=== PATIENT | female | born 1955 | race Caucasian/White ===

== ENCOUNTER → 2018-11-04 | Day surgery (SDC) | payer OTHER ==
--- NOTE | 2018-11-05 16:17 | PATH ---
Cytology Non-Gynecological Report Patient Name: YASEMIN RIVERA [facility]. Rec. #: [id number] /Age/Gender: 1955 (Age: 63) / F Account: [id number] Location: RADIOLOGY INTER Taken: 11/04/2018 Received: 11/04/2018 Reported: 11/05/2018 Physicians: Brenton Child M.D. Specimen(s) Received LEFT THYROID FNA Clinical History Left thyroid nodule, 2.50 x 1.45 x 2.01 cm Final Diagnosis THYROID, LEFT, FINE NEEDLE ASPIRATION: SATISFACTORY FOR EVALUATION. BETHESDA CLASS II: BENIGN. CYTOLOGIC FINDINGS ARE CONSISTENT WITH A BENIGN FOLLICULAR NODULE. SMALL FOLLICULAR CELLS IN A BACKGROUND OF ABUNDANT COLLOID AND SCATTERED MACROPHAGES. Electronically Signed Tasia Robin M.D. Gross Description Received are eight direct smears, four of which are air-dried and Diff-Quik stained, and four of which are alcohol fixed and Pap stained. Also received is 20 ml of bloody formalin from which one cellblock is prepared.
== END | disposition home or self-care (01) ==
LOC: JRADIR 08:19
PROVIDERS: ATTEND Internal Medicine Endocrinology, Diabetes & Metabolism
PROC: 0G9K3ZX Drainage of Thyroid Gland, Percutaneous Approach, Diagnostic (ICD-10-PCS; principal; 2018-11-04)
DX: E04.1 Nontoxic single thyroid nodule (principal)
CPT/HCPCS: 10005; 76942; 88173; 88305-TC

== ENCOUNTER 2019-07-11 08:36 | Day surgery (SDC) | payer OTHER ==
[2019-07-11 09:32] VITALS: BMI 26.2
[2019-07-11] MEDS ORDERED: DEXAMETHASONE SOD PHOSPHATE/PF 10 MG/ML SDV ONE (10:47)
[2019-07-11] MEDS ORDERED: BUPIVACAINE HCL/PF 0.5% (5 MG/ML) 30 ML VIAL IJ ONE (10:48)
[2019-07-11] MEDS ORDERED: MIDAZOLAM HCL 2 MG/2 ML SINGLE DOSE VIAL ONE ×2 (10:48→11:48)
[2019-07-11] MEDS ORDERED: BUPIVACAINE HCL/PF 2.5 MG/ML - 30 ML VIAL IJ ONE (10:53)
--- NOTE | 2019-07-11 10:53 | HP ---
History & Physical Update - History History: Change (see notes) (Patient had a minor cough 1 week ago. She was evaluated by her PCP yesterday and I spoke to him personally. The cough has ressolved and the patient may proceed with surgery. I discussed this with anesthesia as well who agreed we can proceed with surgery) - Physical Physical: No Change - Assessment Assessment: No Change - Plan Plan: No Change
[2019-07-11] MEDS ORDERED: ceFAZolin SODIUM 1 GM VIAL ONE (11:48)
[2019-07-11] MEDS ORDERED: DEXAMETHASONE SOD PHOSPHATE 4 MG/1 ML VIAL ONE (11:49)
[2019-07-11] MEDS ORDERED: ONDANSETRON 4 MG/2 ML VIAL ONE (11:49)
[2019-07-11] MEDS ORDERED: PROPOFOL 20 ML ONE (12:02)
[2019-07-11] MEDS ORDERED: SUCCINYLCHOLINE CHLORIDE 200 MG/10 ML SYRINGE ONE (12:02)
[2019-07-11] MEDS ORDERED: BUPIVACAINE HCL/PF 0.25% (2.5MG/ML) 10 ML VIAL IJ ONE (12:35)
[2019-07-11] MEDS ORDERED: ONDANSETRON 4 MG/2 ML VIAL IVPUSH PRN (13:34)
[2019-07-11] MEDS ORDERED: oxyCODONE HCL 5 MG TABLET PO PRN (13:34)
[2019-07-11] MEDS ORDERED: LACTATED RINGERS SOLUTION 1,000 ML IV SCH (13:45)
[2019-07-11 15:20] VITALS: TEMP 98.1
--- NOTE | 2019-07-11 17:26 | OPR ---
Date of Procedure: 07/11/2019 Procedure: Left Shoulder- 1. Diagnostic arthroscopy. 2. Arthroscopic extensive debridement of glenohumeral joint (79509). 3. Arthroscopic-assisted biceps tenodesis-subpectoral (08159). 4. Arthroscopic subacromial decompression (20196). 5. Arthroscopic rotator cuff repair: Supraspinatus (26594). 6. Distal clavicle resection (81276, append 51 modifier). Preoperative Diagnoses: 1. Rotator cuff tear-Supraspinatus. 2. Biceps tendon degeneration. 3. Glenohumeral synovitis. 4. AC joint arthrosis Postoperative Diagnoses: 1. Rotator cuff tear- Supraspinatus. 2. Biceps tendon degeneration and tenosynovitis. 3. Labral degeneration and fraying; SLAP tear. 4. Chondromalacia of the glenohumeral joint. 5. Glenohumeral synovitis. 6. Subacromial bursitis and adhesions. Surgeon: Spencer Mayorga DO Assistants: Mark Kruse DO Anesthesia: General anesthesia, IV regional with interscalene nerve block Estimated Blood Loss: Minimal Drains: None Total IV Fluids: Per anesthesia record Specimens: None Implants: [employer] 4.5m FootPrint PEEK Buckner. Complications: None Disposition: PACU Condition: Hemodynamically stable Indications: Elissa Salinas presented to us with chronic left shoulder pain that failed conservative measures. Her symptoms, signs, and imaging were consistent with the above noted diagnoses. She ultimately elected to proceed with surgical intervention after discussion of the risks, benefits, alternatives. We discussed risks including but not limited to, bleeding, pain, infection, scarring, damage to neurovascular structures, blood clots, pulmonary embolus, need for additional surgery, incomplete relief of pain, and incomplete return of function. She expressed understanding and wished to proceed. She underwent preoperative medical evaluation clearance and optimization prior to surgery. Procedure Details: She was identified in the preoperative area. The left shoulder was marked as the operative site and consent was completed and confirmed. An interscalene block was performed by a member of the anesthesia team. She was later transferred to the operating room and placed in supine position the operating room. General anesthesia was induced without difficulty. She was repositioned into beach chair with all bony prominences appropriately padded. The neck was in neutral alignment. A surgical time-out was performed identifying the correct patient, procedure, and site. Antibiotics were given within 1 hour prior to surgical incision. The upper extremity was prepped and draped in standard sterile fashion. Examination under anesthesia: Passive range of motion of the right shoulder showed forward elevation of 170, abduction 100, external rotation at side 30, SABER 90, SABIR 40. This was compared to her contralateral shoulder which shows forward elevation of 170, abduction 100 external rotation at side 60, SABER 90, SABIR 40, and internal rotation to her mid thoracic spine. Diagnostic arthroscopy: We began the procedure with the standard posterolateral portal, entered the glenohumeral joint, and an anterior portal was made within the rotator cuff interval under direct visualization with the assistance of a spinal needle. A probe was used to assist with diagnostic arthroscopy and we visualized from both posteriorly and anteriorly. Evaluation of the glenohumeral joint showed mild to moderate synovitis anteriorly and superiorly. The superior labrum had a degenerative tear that was debrided back to a stable base. The anterior labrum was probed and found to be intact. The posterior labrum was probed and found to be intact. There were no loose bodies in the inferior pouch. There was no HAGL lesion. The biceps tendon showed hyperemia. The rotator cuff interval was scarred. The axillary recess was empty. The subscapularis was probed and found to be intact. The rotator cuff was frayed and found to be partially torn from the greater tuberosity. The articular surface of the infraspinatus and teres minor tendons were intact. The glenoid and humeral head showed grade I chondromalacia with significant chondral defects. Evaluation of the subacromial space showed moderate bursitis and adhesions. There was a small acromial spur anteriorly. There was fraying of the CA ligament. The AC joint was arthritis with joint space narrowing and spurring. The rotator cuff showed a high grade partial tear of the supraspinatus tendon, involveing over 75% of the tendon thickness. Arthroscopic extensive debridement of the glenohumeral joint: We used a combination of the arthroscopic motorized shaver and radiofrequency device to perform an extensive debridement inside the glenohumeral joint anteriorly and po steriorly. The hyperemia, erythema, and synovitis of the joint and joint capsule was aggressively debrided both anteriorly and posteriorly. Synovitic fronds were thermally ablated. Labral fraying and degeneration was also resected and debrided to a stable edge anteriorly. The biceps tendon was autotenotomized as it inserted into the superior labral complex and the remaining portion of the biceps tendon was allowed to retract into the bicipital groove for later tenodesis. Visualizing from posteriorly, we used the radiofrequency device to ablate and remove the scar tissue starting with the rotator cuff interval. We stayed lateral to the labrum, released the scar to the lateral surface of the coracoid, and then proceeded more laterally across the rotator interval, ablating the scar tissue all the way to the biceps deirdre region. The subscapularis tendon was identified and carefully protected. The scar above it including the ligaments and capsular tissue was ablated just lateral to the lab ral margin and the scar tissue was resected. Arthroscopic-assisted biceps tenodesis: We made a 2 cm incision along Judah's lines in the axillary fold. Sharp dissection was carried out down to the level of the pectoralis major. The plane between the pectoralis major and the short head of biceps tendon was developed bluntly down to the level of the humeral bone, where we identified the long head of biceps tendon and delivered it retrograde out of the wound. The underlying soft tissue was resected and the bone was frayed with a 1/4-inch osteotome. We then selected a 1.9 SutureFix anchor and placed the anchor high within the bicipital groove underneath the pectoralis major tendon. The sutures were then passed just proximal to the musculotendinous junction of the long head of biceps in an alternating simple versus lasso loop configuration. Tying these sutures down tenodesed the tendon onto the underlying frayed humeral bone. We used an arthroscopic knot pusher to get excellent knot fixation, and then arthroscopic candy cutter hand to cut the remaining length of the suture. The remaining length of the biceps tendon was resected. We confirmed our arthroscopic knots and position of the biceps tendon underneath the pectoralis major with the arthroscope. We thoroughly irrigated the wound. The wound was closed in a buried, deep 2-0 Vicryl stitches, followed by a 3-0 Monocryl subcuticular stitch and then Dermabond skin glue. Arthroscopic subacromial decompression: The subacromial space was entered from posteriorly. A separate anterior-lateral portal and posterior-lateral portal were made for additional instrumentation and visualization. We then visualized the rotator cuff pattern as noted above, and performed our subacromial decompression in a systematic fashion from anterior to posterior and from lateral to medial, removing the bursal tissue carefully. This was done with a radiofrequency device and motorized shaver. The undersurface of the acromion was skeletonized and gently debrided to a flat smooth undersurface. There was an anterior inferior acromial spur that was resected. Arthroscopic rotator cuff repair: We turned our attention to rotator cuff repair of the supraspinatus. We debrided the remnant tissue over the greater tuberosity and debrided frayed tissue from the rotator cuff tendon edge. We debrided the greater tuberosity with a motorized bur to slightly decorticate it, preparing a bony bed to receive the rotator cuff tendon. We passed a high strength suture and ultratape suture through the supraspinatus with the tissue- piercing Firstpass, approximately 1.5 cm from its torn edge. One suture was placed in a horizontal mattress while the other was placed in a simple fashion creating a rip-stop stitch. These two sutures were passed through the lateral row Footprint PEEK anchor and this was impacted into the lateral aspect of the greater tuberosity. This achieved good fixation of the rotator cuff into the greater tuberosity with good compression of the rotator cuff into the the tuberosity footprint from medial to lateral. We promoted some localized bone bleeding and marrow elements with an awl in the lateral aspect of the greater tuberosity. Arthroscopic AC joint resection: The AC joint space was narrowed, with arthritic changes including jong-articular osteophytes and sclerosis. We used the anterior and lateral portals for instrumentation. Soft tissue within the AC joint was removed with a motorized shaver and radiofrequency device. We resected the joint by using a barrel oneil 4 mm in diameter. 2-3 mm of the medial aspect of the acromion was burred to a flat surface and about 6-7 mm of the lateral end of the clavicle was similarly resected with the oenil. The surrounding osteophytes were also resected. The AC joint was stable upon completion of the distal clavicle e xcision. Approximately 1 cm of space was present between the acromion and clavicle after the resection. We thoroughly irrigated the subacromial space and we removed the arthroscopic equipment. Wound closure: The arthroscopic portal incisions were closed with 3-0 Monocryl subcuticular stitch with Steri strips. The axillary incision was closed with 2-0 Vicryl, 3-0 Monocryl subcuticular stitch, and Dermabond skin glue. The shoulder was sterilely dressed and placed in a shoulder immobilizer. Post-operative Details: I spoke with the family regarding the operation after surgery. Postoperative rehabilitation: Arthroscopic rotator cuff repair protocol. The patient will remain in a shoulder immobilizer for 4-6 weeks. Early passive range of motion okay with no limits and advance as tolerated; no pendulums. No strengthening for at least 4-5 months. Attestation for first line production supervisor: Dr. Mark Kruse acted as the first line production supervisor. There was no qualified resident or physician accounts receivable assistant available to do so
[2019-07-11 17:29] VITALS: BP 114/70; PULSE 78
--- NOTE | 2019-07-15 18:13 | PATH ---
Surgical Pathology Report Patient Name: YASEMIN RIVERA [facility]. Rec. #: [id number] /Age/Gender: 1955 (Age: 64) / F Account: [id number] [facility] Taken: 07/11/2019 Received: 07/11/2019 Reported: 07/15/2019 Physicians: Spencer Mayorga DO Specimen(s) Received A: LEFT SHOULDER SHAVINGS B: LEFT BICEPS TENDON Clinical History Left shoulder rotator cuff tear, bursitis, tendinitis Final Diagnosis A. LEFT SHOULDER SHAVING: FIBROADIPOSE TISSUE AND SYNOVIAL TISSUE WITH FOCAL REACTIVE HYPERPLASIA AND FIBROSIS. B. LEFT BICEPS TENDON, EXCISION: TENDINOUS TISSUE WITH MYXOID DEGENERATIVE CHANGE AND FOCAL FIBROSIS. Electronically Signed Alexandre Carmona M.D. Gross Description A. Received in formalin, labeled "left shoulder shaving," is a 5.0 x 4.4 x 0.2 cm. aggregate of kruse-yellow soft tissue fragments. A insurance service representative portion is submitted in one cassette. B. Received in formalin labeled "left biceps tendon," is a 5.3 x 0.8 x 0.4 cm kruse-yellow portion of fibrous tissue, consistent with a portion of tendon. Scientific Glass Blower sections are submitted in one cassette. /07/14/2019 saudi07/14/2019
== END 2019-07-11 17:00 | disposition home or self-care (01) ==
LOC: FASU 08:36
PROVIDERS: ATTEND Orthopaedic Surgery
PROC: 0RNK4ZZ Release Left Shoulder Joint, Percutaneous Endoscopic Approach (ICD-10-PCS; 2019-07-11)
PROC: 0RBK4ZZ Excision of Left Shoulder Joint, Percutaneous Endoscopic Approach (ICD-10-PCS; 2019-07-11)
PROC: 0PBB4ZZ Excision of Left Clavicle, Percutaneous Endoscopic Approach (ICD-10-PCS; 2019-07-11)
PROC: 0LM24ZZ Reattachment of Left Shoulder Tendon, Percutaneous Endoscopic Approach (ICD-10-PCS; principal; 2019-07-11 12:10)
PROC: 0LS24ZZ Reposition Left Shoulder Tendon, Percutaneous Endoscopic Approach (ICD-10-PCS; 2019-07-11 12:10)
DX: M75.112 Incomplete rotator cuff tear or rupture of left shoulder, not specified as traumatic (principal); M65.812 Other synovitis and tenosynovitis, left shoulder; S43.432A Superior glenoid labrum lesion of left shoulder, initial encounter; X58.XXXA Exposure to other specified factors, initial encounter; Y93.9 Activity, unspecified; Y92.9 Unspecified place or not applicable; M94.212 Chondromalacia, left shoulder; M75.02 Adhesive capsulitis of left shoulder; M19.012 Primary osteoarthritis, left shoulder
CPT/HCPCS: 82962; 88304-TC; 94760

== ENCOUNTER 2020-01-30 05:12 | Day surgery (SDC) | payer OTHER ==
--- OUTSIDE RECORDS SUMMARY | 2020-01-21 17:43 | XMS ---
:1955 Author Organization [facility] Care Team Providers Name Role Phone ObeyShailesh castillo Unavailable Shailesh Clark Unavailable ED STAFF PHYSICIAN, STAFF Unavailable Unavailable Gwen Sánchez Unavailable [phone] Catrachito Sánchez Unavailable [phone] Catrachito Sánchez Unavailable [phone] ED STAFF PHYSICIAN Unavailable Unavailable AKWUBA II BEATRICE Unavailable Unavailable ERLIN CASTILLO Unavailable Unavailable MICK AJ Unavailable Unavailable PRINCESS Winston Unavailable Unavailable SLIM FANG Unavailable Unavailable GERRY Hill Unavailable Unavailable Re-disclosure Warning The records that you are about to access may contain information from federally- assisted alcohol or drug abuse programs. If such information is present, then the following federally mandated warning applies: This information has been disclosed to you from records protected by federal confidentiality rules (42 CFR part 2). The federal rules prohibit you from making any further disclosure of this information unless further disclosure is expressly permitted by the written consent of the person to whom it pertains or as otherwise permitted by 42 CFR part 2. A general authorization for the release of medical or other information is NOT sufficient for this purpose. The Federal rules restrict any use of the information to criminally investigate or prosecute any alcohol or drug abuse patient.The records that you are about to access may contain highly sensitive health information, the redisclosure of which is protected by Article 27-F of the [facility] Public Health law. If you continue you may haveaccess to information: Regarding HIV / AIDS; Provided by facilities licensed or operated by the [facility] Office of Mental Health; or Provided by the [facility] Office for People With Developmental Disabilities. If such information is present, then the following [facility] mandated warning applies: This information has been disclosed to you from confidential records which are protected by state law. State law prohibits you from making any further disclosure of this information without the specific written consent of the person to whom it pertains, or as otherwise permitted by law. Any unauthorized further disclosure in violation of state law may result in a fine or alf sentence or both. A general authorization for the release of medical or other information is NOT sufficient authorization for further disclosure. Allergies and Adverse Reactions Type Description Substance Reaction Status Data Source(s ) No Known Allergies No Known Allergies No Known eCW3 ([facility]) No Known Allergies No Known Allergies No Known eCW3 ([facility]) No Known Allergies No Known Allergies No Known eCW3 ([facility]) No Known Allergies No Known Allergies No Known eCW3 ([facility]) No Known Allergies No Known Allergies No Known eCW3 ([facility]) No Known Allergies No Known Allergies No Known eCW3 ([facility]) No Known Allergies No Known Allergies No Known eCW3 ([facility]) No Known Allergies No Known Allergies No Known eCW3 ([facility]) No Known Allergies No Known Allergies No Known eCW3 ([facility]) No Known Allergies No Known Allergies No Known eCW3 ([facility]) No Known Allergies No Known Allergies No Known eCW3 ([facility]) No Known Allergies No Known Allergies No Known eCW3 ([facility]) No Known Allergies No Known Allergies No Known eCW3 ([facility]) No Known Allergies No Known Allergies No Known eCW3 ([facility]) No Known Allergies No Known Allergies No Known eCW3 ([facility]) No Known Allergies No Known Allergies No Known eCW3 ([facility]) No Known Allergies No Known Allergies No Known eCW3 ([facility]) No Known Allergies No Known Allergies No Known eCW3 ([facility]) No Known Allergies No Known Allergies No Known eCW3 ([facility]) No Known Allergies No Known Allergies No Known eCW3 ([facility]) No Known Allergies No Known Allergies No Known eCW3 ([facility]) No Known Allergies No Known Allergies No Known eCW3 ([facility]) No Known Allergies No Known Allergies No Known eCW3 ([facility]) No Known Allergies No Known Allergies No Known eCW3 ([facility]) No Known Allergies No Known Allergies No Known eCW3 ([facility]) No Known Allergies No Known Allergies No Known eCW3 ([facility]) No Known Allergies No Known Allergies No Known eCW3 ([facility]) No Known Allergies No Known Allergies No Known eCW3 ([facility]) No Known Allergies No Known Allergies No Known eCW3 ([facility]) No Known Allergies No Known Allergies No Known eCW3 ([facility]) Propensity to Propensity to Propensity to [facility] EN ([facility] adverse reactions adverse reactions adverse reactions [facility] (disorder) (disorder) (disorder) Center) No Known Allergies No Known Allergies No Known eCW3 ([facility]) No Known Allergies No Known Allergies No Known eCW3 ([facility]) No Known Allergies No Known Allergies No known eCW3 ([facility] (situation) [facility]) No Known Allergies No Known Allergies No known eCW3 ([facility] (situation) [facility]) No Known Allergies No Known Allergies No known eCW3 ([facility] (situation) [facility]) No Known Allergies No Known Allergies No known eCW3 ([facility] (situation) Care) Encounters Encounter Providers Location Date Indications Data Source(s ) Attender: Shailesh [facility]20/[facility] 12:00:00 AM [facility]) Office Attender: Shailesh Erosa 01/06/2020 12:00:00 AM [facility] ([facility]) Office Attender: Shailesh Barnharta 01/06/2020 12:00:00 AM [facility] Office Outpatient Attender: SHAY AKKatherineUBA II H 10/14/2019 01:22:00 [facility]: SHAY AKWUBA II [facility] Outpatient Attender: HAYLEY H 06/17/2019 09:03:00 AM [facility] DANUTAAdmitter: [facility] HAYLEY SLIM DANUTAReferrer: JAME iHll Outpatient Attender: HAYLEY H 06/10/2019 10:03:00 [facility] HAYLEY PRZEVAN DANUTAReferrer: JAME [facility] Outpatient Attender: HAYLEY H 06/03/2019 08:37:00 AM [facility] PRZECLIVEZKA DANUTAAdmitter: [facility] HAYLEY PRZECHODZKA DANUTAReferrer: JAME Hill Outpatient Attender: HAYLEY H 05/23/2019 10:18:00 AM [facility] SASCHAKA DANUTAAdmitter: [facility] HAYLEY PRZECHRISTOPHERKA DANUTAReferrer: JAME Hill Outpatient Attender: HAYLEY H 05/20/2019 08:21:00 AM [facility] PRZECHRISTOPHERKA DANUTAAdmitter: [facility] HAYLEY PRZECHRISTOPHERKA DANUTAReferrer: JAME Hill Outpatient Attender: HAYLEY H 05/13/2019 08:39:00 AM [facility] InstitutePURADAY[facility] HOSPITALDOROTAKA DANUTAAdmitter: [facility] HAYLEY PATRICIAZEVAN DANUTAReferrer: TERRI AJ Outpatient Attender: HAYLEY H 05/01/2019 08:37:00 AM [facility] PRZECHODZKA DANUTAAdmitter: [facility] HAYLEY PRZECHODZKA DANUTAReferrer: JAME Hill Outpatient Attender: HAYLEY H 04/17/2019 08:53:00 AM [facility] PRZECHODZKA DANUTAAdmitter: [facility] HAYLEY PRZECHODZKA DANUTAReferrer: JAME Hill Outpatient Attender: HAYLEY H 04/07/2019 10:20:00 AM [facility] PRZECHODZKA DANUTAAdmitter: [facility] HAYLEY PRZECHODZKA DANUTAReferrer: JAME Hill Emergency Attender: KAMALJIT ED STAFF 04/01/2019 04:07:00 PM [facility] PHYSICIANAttender: STAFF ED EST - 04/01/2019 Medical Center STAFF PHYSICIANAdmitter: 08:16:00 PM [facility] ED STAFF PHYSICIAN Patient discharged. Outpatient Attender: ANNA 03/21/2019 [facility] NEGHASSI 08:24:00 AM EST Medical DANIELAdmitter: ANNA Suzanne nter NEGHASSI ARSENELReferrer: ANNA NEGEMILI CASTILLO Outpatient Attender: HAYLEY H 03/20/2019 [facility] PRZECHODZKA 08:24:00 AM EST Medical DANUTAAdmitter: HAYLEY Ce nter PRZECHODZKA DANUTAReferrer: JAME Hill Outpatient Attender: HAYLEY H 03/13/2019 [facility] PRZECHODZKA 12:29:00 PM EST Medical DANUTAAdmitter: HAYLEY Ce nter PRZECHODZKA DANUTAReferrer: JAME Hill Outpatient Attender: HAYLEY H 03/03/2019 [facility] PRZECHODZKA 08:26:00 AM EDT Medical DANUTAAdmitter: HALYEY Ce nter PRZECHODZKA HAYLEY Outpatient Attender: HAYLEY H 02/20/2019 [facility] PRZECHODZKA 08:22:00 AM EDT Medical DANUTAAdmitter: HAYLEY Ce nter PRZECHODZKA HAYLEY Outpatient [facility] 02/13/2019 eCW3 ([facility] 12:00:00 AM EDT [facility] A28 02/13/2019 Care) 12:00:00 AM EDT Subsequent [facility] 02/11/2019 eCW3 ([facility] 12:00:00 AM EDT [facility] Medical Nutrition A28 02/11/2019 Care) 12:00:00 AM EDT Outpatient Attender: HAYLEY H 02/10/2019 [facility] PRZECHODZKA 09:10:00 AM EDT Medical DANUTAAdmitter: HAYLEY Ce nter PRZECHODZKA DANUTAReferrer: JAME Hill A28-Est Therapy, [facility] 02/04/2019 eCW3 ([facility]-60 [facility] 12:00:00 AM EDT [facility] A28 02/04/2019 Care) 12:00:00 AM EDT Outpatient Attender: HAYLEY H 02/03/2019 [facility] PRZECHODZKA 08:59:00 AM EDT Medical DANUTAAdmitter: HAYLEY Ce nter PRZECHODZKA HAYLEY Outpatient Attender: HAYLEY H 01/23/2019 [facility] PRZECHODZKA 08:55:00 AM EDT Medical DANUTAAdmitter: HAYLEY Ce nter PRZECHODZKA DANUTAReferrer: JAME Hill A28-Est Therapy, [facility] 01/22/2019 eCW3 ([facility]60 [facility] 12:00:00 AM EDT [facility] A28 01/22/2019 Care) 12:00:00 AM EDT Outpatient Attender: HAYLEY H 01/20/2019 [facility] PRZECHODZKA 09:15:00 AM EDT Medical DANUTAAdmitter: HAYLEY Ce nter PRZECHODZKA DANUTAReferrer: JAME Hill Outpatient [facility] 01/16/2019 eCW3 ([facility] 12:00:00 AM EDT [facility] A28 01/16/2019 Care) 12:00:00 AM EDT Outpatient Attender: HAYLEY H 01/09/2019 [facility] PRZECHODZKA 10:35:00 AM EDT Medical DANUTAAdmitter: HAYLEY Ce nter PRZECHODZKA DANUTAReferrer: JAME Hill Outpatient Attender: HAYLEY H 01/07/2019 [facility] PRZECHODTRAVIS 09:21:00 AM EDT Medical DANUTAAdmitter: HAYLEY Ce nter PRZECHODZKA DANUTAReferrer: JAME Hill A28-Est Therapy, [facility] 01/07/2019 eCW3 ([facility]60 [facility] 12:00:00 AM EDT [facility] A28 01/07/2019 Care) 12:00:00 AM EDT Outpatient Attender: HAYLEY H 12/23/2018 [facility] PRZECHODTRAVIS 09:26:00 AM EDT Medical DANUTAAdmitter: HAYLEY Ce nter PRZECHODZKA DANUTAReferrer: JAME Hill (ACO) Medicare [facility] 12/19/2018 eCW3 ( [facility] 12:00:00 AM EDT [facility] A28 12/19/2018 Care) 12:00:00 AM EDT A28-Est Therapy, [facility] 12/18/2018 eCW3 ([facility]-60 minutes [facility] 12:00:00 AM EDT [facility] A28 12/18/2018 Care) 12:00:00 AM EDT Outpatient Attender: HAYLEY H 12/16/2018 [facility] PRZECHODTRAVIS 11:31:00 AM EDT Medical DANUTAAdmitter: HAYLEY Ce nter PRZECHODZKA DANUTAReferrer: JAME Hill Outpatient Attender: HAYLEY H 12/16/2018 [facility] PRZECHODTRAVIS 11:05:00 AM EDT Medical DANUTAAdmitter: HAYLEY Ce nter PRZECHODZKA DANUTAReferrer: JAME Hill A28-Est Therapy [facility] 12/09/2018 eCW3 ([facility] 12:00:00 AM EDT [facility] Evaluation & Mgmt A28 12/09/2018 Care) 20-30 Min 12:00:00 AM EDT Outpatient [facility] 12/05/2018 eCW3 ([facility] on Care Clinic 12:00:00 AM EDT [facility] A28 12/05/2018 Care) 12:00:00 AM EDT A28-Est Therapy, [facility] 12/03/2018 eCW3 ([facility]60 [facility] 12:00:00 AM EDT [facility] A28 12/03/2018 Care) 12:00:00 AM EDT (NBillable) [facility] 12/03/2018 eCW3 ([facility] 12:00:00 AM EDT [facility] ing/Care A28 12/03/2018 Care) Management 12:00:00 AM EDT A28-Est Therapy, [facility] 11/19/2018 eCW3 ([facility]60 [facility] 12:00:00 AM EDT [facility] A28 11/19/2018 Care) 12:00:00 AM EDT A28-Est Therapy [facility] 11/11/2018 eCW3 ([facility]/11/2018 Care) 20-30 Min 12:00:00 AM EDT Outpatient [facility] 11/06/2018 eCW3 ([facility] 12:00:00 AM [facility] A28 11/06/2018 Care) 12:00:00 AM EDT (NBillable) [facility] 10/31/2018 eCW3 ([facility]2018 Care) Management 12:00:00 AM EDT A28-Est Therapy, [facility] 10/30/2018 eCW3 ([facility]) 12:00:00 AM EDT Outpatient [facility] 10/23/2018 eCW3 [facility]2018 Care) 12:00:00 AM EDT Subsequent [facility] 10/22/2018 eCW3 ([facility] 12:00:00 AM [facility] Medical Nutrition A28 10/22/2018 Care) 12:00:00 AM EDT A28-Est Therapy, [facility] 10/16/2018 eCW3 ([facility] 12:00:00 AM EDT [facility] A28 10/16/2018 Care) 12:00:00 AM EDT Outpatient [facility] 10/15/2018 eCW3 ([facility] Clinic 12:00:00 AM EDT - [facility] A28 10/15/2018 Care) 12:00:00 AM EDT A28-Est Therapy [facility] 10/14/2018 eCW3 ([facility] 12:00:00 AM EDT - [facility] Health Evaluation & Mgmt A28 10/14/2018 Care) 20-30 Min 12:00:00 AM EDT (NBillable) [facility] 09/26/2018 eCW3 ([facility] Lab/Outreach[facility] 12:00:00 AM EDT [facility] ing/Care A28 09/26/2018 Care) Management 12:00:00 AM EDT A28-Est Therapy, [facility] 09/24/2018 eCW3 ([facility] 12:00:00 AM EDT [facility] A28 09/24/2018 Care) 12:00:00 AM EDT Outpatient Admitter: GWEN Chaves 09/06/2018 [facility] PRINCESS Winston 10:28:00 AM EDT Medical Center Outpatient Attender: GWEN Chaves 09/06/2018 [facility] PRINCESS HIDALGO 07:22:00 AM EDT - Medical MAdmitter: GWEN 09/06/2018 [place] PRINCESS HIDALGO 10:10:00 AM EDT MReferrer: GWEN Winston Attender: Gwen 09/06/2018 [facility] Princess 07:22:00 AM EDT - ([facility] 09/06/2018 [facility] 07:22:00 AM EDT [facility]) Est Therapy with [facility] 09/02/2018 eCW3 ([facility] 12:00:00 AM EDT - [facility] Evaluation & Mgmt A28 09/02/2018 Care) 20-30 Min 12:00:00 AM EDT Est Therapy, 30 [facility] 08/20/2018 eCW3 ([facility] 12:00:00 AM EDT - [facility] A28 08/20/2018 Care) 12:00:00 AM EDT New Psych [facility] 08/19/2018 eCW3 ([facility] 12:00:00 AM EDT - [facility] A28 08/19/2018 Care) 12:00:00 AM EDT Outpatient Attender: GWEN Chaves 08/14/2018 [facility] PRINCESS HIDALGO 11:37:00 AM EDT Medical MAdmitter: GWEN Winston OutpatientOFFICE/ Attender: [facility] 08/14/2018 [facility] OUTPATIENT VISIT, Ivel 11:37:00 AM EDT - ([facility] 08/14/2018 [place] 11:37:00 AM EDT Medical [place]) Est Therapy, 30 [facility] 08/06/2018 eCW3 ([facility] 12:00:00 AM EDT - [facility] A28 08/06/2018 Care) 12:00:00 AM EDT Outpatient [facility] 08/02/2018 eCW3 ([facility] 12:00:00 AM EDT - [facility] A28 08/02/2018 Care) 12:00:00 AM EDT Est Therapy, [facility] 07/23/2018 [facility] 12:00:00 AM EDT - [facility] A28 07/23/2018 Care) 12:00:00 AM EDT Est Therapy, 30 [facility] 07/09/2018 eCW3 ([facility] 12:00:00 AM EST - [facility] A28 07/09/2018 Care) 12:00:00 AM EST Est Therapy, 30 [facility] 06/25/2018 eCW3 ([facility] 12:00:00 AM EST - [facility] A28 06/25/2018 Care) 12:00:00 AM EST OutpatientOFFICE/ Attender: [facility] 01:14:00 PM EST - ([facility] 06/19/2018 [place] 01:14:00 PM EST Medical Center) Outpatient Admitter: GWEN 06/19/2018 [facility] PRINCESS Winston 12:47:00 PM EST Medical Center Attender: [facility] PM EST - ([facility] 06/19/2018 [place] 12:47:00 PM EST Medical Center) Outpatient [facility] 06/18/2018 eCW3 ([facility] 12:00:00 AM [facility] A28 06/18/2018 Care) 12:00:00 AM EST Subsequent [facility] 06/18/2018 eCW3 ([facility] 12:00:00 AM Medical [facility] A28 06/18/2018 Care) 12:00:00 AM EST Outpatient [facility] 06/17/2018 eCW3 ([facility] 12:00:00 AM A28 06/17/2018 Care) 12:00:00 AM [facility] Outpatient [facility] 05/14/2018 eCW3 ([facility] 12:00:00 AM A28 05/14/2018 Care) 12:00:00 AM [facility] Immunizations Vaccine Date Status Description Data Source(s) New in 2011. IIV4 01/16/2019 completed eCW3 ([place] 01:13:00 PM EDT Health Care) New in 2011. IIV4 01/16/2019 completed eCW3 ([facility] 01:13:00 PM EDT Health Care) New in 2011. IIV4 01/16/2019 completed eCW3 ([facility] 01:13:00 PM EDT Health Care) New in 2011. IIV4 01/16/2019 completed eCW3 ([facility] 01:13:00 PM EDT Health Care) New in 2011. IIV4 01/16/2019 completed eCW3 ([facility] 01:13:00 PM EDT Health Care) New in 2011. IIV4 01/16/2019 completed eCW3 ([facility] 01:13:00 PM EDT Health Care) New in 2011. IIV4 01/24/2018 completed eCW3 ([facility] 09:13:00 AM EDT Health Care) New in 2011. IIV4 01/24/2018 completed eCW3 ([facility] 09:13:00 AM EDT Health Care) New in 2011. IIV4 01/24/2018 completed eCW3 ([facility] 09:13:00 AM EDT Health Care) New in 2011. IIV4 01/24/2018 completed eCW3 ([facility] 09:13:00 AM EDT Health Care) New in 2011. IIV4 01/24/2018 completed eCW3 ([facility] 09:13:00 AM EDT Health Care) New in 2011. IIV4 01/24/2018 completed eCW3 ([facility] 09:13:00 AM EDT Health Care) IIV3. This is one of two 02/13/2017 completed eCW 3 ([place] codes replacing CVX 15, 08:34:00 AM EDT H ealth Care) which is being retired. IIV3. This is one of two 02/13/2017 completed eCW 3 ([place] codes replacing CVX 15, 08:34:00 AM EDT H ealth Care) which is being retired. IIV3. This is one of two 02/13/2017 completed eCW 3 ([place] codes replacing CVX 15, 08:34:00 AM EDT H ealth Care) which is being retired. IIV3. This is one of two 02/13/2017 completed eCW 3 ([place] codes replacing CVX 15, 08:34:00 AM EDT H ealth Care) which is being retired. IIV3. This is one of two 02/13/2017 completed eCW 3 ([place] codes replacing CVX 15, 08:34:00 AM EDT H ealth Care) which is being retired. IIV3. This is one of two 02/13/2017 completed eCW 3 ([place] codes replacing CVX 15, 08:34:00 AM EDT H ealth Care) which is being retired. New in 2011. IIV4 01/08/2014 completed eCW3 ([facility] 10:51:00 AM EDT Health Care) New in 2011. IIV4 01/08/2014 completed eCW3 ([facility] 10:51:00 AM EDT Health Care) New in 2011. IIV4 01/08/2014 completed eCW3 ([facility] 10:51:00 AM EDT Health Care) New in 2011. IIV4 01/08/2014 completed eCW3 ([facility] 10:51:00 AM EDT Health Care) New in 2011. IIV4 01/08/2014 completed eCW3 ([facility] 10:51:00 AM EDT Health Care) New in 2011. IIV4 01/08/2014 completed eCW3 ([facility] 10:51:00 AM EDT Health Care) IIV3. This vaccine code is 01/10/2013 completed e CW3 ([place] one of two which replace 12:30:52 PM EDT Health Care) CVX 15, influenza, split virus. IIV3. This vaccine code is 01/10/2013 completed e CW3 ([place] one of two which replace 12:30:52 PM EDT Health Care) CVX 15, influenza, split virus. IIV3. This vaccine code is 01/10/2013 completed e CW3 ([place] one of two which replace 12:30:52 PM EDT Health Care) CVX 15, influenza, split virus. IIV3. This vaccine code is 01/10/2013 completed e CW3 ([place] one of two which replace 12:30:52 PM EDT Health Care) CVX 15, influenza, split virus. IIV3. This vaccine code is 01/10/2013 completed e CW3 ([place] one of two which replace 12:30:52 PM EDT Health Care) CVX 15, influenza, split virus. IIV3. This vaccine code is 01/10/2013 completed e CW3 ([place] one of two which replace 12:30:52 PM EDT Health Care) CVX 15, influenza, split virus. IIV3. This vaccine code is 02/06/2012 completed e CW3 ([place] one of two which replace 01:46:02 PM EDT Health Care) CVX 15, influenza, split virus. IIV3. This vaccine code is 02/06/2012 completed e CW3 ([place] one of two which replace 01:46:02 PM EDT Health Care) CVX 15, influenza, split virus. IIV3. This vaccine code is 02/06/2012 completed e CW3 ([place] one of two which replace 01:46:02 PM EDT Health Care) CVX 15, influenza, split virus. IIV3. This vaccine code is 02/06/2012 completed e CW3 ([place] one of two which replace 01:46:02 PM EDT Health Care) CVX 15, influenza, split virus. IIV3. This vaccine code is 02/06/2012 completed e CW3 ([place] one of two which replace 01:46:02 PM EDT Health Care) CVX 15, influenza, split virus. IIV3. This vaccine code is 02/06/2012 completed e CW3 ([place] one of two which replace 01:46:02 PM EDT Health Care) CVX 15, influenza, split virus. IIV3. This vaccine code is 01/10/2012 completed e CW3 ([place] one of two which replace 10:44:51 AM EDT Health Care) CVX 15, influenza, split virus. IIV3. This vaccine code is 01/10/2012 completed e CW3 ([place] one of two which replace 10:44:51 AM EDT Health Care) CVX 15, influenza, split virus. IIV3. This vaccine code is 01/10/2012 completed e CW3 ([place] one of two which replace 10:44:51 AM EDT Health Care) CVX 15, influenza, split virus. IIV3. This vaccine code is 01/10/2012 completed e CW3 ([place] one of two which replace 10:44:51 AM EDT Health Care) CVX 15, influenza, split virus. IIV3. This vaccine code is 01/10/2012 completed e CW3 ([place] one of two which replace 10:44:51 AM EDT Health Care) CVX 15, influenza, split virus. IIV3. This vaccine code is 01/10/2012 completed e CW3 ([place] one of two which replace 10:44:51 AM EDT Health Care) CVX 15, influenza, split virus. Tdap 02/09/2011 completed eCW3 ([place] 09:59:43 AM EDT Health Care) Tdap 02/09/2011 completed eCW3 ([facility] 09:59:43 AM EDT [facility]) Tdap 02/09/2011 completed eCW3 ([facility] 09:59:43 AM EDT [facility] Care) Tdap 02/09/2011 completed eCW3 ([facility] 09:59:43 AM EDT [facility] Care) Tdap 02/09/2011 completed eCW3 ([facility] 09:59:43 AM EDT [facility] Care) Tdap 02/09/2011 completed eCW3 ([facility] pancho 09:59:43 AM [facility]) This code applies to any 02/09/2011 completed eCW 3 ([facility] pediatric 09:58:34 AM [facility]) formulation of Hepatitis B vaccine. It should not be used for the 2-dose hepatitis B schedule for adolescents (11-15 year olds). It requires Merck's Recombivax HB adult formulation. Use code 43 for that vaccine. This code applies to any 02/09/2011 completed eCW 3 ([facility] pediatric 09:58:34 AM [facility]) formulation of Hepatitis B vaccine. It should not be used for the 2-dose hepatitis B schedule for adolescents (11-15 year olds). It requires Merck's Recombivax HB adult formulation. Use code 43 for that vaccine. This code applies to any 02/09/2011 completed eCW 3 ([facility] pediatric 09:58:34 AM [facility]) formulation of Hepatitis B vaccine. It should not be used for the 2-dose hepatitis B schedule for adolescents (11-15 year olds). It requires Merck's Recombivax HB adult formulation. Use code 43 for that vaccine. This code applies to any 02/09/2011 completed eCW 3 ([facility] pediatric 09:58:34 AM [facility]) formulation of Hepatitis B vaccine. It should not be used for the 2-dose hepatitis B schedule for adolescents (11-15 year olds). It requires Merck's Recombivax HB adult formulation. Use code 43 for that vaccine. This code applies to any 02/09/2011 completed eCW 3 ([facility] pediatric 09:58:34 AM [facility]) formulation of Hepatitis B vaccine. It should not be used for the 2-dose hepatitis B schedule for adolescents (11-15 year olds). It requires Merck's Recombivax HB adult formulation. Use code 43 for that vaccine. This code applies to any 02/09/2011 completed eCW 3 ([facility] pediatric 09:58:34 AM [facility]) formulation of Hepatitis B vaccine. It should not be used for the 2-dose hepatitis B schedule for adolescents (11-15 year olds). It requires Merck's Recombivax HB adult formulation. Use code 43 for that vaccine. IIV3. This is one of two 12/29/2010 completed eCW 3 ([facility] codes replacing CVX 15, 10:49:47 AM EDT [facility]) which is being retired. IIV3. This is one of two 12/29/2010 completed eCW 3 ([facility] codes replacing CVX 15, 10:49:47 AM EDT [facility]) which is being retired. IIV3. This is one of two 12/29/2010 completed eCW 3 ([facility] codes replacing CVX 15, 10:49:47 AM EDT [facility]) which is being retired. IIV3. This is one of two 12/29/2010 completed eCW 3 ([facility] codes replacing CVX 15, 10:49:47 AM EDT [facility]) which is being retired. IIV3. This is one of two 12/29/2010 completed eCW 3 ([facility] codes replacing CVX 15, 10:49:47 AM EDT [facility]) which is being retired. IIV3. This is one of two 12/29/2010 completed eCW 3 ([facility] codes replacing CVX 15, 10:49:47 AM EDT [facility]) which is being retired. This code applies to any 09/23/2010 completed eCW 3 ([facility] standard pediatric 09:29:28 AM [facility]) formulation of Hepatitis B vaccine. It should not be used for the 2-dose hepatitis B schedule for adolescents (11-15 year olds). It requires Merck's Recombivax HB adult formulation. Use code 43 for that vaccine. This code applies to any 09/23/2010 completed eCW 3 ([facility] 09:29:28 AM [facility]) formulation of Hepatitis B vaccine. It should not be used for the 2-dose hepatitis B schedule for adolescents (11-15 year olds). It requires Merck's Recombivax HB adult formulation. Use code 43 for that vaccine. This code applies to any 09/23/2010 completed eCW 3 ([facility] pediatric 09:29:28 AM [facility]) formulation of Hepatitis B vaccine. It should not be used for the 2-dose hepatitis B schedule for adolescents (11-15 year olds). It requires Merck's Recombivax HB adult formulation. Use code 43 for that vaccine. This code applies to any 09/23/2010 completed eCW 3 ([facility] pediatric 09:29:28 AM [facility]) formulation of Hepatitis B vaccine. It should not be used for the 2-dose hepatitis B schedule for adolescents (11-15 year olds). It requires Merck's Recombivax HB adult formulation. Use code 43 for that vaccine. This code applies to any 09/23/2010 completed eCW 3 ([facility] pediatric 09:29:28 AM [facility]) formulation of Hepatitis B vaccine. It should not be used for the 2-dose hepatitis B schedule for adolescents (11-15 year olds). It requires Merck's Recombivax HB adult formulation. Use code 43 for that vaccine. This code applies to any 09/23/2010 completed eCW 3 ([facility] pediatric 09:29:28 AM [facility]) formulation of Hepatitis B vaccine. It should not be used for the 2-dose hepatitis B schedule for adolescents (11-15 year olds). It requires Merck's Recombivax HB adult formulation. Use code 43 for that vaccine. This code applies to any 08/19/2010 completed eCW 3 ([facility] pediatric 10:27:41 AM [facility]) formulation of Hepatitis B vaccine. It should not be used for the 2-dose hepatitis B schedule for adolescents (11-15 year olds). It requires Merck's Recombivax HB adult formulation. Use code 43 for that vaccine. This code applies to any 08/19/2010 completed eCW 3 ([facility] pediatric 10:27:41 AM [facility]) formulation of Hepatitis B vaccine. It should not be used for the 2-dose hepatitis B schedule for adolescents (11-15 year olds). It requires Merck's Recombivax HB adult formulation. Use code 43 for that vaccine. This code applies to any 08/19/2010 completed eCW 3 ([facility] pediatric 10:27:41 AM [facility]) formulation of Hepatitis B vaccine. It should not be used for the 2-dose hepatitis B schedule for adolescents (11-15 year olds). It requires Merck's Recombivax HB adult formulation. Use code 43 for that vaccine. This code applies to any 08/19/2010 completed eCW 3 ([facility] standard pediatric 10:27:41 AM [facility]) formulation of Hepatitis B vaccine. It should not be used for the 2-dose hepatitis B schedule for adolescents (11-15 year olds). It requires Merck's Recombivax HB adult formulation. Use code 43 for that vaccine. This code applies to any 08/19/2010 completed eCW 3 ([facility] pediatric 10:27:41 AM [facility]) formulation of Hepatitis B vaccine. It should not be used for the 2-dose hepatitis B schedule for adolescents (11-15 year olds). It requires Merck's Recombivax HB adult formulation. Use code 43 for that vaccine. This code applies to any 08/19/2010 completed eCW 3 ([facility] pediatric 10:27:41 AM [facility]) formulation of Hepatitis B vaccine. It should not be used for the 2-dose hepatitis B schedule for adolescents (11-15 year olds). It requires Merck's Recombivax HB adult formulation. Use code 43 for that vaccine. pneumococcal 05/26/2010 completed eCW3 ([facility] polysaccharide PPV23 03:54:35 PM EST [facility]) pneumococcal 05/26/2010 completed eCW3 ([facility] polysaccharide PPV23 03:54:35 PM EST [facility]) pneumococcal 05/26/2010 completed eCW3 ([facility] polysaccharide PPV23 03:54:35 PM EST [facility]) pneumococcal 05/26/2010 completed eCW3 ([facility] polysaccharide PPV23 03:54:35 PM EST [facility]) pneumococcal 05/26/2010 completed eCW3 ([facility] polysaccharide PPV23 03:54:35 PM EST [facility]) pneumococcal 05/26/2010 completed eCW3 ([facility] polysaccharide PPV23 03:54:35 PM EST [facility]) IIV3. This is one of two 05/26/2010 completed eCW 3 ([facility] codes replacing CVX 15, 03:54:28 PM EST [facility]) which is being retired. IIV3. This is one of two 05/26/2010 completed eCW 3 ([facility] codes replacing CVX 15, 03:54:28 PM EST [facility]) which is being retired. IIV3. This is one of two 05/26/2010 completed eCW 3 ([facility] codes replacing CVX 15, 03:54:28 PM EST [facility]) which is being retired. IIV3. This is one of two 05/26/2010 completed eCW 3 ([facility] codes replacing CVX 15, 03:54:28 PM EST [facility]) which is being retired. IIV3. This is one of two 05/26/2010 completed eCW 3 ([facility] codes replacing CVX 15, 03:54:28 PM EST [facility]) which is being retired. IIV3. This is one of two 05/26/2010 completed eCW 3 ([facility] codes replacing CVX 15, 03:54:28 PM EST [facility]) which is being retired. Medications Medication Brand Start Product Dose Route Administrative Pharmacy St atus Indications Reaction Description Data Name Date Form Instructions Instructions Source(s) Blood Blood 11/19/ active Blood eCW3 Glucose Glucos 2020 Glucose ([facility] 12[facility]: [facility] [place] 00 AM System Health w/Device r EDT w/Device Care) System w/Janis ce Blood Blood 11/19/ active Blood eCW3 Glucose Glucos 2020 Glucose ([facility] 12:[facility]: [facility] [place] 00 AM System Health w/Device r EDT w/Device Care) System w/Janis ce Blood Blood 11/19/ active Blood eCW3 Glucose Glucos 2020 Glucose ([facility] 12:[facility]: [facility] [place] 00 AM System Health w/Device r EDT w/Device Care) System w/Janis ce Blood Blood 11/19/ active Blood eCW3 Glucose Glucos 2020 Glucose ([facility] 12:[facility]: [facility] [place] 00 AM System Health w/Device r EDT w/Device Care) System w/Janis ce Blood Blood 16/ active Blood eCW3 Glucose Glucos 2020 Glucose ([facility] 12:[facility]: [facility] [place] 00 AM System Health w/Device r EDT w/Device Care) System w/Janis ce Blood Blood 11/19/ active Blood eCW3 Glucose Glucos 2020 Glucose ([facility] 12:[facility]: [facility] [place] 00 AM System Health w/Device r EDT w/Device Care) System w/Janis ce Blood Blood 11/19/ active Blood eCW3 Glucose Glucos 2020 Glucose ([facility] 12:[facility]: [facility] [place] 00 AM System Health w/Device r EDT w/Device Care) System w/Janis ce Blood Blood 11/19/ active Blood eCW3 Glucose Glucos 2020 Glucose ([facility] 12:[facility]: [facility] [place] 00 AM System Health w/Device r EDT w/Device Care) System w/Janis ce Blood Blood 11/19/ active Blood eCW3 Glucose Glucos 2020 Glucose ([facility] 12:[facility]: [facility] [place] 00 AM System Health w/Device r EDT w/Device Care) System w/Janis ce Hydroxyzine HydrOX .0 active HydrOXY zine eCW3 Hydrochlori Yzine 2019 {tabl HCl 25 MG ( [facility] 25 MG HCl 25 12:00: et_[facility] Tablet MG 00 AM _need Health HydrOXYzine EDT ed} Care) HCl 25 MG Hydroxyzine HydrOX .0 active HydrOXY zine eCW3 Hydrochlori Yzine 2019 {tabl HCl 25 MG ( [facility] 25 MG HCl 25 12:00: [facility] Tablet MG 00 AM _need Health HydrOXYzine EDT ed} Care) HCl 25 MG Diclofenac Diclof 10/13/ active Diclofen ac eCW3 Sodium 0.01 enac 2020 Sodium 1 % ([facility] MG/MG Sodium 12:00: [facility] Topical Gel 1 % 00 AM Health Diclofenac EDT Care) Sodium 1 % Hydroxyzine HydrOX .0 active HydrOXY zine eCW3 Hydrochlori Yzine 2019 {tabl HCl 25 MG ( [facility] 25 MG HCl 25 12:00: [facility] Oral Tablet MG 00 AM _need Health HydrOXYzine EDT ed} Care) HCl 25 MG Diclofenac Diclof 10/13/ active Diclofen ac eCW3 Sodium 0.01 enac 2020 Sodium 1 % ([facility] MG/MG Sodium 12:00: [facility] Topical Gel 1 % 00 AM Health Diclofenac EDT Care) Sodium 1 % Diclofenac Diclof 10/13/ active Diclofen ac eCW3 Sodium 0.01 enac 2020 Sodium 1 % ([facility] MG/MG Sodium 12:00: [facility] Topical Gel 1 % 00 AM Health Diclofenac EDT Care) Sodium 1 % Diclofenac Diclof 10/13/ active Diclofen ac eCW3 Sodium 0.01 enac 2020 Sodium 1 % ([facility] MG/MG Sodium 12:00: [facility] Topical Gel 1 % 00 AM Health Diclofenac EDT Care) Sodium 1 % Diclofenac Diclof 10/13/ active Diclofen ac eCW3 Sodium 0.01 enac 2020 Sodium 1 % ([facility] MG/MG Sodium 12:00: [facility] Topical Gel 1 % 00 AM Health Diclofenac EDT Care) Sodium 1 % Diclofenac Diclof 10/13/ active Diclofen ac eCW3 Sodium 0.01 enac 2020 Sodium 1 % ([facility] MG/MG Sodium 12:00: [facility] Topical Gel 1 % 00 AM Health Diclofenac EDT Care) Sodium 1 % Hydroxyzine HydrOX .0 active HydrOXY zine eCW3 Hydrochlori Yzine 2019 {tabl HCl 25 MG ( [facility] 25 MG HCl 25 12:00: [facility] Tablet MG 00 AM _need Health HydrOXYzine EDT ed} Care) HCl 25 MG Diclofenac Diclof 10/13/ active Diclofen ac eCW3 Sodium 0.01 enac 2020 Sodium 1 % ([facility] MG/MG Sodium 12:00: [facility] Topical Gel 1 % 00 AM Health Diclofenac EDT Care) Sodium 1 % Hydroxyzine HydrOX .0 active HydrOXY zine eCW3 Hydrochlori Yzine 2019 {tabl HCl 25 MG ( [facility] 25 MG HCl 25 12:00: [facility] Tablet MG 00 AM _need Health HydrOXYzine EDT ed} Care) HCl 25 MG Diclofenac Diclof 10/13/ active Diclofen ac eCW3 Sodium 0.01 enac 2020 Sodium 1 % ([facility] MG/MG Sodium 12:00: [facility] Topical Gel 1 % 00 AM Health Diclofenac EDT Care) Sodium 1 % Hydroxyzine HydrOX .0 active HydrOXY zine eCW3 Hydrochlori Yzine 2019 {tabl HCl 25 MG ( [facility] 25 MG HCl 25 12:00: [facility] Tablet MG 00 AM _need Health HydrOXYzine EDT ed} Care) HCl 25 MG Diclofenac Diclof 10/13/ active Diclofen ac eCW3 Sodium 0.01 enac 2020 Sodium 1 % ([facility] MG/MG Sodium 12:00: [facility] Topical Gel 1 % 00 AM Health Diclofenac EDT Care) Sodium 1 % Diclofenac Diclof 10/13/ active Diclofen ac eCW3 Sodium 0.01 2020 Sodium 1 % ([facility] MG/MG Sodium 12:00: [facility] Topical Gel 1 % 00 AM Health Diclofenac EDT Care) Sodium 1 % Hydroxyzine HydrOX .0 active HydrOXY zine eCW3 Hydrochlori Yzine 2019 {tabl HCl 25 MG ( [facility] 25 MG HCl 25 12:00: [facility] Tablet MG 00 AM _need Health HydrOXYzine EDT ed} Care) HCl 25 MG Diclofenac Diclof 10/13/ active Diclofen ac eCW3 Sodium 0.01 2020 Sodium 1 % ([facility] MG/MG Sodium 12:00: [facility] Topical Gel 1 % 00 AM Health Diclofenac EDT Care) Sodium 1 % Hydroxyzine HydrOX .0 active HydrOXY zine eCW3 Hydrochlori Yzine 2019 {tabl HCl 25 MG ( [facility] 25 MG HCl 25 12:00: [facility] Tablet MG 00 AM _need Health HydrOXYzine EDT ed} Care) HCl 25 MG Diclofenac Diclof 10/13/ active Diclofen ac eCW3 Sodium 0.01 2020 Sodium 1 % ([facility] MG/MG Sodium 12:00: [facility] Topical Gel 1 % 00 AM Health Diclofenac EDT Care) Sodium 1 % Diclofenac Diclof 10/13/ active Diclofen ac eCW3 Sodium 0.01 2020 Sodium 1 % ([facility] MG/MG Sodium 12:00: [facility] Topical Gel 1 % 00 AM Health Diclofenac EDT Care) Sodium 1 % Diclofenac Diclof 10/13/ active Diclofen ac eCW3 Sodium 0.01 2020 Sodium 1 % ([facility] MG/MG Sodium 12:00: [facility] Topical Gel 1 % 00 AM Health Diclofenac EDT Care) Sodium 1 % Hydroxyzine HydrOX .0 active HydrOXY zine eCW3 Hydrochlori Yzine 2019 {tabl HCl 25 MG ( [facility] 25 MG HCl 25 12:00: [facility] Oral Tablet MG 00 AM _need Health HydrOXYzine EDT ed} Care) HCl 25 MG Hydroxyzine HydrOX .0 active HydrOXY zine eCW3 Hydrochlori Yzine 2019 {tabl HCl 25 MG ( [facility] 25 MG HCl 25 12:00: [facility] Tablet MG 00 AM _need Health HydrOXYzine EDT ed} Care) HCl 25 MG Hydroxyzine HydrOX .0 active HydrOXY zine eCW3 Hydrochlori Yzine 2019 {tabl HCl 25 MG ( [facility] 25 MG HCl 25 12:00: [facility] Tablet MG 00 AM _need Health HydrOXYzine EDT ed} Care) HCl 25 MG Hydroxyzine HydrOX .0 active HydrOXY zine eCW3 Hydrochlori Yzine 2019 {tabl HCl 25 MG ( [facility] 25 MG HCl 25 12:00: [facility] Tablet MG 00 AM _need Health HydrOXYzine EDT ed} Care) HCl 25 MG Hydroxyzine HydrOX .0 active HydrOXY zine eCW3 Hydrochlori Yzine 2019 {tabl HCl 25 MG ( [facility] 25 MG HCl 25 12:00: [facility] Oral Tablet MG 00 AM _need Health HydrOXYzine EDT ed} Care) HCl 25 MG Hydroxyzine HydrOX .0 active HydrOXY zine eCW3 Hydrochlori Yzine 2019 {tabl HCl 25 MG ( [facility] 25 MG HCl 25 12:00: [facility] Oral Tablet MG 00 AM _need Health HydrOXYzine EDT ed} Care) HCl 25 MG Diclofenac Diclof 10/13/ active Diclofen ac eCW3 Sodium 0.01 enac 2019 Sodium 1 % ([facility] MG/MG Sodium 12:00: [facility] Topical Gel 1 % 00 AM Health Diclofenac EDT Care) Sodium 1 % Hydroxyzine HydrOX .0 active HydrOXY zine eCW3 Hydrochlori Yzine 2019 {tabl HCl 25 MG ( [facility] 25 MG HCl 25 12:00: [facility] Tablet MG 00 AM _need Health HydrOXYzine EDT ed} Care) HCl 25 MG Heating Pad Heatin 09/21/ active Heating Pad eCW3 - g Pad 2019 - ([facility] - 12[facility]00: [facility] 00 AM Health EDT Care) Heating Pad Heatin 09/21/ active Heating Pad eCW3 - g Pad 2019 - ([facility] - 12:00: [facility] 00 AM Health EDT Care) Heating Pad Heatin 05/18/ active Heating Pad eCW3 - g Pad 2020 - ([facility] - :00: [facility] 00 AM Health EDT Care) Heating Pad Heatin 05/18/ active Heating Pad eCW3 - g Pad 2020 - ([facility] - :00: [facility] 00 AM Health EDT Care) Heating Pad Heatin 05/18/ active Heating Pad eCW3 - g Pad 2020 - ([facility] - :00: [facility] 00 AM Health EDT Care) Heating Pad Heatin 05/18/ active Heating Pad eCW3 - g Pad 2020 - ([facility] - :00: [facility] 00 AM Health EDT Care) Heating Pad Heatin 05/18/ active Heating Pad eCW3 - g Pad 2020 - (:00: [facility] 00 AM Health EDT Care) Heating Pad Heatin 05/18/ active Heating Pad eCW3 - g Pad 2020 - (:00: [facility] 00 AM Health EDT Care) Heating Pad Heatin 05/18/ active Heating Pad eCW3 - g Pad 2020 - (:: [facility] 00 AM Health EDT Care) Heating Pad Heatin 05/18/ active Heating Pad eCW3 - g Pad 2020 - ([facility] - :00: [facility] 00 AM Health EDT Care) Heating Pad Heatin 05/18/ active Heating Pad eCW3 - g Pad 2020 - (:: [facility] 00 AM Health EDT Care) Heating Pad Heatin 05/18/ active Heating Pad eCW3 - g Pad 2020 - ([facility] - :00: [facility] 00 AM Health EDT Care) Heating Pad Heatin 05/18/ active Heating Pad eCW3 - g Pad 2020 - ([facility] - :00: [facility] 00 AM Health EDT Care) Heating Pad Heatin 05/18/ active Heating Pad eCW3 - g Pad 2020 - ([facility] - :00: [facility] 00 AM Health EDT Care) Heating Pad Heatin 05/18/ active Heating Pad eCW3 - g Pad 2020 - ([facility] - :00: [facility] 00 AM Health EDT Care) Heating Pad Heatin 05/18/ active Heating Pad eCW3 - g Pad 2020 - ([facility] - :00: [facility] 00 AM Health EDT Care) Heating Pad Heatin 05/ active Heating Pad eCW3 - g Pad 2020 - ([facility] - :00: [facility] 00 AM Health EDT Care) Heating Pad Heatin 0518/ active Heating Pad eCW3 - g Pad 2020 - ([facility] - :00: [facility] 00 AM Health EDT Care) Heating Pad Heatin 0518/ active Heating Pad eCW3 - g Pad 2020 - ([facility] - :00: [facility] 00 AM Health EDT Care) Heating Pad Heatin 18/ active Heating Pad eCW3 - g Pad 2020 - ([facility] - :00: [facility] 00 AM Health EDT Care) Heating Pad Heatin 0518/ active Heating Pad eCW3 - g Pad 2020 - ([facility] - :00: [facility] 00 AM Health EDT Care) Sertraline Sertra .0 active Sertrali ne eCW3 50 MG Oral line 2019 {tabl HCl 50 MG ([facility] Tablet HCl 50 12:00: et} [facility] Sertraline MG 00 AM Health HCl 50 MG EDT Care) Sertraline Sertra .0 active Sertrali ne eCW3 50 MG Oral line 2019 {tabl HCl 50 MG ([facility] Tablet HCl 50 12:00: et} [facility] Sertraline MG 00 AM Health HCl 50 MG EDT Care) Sertraline Sertra .0 active Sertrali ne eCW3 50 MG Oral line 2019 {tabl HCl 50 MG ([facility] Tablet HCl 50 12:00: et} [facility] Sertraline MG 00 AM Health HCl 50 MG EDT Care) Sertraline Sertra .0 active Sertrali ne eCW3 50 MG Oral line 2019 {tabl HCl 50 MG ([facility] Tablet HCl 50 12:00: et} [facility] Sertraline MG 00 AM Health HCl 50 MG EDT Care) Sertraline Sertra .0 active Sertrali ne eCW3 50 MG Oral line 2019 {tabl HCl 50 MG ([facility] Tablet HCl 50 12:00: et} [facility] Sertraline MG 00 AM Health HCl 50 MG EDT Care) Sertraline Sertra .0 active Sertrali ne eCW3 50 MG Oral line 2019 {tabl HCl 50 MG ([facility] Tablet HCl 50 12:00: et} [facility] Sertraline MG 00 AM Health HCl 50 MG EDT Care) Sertraline Sertra .0 active Sertrali ne eCW3 50 MG Oral line 2019 {tabl HCl 50 MG ([facility] Tablet HCl 50 12:00: et} [facility] Sertraline MG 00 AM Health HCl 50 MG EDT Care) Sertraline Sertra .0 active Sertrali ne eCW3 50 MG Oral line 2019 {tabl HCl 50 MG ([facility] Tablet HCl 50 12:00: et} [facility] Sertraline MG 00 AM Health HCl 50 MG EDT Care) Sertraline Sertra .0 active Sertrali ne eCW3 25 MG Oral line 2019 {tabl HCl 25 MG ([facility] Tablet HCl 25 12:00: et} [facility] Sertraline MG 00 AM Health HCl 25 MG EDT Care) Sertraline Sertra .0 active Sertrali ne eCW3 50 MG Oral line 2019 {tabl HCl 50 MG ([facility] Tablet HCl 50 12:00: et} [facility] Sertraline MG 00 AM Health HCl 50 MG EDT Care) Sertraline Sertra .0 active Sertrali ne eCW3 50 MG Oral line 2019 {tabl HCl 50 MG ([facility] Tablet HCl 50 12:00: et} [facility] Sertraline MG 00 AM Health HCl 50 MG EDT Care) Sertraline Sertra .0 active Sertrali ne eCW3 50 MG Oral line 2019 {tabl HCl 50 MG ([facility] Tablet HCl 50 12:00: et} [facility] Sertraline MG 00 AM Health HCl 50 MG EDT Care) Sertraline Sertra .0 active Sertrali ne eCW3 50 MG Oral line 2019 {tabl HCl 50 MG ([facility] Tablet HCl 50 12:00: et} [facility] Sertraline MG 00 AM Health HCl 50 MG EDT Care) Sertraline Sertra .0 active Sertrali ne eCW3 50 MG Oral line 2019 {tabl HCl 50 MG ([facility] Tablet HCl 50 12:00: et} [facility] Sertraline MG 00 AM Health HCl 50 MG EDT Care) Sertraline Sertra .0 active Sertrali ne eCW3 50 MG Oral line 2019 {tabl HCl 50 MG ([facility] Tablet HCl 50 12:00: et} [facility] Sertraline MG 00 AM Health HCl 50 MG EDT Care) Sertraline Sertra .0 active Sertrali ne eCW3 50 MG Oral line 2019 {tabl HCl 50 MG ([facility] Tablet HCl 50 12:00: et} [facility] Sertraline MG 00 AM Health HCl 50 MG EDT Care) Sertraline Sertra .0 active Sertrali ne eCW3 50 MG Oral line 2019 {tabl HCl 50 MG ([facility] Tablet HCl 50 12:00: et} [facility] Sertraline MG 00 AM Health HCl 50 MG EDT Care) Sertraline Sertra .0 active Sertrali ne eCW3 50 MG Oral line 2019 {tabl HCl 50 MG ([facility] Tablet HCl 50 12:00: et} [facility] Sertraline MG 00 AM Health HCl 50 MG EDT Care) Sertraline Sertra .0 active Sertrali ne eCW3 50 MG Oral line 2019 {tabl HCl 50 MG ([facility] Tablet HCl 50 12:00: et} [facility] Sertraline MG 00 AM Health HCl 50 MG EDT Care) Sertraline Sertra .0 active Sertrali ne eCW3 25 MG Oral line 2019 {tabl HCl 25 MG ([facility] Tablet HCl 25 12:00: et} [facility] Sertraline MG 00 AM Health HCl 25 MG EDT Care) Sertraline Sertra .0 active Sertrali ne eCW3 50 MG Oral line 2019 {tabl HCl 50 MG ([facility] Tablet HCl 50 12:00: et} [facility] Sertraline MG 00 AM Health HCl 50 MG EDT Care) Sertraline Sertra .0 active Sertrali ne eCW3 50 MG Oral line 2019 {tabl HCl 50 MG ([facility] Tablet HCl 50 12:00: et} [facility] Sertraline MG 00 AM Health HCl 50 MG EDT Care) Sertraline Sertra .0 active Sertrali ne eCW3 50 MG Oral line 2020 {tabl HCl 50 MG ([facility] Tablet HCl 50 12:00: et} [facility] Sertraline MG 00 AM Health HCl 50 MG EDT Care) Ketoconazol Ketoco 08/05/ active Ketocon azole eCW3 e 20 MG/ML nazole 2020 2 % ([facility] Medicated 2 % 12:00: [facility] Shampoo 00 AM Health Ketoconazol EDT Care) e 2 % Ketoconazol Ketoco 08/05/ active Ketocon azole eCW3 e 20 MG/ML nazole 2020 2 % ([facility] Medicated 2 % 12:00: [facility]amp[facility] 00 AM Health Ketoconazol EDT Care) e 2 % Ketoconazol Ketoco 08/05/ active Ketocon azole eCW3 e 20 MG/ML nazole 2020 2 % ([facility] Medicated 2 % 12:00: [facility] Shampoo 00 AM Health Ketoconazol EDT Care) e 2 % Ketoconazol Ketoco 08/05/ active Ketocon azole eCW3 e 20 MG/ML nazole 2020 2 % ([facility] Medicated 2 % 12:00: [facility] Shamp[facility] 00 AM Health Ketoconazol EDT Care) e 2 % Ketoconazol Ketoco 08/05/ active Ketocon azole eCW3 e 20 MG/ML nazole 2020 2 % ([facility] Medicated 2 % 12:00: [facility] Shamp[facility] 00 AM Health Ketoconazol EDT Care) e 2 % Ketoconazol Ketoco 08/05/ active Ketocon azole eCW3 e 20 MG/ML nazole 2020 2 % ([facility] % 12:00: [facility] Ketoconazol EDT Care) e 2 % Ketoconazol Ketoco 08/05/ active Ketocon azole eCW3 e 20 MG/ML nazole 2020 2 % ([facility] % 12:00: [facility] Ketoconazol EDT Care) e 2 % Ketoconazol Ketoco 08/05/ active Ketocon azole eCW3 e 20 MG/ML nazole 2020 2 % ([facility] % 12:00: [facility] AM [facility] Ketoconazol EDT Care) e 2 % Ketoconazol Ketoco 08/05/ active Ketocon azole eCW3 e 20 MG/ML nazole 2020 2 % ([facility] % 12:00: [facility] AM [facility] Ketoconazol EDT Care) e 2 % Ketoconazol Ketoco 04// active Ketocon azole eCW3 e 20 MG/ML nazole 2020 2 % ([facility] % 12:00: [facility] Ketoconazol EDT Care) e 2 % Ketoconazol Ketoco 08/05/ active Ketocon azole eCW3 e 20 MG/ML nazole 2020 2 % ([facility] % 12:00: [facility] AM [facility] Ketoconazol EDT Care) e 2 % Ketoconazol Ketoco 04/ active Ketocon azole eCW3 e 20 MG/ML nazole 2020 2 % ([facility] % 12:00: [facility] AM [facility] Ketoconazol EDT Care) e 2 % Ketoconazol Ketoco 08/05/ active Ketocon azole eCW3 e 20 MG/ML nazole 2020 2 % ([facility] % 12:00: [facility] AM [facility] Ketoconazol EDT Care) e 2 % Ketoconazol Ketoco 08/05/ active Ketocon azole eCW3 e 20 MG/ML nazole 2020 2 % ([facility] % 12:00: [facility] AM [facility] Ketoconazol EDT Care) e 2 % Ketoconazol Ketoco 08/05/ active Ketocon azole eCW3 e 20 MG/ML nazole 2020 2 % ([facility] % 12:00: [facility] AM [facility] Ketoconazol EDT Care) e 2 % Ketoconazol Ketoco 04/ active Ketocon azole eCW3 e 20 MG/ML nazole 2020 2 % ([facility] % 12:00: [facility] AM [facility] Ketoconazol EDT Care) e 2 % Ketoconazol Ketoco 04/ active Ketocon azole eCW3 e 20 MG/ML nazole 2020 2 % ([facility] % 12:00: [facility] AM [facility] Ketoconazol EDT Care) e 2 % Ketoconazol Ketoco 04/ active Ketocon azole eCW3 e 20 MG/ML nazole 2020 2 % ([facility] % 12:00: [facility] AM [facility] Ketoconazol EDT Care) e 2 % Ketoconazol Ketoco 08/05/ active Ketocon azole eCW3 e 20 MG/ML nazole 2020 2 % ([facility] % 12:00: [facility] AM [facility] Ketoconazol EDT Care) e 2 % Ketoconazol Ketoco 08/05/ active Ketocon azole eCW3 e 20 MG/ML nazole 2020 2 % ([facility] % 12:00: [facility] AM [facility] Ketoconazol EDT Care) e 2 % Ketoconazol Ketoco 08/05/ active Ketocon azole eCW3 e 20 MG/ML nazole 2020 2 % ([facility] % 12:00: [facility] AM [facility] Ketoconazol EDT Care) e 2 % Ketoconazol Ketoco 08/05/ active Ketocon azole eCW3 e 20 MG/ML nazole 2020 2 % ([facility] % 12:00: [facility] 00 AM [facility] Ketoconazol EDT Care) e 2 % Ketoconazol Ketoco 08/05/ active Ketocon azole eCW3 e 20 MG/ML nazole 2020 2 % ([facility] % 12:00: [facility] AM [facility] Ketoconazol EDT Care) e 2 % Ketoconazol Ketoco 08/05/ active Ketocon azole eCW3 e 20 MG/ML nazole 2020 2 % ([facility] % 12:00: [facility] AM [facility] Ketoconazol EDT Care) e 2 % pantoprazol Pantop 1.0 active Pantopr azole eCW3 e 40 MG razole 2020 {tabl Sodium 40 MG ( [facility] 12:00: et} [facility] 40 MG 00 AM [facility] Oral Tablet EDT Care) Pantoprazol e Sodium 40 MG pantoprazol Pantop 1.0 active Pantopr azole eCW3 e 40 MG razole 2020 {tabl Sodium 40 MG ( [facility] 12:00: et} [facility] 40 MG 00 AM [facility] Oral Tablet EDT Care) Pantoprazol e Sodium 40 MG pantoprazol Pantop 1.0 active Pantopr azole eCW3 e 40 MG razole 2020 {tabl Sodium 40 MG ( [facility]odium 12:00: et} [facility] 40 MG 00 AM [facility] Oral Tablet EDT Care) Pantoprazol e Sodium 40 MG pantoprazol Pantop 1.0 active Pantopr azole eCW3 e 40 MG razole 2019 {tabl Sodium 40 MG ( [facility] Sodium 12:00: et} [facility] 40 MG 00 AM [facility] Oral Tablet EDT Care) Pantoprazol e Sodium 40 MG pantoprazol Pantop 1.0 active Pantopr azole eCW3 e 40 MG razole 2020 {tabl Sodium 40 MG ( [facility] Sodium 12:00: et} [facility] 40 MG 00 AM [facility] Oral Tablet EDT Care) Pantoprazol e Sodium 40 MG pantoprazol Pantop .0 active Pantopr azole eCW3 e 40 MG razole 2019 {tabl Sodium 40 MG ( [facility] Sodium 12:00: et} [facility] 40 MG 00 AM [facility] Oral Tablet EDT Care) Pantoprazol e Sodium 40 MG pantoprazol Pantop .0 active Pantopr azole eCW3 e 40 MG razole 2019 {tabl Sodium 40 MG ( [facility] Sodium 12:00: et} [facility] 40 MG 00 AM [facility] Oral Tablet EDT Care) Pantoprazol e Sodium 40 MG pantoprazol Pantop .0 active Pantopr azole eCW3 e 40 MG razole 2019 {tabl Sodium 40 MG ( [facility] Sodium 12:00: et} [facility] 40 MG 00 AM [facility] Oral Tablet EDT Care) Pantoprazol e Sodium 40 MG pantoprazol Pantop .0 active Pantopr azole eCW3 e 40 MG razole 2020 {tabl Sodium 40 MG ( [facility] Sodium 12:00: et} [facility] 40 MG 00 AM [facility] Oral Tablet EDT Care) Pantoprazol e Sodium 40 MG pantoprazol Pantop 1.0 active Pantopr azole eCW3 e 40 MG razole 2019 {tabl Sodium 40 MG ( [facility] Sodium 12:00: et} [facility] 40 MG 00 AM [facility] Oral Tablet EDT Care) Pantoprazol e Sodium 40 MG pantoprazol Pantop 1.0 active Pantopr azole eCW3 e 40 MG razole 2020 {tabl Sodium 40 MG ( [facility] Sodium 12:00: et} [facility] 40 MG 00 AM [facility] Oral Tablet EDT Care) Pantoprazol e Sodium 40 MG pantoprazol Pantop 1.0 active Pantopr azole eCW3 e 40 MG razole 2019 {tabl Sodium 40 MG ( [facility] Sodium 12:00: et} [facility] 40 MG 00 AM [facility] Oral Tablet EDT Care) Pantoprazol e Sodium 40 MG pantoprazol Pantop 1.0 active Pantopr azole eCW3 e 40 MG razole 2020 {tabl Sodium 40 MG ( [facility] Sodium 12:00: et} [facility] 40 MG 00 AM [facility] Oral Tablet EDT Care) Pantoprazol e Sodium 40 MG pantoprazol Pantop .0 active Pantopr azole eCW3 e 40 MG razole 2019 {tabl Sodium 40 MG ( [facility] Sodium 12:00: et} [facility] 40 MG 00 AM [facility] Oral Tablet EDT Care) Pantoprazol e Sodium 40 MG pantoprazol Pantop .0 active Pantopr azole eCW3 e 40 MG razole 2020 {tabl Sodium 40 MG ( [facility] Sodium 12:00: et} [facility] 40 MG 00 AM [facility] Oral Tablet EDT Care) Pantoprazol e Sodium 40 MG pantoprazol Pantop 1.0 active Pantopr azole eCW3 e 40 MG razole 2019 {tabl Sodium 40 MG ( [facility] Sodium 12:00: et} [facility] 40 MG 00 AM [facility] Oral Tablet EDT Care) Pantoprazol e Sodium 40 MG pantoprazol Pantop 1.0 active Pantopr azole eCW3 e 40 MG razole 2020 {tabl Sodium 40 MG ( [facility] Sodium 12:00: et} [facility] 40 MG 00 AM [facility] Oral Tablet EDT Care) Pantoprazol e Sodium 40 MG pantoprazol Pantop 1.0 active Pantopr azole eCW3 e 40 MG razole 2019 {tabl Sodium 40 MG ( [facility] Sodium 12:00: et} [facility] 40 MG 00 AM [facility] Oral Tablet EDT Care) Pantoprazol e Sodium 40 MG pantoprazol Pantop 1.0 active Pantopr azole eCW3 e 40 MG razole 2020 {tabl Sodium 40 MG ( [facility] Sodium 12:00: et} [facility] 40 MG 00 AM [facility] Oral Tablet EDT Care) Pantoprazol e Sodium 40 MG pantoprazol Pantop 1.0 active Pantopr azole eCW3 e 40 MG razole 2020 {tabl Sodium 40 MG ( [facility] Sodium 12:00: et} [facility] 40 MG 00 AM [facility] Oral Tablet EDT Care) Pantoprazol e Sodium 40 MG pantoprazol Pantop .0 active Pantopr azole eCW3 e 40 MG razole 2020 {tabl Sodium 40 MG ( [facility] Sodium 12:00: et} [facility] 40 MG 00 AM [facility] Oral Tablet EDT Care) Pantoprazol e Sodium 40 MG pantoprazol Pantop .0 active Pantopr azole eCW3 e 40 MG razole 2019 {tabl Sodium 40 MG ( [facility] Sodium 12:00: et} [facility] 40 MG 00 AM [facility] Oral Tablet EDT Care) Pantoprazol e Sodium 40 MG pantoprazol Pantop .0 active Pantopr azole eCW3 e 40 MG razole 2020 {tabl Sodium 40 MG ( [facility] Sodium 12:00: et} [facility] 40 MG 00 AM [facility] Oral Tablet EDT Care) Pantoprazol e Sodium 40 MG pantoprazol Pantop .0 active Pantopr azole eCW3 e 40 MG razole 2020 {tabl Sodium 40 MG ( [facility] Sodium 12:00: et} [facility] 40 MG 00 AM [facility] Oral Tablet EDT Care) Pantoprazol e Sodium 40 MG pantoprazol Pantop .0 active Pantopr azole eCW3 e 40 MG razole 2020 {tabl Sodium 40 MG ( [facility] Sodium 12:00: et} [facility] 40 MG 00 AM [facility] Oral Tablet EDT Care) Pantoprazol e Sodium 40 MG Acetaminoph Acetam .0 active Acetami nophe eCW3 en 500 MG inophe 2019 {tabl n 500 mg ([facility] Tablet n 500 12:00: [facility] Ac[facility]aminoph mg 00 AM [facility] en 500 mg EST ded} Care) Acetaminoph Acetam .0 active Acetami nophe eCW3 en 500 MG inophe 2020 {tabl n 500 mg ([facility] Tablet n 500 12:00: [facility] Ac[facility]aminoph mg 00 AM [facility] en 500 mg EST ded} Care) Acetaminoph Acetam .0 active Acetami nophe eCW3 en 500 MG inophe 2020 {tabl n 500 mg ([facility] Tablet n 500 12:00: [facility] Ac[facility]aminoph mg 00 AM [facility] en 500 mg EST ded} Care) Acetaminoph Acetam .0 active Acetami nophe eCW3 en 500 MG inophe 2020 {tabl n 500 mg ([facility] Tablet n 500 12:00: [facility]_a [facility] Ac[facility]aminoph mg 00 AM [facility] en 500 mg EST ded} Care) Acetaminoph Acetam .0 active Acetami nophe eCW3 en 500 MG inophe 2020 {tabl n 500 mg ([facility] Tablet n 500 12:00: [facility] Ac[facility]aminoph mg 00 AM [facility] en 500 mg EST ded} Care) Acetaminoph Acetam .0 active Acetami nophe eCW3 en 500 MG inophe 2020 {tabl n 500 mg ([facility] Tablet n 500 12:00: [facility]_a [facility] Acetaminoph mg 00 AM [facility] en 500 mg EST ded} Care) Acetaminoph Acetam .0 active Acetami nophe eCW3 en 500 MG inophe 2020 {tabl n 500 mg ([facility] Tablet n 500 12:00: [facility]_a [facility] Acetaminoph mg 00 AM [facility] en 500 mg EST ded} Care) Acetaminoph Acetam .0 active Acetami nophe eCW3 en 500 MG inophe 2020 {tabl n 500 mg ([facility] Tablet n 500 12:00: [facility]_a [facility] Acetaminoph mg 00 AM [facility] en 500 mg EST ded} Care) Acetaminoph Acetam .0 active Acetami nophe eCW3 en 500 MG inophe 2020 {tabl n 500 mg ([facility] Tablet n 500 12:00: [facility]_a [facility] Acetaminoph mg 00 AM [facility] en 500 mg EST ded} Care) Acetaminoph Acetam .0 active Acetami nophe eCW3 en 500 MG inophe 2020 {tabl n 500 mg ([facility] Tablet n 500 12:00: [facility]_a [facility] Acetaminoph mg 00 AM [facility] en 500 mg EST ded} Care) duloxetine Duloxe .0 active Duloxeti ne eCW3 20 MG monique 2019 {caps HCl 20 MG ([facility] HCl 20 12:00: ule} [facility] MG 00 AM [facility] Oral EST Care) Capsule Duloxetine HCl 20 MG Acetaminoph Acetam .0 active Acetami nophe eCW3 en 500 MG inophe 2020 {tabl n 500 mg ([facility] Tablet n 500 12:00: [facility]_a [facility] Acetaminoph mg 00 AM [facility] en 500 mg EST ded} Care) Acetaminoph Acetam .0 active Acetami nophe eCW3 en 500 MG inophe 2020 {tabl n 500 mg ([facility] Tablet n 500 12:00: [facility]_a [facility] Acetaminoph mg 00 AM [facility] en 500 mg EST ded} Care) Acetaminoph Acetam .0 active Acetami nophe eCW3 en 500 MG inophe 2020 {tabl n 500 mg ([facility] Tablet n 500 12:00: [facility] Acetaminoph mg 00 AM [facility] en 500 mg EST ded} Care) Acetaminoph Acetam .0 active Acetami nophe eCW3 en 500 MG inophe 2020 {tabl n 500 mg ([facility] Tablet n 500 12:00: [facility]_a [facility] Acetaminoph mg 00 AM [facility] en 500 mg EST ded} Care) Acetaminoph Acetam .0 active Acetami nophe eCW3 en 500 MG inophe 2020 {tabl n 500 mg ([facility] Tablet n 500 12:00: [facility]_a [facility] Acetaminoph mg 00 AM [facility] en 500 mg EST ded} Care) Acetaminoph Acetam .0 active Acetami nophe eCW3 en 500 MG inophe 2020 {tabl n 500 mg ([facility] Tablet n 500 12:00: [facility]_a [facility] Ac[facility]aminoph mg 00 AM [facility] en 500 mg EST ded} Care) Acetaminoph Acetam .0 active Acetami nophe eCW3 en 500 MG inophe 2020 {tabl n 500 mg ([facility] Tablet n 500 12:00: [facility]_a [facility] Acetaminoph mg 00 AM [facility] en 500 mg EST ded} Care) duloxetine Duloxe .0 active Duloxeti ne eCW3 20 MG monique 2019 {caps HCl 20 MG ([facility] HCl 20 12:00: ule} [facility] MG 00 AM [facility] Oral EST Care) Capsule Duloxetine HCl 20 MG Acetaminoph Acetam .0 active Acetami nophe eCW3 en 500 MG inophe 2020 {tabl n 500 mg ([facility] Tablet n 500 12:00: [facility] Ac[facility]aminoph mg 00 AM [facility] en 500 mg EST ded} Care) Acetaminoph Acetam .0 active Acetami nophe eCW3 en 500 MG inophe 2020 {tabl n 500 mg ([facility] Tablet n 500 12:00: [facility]_a [facility] Acetaminoph mg 00 AM [facility] en 500 mg EST ded} Care) Acetaminoph Acetam .0 active Acetami nophe eCW3 en 500 MG inophe 2020 {tabl n 500 mg ([facility] Tablet n 500 12:00: [facility]a [facility] Acetaminoph mg 00 AM [facility] en 500 mg EST ded} Care) Acetaminoph Acetam .0 active Acetami nophe eCW3 en 500 MG inophe 2020 {tabl n 500 mg ([facility] Tablet n 500 12:00: [facility]a [facility] Acetaminoph mg 00 AM [facility] en 500 mg EST ded} Care) Acetaminoph Acetam .0 active Acetami nophe eCW3 en 500 MG inophe 2020 {tabl n 500 mg ([facility] Tablet n 500 12:00: [facility]_a [facility] Acetaminoph mg 00 AM [facility] en 500 mg EST ded} Care) Acetaminoph Acetam .0 active Acetami nophe eCW3 en 500 MG inophe 2020 {tabl n 500 mg ([facility] Tablet n 500 12:00: [facility]_a [facility] Acetaminoph mg 00 AM [facility] en 500 mg EST ded} Care) Acetaminoph Acetam .0 active Acetami nophe eCW3 en 500 MG inophe 2020 {tabl n 500 mg ([facility] Tablet n 500 12:00: [facility]_a [facility] Acetaminoph mg 00 AM [facility] en 500 mg EST ded} Care) Acetaminoph Acetam .0 active Acetami nophe eCW3 en 500 MG inophe 2020 {tabl n 500 mg ([facility] Tablet n 500 12:00: [facility]_a [facility] Acetaminoph mg 00 AM [facility] en 500 mg EST ded} Care) SHOWER UNK 03/06/ active SHOWER CHAIR e CW3 CHAIR 2019 ([facility] 12:[facility]: [facility] 00 [facility] EDT Care) SHOWER UNK 03/06/ active SHOWER CHAIR e CW3 CHAIR 2019 ([facility] 12:00: [facility] 00 AM [facility] EDT Care) SHOWER UNK 03/06/ active SHOWER CHAIR e CW3 CHAIR 2019 ([facility] 12:00: [facility] 00 AM [facility] EDT Care) SHOWER UNK 03/06/ active SHOWER CHAIR e CW3 CHAIR 2019 ([facility] 12:00: [facility] 00 AM [facility] EDT Care) SHOWER UNK 03/06/ active SHOWER CHAIR e CW3 CHAIR 2019 ([facility] 12:00: [facility] 00 AM [facility] EDT Care) SHOWER UNK 03/06/ active SHOWER CHAIR e CW3 CHAIR 2019 ([facility] 12:00: [facility] 00 AM [facility] EDT Care) SHOWER UNK 03/06/ active SHOWER CHAIR e CW3 CHAIR 2019 ([facility] 12:00: [facility] 00 [facility] EDT Care) SHOWER UNK 03/06/ active SHOWER CHAIR e CW3 CHAIR 2019 ([facility] 12:00: [facility] 00 [facility] EDT Care) SHOWER UNK 03/06/ active SHOWER CHAIR e CW3 CHAIR 2019 ([facility] 12:00: [facility] 00 AM [facility] EDT Care) SHOWER UNK 03/06/ active SHOWER CHAIR e CW3 CHAIR 2019 ([facility] 12:00: [facility] 00 AM [facility] EDT Care) SHOWER UNK 03/06/ active SHOWER CHAIR e CW3 CHAIR 2019 ([facility] 12:00: [facility] 00 AM [facility] EDT Care) SHOWER UNK 03/06/ active SHOWER CHAIR e CW3 CHAIR 2019 ([facility] 12:00: [facility] 00 AM [facility] EDT Care) SHOWER UNK 03/06/ active SHOWER CHAIR e CW3 CHAIR 2019 ([facility] 12:00: [facility] 00 AM [facility] EDT Care) SHOWER UNK 03/06/ active SHOWER CHAIR e CW3 CHAIR 2019 ([facility] 12:00: [facility] 00 AM [facility] EDT Care) SHOWER UNK 03/06/ active SHOWER CHAIR e CW3 CHAIR 2019 ([facility] 12:00: [facility] 00 AM [facility] EDT Care) SHOWER UNK 03/06/ active SHOWER CHAIR e CW3 CHAIR 2019 ([facility] 12:00: [facility] 00 AM [facility] EDT Care) SHOWER UNK 03/06/ active SHOWER CHAIR e CW3 CHAIR 2019 ([facility] 12:00: [facility] 00 AM [facility] EDT Care) SHOWER UNK 03/06/ active SHOWER CHAIR e CW3 CHAIR 2019 ([facility] 12:00: [facility] 00 AM [facility] EDT Care) SHOWER UNK 03/06/ active SHOWER CHAIR e CW3 CHAIR 2019 ([facility] 12:00: [facility] 00 [facility] EDT Care) SHOWER UNK 03/06/ active SHOWER CHAIR e CW3 CHAIR 2019 ([facility] 12:00: [facility] 00 [facility] EDT Care) SHOWER UNK 03/06/ active SHOWER CHAIR e CW3 CHAIR 2019 ([facility] 12:00: [facility] 00 AM [facility] EDT Care) SHOWER UNK 03/06/ active SHOWER CHAIR e CW3 CHAIR 2019 ([facility] 12:00: [facility] 00 AM [facility] EDT Care) SHOWER UNK 03/06/ active SHOWER CHAIR e CW3 CHAIR 2019 ([facility] 12:00: [facility] 00 AM [facility] EDT Care) SHOWER UNK 03/06/ active SHOWER CHAIR e CW3 CHAIR 2019 ([facility] 12:00: [facility] 00 AM [facility] EDT Care) SHOWER UNK 03/06/ active SHOWER CHAIR e CW3 CHAIR 2019 ([facility] 12:00: [facility] 00 AM [facility] EDT Care) SHOWER UNK 03/06/ active SHOWER CHAIR e CW3 CHAIR 2019 ([facility] 12:[facility]: [facility] 00 AM [facility] EDT Care) SHOWER UNK 03/06/ active SHOWER CHAIR e CW3 CHAIR 2019 ([facility] 12:00: [facility] 00 AM [facility] EDT Care) SHOWER UNK 03/06/ active SHOWER CHAIR e CW3 CHAIR 2019 ([facility] 12:00: [facility] 00 AM [facility] EDT Care) SHOWER UNK 03/06/ active SHOWER CHAIR e CW3 CHAIR 2019 ([facility] 12:00: [facility] 00 AM [facility] EDT Care) SHOWER UNK 03/06/ active SHOWER CHAIR e CW3 CHAIR 2019 ([facility] 12:00: [facility] 00 AM [facility] EDT Care) Senna 8.6 Senna .0 active Senna 8.6 MG eCW3 MG 8.6 MG 2019 {tabl ([facility] 12:00: ets_a [facility] 00 AM t[facility] EDT time_ Care) as_ne eded} Senna 8.6 Senna .0 active Senna 8.6 MG eCW3 MG 8.6 MG 2019 {tabl ([facility] 12:00: [facility]_a [facility] 00 AM [facility] EDT time_ Care) as_ne eded} Senna 8.6 Senna .0 active Senna 8.6 MG eCW3 MG 8.6 MG 2019 {tabl ([facility] 12:00: [facility]_a [facility] 00 AM [facility] EDT time_ Care) as_ne eded} Senna 8.6 Senna .0 active Senna 8.6 MG eCW3 MG 8.6 MG 2018 {tabl ([facility] 12:00: [facility]_a [facility] 00 AM [facility] EDT time_ Care) as_ne eded} Senna 8.6 Senna .0 active Senna 8.6 MG eCW3 MG 8.6 MG 2018 {tabl ([facility] 12:00: [facility]_a [facility] 00 AM [facility] EDT time_ Care) as_ne eded} Senna 8.6 Senna .0 active Senna 8.6 MG eCW3 MG 8.6 MG 2018 {tabl ([facility] 12:00: [facility]_a [facility] 00 AM [facility] EDT time_ Care) as_ne eded} Omeprazole Omepra .0 active Omeprazo le eCW3 40 MG zole 2018 {caps 40 mg ([facility] Delayed 40 mg 12:00: ule} [facility] 00 AM [facility] Oral EDT Care) Capsule Omeprazole 40 mg Omeprazole Omepra .0 active Omeprazo le eCW3 40 MG zole 2018 {caps 40 mg ([facility] Delayed 40 mg 12:00: ule} [facility] 00 AM [facility] Oral EDT Care) Capsule Omeprazole 40 mg Omeprazole Omepra .0 active Omeprazo le eCW3 40 MG zole 2018 {caps 40 mg ([facility] Delayed 40 mg 12:00: ule} [facility] 00 AM [facility] Oral EDT Care) Capsule Omeprazole 40 mg Senna 8.6 Senna .0 active Senna 8.6 MG eCW3 MG 8.6 MG 2018 {tabl ([facility] 12:00: ets_a [facility] 00 AM [facility] EDT time_ Care) as_ne eded} Acetaminoph Acetam .0 active Acetami nophe eCW3 en 500 MG inophe 2018 {tabl n 500 mg ([facility] Oral Tablet n 500 12:00: ets_a [facility] Acetaminoph mg 00 AM [facility] en 500 mg EDT ded} Care) Omeprazole Omepra .0 active Omeprazo le eCW3 40 MG zole 2018 {caps 40 mg ([facility] Delayed 40 mg 12:00: ule} [facility] 00 AM [facility] Oral EDT Care) Capsule Omeprazole 40 mg Senna 8.6 Senna .0 active Senna 8.6 MG eCW3 MG 8.6 MG 2019 {tabl ([facility] 12:00: ets_a [facility] 00 AM [facility] EDT time_ Care) as_ne eded} Senna 8.6 Senna .0 active Senna 8.6 MG eCW3 MG 8.6 MG 2019 {tabl ([facility] 12:00: ets_a [facility] 00 AM [facility] EDT time_ Care) as_ne eded} Omeprazole Omepra .0 active Omeprazo le eCW3 40 MG zole 2018 {caps 40 mg ([facility] Delayed 40 mg 12:00: ule} [facility] 00 AM [facility] Oral EDT Care) Capsule Omeprazole 40 mg Omeprazole Omepra .0 active Omeprazo le eCW3 40 MG zole 2018 {caps 40 mg ([facility] Delayed 40 mg 12:00: ule} [facility] 00 AM [facility] Oral EDT Care) Capsule Omeprazole 40 mg Omeprazole Omepra .0 active Omeprazo le eCW3 40 MG zole 2018 {caps 40 mg ([facility] Delayed 40 mg 12:00: ule} [facility] 00 AM [facility] Oral EDT Care) Capsule Omeprazole 40 mg Omeprazole Omepra .0 active Omeprazo le eCW3 40 MG zole 2018 {caps 40 mg ([facility] Delayed 40 mg 12:00: ule} [facility] 00 AM [facility] Oral EDT Care) Capsule Omeprazole 40 mg Senna 8.6 Senna .0 active Senna 8.6 MG eCW3 MG 8.6 MG 2019 {tabl ([facility] 12:00: ets_a [facility] 00 AM [facility] EDT time_ Care) as_ne eded} Omeprazole Omepra .0 active Omeprazo le eCW3 40 MG zole 2018 {caps 40 mg ([facility] Delayed 40 mg 12:00: ule} [facility] 00 AM [facility] Oral EDT Care) Capsule Omeprazole 40 mg Omeprazole Omepra .0 active Omeprazo le eCW3 40 MG zole 2019 {caps 40 mg ([facility] Delayed 40 mg 12:00: ule} [facility] 00 AM [facility] Oral EDT Care) Capsule Omeprazole 40 mg Omeprazole Omepra .0 active Omeprazo le eCW3 40 MG zole 2018 {caps 40 mg ([facility] Delayed 40 mg 12:00: ule} [facility] 00 AM [facility] Oral EDT Care) Capsule Omeprazole 40 mg Senna 8.6 Senna .0 active Senna 8.6 MG eCW3 MG 8.6 MG 2018 {tabl ([facility] 12:00: ets_a [facility] 00 AM [facility] EDT time_ Care) as_ne eded} Senna 8.6 Senna .0 active Senna 8.6 MG eCW3 MG 8.6 MG 2018 {tabl ([facility] 12:00: ets_a [facility] 00 AM [facility] EDT time_ Care) as_ne eded} Senna 8.6 Senna .0 active Senna 8.6 MG eCW3 MG 8.6 MG 2018 {tabl ([facility] 12:00: ets_a [facility] 00 AM [facility] EDT time_ Care) as_ne eded} Omeprazole UNK .0 active Omeprazole eCW3 40 mg 2019 {caps 40 mg ([facility] 12:00: ule} [facility] 00 AM [facility] EDT Care) Omeprazole Omepra .0 active Omeprazo le eCW3 40 MG zole 2018 {caps 40 mg ([facility] Delayed 40 mg 12:00: ule} [facility] 00 AM [facility] Oral EDT Care) Capsule Omeprazole 40 mg Omeprazole Omepra .0 active Omeprazo le eCW3 40 MG zole 2019 {caps 40 mg ([facility] Delayed 40 mg 12:00: ule} [facility] 00 AM [facility] Oral EDT Care) Capsule Omeprazole 40 mg Senna 8.6 Senna .0 active Senna 8.6 MG eCW3 MG 8.6 MG 2019 {tabl ([facility] 12:00: ets_a [facility] 00 AM [facility]bed [facility] EDT time_ Care) as_ne eded} Senna 8.6 Senna .0 active Senna 8.6 MG eCW3 MG 8.6 MG 2019 {tabl ([facility] 12:00: ets_a [facility] 00 AM [facility] EDT time_ Care) as_ne eded} Omeprazole Omepra .0 active Omeprazo le eCW3 40 MG zole 2018 {caps 40 mg ([facility] Delayed 40 mg 12:00: ule} [facility] 00 AM [facility] Oral EDT Care) Capsule Omeprazole 40 mg Omeprazole Omepra .0 active Omeprazo le eCW3 40 MG zole 2018 {caps 40 mg ([facility] Delayed 40 mg 12:00: ule} [facility] 00 AM [facility] Oral EDT Care) Capsule Omeprazole 40 mg Omeprazole Omepra .0 active Omeprazo le eCW3 40 MG zole 2018 {caps 40 mg ([facility] Delayed 40 mg 12:00: ule} [facility] 00 AM [facility] Oral EDT Care) Capsule Omeprazole 40 mg Omeprazole Omepra .0 active Omeprazo le eCW3 40 MG zole 2018 {caps 40 mg ([facility] Delayed 40 mg 12:00: ule} [facility] 00 AM [facility] Oral EDT Care) Capsule Omeprazole 40 mg Senna 8.6 Senna .0 active Senna 8.6 MG eCW3 MG 8.6 MG 2018 {tabl ([facility] 12:00: ets_a [facility] 00 AM [facility]bed [facility] EDT time_ Care) as_ne eded} Omeprazole Omepra .0 active Omeprazo le eCW3 40 MG zole 2018 {caps 40 mg ([facility] Delayed 40 mg 12:00: ule} [facility] 00 AM [facility] Oral EDT Care) Capsule Omeprazole 40 mg Omeprazole Omepra .0 active Omeprazo le eCW3 40 MG zole 2018 {caps 40 mg ([facility] Delayed 40 mg 12:00: ule} [facility] 00 AM [facility] Oral EDT Care) Capsule Omeprazole 40 mg Senna 8.6 Senna .0 active Senna 8.6 MG eCW3 MG 8.6 MG 2019 {tabl ([facility] 12:00: ets_a [facility] 00 AM [facility]bed [facility] EDT time_ Care) as_ne eded} Senna 8.6 Senna .0 active Senna 8.6 MG eCW3 MG 8.6 MG 2019 {tabl ([facility] 12:00: ets_a [facility] 00 AM t_bed Health EDT time_ Care) as_ne eded} Omeprazole Omepra .0 active Omeprazo le eCW3 40 MG zole 2018 {caps 40 mg ([facility] Delayed 40 mg 12:00: ule} [facility] 00 AM [facility] Oral EDT Care) Capsule Omeprazole 40 mg Senna 8.6 Senna .0 active Senna 8.6 MG eCW3 MG 8.6 MG 2018 {tabl ([facility] 12:00: ets_a [facility] 00 AM t_bed Health EDT time_ Care) as_ne eded} Omeprazole Omepra .0 active Omeprazo le eCW3 40 MG zole 2018 {caps 40 mg ([facility] Delayed 40 mg 12:00: ule} [facility] 00 AM [facility] Oral EDT Care) Capsule Omeprazole 40 mg Omeprazole Omepra .0 active Omeprazo le eCW3 40 MG zole 2018 {caps 40 mg ([facility] Delayed 40 mg 12:00: ule} [facility] 00 AM [facility] Oral EDT Care) Capsule Omeprazole 40 mg Omeprazole Omepra .0 active Omeprazo le eCW3 40 MG zole 2018 {caps 40 mg ([facility] Delayed 40 mg 12:00: ule} [facility] 00 AM [facility] Oral EDT Care) Capsule Omeprazole 40 mg Omeprazole Omepra .0 active Omeprazo le eCW3 40 MG zole 2018 {caps 40 mg ([facility] Delayed 40 mg 12:00: ule} [facility] 00 AM [facility] Oral EDT Care) Capsule Omeprazole 40 mg Omeprazole Omepra .0 active Omeprazo le eCW3 40 MG zole 2018 {caps 40 mg ([facility] Delayed 40 mg 12:00: ule} [facility] Release 00 AM Health Oral EDT Care) Capsule Omeprazole 40 mg Senna 8.6 Senna .0 active Senna 8.6 MG eCW3 MG 8.6 MG 2019 {tabl ([facility] 12:00: ets_a [facility] 00 AM t_bed Health EDT time_ Care) as_ne eded} Omeprazole Omepra .0 active Omeprazo le eCW3 40 MG zole 2018 {caps 40 mg ([facility] Delayed 40 mg 12:00: ule} [facility] Release 00 AM Health Oral EDT Care) Capsule Omeprazole 40 mg Omeprazole Omepra .0 active Omeprazo le eCW3 40 MG zole 2018 {caps 40 mg ([facility] Delayed 40 mg 12:00: ule} [facility] Release 00 AM Health Oral EDT Care) Capsule Omeprazole 40 mg Omeprazole Omepra .0 active Omeprazo le eCW3 40 MG zole 2018 {caps 40 mg ([facility] Delayed 40 mg 12:00: ule} [facility] Release 00 AM Health Oral EDT Care) Capsule Omeprazole 40 mg Senna 8.6 Senna .0 active Senna 8.6 MG eCW3 MG 8.6 MG 2018 {tabl ([facility] 12:00: ets_a [facility] 00 AM t_bed Health EDT time_ Care) as_ne eded} Omeprazole Omepra .0 active Omeprazo le eCW3 40 MG zole 2018 {caps 40 mg ([facility] Delayed 40 mg 12:00: ule} [facility] Release 00 AM Health Oral EDT Care) Capsule Omeprazole 40 mg Senna 8.6 Senna .0 active Senna 8.6 MG eCW3 MG 8.6 MG 2018 {tabl ([facility] 12:00: ets_a [facility] 00 AM t_bed Health EDT time_ Care) as_ne eded} Omeprazole Omepra .0 active Omeprazo le eCW3 40 MG zole 2018 {caps 40 mg ([facility] Delayed 40 mg 12:00: ule} [facility] Release 00 AM Health Oral EDT Care) Capsule Omeprazole 40 mg Clotrimazol Clotri .0 active Clotrim azole eCW3 e 10 MG/ML mazole 2018 {appl 1 % ([facility] Topical 1 % 12:00: icati [facility] Cream 00 AM on_to Health Clotrimazol EDT _affe Care) e 1 % cted_ area} Commode Commod 10/23/ active Commode eCW 3 Bedside - 2018 Bedside - ([facility] 12:00: [facility] e - AM Health EDT Care) Naproxen UNK 10/23/ active Naproxen 500 eCW3 500 MG 2019 MG ([facility] 12:00: [facility] AM [facility] EDT Care) Toilet Seat Toilet 10/23/ active Toilet Seat eCW3 [facility] Commode Commod 10/23/ active Commode eCW 3 Bedside - 2018 Bedside - ([facility] 12:00: [facility] e - AM Health EDT Care) Naproxen Naprox 10/23/ active Naproxen 5 00 eCW3 500 MG Oral en 500 2019 MG ([facility] Tablet MG 12:00: [facility] EDT Care) Naproxen Naprox 10/23/ active Naproxen 5 00 eCW3 500 MG Oral en 500 2019 MG ([facility] Tablet MG 12:00: [facility] AM [facility] EDT Care) Naproxen Naprox 10/23/ active Naproxen 5 00 eCW3 500 MG Oral en 500 2019 MG ([facility] Tablet MG 12:00: [facility] AM [facility] EDT Care) Commode Commod 10/23/ active Commode eCW 3 Bedside - 2018 Bedside - ([facility] 12:00: [facility] e - AM Health EDT Care) Commode Commod 10/23/ active Commode eCW 3 Bedside - e 2018 Bedside - ([facility]eds[facility] 12:00: [facility] e - AM Health EDT Care) Naproxen Naprox 10/23/ active Naproxen 5 00 eCW3 500 MG Oral en 500 2019 MG ([facility] Tablet MG 12:00: [facility] AM [facility] EDT Care) Naproxen Naprox 10/23/ active Naproxen 5 00 eCW3 500 MG Oral en 500 2019 MG ([facility] Tablet MG 12:00: [facility] AM [facility] EDT Care) Commode Commod 10/23/ active Commode eCW 3 Bedside - 2018 Bedside - ([facility] 12:00: [facility] e - 00 AM Health EDT Care) Commode Commod 10/23/ active Commode eCW 3 Bedside - e 2018 Bedside - ([facility]eds[facility] 12:00: [facility] e - 00 AM Health EDT Care) Toilet Seat Toilet 10/23/ active Toilet Seat eCW3 Elevator - Seat 2019 Elevator - ([facility] 12:00: [facility] or - 00 AM Health EDT Care) Toilet Seat Toilet 10/23/ active Toilet Seat eCW3 Elevator - Seat 2018 Elevator - ([facility] Ele[facility] 12:00: [facility] or - 00 AM Health EDT Care) Naproxen Naprox 10/23/ active Naproxen 5 00 eCW3 500 MG Oral en 500 2019 MG ([facility] Tablet MG 12:00: [facility] AM [facility] EDT Care) Toilet Seat Toilet 10/23/ active Toilet Seat eCW3 Elevator - Seat 2018 Elevator - ([facility] 12:00: [facility] or - AM Health EDT Care) Toilet Seat UNK 10/23/ active Toilet Se at eCW3 Elevator - 2019 Elevator - ([facility] 12:00: [facility] 00 AM Health EDT Care) Commode Commod 10/23/ active Commode eCW 3 Bedside - e 2018 Bedside - ([facility] 12:00: [facility] e - AM Health EDT Care) Toilet Seat Toilet 10/23/ active Toilet Seat eCW3 Elevator - Seat 2018 Elevator - ([facility] Elevat 12:00: [facility] or - AM Health EDT Care) Toilet Seat Toilet 10/23/ active Toilet Seat eCW3 Elevator - Seat 2018 Elevator - ([facility] Ele[facility] 12:00: [facility] or - 00 AM Health EDT Care) Naproxen Naprox 10/23/ active Naproxen 5 00 eCW3 500 MG Oral en 500 2019 MG ([facility] Tablet MG 12:00: [facility] 00 AM Health EDT Care) Commode Commod 10/23/ active Commode eCW 3 Bedside - e 2018 Bedside - ([facility] 12:00: [facility] e - 00 AM Health EDT Care) Toilet Seat Toilet 10/23/ active Toilet Seat eCW3 Elevator - Seat 2019 Elevator - ([facility] Ele[facility] 12:00: [facility] or - AM Health EDT Care) Naproxen Naprox 10/23/ active Naproxen 5 eCW3 500 MG Oral en 500 2019 MG ([facility] Tablet MG 12:00: [facility] AM [facility] EDT Care) Toilet Seat Toilet 10/23/ active Toilet Seat eCW3 Elevator - Seat 2018 Elevator - ([facility] 12:00: [facility] or - AM Health EDT Care) Commode Commod 10/23/ active Commode eCW 3 Bedside - e 2018 Bedside - ([facility] 12:00: [facility] e - AM Health EDT Care) Commode Commod 10/23/ active Commode eCW 3 Bedside - e 2018 Bedside - ([facility] 12:00: [facility] e - AM Health EDT Care) Toilet Seat Toilet 10/23/ active Toilet Seat eCW3 Elevator - Seat 2018 Elevator - ([facility] 12:00: [facility] or - AM Health EDT Care) Toilet Seat Toilet 10/23/ active Toilet Seat eCW3 Elevator - Seat 2018 Elevator - ([facility] 12:00: [facility] or - AM Health EDT Care) Commode Commod 10/23/ active Commode eCW 3 Bedside - e 2018 Bedside - ([facility] 12:00: [facility] e - AM Health EDT Care) Commode Commod 10/23/ active Commode eCW 3 Bedside - e 2018 Bedside - ([facility] 12:00: [facility] e - AM Health EDT Care) Toilet Seat Toilet 10/23/ active Toilet Seat eCW3 Elevator - Seat 2018 Elevator - ([facility] 12:00: [facility] or - AM Health EDT Care) Naproxen Naprox 10/23/ active Naproxen 5 eCW3 500 MG Oral en 500 2019 MG ([facility] Tablet MG 12:00: [facility] 00 AM Health EDT Care) Commode Commod 10/23/ active Commode eCW 3 Bedside - e 2018 Bedside - ([facility] 12:00: [facility] e - AM Health EDT Care) Toilet Seat Toilet 10/23/ active Toilet Seat eCW3 Elevator - Seat 2019 Elevator - ([facility] 12:00: [facility] or AM Health EDT Care) Naproxen Naprox 10/23/ active Naproxen 5 00 eCW3 500 MG Oral en 500 2019 MG ([facility] Tablet MG 12:00: [facility] AM [facility] EDT Care) Toilet Seat Toilet 10/23/ active Toilet Seat eCW3 Elevator - Seat 2018 Elevator - ([facility] 12:00: [facility] or AM Health EDT Care) Commode Commod 10/23/ active Commode eCW 3 Bedside - e 2018 Bedside - ([facility] 12:00: [facility] e - AM Health EDT Care) Naproxen Naprox 10/23/ active Naproxen 5 00 eCW3 500 MG Oral en 500 2019 MG ([facility] Tablet MG 12:00: [facility] EDT Care) Toilet Seat Toilet 10/23/ active Toilet Seat eCW3 Elevator - Seat 2018 Elevator - ([facility] 12:00: [facility] or AM Health EDT Care) Naproxen Naprox 10/23/ active Naproxen 5 00 eCW3 500 MG Oral en 500 2019 MG ([facility] Tablet MG 12:00: [facility] AM [facility] EDT Care) Commode Commod 10/23/ active Commode eCW 3 Bedside - e 2019 Bedside - ([facility] 12:00: [facility] e - AM Health EDT Care) Commode Commod 10/23/ active Commode eCW 3 Bedside - e 2019 Bedside - ([facility] 12:00: [facility] e - AM Health EDT Care) Naproxen Naprox 10/23/ active Naproxen 5 00 eCW3 500 MG Oral en 500 2019 MG ([facility] Tablet MG 12:00: [facility] AM [facility] EDT Care) Toilet Seat Toilet 10/23/ active Toilet Seat eCW3 Elevator - Seat 2018 Elevator - ([facility] 12:00: [facility] or AM Health EDT Care) Toilet Seat Toilet 10/23/ active Toilet Seat eCW3 Elevator - Seat 2018 Elevator - ([facility] 12:00: [facility] or - AM Health EDT Care) Naproxen Naprox 10/23/ active Naproxen 5 eCW3 500 MG Oral en 500 2019 MG ([facility] Tablet MG 12:00: [facility] AM [facility] EDT Care) Toilet Seat Toilet 10/23/ active Toilet Seat eCW3 Elevator - Seat 2018 Elevator - ([facility] 12:00: [facility] or - AM Health EDT Care) Commode Commod 10/23/ active Commode eCW 3 Bedside - e 2018 Bedside - ([facility] 12:00: [facility] e - AM Health EDT Care) Commode Commod 10/23/ active Commode eCW 3 Bedside - e 2018 Bedside - ([facility] 12:00: [facility] e - AM Health EDT Care) Commode Commod 10/23/ active Commode eCW 3 Bedside - e 2018 Bedside - ([facility] 12:00: [facility] e - AM Health EDT Care) Commode Commod 10/23/ active Commode eCW 3 Bedside - e 2018 Bedside - ([facility] 12:00: [facility] e - AM Health EDT Care) Toilet Seat Toilet 10/23/ active Toilet Seat eCW3 Elevator - Seat 2018 Elevator - ([facility] 12:00: [facility] or AM Health EDT Care) Naproxen Naprox 10/23/ active Naproxen 5 eCW3 500 MG Oral en 500 2019 MG ([facility] Tablet MG 12:00: [facility] AM [facility] EDT Care) Toilet Seat Toilet 10/23/ active Toilet Seat eCW3 Elevator - Seat 2018 Elevator - ([facility] 12:00: [facility] or - AM Health EDT Care) Toilet Seat Toilet 10/23/ active Toilet Seat eCW3 Elevator - Seat 2018 Elevator - ([facility] 12:00: [facility] or - 00 AM Health EDT Care) Naproxen Naprox 10/23/ active Naproxen 5 00 eCW3 500 MG Oral en 500 2019 MG ([facility] Tablet MG 12:00: [facility] AM [facility] EDT Care) Commode Commod 10/23/ active Commode eCW 3 Bedside - e 2019 Bedside - ([facility] 12:00: [facility] e - AM Health EDT Care) Naproxen Naprox 10/23/ active Naproxen 5 00 eCW3 500 MG Oral en 500 2019 MG ([facility] Tablet MG 12:00: [facility] AM [facility] EDT Care) Commode Commod 10/23/ active Commode eCW 3 Bedside - e 2018 Bedside - ([facility] 12:00: [facility] e - AM Health EDT Care) Toilet Seat Toilet 10/23/ active Toilet Seat eCW3 Elevator - Seat 2019 Elevator - ([facility] 12:00: [facility] or Health EDT Care) Commode Commod 10/23/ active Commode eCW 3 Bedside - e 2018 Bedside - ([facility] 12:00: [facility] e - AM Health EDT Care) Naproxen Naprox 10/23/ active Naproxen 5 00 eCW3 500 MG Oral en 500 2019 MG ([facility] Tablet MG 12:00: [facility] AM [facility] EDT Care) Naproxen Naprox 10/23/ active Naproxen 5 00 eCW3 500 MG Oral en 500 2019 MG ([facility] Tablet MG 12:00: [facility] AM Health EDT Care) Toilet Seat Toilet 10/23/ active Toilet Seat eCW3 Elevator - Seat 2019 Elevator - ([facility] 12:00: [facility] or - AM Health EDT Care) Toilet Seat Toilet 10/23/ active Toilet Seat eCW3 Elevator - Seat 2018 Elevator - ([facility] 12:00: [facility] or - AM Health EDT Care) Naproxen Naprox 10/23/ active Naproxen 5 00 eCW3 500 MG Oral en 500 2019 MG ([facility] Tablet MG 12:00: [facility] AM [facility] EDT Care) Toilet Seat Toilet 10/23/ active Toilet Seat eCW3 Elevator - Seat 2019 Elevator - ([facility] 12:00: [facility] or - AM Health EDT Care) Commode Commod 10/23/ active Commode eCW 3 Bedside - e 2018 Bedside - ([facility] 12:00: [facility] e - AM Health EDT Care) Naproxen Naprox 10/23/ active Naproxen 5 00 eCW3 500 MG Oral en 500 2019 MG ([facility] Tablet MG 12:00: [facility] AM Health EDT Care) Commode Commod 10/23/ active Commode eCW 3 Bedside - e 2018 Bedside - ([facility] 12:00: [facility] e AM Health EDT Care) Naproxen Naprox 10/23/ active Naproxen 5 00 eCW3 500 MG Oral en 500 2019 MG ([facility] Tablet MG 12:00: [facility] AM [facility] EDT Care) Commode UNK 10/23/ active Commode eCW3 Bedside - 2018 Bedside - ([facility] 12:00: [facility] AM [facility] EDT Care) Commode Commod 10/23/ active Commode eCW 3 Bedside - e 2018 Bedside - ([facility] 12:00: [facility] AM [facility] EDT Care) Commode Commod 10/23/ active Commode eCW 3 Bedside - e 2018 Bedside - ([facility] 12:00: [facility] e AM Health EDT Care) Commode Commod 10/23/ active Commode eCW 3 Bedside - e 2018 Bedside - ([facility] 12:00: [facility] e AM Health EDT Care) Naproxen Naprox 10/23/ active Naproxen 5 00 eCW3 500 MG Oral en 500 2019 MG ([facility] [facility] Tablet MG 12:00: [facility] AM Health EDT Care) Toilet Seat Toilet 10/23/ active Toilet Seat eCW3 [facility] Naproxen Naprox 10/23/ active Naproxen 5 00 eCW3 500 MG Oral en 500 2019 MG ([facility] [facility] Tablet MG 12:00: [facility] AM Health EDT Care) Naproxen Naprox 10/23/ active Naproxen 5 00 eCW3 500 MG Oral en 500 2019 MG ([facility] [facility] Tablet MG 12:00: [facility] AM Health EDT Care) Naproxen Naprox 10/23/ active Naproxen 5 00 eCW3 500 MG Oral en 500 2019 MG ([facility] Tablet MG 12:00: [facility] 00 AM Health EDT Care) Toilet Seat Toilet 10/23/ active Toilet Seat eCW3 Elevator - Seat 2018 Elevator - ([facility] 12:00: [facility] or - AM Health EDT Care) Toilet Seat Toilet 10/23/ active Toilet Seat eCW3 Elevator - Seat 2018 Elevator - ([facility] 12:00: [facility] or - AM Health EDT Care) Toilet Seat Toilet 10/23/ active Toilet Seat eCW3 Elevator - Seat 2018 Elevator - ([facility] 12:00: [facility] or - AM Health EDT Care) Toilet Seat Toilet 10/23/ active Toilet Seat eCW3 Elevator - Seat 2018 Elevator - ([facility] 12:00: [facility] or - AM Health EDT Care) Commode Commod 10/23/ active Commode eCW 3 Bedside - e 2019 Bedside - ([facility] 12:00: [facility] e - AM Health EDT Care) Toilet Seat Toilet 10/23/ active Toilet Seat eCW3 Elevator - Seat 2018 Elevator - ([facility] 12:00: [facility] or - AM Health EDT Care) Naproxen Naprox 10/23/ active Naproxen 5 00 eCW3 500 MG Oral en 500 2019 MG ([facility] Tablet MG 12:00: [facility] 00 AM Health EDT Care) Commode Commod 10/23/ active Commode eCW 3 Bedside - e 2019 Bedside - ([facility] 12:00: [facility] e - 00 AM Health EDT Care) Commode Commod 10/23/ active Commode eCW 3 Bedside - e 2019 Bedside - ([facility] 12:00: [facility] e - 00 AM Health EDT Care) Toilet Seat Toilet 10/23/ active Toilet Seat eCW3 Elevator - Seat 2018 Elevator - ([facility] 12:00: [facility] or - 00 AM Health EDT Care) Naproxen Naprox 10/23/ active Naproxen 5 00 eCW3 500 MG Oral en 500 2019 MG ([facility] Tablet MG 12:00: [facility] 00 AM Health EDT Care) Mirtazapine Mirtaz .0 active Mirtaza pine eCW3 7.5 MG Oral apine 2018 {tabl 7.5 MG ([facility] Tablet 7.5 MG 12:00: et_at [facility] 00 AM _bedt Health EDT kim[place]} Care) Naproxen Naprox 08/02/ active Naproxen 3 75 eCW3 375 MG Oral en 375 2019 MG ([facility] Tablet MG 12:00: [facility] 00 AM Health EDT Care) Acetaminoph Acetam .0 active Acetami nophe eCW3 en 500 MG inophe 2018 {tabl n 500 mg ([facility] Oral Tablet n 500 12:00: ets_a [facility] Acetaminoph mg 00 AM s_nee Health en 500 mg EST ded} Care) Acetaminoph Acetam .0 active Acetami nophe eCW3 en 500 MG inophe 2018 {tabl n 500 mg ([facility] Oral Tablet n 500 12:00: ets_a [facility] Acetaminoph mg 00 AM s_nee Health en 500 mg EST ded} Care) Artificial Artifi 05/16/ active Artifici al eCW3 Tears 1-0.3 cial 2018 Tears 1-0.3 ( [facility] % Tears 12:00: % [facility] 1-0.3 00 AM Health % EST Care) Artificial Artifi 05/16/ active Artifici al eCW3 Tears 1-0.3 cial 2018 Tears 1-0.3 ( [facility] % Tears 12:00: % [facility] 1-0.3 00 AM Health % EST Care) Artificial Artifi 05/16/ active Artifici al eCW3 Tears 1-0.3 cial 2018 Tears 1-0.3 ( [facility] % Tears 12:00: % [facility] 1-0.3 00 AM Health % EST Care) Artificial Artifi 05/16/ active Artifici al eCW3 Tears 1-0.3 cial 2018 Tears 1-0.3 ( [facility] % Tears 12:00: % [facility] 1-0.3 00 AM Health % EST Care) Blood Blood 05/10/ active Blood eCW3 Glucose Glucos 2019 Glucose Test ([facility] Test - e Test 12:00: - [facility] AM Health EST Care) Blood Blood 05/10/ active Blood eCW3 Glucose Glucos 2019 Glucose ([facility] Monitor e 12:00: Monitor [facility] AM [facility] Health w/Device r EST w/Device Care) System w/Janis ce Blood Blood 05/10/ active Blood eCW3 Glucose Glucos 2019 Glucose Test ([facility] Test - e Test 12:00: - [facility] EST Care) Blood Blood 05/10/ active Blood eCW3 Glucose Glucos 2019 Glucose Test ([facility] Test - e Test 12:00: - AM Health EST Care) Blood Blood 05/10/ active Blood eCW3 Glucose Glucos 2019 Glucose ([facility] Monitor e 12:00: Monitor [facility] AM System Health w/Device r EST w/Device Care) System w/Janis ce Blood Blood 05/10/ active Blood eCW3 Glucose Glucos 2019 Glucose Test ([facility] Test - e Test 12:00: - AM Health EST Care) Blood Blood 05/10/ active Blood eCW3 Glucose Glucos 2019 Glucose ([facility] Monitor e 12:00: Monitor [facility] AM System Health w/Device r EST w/Device Care) System w/Janis ce Blood Blood 05/10/ active Blood eCW3 Glucose Glucos 2019 Glucose Test ([facility] Test - e Test 12:00: - Health EST Care) Blood Blood 05/10/ active Blood eCW3 Glucose Glucos 2019 Glucose ([facility] Monitor e 12:00: Monitor [facility] [place] 00 AM System Health w/Device r EST w/Device Care) System w/Janis ce Blood Blood 05/10/ active Blood eCW3 Glucose Glucos 2019 Glucose ([facility] Monitor e 12:00: Monitor [facility] [place] 00 AM System Health w/Device r EST w/Device Care) System w/Janis ce Blood Blood 05/10/ active Blood eCW3 Glucose Glucos 2019 Glucose ([facility] Monitor e 12:00: Monitor [facility] [place] 00 AM System Health w/Device r EST w/Device Care) System w/Janis ce Blood Blood 05/10/ active Blood eCW3 Glucose Glucos 2019 Glucose ([facility] Monitor e 12:00: Monitor [facility] [place] 00 AM System Health w/Device r EST w/Device Care) System w/Janis ce Blood Blood 05/10/ active Blood eCW3 Glucose Glucos 2019 Glucose Test ([facility] Test - e Test 12:00: - [facility] AM Health EST Care) Blood Blood 05/10/ active Blood eCW3 Glucose Glucos 2019 Glucose ([facility] Monitor e 12:00: Monitor [facility] [place] 00 AM System Health w/Device r EST w/Device Care) System w/Janis ce Blood Blood 05/10/ active Blood eCW3 Glucose Glucos 2019 Glucose ([facility] Monitor e 12:00: Monitor [facility] [place] 00 AM System Health w/Device r EST w/Device Care) System w/Janis ce Blood Blood 05/10/ active Blood eCW3 Glucose Glucos 2019 Glucose Test ([facility] Test - e Test 12:00: - AM Health EST Care) Blood Blood 05/10/ active Blood eCW3 Glucose Glucos 2019 Glucose Test ([facility] Test - e Test 12:00: - Health EST Care) Blood Blood 05/10/ active Blood eCW3 Glucose Glucos 2019 Glucose ([facility] Monitor e 12:00: Monitor [facility] [place] 00 AM System Health w/Device r EST w/Device Care) System w/Janis ce Blood Blood 05/10/ active Blood eCW3 Glucose Glucos 2019 Glucose Test ([facility] Test - e Test 12:00: - AM Health EST Care) Blood Blood 05/10/ active Blood eCW3 Glucose Glucos 2019 Glucose ([facility] Monitor e 12:00: Monitor [facility] [place] 00 AM System Health w/Device r EST w/Device Care) System w/Janis ce Blood Blood 05/10/ active Blood eCW3 Glucose Glucos 2019 Glucose ([facility] Monitor e 12:00: Monitor [facility] [place] 00 AM System Health w/Device r EST w/Device Care) System w/Janis ce Blood Blood 05/10/ active Blood eCW3 Glucose Glucos 2019 Glucose Test ([facility] Test - e Test 12:00: - AM Health EST Care) Blood Blood 05/10/ active Blood eCW3 Glucose Glucos 2019 Glucose Test ([facility] Test - e Test 12:00: - AM Health EST Care) Blood UNK 05/10/ active Blood eCW3 Glucose 2019 Glucose Test ([facility] Test - 12:00: - [facility] AM Health EST Care) Blood Blood 05/10/ active Blood eCW3 Glucose Glucos 2019 Glucose Test ([facility] Test - e Test 12:00: - AM Health EST Care) Blood Blood 05/10/ active Blood eCW3 Glucose Glucos 2019 Glucose Test ([facility] Test - e Test 12:00: - Health EST Care) Blood Blood 05/10/ active Blood eCW3 Glucose Glucos 2019 Glucose Test ([facility] Test - e Test 12:00: - Health EST Care) Blood Blood 05/10/ active Blood eCW3 Glucose Glucos 2019 Glucose ([facility] Monitor e 12:00: Monitor [facility] AM System Health w/Device r EST w/Device Care) System w/Janis ce Blood Blood 05/10/ active Blood eCW3 Glucose Glucos 2019 Glucose Test ([facility] Test - e Test 12:00: - Health EST Care) Blood Blood 05/10/ active Blood eCW3 Glucose Glucos 2019 Glucose Test ([facility] Test - e Test 12:00: - Health EST Care) Blood Blood 05/10/ active Blood eCW3 Glucose Glucos 2019 Glucose Test ([facility] Test - e Test 12:00: - AM Health EST Care) Blood Blood 05/10/ active Blood eCW3 Glucose Glucos 2019 Glucose ([facility] Monitor e 12:00: Monitor [facility] [place] 00 AM System Health w/Device r EST w/Device Care) System w/Janis ce Blood Blood 05/10/ active Blood eCW3 Glucose Glucos 2019 Glucose Test ([facility] Test - e Test 12:00: - AM Health EST Care) Blood Blood 05/10/ active Blood eCW3 Glucose Glucos 2019 Glucose ([facility] Monitor e 12:00: Monitor [facility] [place] 00 AM System Health w/Device r EST w/Device Care) System w/Janis ce Blood Blood 05/10/ active Blood eCW3 Glucose Glucos 2019 Glucose Test ([facility] Test - e Test 12:00: - AM Health EST Care) Blood Blood 05/10/ active Blood eCW3 Glucose Glucos 2019 Glucose Test ([facility] Test - e Test 12:00: - [facility] 00 AM Health EST Care) Blood Blood 05/10/ active Blood eCW3 Glucose Glucos 2019 Glucose ([facility] Monitor e 12:00: Monitor [facility] AM System Health w/Device r EST w/Device Care) System w/Janis ce Blood Blood 05/10/ active Blood eCW3 Glucose Glucos 2019 Glucose ([facility] Monitor e 12:00: Monitor [facility] AM System Health w/Device r EST w/Device Care) System w/Janis ce Blood Blood 05/10/ active Blood eCW3 Glucose Glucos 2019 Glucose Test ([facility] Test - e Test 12:00: - Health EST Care) Blood Blood 05/10/ active Blood eCW3 Glucose Glucos 2019 Glucose Test ([facility] Test - e Test 12:00: - Health EST Care) Blood Blood 05/10/ active Blood eCW3 Glucose Glucos 2019 Glucose ([facility] Monitor e 12:00: Monitor [facility] AM System Health w/Device r EST w/Device Care) System w/Janis ce Blood Blood 05/10/ active Blood eCW3 Glucose Glucos 2019 Glucose Test ([facility] Test - e Test 12:00: - AM Health EST Care) Blood UNK 05/10/ active Blood eCW3 Glucose 2019 Glucose ([facility] Monitor 12:00: Monitor [facility] AM System Health w/Device EST w/Device Care) Blood Blood 05/10/ active Blood eCW3 Glucose Glucos 2019 Glucose ([facility] Monitor e 12:00: Monitor [facility] [place] 00 AM System Health w/Device r EST w/Device Care) System w/Janis ce Blood Blood 05/10/ active Blood eCW3 Glucose Glucos 2019 Glucose ([facility] Monitor e 12:00: Monitor [facility] [place] 00 AM System Health w/Device r EST w/Device Care) System w/Janis ce Blood Blood 05/10/ active Blood eCW3 Glucose Glucos 2019 Glucose ([facility] Monitor e 12:00: Monitor [facility] [place] 00 AM System Health w/Device r EST w/Device Care) System w/Janis ce Blood Blood 05/10/ active Blood eCW3 Glucose Glucos 2019 Glucose Test ([facility] Test - e Test 12:00: - AM Health EST Care) Blood Blood 05/10/ active Blood eCW3 Glucose Glucos 2019 Glucose Test ([facility] Test - e Test 12:00: - [facility] AM Health EST Care) Blood Blood 05/10/ active Blood eCW3 Glucose Glucos 2019 Glucose ([facility] Monitor e 12:00: Monitor [facility] [place] 00 AM System Health w/Device r EST w/Device Care) System w/Janis ce Blood Blood 05/10/ active Blood eCW3 Glucose Glucos 2019 Glucose ([facility] Monitor e 12:00: Monitor [facility] [place] 00 AM System Health w/Device r EST w/Device Care) System w/Janis ce Blood Blood 05/10/ active Blood eCW3 Glucose Glucos 2019 Glucose ([facility] Monitor e 12:00: Monitor [facility] [place] 00 AM System Health w/Device r EST w/Device Care) System w/Janis ce Blood Blood 05/10/ active Blood eCW3 Glucose Glucos 2019 Glucose ([facility] Monitor e 12:00: Monitor [facility] [place] 00 AM System Health w/Device r EST w/Device Care) System w/Janis ce Blood Blood 05/10/ active Blood eCW3 Glucose Glucos 2019 Glucose ([facility] Monitor e 12:00: Monitor [facility] [place] 00 AM System Health w/Device r EST w/Device Care) System w/Janis ce Blood Blood 05/10/ active Blood eCW3 Glucose Glucos 2019 Glucose Test ([facility] Test - e Test 12:00: - AM Health EST Care) Blood Blood 05/10/ active Blood eCW3 Glucose Glucos 2019 Glucose Test ([facility] Test - e Test 12:00: - AM Health EST Care) Blood Blood 05/10/ active Blood eCW3 Glucose Glucos 2019 Glucose Test ([facility] Test - e Test 12:00: - AM Health EST Care) Blood Blood 05/10/ active Blood eCW3 Glucose Glucos 2019 Glucose Test ([facility] Test - e Test 12:00: - AM Health EST Care) Blood Blood 05/10/ active Blood eCW3 Glucose Glucos 2019 Glucose Test ([facility] Test - e Test 12:00: - [facility] AM Health EST Care) Blood Blood 05/10/ active Blood eCW3 Glucose Glucos 2019 Glucose Test ([facility] Test - e Test 12:00: - AM Health EST Care) Blood Blood 05/10/ active Blood eCW3 Glucose Glucos 2019 Glucose Test ([facility] Test - e Test 12:00: - [facility] AM Health EST Care) Blood Blood 05/10/ active Blood eCW3 Glucose Glucos 2019 Glucose ([facility] 12:00: [facility] AM System Health w/Device r EST w/Device Care) System w/Janis ce Blood Blood 05/10/ active Blood eCW3 Glucose Glucos 2019 Glucose Test ([facility] Test - e Test 12:00: - [facility] AM Health EST Care) Blood Blood 05/10/ active Blood eCW3 Glucose Glucos 2019 Glucose ([facility] 12:00: [facility] AM System Health w/Device r EST w/Device Care) System w/Janis ce Blood Blood 05/10/ active Blood eCW3 Glucose Glucos 2019 Glucose ([facility] 12:00: [facility] 00 AM System Health w/Device r EST w/Device Care) System w/Janis ce Blood Blood 05/10/ active Blood eCW3 Glucose Glucos 2019 Glucose ([facility] 12:00: [facility] AM System Health w/Device r EST w/Device Care) System w/Janis ce Blood Blood 05/10/ active Blood eCW3 Glucose Glucos 2019 Glucose ([facility] 12:00: [facility] 00 AM System Health w/Device r EST w/Device Care) System w/Janis ce Blood Blood 05/10/ active Blood eCW3 Glucose Glucos 2019 Glucose ([facility] 12:00: [facility] 00 AM System Health w/Device r EST w/Device Care) System w/Janis ce Blood Blood 05/10/ active Blood eCW3 Glucose Glucos 2019 Glucose ([facility] 12:00: [facility] 00 AM System Health w/Device r EST w/Device Care) System w/Janis ce Blood Blood 05/10/ active Blood eCW3 Glucose Glucos 2019 Glucose Test ([facility] Test - e Test 12:00: - [facility] AM Health EST Care) Blood Blood 05/10/ active Blood eCW3 Glucose Glucos 2019 Glucose ([facility] 12:00: [facility] 00 AM System Health w/Device r EST w/Device Care) System w/Janis ce Blood Blood 05/10/ active Blood eCW3 Glucose Glucos 2019 Glucose ([facility] 12:00: [facility] 00 AM System Health w/Device r EST w/Device Care) System w/Janis ce Blood Blood 05/10/ active Blood eCW3 Glucose Glucos 2019 Glucose Test ([facility] Test - e Test 12:00: - [facility] - 00 AM Health EST Care) Simethicone Simeth .0 active Simethi cone eCW3 125 MG icone 2017 {tabl 125 MG ([facility] 125 MG 12:00: et_af [facility] 00 AM ter_ Health EDT eals_ Care) and_a t_bed time_ as_ne eded} Simethicone Simeth .0 active Simethi cone eCW3 125 MG icone 2017 {tabl 125 MG ([facility] 125 MG 12:00: et_af [facility] 00 AM ter_ Health EDT eals_ Care) and_a t_bed time_ as_ne eded} Simethicone Simeth .0 active Simethi cone eCW3 125 MG icone 2017 {tabl 125 MG ([facility] 125 MG 12:00: et_af [facility] 00 AM ter_ Health EDT eals_ Care) and_a t_bed time_ as_ne eded} Simethicone Simeth .0 active Simethi cone eCW3 125 MG icone 2017 {tabl 125 MG ([facility] 125 MG 12:00: et_af [facility] 00 AM ter_ Health EDT eals_ Care) and_a t_bed time_ as_ne eded} Simethicone Simeth .0 active Simethi cone eCW3 125 MG icone 2017 {tabl 125 MG ([facility] 125 MG 12:00: et_af [facility] 00 AM ter_ Health EDT eals_ Care) and_a t_bed time_ as_ne eded} Simethicone Simeth .0 active Simethi cone eCW3 125 MG icone 2017 {tabl 125 MG ([facility] 125 MG 12:00: et_af [facility] 00 AM ter_m Health EDT eals_ Care) and_a t_bed time_ as_ne eded} Simethicone Simeth .0 active Simethi cone eCW3 125 MG icone 2017 {tabl 125 MG ([facility] 125 MG 12:00: et_af [facility] 00 AM ter_m Health EDT eals_ Care) and_a t_bed time_ as_ne eded} Simethicone Simeth .0 active Simethi cone eCW3 125 MG icone 2017 {tabl 125 MG ([facility] 125 MG 12:00: et_af [facility] 00 AM ter_m Health EDT eals_ Care) and_a t_bed time_ as_ne eded} Simethicone Simeth .0 active Simethi cone eCW3 125 MG icone 2017 {tabl 125 MG ([facility] 125 MG 12:00: et_af [facility] 00 AM ter_m Health EDT eals_ Care) and_a t_bed time_ as_ne eded} Simethicone Simeth .0 active Simethi cone eCW3 125 MG icone 2017 {tabl 125 MG ([facility] 125 MG 12:00: et_af [facility] 00 AM ter_m Health EDT eals_ Care) and_a t_bed time_ as_ne eded} Simethicone Simeth .0 active Simethi cone eCW3 125 MG icone 2017 {tabl 125 MG ([facility] 125 MG 12:00: et_af [facility] 00 AM ter_m Health EDT eals_ Care) and_a t_bed time_ as_ne eded} Simethicone Simeth .0 active Simethi cone eCW3 125 MG icone 2018 {tabl 125 MG ([facility] 125 MG 12:00: et_af [facility] 00 AM ter_m Health EDT eals_ Care) and_a t_bed time_ as_ne eded} Simethicone Simeth .0 active Simethi cone eCW3 125 MG icone 2017 {tabl 125 MG ([facility] 125 MG 12:00: et_af [facility] 00 AM ter_m Health EDT eals_ Care) and_a t_bed time_ as_ne eded} Simethicone Simeth .0 active Simethi cone eCW3 125 MG icone 2018 {tabl 125 MG ([facility] 125 MG 12:00: et_af [facility] 00 AM ter_m Health EDT eals_ Care) and_a t_bed time_ as_ne eded} Simethicone Simeth .0 active Simethi cone eCW3 125 MG icone 2017 {tabl 125 MG ([facility] 125 MG 12:00: et_af [facility] 00 AM ter_m Health EDT eals_ Care) and_a t_bed time_ as_ne eded} Simethicone Simeth .0 active Simethi cone eCW3 125 MG icone 2017 {tabl 125 MG ([facility] 125 MG 12:00: et_af [facility] 00 AM ter_m Health EDT eals_ Care) and_a t_bed time_ as_ne eded} Simethicone Simeth .0 active Simethi cone eCW3 125 MG icone 2017 {tabl 125 MG ([facility] 125 MG 12:00: et_af [facility] 00 AM ter_m Health EDT eals_ Care) and_a t_bed time_ as_ne eded} Simethicone Simeth .0 active Simethi cone eCW3 125 MG icone 2017 {tabl 125 MG ([facility] 125 MG 12:00: et_af [facility] 00 AM ter_m Health EDT eals_ Care) and_a t_bed time_ as_ne eded} Simethicone Simeth .0 active Simethi cone eCW3 125 MG icone 2018 {tabl 125 MG ([facility] 125 MG 12:00: et_af [facility] 00 AM ter_m Health EDT eals_ Care) and_a t_bed time_ as_ne eded} Simethicone Simeth .0 active Simethi cone eCW3 125 MG icone 2018 {tabl 125 MG ([facility] 125 MG 12:00: et_af [facility] 00 AM ter_m Health EDT eals_ Care) and_a t_bed time_ as_ne eded} Simethicone Simeth .0 active Simethi cone eCW3 125 MG icone 2018 {tabl 125 MG ([facility] 125 MG 12:00: et_af [facility] 00 AM ter_m Health EDT eals_ Care) and_a t_bed time_ as_ne eded} Simethicone Simeth .0 active Simethi cone eCW3 125 MG icone 2017 {tabl 125 MG ([facility] 125 MG 12:00: et_af [facility] 00 AM ter_m Health EDT eals_ Care) and_a t_bed time_ as_ne eded} Simethicone CECIK .0 active Simethico ne eCW3 125 MG 2017 {tabl 125 MG ([facility] 12:00: et_af [facility] 00 AM ter_m Health EDT eals_ Care) and_a t_bed time_ as_ne eded} Simethicone Simeth .0 active Simethi cone eCW3 125 MG icone 2018 {tabl 125 MG ([facility] 125 MG 12:00: et_af [facility] 00 AM ter_m Health EDT eals_ Care) and_a t_bed time_ as_ne eded} Simethicone Simeth .0 active Simethi cone eCW3 125 MG icone 2017 {tabl 125 MG ([facility] 125 MG 12:00: et_af [facility] 00 AM ter_m Health EDT eals_ Care) and_a t_bed time_ as_ne eded} Simethicone Simeth .0 active Simethi cone eCW3 125 MG icone 2017 {tabl 125 MG ([facility] 125 MG 12:00: et_af [facility] 00 AM ter_m Health EDT eals_ Care) and_a t_bed time_ as_ne eded} Simethicone Simeth .0 active Simethi cone eCW3 125 MG icone 2018 {tabl 125 MG ([facility] 125 MG 12:00: et_af [facility] 00 AM ter_m Health EDT eals_ Care) and_a t_bed time_ as_ne eded} Simethicone Simeth .0 active Simethi cone eCW3 125 MG icone 2018 {tabl 125 MG ([facility] 125 MG 12:00: et_af [facility] 00 AM ter_m Health EDT eals_ Care) and_a t_bed time_ as_ne eded} Simethicone Simeth .0 active Simethi cone eCW3 125 MG icone 2017 {tabl 125 MG ([facility] 125 MG 12:00: et_af [facility] 00 AM ter_m Health EDT eals_ Care) and_a t_bed time_ as_ne eded} Simethicone Simeth .0 active Simethi cone eCW3 125 MG icone 2017 {tabl 125 MG ([facility] 125 MG 12:00: et_af [facility] 00 AM ter_m Health EDT eals_ Care) and_a t_bed time_ as_ne eded} Simethicone Simeth .0 active Simethi cone eCW3 125 MG icone 2018 {tabl 125 MG ([facility] 125 MG 12:00: et_af [facility] 00 AM ter_m Health EDT eals_ Care) and_a t_bed time_ as_ne eded} Simethicone Simeth .0 active Simethi cone eCW3 125 MG icone 2017 {tabl 125 MG ([facility] 125 MG 12:00: et_af [facility] 00 AM ter_m Health EDT eals_ Care) and_a t_bed time_ as_ne eded} Simethicone Simeth .0 active Simethi cone eCW3 125 MG icone 2018 {tabl 125 MG ([facility] 125 MG 12:00: et_af [facility] 00 AM ter_m Health EDT eals_ Care) and_a t_bed time_ as_ne eded} Simethicone Simeth .0 active Simethi cone eCW3 125 MG icone 2018 {tabl 125 MG ([facility] 125 MG 12:00: et_af [facility] 00 AM ter_m Health EDT eals_ Care) and_a t_bed time_ as_ne eded} Simethicone Simeth .0 active Simethi cone eCW3 125 MG icone 2018 {tabl 125 MG ([facility] 125 MG 12:00: et_af [facility] 00 AM [facility] EDT eals_ Care) and_a t_bed time_ as_ne eded} Simethicone Simeth .0 active Simethi cone eCW3 125 MG icone 2018 {tabl 125 MG ([facility] 125 MG 12:00: et_af [facility] 00 AM [facility] EDT eals_ Care) and_a t_bed time_ as_ne eded} 3 ML Victoz 10/16/ active Victoza 18 eCW 3 liraglutide a 18 2018 MG/3ML ([facility] 6 MG/ML Pen MG/3ML 12:00: [facility] 00 AM Health [Victoza] EDT Care) Victoza 18 MG/3ML 3 ML Victoz 10/16/ active Victoza 18 eCW 3 liraglutide a 18 2018 MG/3ML ([facility] 6 MG/ML Pen MG/3ML 12:00: [facility] Inject[facility] 00 AM Health [Victoza] EDT Care) Victoza 18 MG/3ML 3 ML Victoz 10/16/ active Victoza 18 eCW 3 liraglutide a 18 2018 MG/3ML ([facility] 6 MG/ML Pen MG/3ML 12:00: [facility] Inject[facility] 00 AM Health [Victoza] EDT Care) Victoza 18 MG/3ML Roller Roller 05/30/ active Roller eCW3 [facility] - Walker 2017 Walker - ([facility] - 12:00: [facility] 00 AM Health EDT Care) Roller Roller 05/30/ active Roller eCW3 Walker - Walker 2017 Walker - ([facility] - 12:00: [facility] 00 AM Health EDT Care) Roller Roller 05/30/ active Roller eCW3 Walker - Walker 2017 Walker - ([facility] - 12:00: [facility] 00 AM Health EDT Care) Roller Roller 05/30/ active Roller eCW3 Walker - Walker 2017 Walker - ([facility] - 12:00: [facility] 00 AM Health EDT Care) Roller Roller 05/30/ active Roller eCW3 Walker - Walker 2018 Walker - ([facility] - 12:00: [facility] 00 AM Health EDT Care) Roller Roller 05/30/ active Roller eCW3 Walker - Walker 2018 Walker - ([facility] - 12:00: [facility] 00 AM Health EDT Care) Roller Roller 05/30/ active Roller eCW3 Walker - Walker 2018 Walker - ([facility] - 12:00: [facility] 00 AM Health EDT Care) Roller Roller 05/30/ active Roller eCW3 Walker - Walker 2018 Walker - ([facility] - 12:00: [facility] 00 AM Health EDT Care) Roller Roller 05/30/ active Roller eCW3 Walker - Walker 2018 Walker - ([facility] - 12:00: [facility] 00 AM Health EDT Care) Roller Roller 05/30/ active Roller eCW3 Walker - Walker 2018 Walker - ([facility] - 12:00: [facility] 00 AM Health EDT Care) Roller Roller 05/30/ active Roller eCW3 Walker - Walker 2018 Walker - ([facility] - 12:00: [facility] 00 AM Health EDT Care) Roller Roller 05/30/ active Roller eCW3 Walker - Walker 2018 Walker - ([facility] - 12:00: [facility] 00 AM Health EDT Care) Roller Roller 05/30/ active Roller eCW3 Walker - Walker 2018 Walker - ([facility] - 12:00: [facility] 00 AM Health EDT Care) Roller Roller 05/30/ active Roller eCW3 Walker - Walker 2018 Walker - ([facility] - 12:00: [facility] 00 AM Health EDT Care) Roller Roller 05/30/ active Roller eCW3 Walker - Walker 2018 Walker - ([facility] - 12:00: [facility] 00 AM Health EDT Care) Roller Roller 05/30/ active Roller eCW3 Walker - Walker 2018 Walker - ([facility] - 12:00: [facility] 00 AM Health EDT Care) Roller Roller 05/30/ active Roller eCW3 Walker - Walker 2018 Walker - ([facility] - 12:00: [facility] 00 AM Health EDT Care) Roller Roller 05/30/ active Roller eCW3 Walker - Walker 2018 Walker - ([facility] - 12:00: [facility] 00 AM Health EDT Care) Roller Roller 05/30/ active Roller eCW3 Walker - Walker 2018 Walker - ([facility] - 12:00: [facility] 00 AM Health EDT Care) Roller Roller 05/30/ active Roller eCW3 Walker - Walker 2018 Walker - ([facility] - 12:00: [facility] 00 AM Health EDT Care) Roller UNK 05/30/ active Roller eCW3 Walker - 2018 Walker - ([facility] 12:00: [facility] 00 AM Health EDT Care) Roller Roller 05/30/ active Roller eCW3 Walker - Walker 2018 Walker - ([facility] - 12:00: [facility] 00 AM Health EDT Care) Roller Roller 05/30/ active Roller eCW3 Walker - Walker 2018 Walker - ([facility] - 12:00: [facility] 00 AM Health EDT Care) Roller Roller 05/30/ active Roller eCW3 Walker - Walker 2018 Walker - ([facility] - 12:00: [facility] 00 AM Health EDT Care) Roller Roller 05/30/ active Roller eCW3 Walker - Walker 2018 Walker - ([facility] - 12:00: [facility] 00 AM Health EDT Care) Roller Roller 05/30/ active Roller eCW3 Walker - Walker 2018 Walker - ([facility] - 12:00: [facility] 00 AM Health EDT Care) Roller Roller 05/30/ active Roller eCW3 Walker - Walker 2018 Walker - ([facility] - 12:00: [facility] 00 AM Health EDT Care) Roller Roller 05/30/ active Roller eCW3 Walker - Walker 2018 Walker - ([facility] - 12:00: [facility] 00 AM Health EDT Care) Roller Roller 05/30/ active Roller eCW3 Walker - Walker 2018 Walker - ([facility] - 12:00: [facility] 00 AM Health EDT Care) Roller Roller 05/30/ active Roller eCW3 Walker - Walker 2018 Walker - ([facility] - 12:00: [facility] 00 AM Health EDT Care) Roller Roller 05/30/ active Roller eCW3 Walker - Walker 2018 Walker - ([facility] - 12:00: [facility] 00 AM Health EDT Care) Roller Roller 05/30/ active Roller eCW3 Walker - Walker 2018 Walker - ([facility] - 12:00: [facility] 00 AM Health EDT Care) Roller Roller /30/ active Roller eCW3 Walker - Walker 2018 Walker - ([facility] - 12:00: [facility] 00 AM Health EDT Care) Roller Roller /30/ active Roller eCW3 Walker - Walker 2018 Walker - ([facility] - 12:00: [facility] 00 AM Health EDT Care) Roller Roller /30/ active Roller eCW3 Walker - Walker 2018 Walker - ([facility] - 12:00: [facility] 00 AM Health EDT Care) Roller Roller 30/ active Roller eCW3 Walker - Walker 2018 Walker - ([facility] - 12:00: [facility] 00 AM Health EDT Care) TENS TENS 09/05/ active TENS Therapy eCW 3 Therapy Therap 2018 Pain Relief ([facility] Pain Relief y Pain 12:00: - [facility] - Relief 00 AM Health - EDT Care) TENS TENS 09/05/ active TENS Therapy eCW 3 Therapy Therap 2018 Pain Relief ([facility] Pain Relief y Pain 12:00: - [facility] - Relief 00 AM Health - EDT Care) TENS TENS 09/05/ active TENS Therapy eCW 3 Therapy Therap 2018 Pain Relief ([facility] Pain Relief y Pain 12:00: - [facility] - Relief 00 AM Health - EDT Care) TENS TENS 09/05/ active TENS Therapy eCW 3 Therapy Therap 2018 Pain Relief ([facility] Pain Relief y Pain 12:00: - [facility] - Relief 00 AM Health - EDT Care) TENS TENS 09/05/ active TENS Therapy eCW 3 Therapy Therap 2018 Pain Relief ([facility] Pain Relief y Pain 12:00: - [facility] - Relief 00 AM Health - EDT Care) TENS UNK 09/05/ active TENS Therapy eCW 3 Therapy 2018 Pain Relief ([facility] Pain Relief 12:00: - [facility] - 00 AM Health EDT Care) TENS TENS 09/05/ active TENS Therapy eCW 3 Therapy Therap 2018 Pain Relief ([facility] Pain Relief y Pain 12:00: - [facility] - Relief 00 AM Health - EDT Care) TENS TENS 09/05/ active TENS Therapy eCW 3 Therapy Therap 2018 Pain Relief ([facility] Pain Relief y Pain 12:00: - [facility] - Relief 00 AM Health - EDT Care) TENS TENS // active TENS Therapy eCW 3 Therapy Therap 2018 Pain Relief ([facility] Pain Relief y Pain 12:00: - [facility] - Relief 00 AM Health - EDT Care) TENS TENS // active TENS Therapy eCW 3 Therapy Therap 2018 Pain Relief ([facility] Pain Relief y Pain 12:00: - [facility] - Relief 00 AM Health - EDT Care) TENS TENS // active TENS Therapy eCW 3 Therapy Therap 2018 Pain Relief ([facility] Pain Relief y Pain 12:00: - [facility] - Relief 00 AM Health - EDT Care) TENS TENS // active TENS Therapy eCW 3 Therapy Therap 2018 Pain Relief ([facility] Pain Relief y Pain 12:00: - [facility] - Relief 00 AM Health - EDT Care) TENS TENS // active TENS Therapy eCW 3 Therapy Therap 2018 Pain Relief ([facility] Pain Relief y Pain 12:00: - [facility] - Relief 00 AM Health - EDT Care) TENS TENS // active TENS Therapy eCW 3 Therapy Therap 2018 Pain Relief ([facility] Pain Relief y Pain 12:00: - [facility] - Relief 00 AM Health - EDT Care) TENS TENS // active TENS Therapy eCW 3 Therapy Therap 2018 Pain Relief ([facility] Pain Relief y Pain 12:00: - [facility] - Relief 00 AM Health - EDT Care) TENS TENS // active TENS Therapy eCW 3 Therapy Therap 2018 Pain Relief ([facility] Pain Relief y Pain 12:00: - [facility] - Relief 00 AM Health - EDT Care) TENS TENS // active TENS Therapy eCW 3 Therapy Therap 2018 Pain Relief ([facility] Pain Relief y Pain 12:00: - [facility] - Relief 00 AM Health - EDT Care) TENS TENS // active TENS Therapy eCW 3 Therapy Therap 2018 Pain Relief ([facility] Pain Relief y Pain 12:00: - [facility] - Relief 00 AM Health - EDT Care) TENS TENS // active TENS Therapy eCW 3 Therapy Therap 2018 Pain Relief ([facility] Pain Relief y Pain 12:00: - [facility] - Relief 00 AM Health - EDT Care) TENS TENS // active TENS Therapy eCW 3 Therapy Therap 2018 Pain Relief ([facility] Pain Relief y Pain 12:00: - [facility] - Relief 00 AM Health - EDT Care) TENS TENS // active TENS Therapy eCW 3 Therapy Therap 2018 Pain Relief ([facility] Pain Relief y Pain 12:00: - [facility] - Relief 00 AM Health - EDT Care) TENS TENS // active TENS Therapy eCW 3 Therapy Therap 2018 Pain Relief ([facility] Pain Relief y Pain 12:00: - [facility] - Relief 00 AM Health - EDT Care) TENS TENS // active TENS Therapy eCW 3 Therapy Therap 2018 Pain Relief ([facility] Pain Relief y Pain 12:00: - [facility] - Relief 00 AM Health - EDT Care) TENS TENS // active TENS Therapy eCW 3 Therapy Therap 2018 Pain Relief ([facility] Pain Relief y Pain 12:00: - [facility] - Relief 00 AM Health - EDT Care) TENS TENS 09/05/ active TENS Therapy eCW 3 Therapy Therap 2018 Pain Relief ([facility] Pain Relief y Pain 12:00: - [facility] - Relief 00 AM Health - EDT Care) TENS TENS 09/05/ active TENS Therapy eCW 3 Therapy Therap 2018 Pain Relief ([facility] Pain Relief y Pain 12:00: - [facility] - Relief 00 AM Health - EDT Care) TENS TENS // active TENS Therapy eCW 3 Therapy Therap 2018 Pain Relief ([facility] Pain Relief y Pain 12:00: - [facility] - Relief 00 AM Health - EDT Care) TENS TENS 09/05/ active TENS Therapy eCW 3 Therapy Therap 2018 Pain Relief ([facility] Pain Relief y Pain 12:00: - [facility] - Relief 00 AM Health - EDT Care) TENS TENS // active TENS Therapy eCW 3 Therapy Therap 2018 Pain Relief ([facility] Pain Relief y Pain 12:00: - [facility] - Relief 00 AM Health - EDT Care) TENS TENS // active TENS Therapy eCW 3 Therapy Therap 2018 Pain Relief ([facility] Pain Relief y Pain 12:00: - [facility] - Relief 00 AM Health - EDT Care) TENS TENS // active TENS Therapy eCW 3 Therapy Therap 2018 Pain Relief ([facility] Pain Relief y Pain 12:00: - [facility] - Relief 00 AM Health - EDT Care) TENS TENS 09/05/ active TENS Therapy eCW 3 Therapy Therap 2018 Pain Relief ([facility] Pain Relief y Pain 12:00: - [facility] - Relief 00 AM Health - EDT Care) TENS TENS 09/05/ active TENS Therapy eCW 3 Therapy Therap 2018 Pain Relief ([facility] Pain Relief y Pain 12:00: - [facility] - Relief 00 AM Health - EDT Care) TENS TENS 09/05/ active TENS Therapy eCW 3 Therapy Therap 2018 Pain Relief ([facility] Pain Relief y Pain 12:00: - [facility] - Relief 00 AM Health - EDT Care) TENS TENS 09/05/ active TENS Therapy eCW 3 Therapy Therap 2018 Pain Relief ([facility] Pain Relief y Pain 12:00: - [facility] - Relief 00 AM Health - EDT Care) TENS TENS 09/05/ active TENS Therapy eCW 3 Therapy Therap 2018 Pain Relief ([facility] Pain Relief y Pain 12:00: - [facility] - Relief 00 AM Health - EDT Care) Zenpep UNK 05/22/ active Zenpep e CW3 UNIT 2018 UNIT ([facility] 12:00: [facility] 00 AM Health EST Care) Lac-Hydrin UNK .0 active Lac-Hydrin eCW3 12 2017 {appl 12 % ([facility] 12:00: icati [facility] 00 AM on_to Health EST _affe Care) cted_ area} Zenpep UNK 05/22/ active Zenpep e CW3 UNIT 2018 UNIT ([facility] 12:00: [facility] 00 AM Health EST Care) Zenpep UNK 05/22/ active Zenpep e CW3 UNIT 2018 UNIT ([facility] 12:00: [facility] 00 AM Health EST Care) Zenpep UNK 05/22/ active Zenpep e CW3 UNIT 2018 UNIT ([facility] 12:00: [facility] 00 AM Health EST Care) Lac-Hydrin Lac-Hy .0 active Lac-Hydr in eCW3 12 % 2017 {appl 12 % ([facility] 12 % 12:00: icati [facility] 00 AM on_to Health EST _affe Care) cted_ area} Zenpep UNK 05/22/ active Zenpep e CW3 UNIT 2018 UNIT ([facility] 12:00: [facility] 00 AM Health EST Care) Lac-Hydrin UNK .0 active Lac-Hydrin eCW3 12 2017 {appl 12 % ([facility] 12:00: icati [facility] 00 AM on_to Health EST _affe Care) cted_ area} Zenpep UNK 05/22/ active Zenpep e CW3 UNIT 2018 UNIT ([facility] 12:00: [facility] 00 AM Health EST Care) Lac-Hydrin UNK .0 active Lac-Hydrin eCW3 12 % 2017 {appl 12 % ([facility] 12:00: icati [facility] 00 AM on_to Health EST _affe Care) cted_ area} ammonium Lac-Hy .0 active Lac-Hydrin eCW3 lactate 120 drin 2017 {appl 12 % ([facility] MG/ML 12 % 12:00: icati [facility] Topical 00 AM on_to Health Cream EST _affe Care) [Lac-Hydrin cted_ ] area} Lac-Hydrin 12 % Zenpep UNK 05/22/ active Zenpep e CW3 UNIT 2018 UNIT ([facility] 12:00: [facility] 00 AM Health EST Care) Zenpep UNK 05/22/ active Zenpep e CW3 UNIT 2018 UNIT ([facility] 12:00: [facility] 00 AM Health EST Care) Zenpep UNK 05/22/ active Zenpep e CW3 UNIT 2018 UNIT ([facility] 12:00: [facility] 00 AM Health EST Care) ammonium Lac-Hy .0 active Lac-Hydrin eCW3 lactate 120 drin 2017 {appl 12 % ([facility] MG/ML 12 % 12:00: icati [facility] Topical 00 AM on_to Health Cream EST _affe Care) [Lac-Hydrin cted_ ] area} Lac-Hydrin 12 % Lac-Hydrin UNK .0 active Lac-Hydrin eCW3 12 % 2017 {appl 12 % ([facility] 12:00: icati [facility] 00 AM on_to Health EST _affe Care) cted_ area} Zenpep UNK 05/22/ active Zenpep e CW3 UNIT 2018 UNIT ([facility] 12:00: [facility] 00 AM Health EST Care) Zenpep UNK 05/22/ active Zenpep e CW3 UNIT 2018 UNIT ([facility] 12:00: [facility] 00 AM Health EST Care) Zenpep UNK 05/22/ active Zenpep e CW3 UNIT 2018 UNIT ([facility] 12:00: [facility] 00 AM Health EST Care) Lac-Hydrin UNK .0 active Lac-Hydrin eCW3 12 % 2017 {appl 12 % ([facility] 12:00: icati [facility] 00 AM on_to Health EST _affe Care) cted_ area} Lac-Hydrin UNK .0 active Lac-Hydrin eCW3 12 % 2017 {appl 12 % ([facility] 12:00: icati [facility] 00 AM on_to Health EST _affe Care) cted_ area} Lac-Hydrin Lac-Hy .0 active Lac-Hydr in eCW3 12 % 2017 {appl 12 % ([facility] 12 % 12:00: icati [facility] 00 AM on_to Health EST _affe Care) cted_ area} Zenpep UNK 05/22/ active Zenpep e CW3 UNIT 2018 UNIT ([facility] 12:00: [facility] 00 AM Health EST Care) Lac-Hydrin UNK .0 active Lac-Hydrin eCW3 12 % 2018 {appl 12 % ([facility] 12:00: icati [facility] 00 AM on_to Health EST _affe Care) cted_ area} Zenpep UNK 05/22/ active Zenpep e CW3 UNIT 2018 UNIT ([facility] 12:00: [facility] 00 AM Health EST Care) Zenpep UNK 05/22/ active Zenpep e CW3 UNIT 2018 UNIT ([facility] 12:00: [facility] 00 AM Health EST Care) Lac-Hydrin UNK .0 active Lac-Hydrin eCW3 12 2018 {appl 12 % ([facility] 12:00: icati [facility] 00 AM on_to Health EST _affe Care) cted_ area} Lac-Hydrin Lac-Hy .0 active Lac-Hydr in eCW3 12 % in 2018 {appl 12 % ([facility] 12 % 12:00: icati [facility] 00 AM on_to Health EST _affe Care) cted_ area} Zenpep UNK 05/22/ active Zenpep e CW3 UNIT 2018 UNIT ([facility] 12:00: [facility] 00 AM Health EST Care) Lac-Hydrin UNK .0 active Lac-Hydrin eCW3 12 % 2017 {appl 12 % ([facility] 12:00: icati [facility] 00 AM on_to Health EST _affe Care) cted_ area} Zenpep UNK 05/22/ active Zenpep e CW3 UNIT 2018 UNIT ([facility] 12:00: [facility] 00 AM Health EST Care) Zenpep UNK 05/22/ active Zenpep e CW3 UNIT 2018 UNIT ([facility] 12:00: [facility] 00 AM Health EST Care) Zenpep UNK 05/22/ active Zenpep e CW3 UNIT 2018 UNIT ([facility] 12:00: [facility] 00 AM Health EST Care) Zenpep UNK 05/22/ active Zenpep e CW3 UNIT 2018 UNIT ([facility] 12:00: [facility] 00 AM Health EST Care) Zenpep UNK 05/22/ active Zenpep e CW3 UNIT 2018 UNIT ([facility] 12:00: [facility] 00 AM Health EST Care) Lac-Hydrin UNK .0 active Lac-Hydrin eCW3 12 % 2018 {appl 12 % ([facility] 12:00: icati [facility] 00 AM on_to Health EST _affe Care) cted_ area} ammonium Lac-Hy .0 active Lac-Hydrin eCW3 lactate 120 drin 2017 {appl 12 % ([facility] MG/ML 12 % 12:00: icati [facility] Topical 00 AM on_to Health Cream EST _affe Care) [Lac-Hydrin cted_ ] area} Lac-Hydrin 12 % Zenpep UNK 05/22/ active Zenpep e CW3 UNIT 2018 UNIT ([facility] 12:00: [facility] 00 AM Health EST Care) Lac-Hydrin Lac-Hy 0 active Lac-Hydr in eCW3 12 % in 2018 {appl 12 % ([facility] 12 % 12:00: icati [facility] 00 AM on_to Health EST _affe Care) cted_ area} Lac-Hydrin UNK . active Lac-Hydrin eCW3 12 % 2018 {appl 12 % ([facility] 12:00: icati [facility] 00 AM on_to Health EST _affe Care) cted_ area} Lac-Hydrin UNK . active Lac-Hydrin eCW3 12 % 2018 {appl 12 % ([facility] 12:00: icati [facility] 00 AM on_to Health EST _affe Care) cted_ area} Zenpep K 05/22/ active Zenpep e CW3 UNIT 2018 UNIT ([facility] 12:00: [facility] 00 AM Health EST Care) Lac-Hydrin UNK 0 active Lac-Hydrin eCW3 12 % 2018 {appl 12 % ([facility] 12:00: icati [place] 00 AM on_to Health EST _[facility]) cted_ area} Lac-Hydrin Lac-Hy 0 active Lac-Hydr in eCW3 12 % in 2018 {appl 12 % ([facility] 12 % 12:00: icati [place] 00 AM on_to Health EST _[facility]) cted_ area} Zenpep UNK 05/22/ active Zenpep e CW3 UNIT 2018 UNIT ([facility] 12:00: [place] 00 AM Health EST Care) Zenpep K 05/22/ active Zenpep e CW3 UNIT 2018 UNIT ([facility] 12:00: [place] 00 AM Health EST Care) Lac-Hydrin K 0 active Lac-Hydrin eCW3 12 % 2018 {appl 12 % ([facility] 12:00: icati [place] 00 AM on_to Health EST _[facility]) cted_ area} Zenpep UNK 05/22/ active Zenpep e CW3 UNIT 2018 UNIT ([facility] 12:00: [place] 00 AM Health EST Care) Zenpep K 05/22/ active Zenpep 22152 e CW3 UNIT 2018 UNIT ([facility] 12:00: [place] 00 AM Health EST Care) Lac-Hydrin UNK .0 active Lac-Hydrin eCW3 12 % 2017 {appl 12 % ([facility] 12:00: icati [place] 00 AM on_to Health EST _[facility]) cted_ area} Lac-Hydrin UNK .0 active Lac-Hydrin eCW3 12 % 2017 {appl 12 % ([facility] 12:00: icati [place] 00 AM on_to Health EST _[facility]) cted_ area} Lac-Hydrin UNK .0 active Lac-Hydrin eCW3 12 % 2017 {appl 12 % ([facility] 12:00: icati [place] 00 AM on_to Health EST _[facility]) cted_ area} Zenpep 05/22/ active Zenpep e CW3 UNIT 2018 UNIT ([facility] 12:00: [place] 00 AM Health EST Care) Lac-Hydrin K .0 active Lac-Hydrin eCW3 12 % 2017 {appl 12 % ([facility] 12:00: icati [place] 00 AM on_to Health EST _[facility]) cted_ area} Lac-Hydrin K .0 active Lac-Hydrin eCW3 12 % 2017 {appl 12 % ([facility] 12:00: icati [place] 00 AM on_to Health EST _[facility]) cted_ area} ammonium Lac-Hy .0 active Lac-Hydrin eCW3 lactate 120 drin 2017 {appl 12 % ([facility] MG/ML 12 % 12:00: icati [place] Topical 00 AM on_to Health Cream EST _[facility]) [Lac-Hydrin cted_ ] area} Lac-Hydrin 12 % Lac-Hydrin UNK .0 active Lac-Hydrin eCW3 12 % 2017 {appl 12 % ([facility] 12:00: icati [place] 00 AM on_to Health EST _[facility]) cted_ area} ammonium Lac-Hy .0 active Lac-Hydrin eCW3 lactate 120 drin 2017 {appl 12 % ([facility] MG/ML 12 % 12:00: icati [place] Topical 00 AM on_to Health Cream EST _[facility]) [Lac-Hydrin cted_ ] area} Lac-Hydrin 12 % Zenpep UNK 05/22/ active Zenpep e CW3 UNIT 2018 UNIT ([facility] 12:00: [place] 00 AM Health EST Care) Zenpep UNK 05/22/ active Zenpep e CW3 UNIT 2018 UNIT ([facility] 12:00: [place] 00 AM Health EST Care) Zenpep UNK 05/22/ active Zenpep e CW3 UNIT 2018 UNIT ([facility] 12:00: [place] 00 AM Health EST Care) Zenpep UNK 05/22/ active Zenpep e CW3 UNIT 2018 UNIT ([facility] 12:00: [place] 00 AM Health EST Care) Zenpep UNK 05/22/ active Zenpep e CW3 UNIT 2018 UNIT ([facility] 12:00: [place] 00 AM Health EST Care) Lac-Hydrin UNK .0 active Lac-Hydrin eCW3 12 % 2017 {appl 12 % ([facility] 12:00: icati [place] 00 AM on_to Health EST _[facility]) cted_ area} Lac-Hydrin Lac-Hy .0 active Lac-Hydr in eCW3 12 % 2017 {appl 12 % ([facility] 12 % 12:00: icati [place] 00 AM on_to Health EST _affe [facility]) cted_ area} Lac-Hydrin UNK .0 active Lac-Hydrin eCW3 12 % 2017 {appl 12 % ([facility] 12:00: icati [place] 00 AM on_to Health EST _[facility]) cted_ area} Lac-Hydrin UNK .0 active Lac-Hydrin eCW3 12 % 2017 {appl 12 % ([facility] 12:00: icati [place] 00 AM on_to Health EST _[facility]) cted_ area} Zenpep UNK 05/22/ active Zenpep e CW3 UNIT 2018 UNIT ([facility] 12:00: [place] 00 AM Health EST Care) Zenpep UNK 05/22/ active Zenpep e CW3 UNIT 2018 UNIT ([facility] 12:00: [place] 00 AM Health EST Care) Zenpep UNK 05/22/ active Zenpep e CW3 UNIT 2018 UNIT ([facility] 12:00: [place] 00 AM Health EST Care) Lac-Hydrin UNK .0 active Lac-Hydrin eCW3 12 % 2017 {appl 12 % ([facility] 12:00: icati [place] 00 AM on_to Health EST _[facility]) cted_ area} Lac-Hydrin UNK .0 active Lac-Hydrin eCW3 12 % 2017 {appl 12 % ([facility] 12:00: icati [place] 00 AM on_to Health EST _[facility]) cted_ area} Flonase 50 UNK .0 active Flonase 50 eCW3 MCG/DOSE 2017 {spra MCG/DOSE ([facility] 12:00: y_in_ [place] 00 AM each_ Health EDT nostr Care) il} Flonase 50 UNK .0 active Flonase 50 eCW3 MCG/DOSE 2017 {spra MCG/DOSE ([facility] 12:00: y_in_ [place] 00 AM each_ Health EDT nostr Care) il} Flonase 50 UNK .0 active Flonase 50 eCW3 MCG/DOSE 2017 {spra MCG/DOSE ([facility] 12:00: y_in_ [place] 00 AM each_ Health EDT nostr Care) il} Flonase 50 UNK .0 active Flonase 50 eCW3 MCG/DOSE 2017 {spra MCG/DOSE ([facility] 12:00: y_in_ [place] 00 AM each_ Health EDT nostr Care) il} Flonase 50 UNK .0 active Flonase 50 eCW3 MCG/DOSE 2017 {spra MCG/DOSE ([facility] 12:00: y_in_ [place] 00 AM each_ Health EDT nostr Care) il} Cholecalcif Vitami .0 active Vitamin D eCW3 lola 1000 n D 2017 {tabl 1000 UNIT ([facility] UNT Oral 1000 12:00: et} [place] Tablet UNIT 00 AM Health Vitamin D EDT Care) 1000 UNIT Metformin Metfor 1.0 active Metformin eCW3 hydrochlori min 2017 {tabl HCl 1000 mg ([facility] de 1000 MG HCl 12:00: et_wi [place] Oral Tablet 1000 00 AM th_[facility] Metformin mg EDT als} Care) HCl 1000 mg Metformin Metfor 1.0 active Metformin eCW3 hydrochlori min 2017 {tabl HCl 1000 mg ([facility] de 1000 MG HCl 12:00: et_wi [place] Oral Tablet 1000 00 AM th_[facility] Metformin mg EDT als} Care) HCl 1000 mg Vitamin D UNK .0 active Vitamin D e CW3 1000 UNIT 2017 {tabl 1000 UNIT ([facility] 12:00: et} [place] 00 AM Health EDT Care) VICTOZA 1.2 UNK 02/13/ active VICTOZA 1 .2 eCW3 MG 2017 MG ([facility] 12:00: [place] 00 AM Health EDT Care) VICTOZA 1.2 UNK 02/13/ active VICTOZA 1 .2 eCW3 MG 2017 MG ([facility] 12:00: [place] 00 AM Health EDT Care) Metformin Metfor .0 active Metformin eCW3 hydrochlori min 2017 {tabl HCl 1000 mg ([facility] de 1000 MG HCl 12:00: et_wi [place] Oral Tablet 1000 00 AM th_[facility] Metformin mg EDT als} Care) HCl 1000 mg VICTOZA 1.2 UNK 02/13/ active VICTOZA 1 .2 eCW3 MG 2017 MG ([facility] 12:00: [place] 00 AM Health EDT Care) VICTOZA 1.2 UNK 02/13/ active VICTOZA 1 .2 eCW3 MG 2017 MG ([facility] 12:00: [place] 00 AM Health EDT Care) Vitamin D UNK 1.0 active Vitamin D e CW3 1000 UNIT 2017 {tabl 1000 UNIT ([facility] 12:00: et} [place] 00 AM Health EDT Care) VICTOZA 1.2 UNK 02/13/ active VICTOZA 1 .2 eCW3 MG 2017 MG ([facility] 12:00: [place] 00 AM Health EDT Care) VICTOZA 1.2 UNK 02/13/ active VICTOZA 1 .2 eCW3 MG 2017 MG ([facility] 12:00: [place] 00 AM Health EDT Care) Metformin Metfor .0 active Metformin eCW3 hydrochlori min 2017 {tabl HCl 1000 mg ([facility] de 1000 MG HCl 12:00: et_wi [place] Oral Tablet 1000 00 AM th_[facility] Metformin mg EDT als} Care) HCl 1000 mg VICTOZA 1.2 UNK 02/13/ active VICTOZA 1 .2 eCW3 MG 2017 MG ([facility] 12:00: [place] 00 AM Health EDT Care) Vitamin D UNK .0 active Vitamin D e CW3 1000 UNIT 2017 {tabl 1000 UNIT ([facility] 12:00: et} [place] 00 AM Health EDT Care) VICTOZA 1.2 UNK 02/13/ active VICTOZA 1 .2 eCW3 MG 2017 MG ([facility] 12:00: [place] 00 AM Health EDT Care) Cholecalcif Vitami .0 active Vitamin D eCW3 lola 1000 n D 2017 {tabl 1000 UNIT ([facility] UNT Oral 1000 12:00: et} [place] Tablet UNIT 00 AM Health Vitamin D EDT Care) 1000 UNIT Metformin Metfor .0 active Metformin eCW3 hydrochlori min 2017 {tabl HCl 1000 mg ([facility] de 1000 MG HCl 12:00: et_wi [place] Oral Tablet 1000 00 AM _az Health Metformin mg EDT als} Care) HCl 1000 mg Metformin Metfor .0 active Metformin eCW3 hydrochlori min 2017 {tabl HCl 1000 mg ([facility] de 1000 MG HCl 12:00: et_wi [place] Oral Tablet 1000 00 AM [facility] Metformin mg EDT als} Care) HCl 1000 mg Metformin Metfor .0 active Metformin eCW3 hydrochlori min 2017 {tabl HCl 1000 mg ([facility] de 1000 MG HCl 12:00: et_wi [place] Oral Tablet 1000 00 AM [facility] Metformin mg EDT als} Care) HCl 1000 mg Vitamin D UNK .0 active Vitamin D e CW3 1000 UNIT 2017 {tabl 1000 UNIT ([facility] 12:00: et} [place] 00 AM Health EDT Care) Metformin Metfor .0 active Metformin eCW3 hydrochlori min 2016 {tabl HCl 1000 mg ([facility] de 1000 MG HCl 12:00: et_wi [place] Oral Tablet 1000 00 AM [facility] Metformin mg EDT als} Care) HCl 1000 mg Metformin Metfor .0 active Metformin eCW3 hydrochlori min 2017 {tabl HCl 1000 mg ([facility] de 1000 MG HCl 12:00: et_wi [place] Oral Tablet 1000 00 AM [facility] Metformin mg EDT als} Care) HCl 1000 mg Metformin Metfor .0 active Metformin eCW3 hydrochlori min 2017 {tabl HCl 1000 mg ([facility] de 1000 MG HCl 12:00: et_wi [place] Oral Tablet 1000 00 AM [facility] Metformin mg EDT als} Care) HCl 1000 mg VICTOZA 1.2 UNK 02/13/ active VICTOZA 1 .2 eCW3 MG 2017 MG ([facility] 12:00: [place] 00 AM Health EDT Care) Vitamin D UNK .0 active Vitamin D e CW3 1000 UNIT 2017 {tabl 1000 UNIT ([facility] 12:00: et} [place] 00 AM Health EDT Care) Metformin Metfor .0 active Metformin eCW3 hydrochlori min 2017 {tabl HCl 1000 mg ([facility] de 1000 MG HCl 12:00: et_wi [place] Oral Tablet 1000 00 AM [facility] Metformin mg EDT als} Care) HCl 1000 mg Metformin Metfor .0 active Metformin eCW3 hydrochlori min 2017 {tabl HCl 1000 mg ([facility] de 1000 MG HCl 12:00: et_wi [place] Oral Tablet 1000 00 AM [facility] Metformin mg EDT als} Care) HCl 1000 mg Cholecalcif Vitami .0 active Vitamin D eCW3 lola 1000 n D 2017 {tabl 1000 UNIT ([facility] UNT Oral 1000 12:00: et} [place] Tablet UNIT 00 AM Health Vitamin D EDT Care) 1000 UNIT VICTOZA 1.2 UNK 02/13/ active VICTOZA 1 .2 eCW3 MG 2017 MG ([facility] 12:00: [place] 00 AM Health EDT Care) VICTOZA 1.2 UNK 02/13/ active VICTOZA 1 .2 eCW3 MG 2017 MG ([facility] 12:00: [place] 00 AM Health EDT Care) Vitamin D UNK .0 active Vitamin D e CW3 1000 UNIT 2017 {tabl 1000 UNIT ([facility] son 12:00: et} [place] 00 AM Health EDT Care) Victoza 1.2 UNK 02/13/ active Victoza 1 .2 eCW3 MG 2017 MG ([facility] 12:00: [place] 00 AM Health EDT Care) Cholecalcif Vitami .0 active Vitamin D eCW3 lola 1000 n D 2017 {tabl 1000 UNIT ([facility] son UNT Oral 1000 12:00: et} [place] Tablet UNIT 00 AM Health Vitamin D EDT Care) 1000 UNIT Vitamin D UNK .0 active Vitamin D e CW3 1000 UNIT 2017 {tabl 1000 UNIT ([facility] son 12:00: et} [place] 00 AM Health EDT Care) Metformin Metfor .0 active Metformin eCW3 hydrochlori min 2017 {tabl HCl 1000 mg ([facility] de 1000 MG HCl 12:00: et_wi [place] Oral Tablet 1000 00 AM _[facility] Metformin mg EDT als} Care) HCl 1000 mg Vitamin D UNK .0 active Vitamin D e CW3 1000 UNIT 2017 {tabl 1000 UNIT ([facility] son 12:00: et} [place] 00 AM Health EDT Care) Metformin Metfor .0 active Metformin eCW3 hydrochlori min 2017 {tabl HCl 1000 mg ([facility] de 1000 MG HCl 12:00: et_wi [place] Oral Tablet 1000 00 AM [facility] Health Metformin mg EDT als} Care) HCl 1000 mg Metformin Metfor .0 active Metformin eCW3 hydrochlori min 2017 {tabl HCl 1000 mg ([facility] de 1000 MG HCl 12:00: et_wi [place] Oral Tablet 1000 00 AM [facility] Health Metformin mg EDT als} Care) HCl 1000 mg Vitamin D UNK .0 active Vitamin D e CW3 1000 UNIT 2017 {tabl 1000 UNIT ([facility] son 12:00: et} [place] 00 AM Health EDT Care) Cholecalcif Vitami 1.0 active Vitamin D eCW3 lola 1000 n D 2017 {tabl 1000 UNIT ([facility] UNT Oral 1000 12:00: et} [place] Tablet UNIT 00 AM Health Vitamin D EDT Care) 1000 UNIT Vitamin D UNK .0 active Vitamin D e CW3 1000 UNIT 2017 {tabl 1000 UNIT ([facility] son 12:00: et} [place] 00 AM Health EDT Care) Vitamin D UNK .0 active Vitamin D e CW3 1000 UNIT 2017 {tabl 1000 UNIT ([facility] son 12:00: et} [place] 00 AM Health EDT Care) Metformin Metfor .0 active Metformin eCW3 hydrochlori min 2017 {tabl HCl 1000 mg ([facility] de 1000 MG HCl 12:00: et_wi [place] Oral Tablet 1000 00 AM [facility] Metformin mg EDT als} Care) HCl 1000 mg Metformin Metfor .0 active Metformin eCW3 hydrochlori min 2017 {tabl HCl 1000 mg ([facility] de 1000 MG HCl 12:00: et_wi [place] Oral Tablet 1000 00 AM [facility] Health Metformin mg EDT als} Care) HCl 1000 mg VICTOZA 1.2 UNK 02/13/ active VICTOZA 1 .2 eCW3 MG 2017 MG ([facility] 12:00: [place] 00 AM Health EDT Care) Metformin Metfor .0 active Metformin eCW3 hydrochlori min 2017 {tabl HCl 1000 mg ([facility] de 1000 MG HCl 12:00: et_wi [place] Oral Tablet 1000 00 AM [facility] Metformin mg EDT als} Care) HCl 1000 mg Vitamin D UNK .0 active Vitamin D e CW3 1000 UNIT 2017 {tabl 1000 UNIT ([facility] son 12:00: et} [place] 00 AM Health EDT Care) VICTOZA 1.2 UNK 02/13/ active VICTOZA 1 .2 eCW3 MG 2017 MG ([facility] 12:00: [place] 00 AM Health EDT Care) Vitamin D UNK .0 active Vitamin D e CW3 1000 UNIT 2017 {tabl 1000 UNIT ([facility] son 12:00: et} [place] 00 AM Health EDT Care) Vitamin D UNK .0 active Vitamin D e CW3 1000 UNIT 2017 {tabl 1000 UNIT ([facility] son 12:00: et} [place] 00 AM Health EDT Care) Metformin Metfor .0 active Metformin eCW3 hydrochlori min 2017 {tabl HCl 1000 mg ([facility] de 1000 MG HCl 12:00: et_wi [place] Oral Tablet 1000 00 AM [facility] Health Metformin mg EDT als} Care) HCl 1000 mg VICTOZA 1.2 UNK 10/ active VICTOZA 1 .2 eCW3 MG 2017 MG ([facility] 12:00: [place] 00 AM Health EDT Care) Vitamin D UNK 1.0 active Vitamin D e CW3 1000 UNIT 2017 {tabl 1000 UNIT ([facility] son 12:00: et} [place] 00 AM Health EDT Care) Metformin Metfor .0 active Metformin eCW3 hydrochlori min 2017 {tabl HCl 1000 mg ([facility] de 1000 MG HCl 12:00: et_wi [place] Oral Tablet 1000 00 AM [facility] Health Metformin mg EDT als} Care) HCl 1000 mg Cholecalcif Vitami .0 active Vitamin D eCW3 lola 1000 n D 2017 {tabl 1000 UNIT ([facility] son UNT Oral 1000 12:00: et} [place] Tablet UNIT 00 AM Health Vitamin D EDT Care) 1000 UNIT VICTOZA 1.2 UNK 02/13/ active VICTOZA 1 .2 eCW3 MG 2017 MG ([facility] 12:00: [place] 00 AM Health EDT Care) VICTOZA 1.2 UNK 02/13/ active VICTOZA 1 .2 eCW3 MG 2017 MG ([facility] 12:00: [place] 00 AM Health EDT Care) Vitamin D UNK 1.0 active Vitamin D e CW3 1000 UNIT 2017 {tabl 1000 UNIT ([facility] son 12:00: et} [place] 00 AM Health EDT Care) Metformin Metfor .0 active Metformin eCW3 hydrochlori min 2017 {tabl HCl 1000 mg ([facility] de 1000 MG HCl 12:00: et_wi [place] Oral Tablet 1000 00 AM [facility] Health Metformin mg EDT als} Care) HCl 1000 mg Vitamin D UNK 1.0 active Vitamin D e CW3 1000 UNIT 2017 {tabl 1000 UNIT ([facility] son 12:00: et} [place] 00 AM Health EDT Care) VICTOZA 1.2 UNK 02/13/ active VICTOZA 1 .2 eCW3 MG 2017 MG ([facility] 12:00: [place] 00 AM Health EDT Care) Vitamin D UNK 1.0 active Vitamin D e CW3 1000 UNIT 2017 {tabl 1000 UNIT ([facility] 12:00: et} [place] 00 AM Health EDT Care) Metformin Metfor 1.0 active Metformin eCW3 hydrochlori min 2017 {tabl HCl 1000 mg ([facility] de 1000 MG HCl 12:00: et_wi [place] Oral Tablet 1000 00 AM _[facility] Metformin mg EDT als} Care) HCl 1000 mg VICTOZA 1.2 UNK 10/10/ active VICTOZA 1 .2 eCW3 MG 2017 MG ([facility] 12:00: [place] 00 AM Health EDT Care) Vitamin D UNK 1.0 active Vitamin D e CW3 1000 UNIT 2017 {tabl 1000 UNIT ([facility] son 12:00: et} [place] 00 AM Health EDT Care) VICTOZA 1.2 UNK 1010/ active VICTOZA 1 .2 eCW3 MG 2017 MG ([facility] 12:00: [place] 00 AM Health EDT Care) VICTOZA 1.2 UNK 1010/ active VICTOZA 1 .2 eCW3 MG 2017 MG ([facility] 12:00: [place] 00 AM Health EDT Care) VICTOZA 1.2 UNK 1010/ active VICTOZA 1 .2 eCW3 MG 2017 MG ([facility] 12:00: [place] 00 AM Health EDT Care) VICTOZA 1.2 UNK 1010/ active VICTOZA 1 .2 eCW3 MG 2017 MG ([facility] 12:00: [place] 00 AM Health EDT Care) Vitamin D UNK 1.0 active Vitamin D e CW3 1000 UNIT 2017 {tabl 1000 UNIT ([facility] son 12:00: et} [place] 00 AM Health EDT Care) Metformin Metfor 1.0 active Metformin eCW3 hydrochlori min 2017 {tabl HCl 1000 mg ([facility] de 1000 MG HCl 12:00: et_wi [place] Oral Tablet 1000 00 AM [facility] Metformin mg EDT als} Care) HCl 1000 mg VICTOZA 1.2 UNK 1010/ active VICTOZA 1 .2 eCW3 MG 2017 MG ([facility] 12:00: [place] 00 AM Health EDT Care) VICTOZA 1.2 UNK 1010/ active VICTOZA 1 .2 eCW3 MG 2017 MG ([facility] 12:00: [place] 00 AM Health EDT Care) Metformin Metfor 1.0 active Metformin eCW3 hydrochlori min 2017 {tabl HCl 1000 mg ([facility] de 1000 MG HCl 12:00: et_wi [place] Oral Tablet 1000 00 AM _[facility] Metformin mg EDT als} Care) HCl 1000 mg Vitamin D UNK 1.0 active Vitamin D e CW3 1000 UNIT 2017 {tabl 1000 UNIT ([facility] son 12:00: et} [place] 00 AM Health EDT Care) Vitamin D UNK .0 active Vitamin D e CW3 1000 UNIT 2017 {tabl 1000 UNIT ([facility] son 12:00: et} [place] 00 AM Health EDT Care) Metformin Metfor .0 active Metformin eCW3 hydrochlori min 2017 {tabl HCl 1000 mg ([facility] de 1000 MG HCl 12:00: et_wi [place] Oral Tablet 1000 00 AM [facility] Health Metformin mg EDT als} Care) HCl 1000 mg VICTOZA 1.2 UNK 02/13/ active VICTOZA 1 .2 eCW3 MG 2017 MG ([facility] 12:00: [place] 00 AM Health EDT Care) Vitamin D UNK 1.0 active Vitamin D e CW3 1000 UNIT 2017 {tabl 1000 UNIT ([facility] son 12:00: et} [place] 00 AM Health EDT Care) Metformin Metfor .0 active Metformin eCW3 hydrochlori min 2017 {tabl HCl 1000 mg ([facility] de 1000 MG HCl 12:00: et_wi [place] Oral Tablet 1000 00 AM [facility] Health Metformin mg EDT als} Care) HCl 1000 mg Vitamin D UNK .0 active Vitamin D e CW3 1000 UNIT 2017 {tabl 1000 UNIT ([facility] son 12:00: et} [place] 00 AM Health EDT Care) Vitamin D UNK 1.0 active Vitamin D e CW3 1000 UNIT 2017 {tabl 1000 UNIT ([facility] son 12:00: et} [place] 00 AM Health EDT Care) VICTOZA 1.2 UNK 02/13/ active VICTOZA 1 .2 eCW3 MG 2017 MG ([facility] 12:00: [place] 00 AM Health EDT Care) Metformin Metfor .0 active Metformin eCW3 hydrochlori min 2017 {tabl HCl 1000 mg ([facility] de 1000 MG HCl 12:00: et_wi [place] Oral Tablet 1000 00 AM [facility] Metformin mg EDT als} Care) HCl 1000 mg Metformin Metfor .0 active Metformin eCW3 hydrochlori min 2017 {tabl HCl 1000 mg ([facility] de 1000 MG HCl 12:00: et_wi [place] Oral Tablet 1000 00 AM [facility] Metformin mg EDT als} Care) HCl 1000 mg Metformin UNK .0 active Metformin e CW3 HCl 1000 mg 2016 {tabl HCl 1000 mg ([facility] 12:00: et_wi [place] 00 AM [facility] EDT als} Care) Metformin Metfor .0 active Metformin eCW3 hydrochlori min 2017 {tabl HCl 1000 mg ([facility] de 1000 MG HCl 12:00: et_wi [place] Oral Tablet 1000 00 AM [facility] Metformin mg EDT als} Care) HCl 1000 mg Metformin Metfor .0 active Metformin eCW3 hydrochlori min 2017 {tabl HCl 1000 mg ([facility] de 1000 MG HCl 12:00: et_wi [place] Oral Tablet 1000 00 AM [facility] Metformin mg EDT als} Care) HCl 1000 mg Metformin Metfor .0 active Metformin eCW3 hydrochlori min 2017 {tabl HCl 1000 mg ([facility] de 1000 MG HCl 12:00: et_wi [place] Oral Tablet 1000 00 AM [facility] Metformin mg EDT als} Care) HCl 1000 mg VICTOZA 1.2 UNK 02/13/ active VICTOZA 1 .2 eCW3 MG 2017 MG ([facility] 12:00: [place] 00 AM Health EDT Care) VICTOZA 1.2 UNK 02/13/ active VICTOZA 1 .2 eCW3 MG 2017 MG ([facility] 12:00: [place] 00 AM Health EDT Care) Metformin Metfor .0 active Metformin eCW3 hydrochlori min 2017 {tabl HCl 1000 mg ([facility] de 1000 MG HCl 12:00: et_wi [place] Oral Tablet 1000 00 AM [facility] Metformin mg EDT als} Care) HCl 1000 mg Metformin Metfor .0 active Metformin eCW3 hydrochlori min 2017 {tabl HCl 1000 mg ([facility] de 1000 MG HCl 12:00: et_wi [place] Oral Tablet 1000 00 AM [facility] Metformin mg EDT als} Care) HCl 1000 mg VICTOZA 1.2 UNK 10/10/ active VICTOZA 1 .2 eCW3 MG 2017 MG ([facility] 12:00: [place] 00 AM Health EDT Care) Vitamin D UNK 1.0 active Vitamin D e CW3 1000 UNIT 2017 {tabl 1000 UNIT ([facility] 12:00: et} [place] 00 AM Health EDT Care) VICTOZA 1.2 UNK 10/10/ active VICTOZA 1 .2 eCW3 MG 2017 MG ([facility] 12:00: [place] 00 AM Health EDT Care) Metformin Metfor 1.0 active Metformin eCW3 hydrochlori min 2017 {tabl HCl 1000 mg ([facility] de 1000 MG HCl 12:00: et_wi [place] Oral Tablet 1000 00 AM [facility] Metformin mg EDT als} Care) HCl 1000 mg VICTOZA 1.2 UNK 10/10/ active VICTOZA 1 .2 eCW3 MG 2017 MG ([facility] 12:00: [place] 00 AM Health EDT Care) VICTOZA 1.2 UNK 10/10/ active VICTOZA 1 .2 eCW3 MG 2017 MG ([facility] 12:00: [place] 00 AM Health EDT Care) Vitamin D UNK 1.0 active Vitamin D e CW3 1000 UNIT 2017 {tabl 1000 UNIT ([facility] son 12:00: et} [place] 00 AM Health EDT Care) VICTOZA 1.2 UNK 10/10/ active VICTOZA 1 .2 eCW3 MG 2017 MG ([facility] 12:00: [place] 00 AM Health EDT Care) Victoza 1.2 UNK 10/10/ active Victoza 1 .2 eCW3 MG 2017 MG ([facility] 12:00: [place] 00 AM Health EDT Care) Vitamin D UNK 1.0 active Vitamin D e CW3 1000 UNIT 2017 {tabl 1000 UNIT ([facility] 12:00: et} [place] 00 AM Health EDT Care) Vitamin D UNK 1.0 active Vitamin D e CW3 1000 UNIT 2017 {tabl 1000 UNIT ([facility] son 12:00: et} [place] 00 AM Health EDT Care) Vitamin D UNK 1.0 active Vitamin D e CW3 1000 UNIT 2017 {tabl 1000 UNIT ([facility] 12:00: et} [place] 00 AM Health EDT Care) VICTOZA 1.2 UNK 02/13/ active VICTOZA 1 .2 eCW3 MG 2017 MG ([facility] 12:00: [place] 00 AM Health EDT Care) Metformin Metfor 1.0 active Metformin eCW3 hydrochlori min 2017 {tabl HCl 1000 mg ([facility] de 1000 MG HCl 12:00: et_wi [place] Oral Tablet 1000 00 AM [facility] Metformin mg EDT als} Care) HCl 1000 mg 3 ML Lantus /03/ active Lantus eCW3 Insulin SoloSt 2017 SoloStar 100 ([facility] [place] ar 100 12:00: UNIT/ML Rive r 100 UNT/ML UNIT/M 00 AM Health Pen L EDT Care) Injector [Lantus] Lantus SoloStar 100 UNIT/ML 3 ML Lantus 12/07/ active Lantus eCW3 Insulin SoloSt 2016 SoloStar 100 ([facility] [place] ar 100 12:00: UNIT/ML [place] r 100 UNT/ML UNIT/M 00 AM Health Pen L EDT Care) Injector [Lantus] Lantus SoloStar 100 UNIT/ML 3 ML Lantus // active Lantus eCW3 Insulin SoloSt 2017 SoloStar 100 ([facility] [place] ar 100 12:00: UNIT/ML [place] r 100 UNT/ML UNIT/M 00 AM Health Pen L EDT Care) Injector [Lantus] Lantus SoloStar 100 UNIT/ML 3 ML Lantus 12/07/ active Lantus eCW3 Insulin SoloSt 2016 SoloStar 100 ([facility] [place] [facility] 100 12:00: UNIT/ML [place] r 100 UNT/ML UNIT/M 00 AM Health Pen L EDT Care) Injector [Lantus] Lantus SoloStar 100 UNIT/ML 3 ML Lantus 03/ active Lantus eCW3 Insulin SoloSt 2017 SoloStar 100 ([facility] [place] ar 100 12:00: UNIT/ML R[place] r 100 UNT/ML UNIT/M 00 AM Health Pen L EDT Care) Injector [Lantus] Lantus SoloStar 100 UNIT/ML 3 ML Lantus 08/03/ active Lantus eCW3 Insulin SoloSt 2017 SoloStar 100 ([facility] [place] ar 100 12:00: UNIT/ML [place] r 100 UNT/ML UNIT/M 00 AM Health Pen L EDT Care) Injector [Lantus] Lantus SoloStar 100 UNIT/ML 3 ML Lantus // active Lantus eCW3 Insulin SoloSt 2017 SoloStar 100 ([facility] [place] [facility] 100 12:00: UNIT/ML [place] r 100 UNT/ML UNIT/M 00 AM Health Pen L EDT Care) Injector [Lantus] Lantus SoloStar 100 UNIT/ML 3 ML Lantus // active Lantus eCW3 Insulin SoloSt 2017 SoloStar 100 ([facility] [place] [facility] 100 12:00: UNIT/ML Rive r 100 UNT/ML UNIT/M 00 AM Health Pen L EDT Care) Injector [Lantus] Lantus SoloStar 100 UNIT/ML 3 ML Lantus // active Lantus eCW3 Insulin SoloSt 2017 SoloStar 100 ([facility] [place] [facility] 100 12:00: UNIT/ML [place]ive r 100 UNT/ML UNIT/M 00 AM Health Pen L EDT Care) Injector [Lantus] Lantus SoloStar 100 UNIT/ML 3 ML Lantus // active Lantus eCW3 Insulin SoloSt 2017 SoloStar 100 ([facility] [place] [facility] 100 12:00: UNIT/ML [place] r 100 UNT/ML UNIT/M 00 AM Health Pen L EDT Care) Injector [Lantus] Lantus SoloStar 100 UNIT/ML 3 ML Lantus // active Lantus eCW3 Insulin SoloSt 2016 SoloStar 100 ([facility] [place] [facility] 100 12:00: UNIT/ML [place] r 100 UNT/ML UNIT/M 00 AM Health Pen L EDT Care) Injector [Lantus] Lantus SoloStar 100 UNIT/ML 3 ML Lantus /03/ active Lantus eCW3 Insulin SoloSt 2017 SoloStar 100 ([facility] [place] [facility] 100 12:00: UNIT/ML [place] r 100 UNT/ML UNIT/M 00 AM Health Pen L EDT Care) Injector [Lantus] Lantus SoloStar 100 UNIT/ML 3 ML Lantus // active Lantus eCW3 Insulin SoloSt 2017 SoloStar 100 ([facility] [place] [facility] 100 12:00: UNIT/ML Rive r 100 UNT/ML UNIT/M 00 AM Health Pen L EDT Care) Injector [Lantus] Lantus SoloStar 100 UNIT/ML 3 ML Lantus 12/07/ active Lantus eCW3 Insulin SoloSt 2017 SoloStar 100 (H udson [place] ar 100 12:00: UNIT/ML Rive r 100 UNT/ML UNIT/M 00 AM Health Pen L EDT Care) Injector [Lantus] Lantus SoloStar 100 UNIT/ML 3 ML Lantus 12/07/ active Lantus eCW3 Insulin SoloSt 2017 SoloStar 100 (H udson [place] ar 100 12:00: UNIT/ML Rive r 100 UNT/ML UNIT/M 00 AM Health Pen L EDT Care) Injector [Lantus] Lantus SoloStar 100 UNIT/ML 3 ML Lantus 12/07/ active Lantus eCW3 Insulin SoloSt 2017 SoloStar 100 (H udson [place] ar 100 12:00: UNIT/ML Rive r 100 UNT/ML UNIT/M 00 AM Health Pen L EDT Care) Injector [Lantus] Lantus SoloStar 100 UNIT/ML 3 ML Lantus 12/07/ active Lantus eCW3 Insulin SoloSt 2017 SoloStar 100 (H udson [place] ar 100 12:00: UNIT/ML Rive r 100 UNT/ML UNIT/M 00 AM Health Pen L EDT Care) Injector [Lantus] Lantus SoloStar 100 UNIT/ML 3 ML Lantus 12/07/ active Lantus eCW3 Insulin SoloSt 2017 SoloStar 100 (H udson [place] ar 100 12:00: UNIT/ML Rive r 100 UNT/ML UNIT/M 00 AM Health Pen L EDT Care) Injector [Lantus] Lantus SoloStar 100 UNIT/ML 3 ML Lantus 08/03/ active Lantus eCW3 Insulin SoloSt 2017 SoloStar 100 (H udson [place] ar 100 12:00: UNIT/ML Rive r 100 UNT/ML UNIT/M 00 AM Health Pen L EDT Care) Injector [Lantus] Lantus SoloStar 100 UNIT/ML 3 ML Lantus // active Lantus eCW3 Insulin SoloSt 2017 SoloStar 100 (H udson [place] ar 100 12:00: UNIT/ML Rive r 100 UNT/ML UNIT/M 00 AM Health Pen L EDT Care) Injector [Lantus] Lantus SoloStar 100 UNIT/ML 3 ML Lantus // active Lantus eCW3 Insulin SoloSt 2017 SoloStar 100 (H udson [place] ar 100 12:00: UNIT/ML Rive r 100 UNT/ML UNIT/M 00 AM Health Pen L EDT Care) Injector [Lantus] Lantus SoloStar 100 UNIT/ML 3 ML Lantus // active Lantus eCW3 Insulin SoloSt 2017 SoloStar 100 (H udson [place] ar 100 12:00: UNIT/ML Rive r 100 UNT/ML UNIT/M 00 AM Health Pen L EDT Care) Injector [Lantus] Lantus SoloStar 100 UNIT/ML 3 ML Lantus // active Lantus eCW3 Insulin SoloSt 2017 SoloStar 100 (H udson [place] ar 100 12:00: UNIT/ML Rive r 100 UNT/ML UNIT/M 00 AM Health Pen L EDT Care) Injector [Lantus] Lantus SoloStar 100 UNIT/ML 3 ML Lantus // active Lantus eCW3 Insulin SoloSt 2017 SoloStar 100 (H udson [place] ar 100 12:00: UNIT/ML Rive r 100 UNT/ML UNIT/M 00 AM Health Pen L EDT Care) Injector [Lantus] Lantus SoloStar 100 UNIT/ML 3 ML Lantus // active Lantus eCW3 Insulin SoloSt 2017 SoloStar 100 (H udson [place] ar 100 12:00: UNIT/ML Rive r 100 UNT/ML UNIT/M 00 AM Health Pen L EDT Care) Injector [Lantus] Lantus SoloStar 100 UNIT/ML Lantus UNK 12/07/ active Lantus eCW3 SoloStar 2017 SoloStar 100 (Hu dson 100 UNIT/ML 12:00: UNIT/ML Maria A er 00 AM Health EDT Care) 3 ML Lantus 12/07/ active Lantus eCW3 Insulin SoloSt 2017 SoloStar 100 (H udson [place] ar 100 12:00: UNIT/ML Rive r 100 UNT/ML UNIT/M 00 AM Health Pen L EDT Care) Injector [Lantus] Lantus SoloStar 100 UNIT/ML 3 ML Lantus 12/07/ active Lantus eCW3 Insulin SoloSt 2017 SoloStar 100 (H udson [place] ar 100 12:00: UNIT/ML Rive r 100 UNT/ML UNIT/M 00 AM Health Pen L EDT Care) Injector [Lantus] Lantus SoloStar 100 UNIT/ML 3 ML Lantus 12/07/ active Lantus eCW3 Insulin SoloSt 2017 SoloStar 100 (H udson [place] ar 100 12:00: UNIT/ML Rive r 100 UNT/ML UNIT/M 00 AM Health Pen L EDT Care) Injector [Lantus] Lantus SoloStar 100 UNIT/ML 3 ML Lantus 12/07/ active Lantus eCW3 Insulin SoloSt 2016 SoloStar 100 (H udson [place] ar 100 12:00: UNIT/ML Rive r 100 UNT/ML UNIT/M 00 AM Health Pen L EDT Care) Injector [Lantus] Lantus SoloStar 100 UNIT/ML 3 ML Lantus 12/07/ active Lantus eCW3 Insulin SoloSt 2016 SoloStar 100 (H udson [place] ar 100 12:00: UNIT/ML Rive r 100 UNT/ML UNIT/M 00 AM Health Pen L EDT Care) Injector [Lantus] Lantus SoloStar 100 UNIT/ML 3 ML Lantus 12/07/ active Lantus eCW3 Insulin SoloSt 2017 SoloStar 100 (H udson [place] ar 100 12:00: UNIT/ML Rive r 100 UNT/ML UNIT/M 00 AM Health Pen L EDT Care) Injector [Lantus] Lantus SoloStar 100 UNIT/ML 3 ML Lantus 12/07/ active Lantus eCW3 Insulin SoloSt 2017 SoloStar 100 (H udson [place] ar 100 12:00: UNIT/ML Rive r 100 UNT/ML UNIT/M 00 AM Health Pen L EDT Care) Injector [Lantus] Lantus SoloStar 100 UNIT/ML 3 ML Lantus 12/07/ active Lantus eCW3 Insulin SoloSt 2017 SoloStar 100 (H udson [place] ar 100 12:00: UNIT/ML Rive r 100 UNT/ML UNIT/M 00 AM Health Pen L EDT Care) Injector [Lantus] Lantus SoloStar 100 UNIT/ML 3 ML Lantus 12/07/ active Lantus eCW3 Insulin SoloSt 2017 SoloStar 100 (H udson [place] ar 100 12:00: UNIT/ML Rive r 100 UNT/ML UNIT/M 00 AM Health Pen L EDT Care) Injector [Lantus] Lantus SoloStar 100 UNIT/ML 3 ML Lantus 12/07/ active Lantus eCW3 Insulin SoloSt 2017 SoloStar 100 (H udson [place] ar 100 12:00: UNIT/ML Rive r 100 UNT/ML UNIT/M 00 AM Health Pen L EDT Care) Injector [Lantus] Lantus SoloStar 100 UNIT/ML Loperamide Ismael 1.0 suspend Loperam clau eCW3 Hydrochlori 2016 {caps ed HCl 2 MG (Hu dson de 2 MG HCl 2 12:00: ule_a [place] Oral MG 00 AM s_[facility] Capsule EDT ded} Care) Loperamide HCl 2 MG Loperamide Ismael 1.0 suspend Loperam clau eCW3 Hydrochlori mid2016 {caps ed HCl 2 MG (Hu dson de 2 MG HCl 2 12:00: ule_a [place] Oral MG 00 AM s_[facility] Capsule EDT ded} Care) Loperamide HCl 2 MG Ranitidine Zantac 1.0 active Zantac 1 50 eCW3 150 MG Oral 150 2017 {tabl Maximum (Hud son Tablet Maximu 12:00: et_at Strength 150 [place] [Zantac] m 00 AM _bedt MG Health Zantac 150 Streng EDT kimberly} Care) Maximum th 150 Strength MG 150 MG Ranitidine Zantac .0 active Zantac 1 50 eCW3 150 MG Oral 150 2017 {tabl Maximum ([facility] Tablet Maximu 12:00: et_at Strength 150 [place] [Zantac] m 00 AM _bedt MG Health Zantac 150 Streng EDT kimberly} Care) Maximum th 150 Strength MG 150 MG Loperamide Ismael 1.0 suspend Loperam clau eCW3 Hydrochlori mid2016 {caps ed HCl 2 MG (Hu dson de 2 MG HCl 2 12:00: ule_a [place] Oral MG 00 AM s_[facility] Capsule EDT ded} Care) Loperamide HCl 2 MG Loperamide Ismael 1.0 suspend Loperam clau eCW3 Hydrochlori mid2016 {caps ed HCl 2 MG (Hu dson de 2 MG HCl 2 12:00: ule_a [place] Oral MG 00 AM s_[facility] Capsule EDT ded} Care) Loperamide HCl 2 MG Loperamide Ismael 1.0 suspend Loperam clau eCW3 Hydrochlori mide 2016 {caps ed HCl 2 MG (Hu dson de 2 MG HCl 2 12:00: ule_a [place] Oral MG 00 AM s_[facility] Capsule EDT ded} Care) Loperamide HCl 2 MG Loperamide Ismael 1.0 suspend Loperam clau eCW3 Hydrochlori mide 2016 {caps ed HCl 2 MG (Hu dson de 2 MG HCl 2 12:00: ule_a [place] Oral MG 00 AM s_[facility] Capsule EDT ded} Care) Loperamide HCl 2 MG Loperamide Ismael 1.0 suspend Loperam clau eCW3 Hydrochlori mide 2016 {caps ed HCl 2 MG (Hu dson de 2 MG HCl 2 12:00: ule_a [place] Oral MG 00 AM s_[facility] Capsule EDT ded} Care) Loperamide HCl 2 MG Ranitidine Zantac 1.0 active Zantac 1 50 eCW3 150 MG Oral 150 2017 {tabl Maximum ([facility] Tablet Maximu 12:00: et_at Strength 150 [place] [Zantac] m 00 AM _bedt MG Health Zantac 150 Streng EDT kimberly} Care) Maximum th 150 Strength MG 150 MG Loperamide Ismael 1.0 suspend Loperam clau eCW3 Hydrochlori mid2016 {caps ed HCl 2 MG (Hu dson de 2 MG HCl 2 12:00: ule_a [place] Oral MG 00 AM s_[facility] Capsule EDT ded} Care) Loperamide HCl 2 MG Loperamide Ismael 1.0 suspend Loperam clau eCW3 Hydrochlori mid2016 {caps ed HCl 2 MG (Hu dson de 2 MG HCl 2 12:00: ule_a [place] Oral MG 00 AM s_[facility] Capsule EDT ded} Care) Loperamide HCl 2 MG Loperamide UNK 1.0 suspend Loperamid e eCW3 HCl 2 MG 2016 {caps ed HCl 2 MG ([facility] n 12:00: ule_a [place] 00 AM [facility] EDT ded} Care) Loperamide Ismael 1.0 suspend Loperam clau eCW3 Hydrochlori mid2016 {caps ed HCl 2 MG (Hu dson de 2 MG HCl 2 12:00: ule_a [place] Oral MG 00 AM s_[facility] Capsule EDT ded} Care) Loperamide HCl 2 MG Loperamide Ismael 1.0 suspend Loperam clau eCW3 Hydrochlori mide 2016 {caps ed HCl 2 MG (Hu dson de 2 MG HCl 2 12:00: ule_a [place] Oral MG 00 AM s_[facility] Capsule EDT ded} Care) Loperamide HCl 2 MG Loperamide Ismael 1.0 suspend Loperam lcau eCW3 Hydrochlori mid2016 {caps ed HCl 2 MG (Hu dson de 2 MG HCl 2 12:00: ule_a [place] Oral MG 00 AM s_[facility] Health Capsule EDT ded} Care) Loperamide HCl 2 MG Ranitidine Zantac 1.0 active Zantac 1 50 eCW3 150 MG Oral 150 2016 {tabl Maximum ([facility] Tablet Maximu 12:00: et_at Strength 150 [place] [Zantac] m 00 AM _bedt MG Health Zantac 150 Streng EDT kimberly} Care) Maximum th 150 Strength MG 150 MG Loperamide Ismael .0 suspend Loperam clau eCW3 Hydrochlori mid2016 {caps ed HCl 2 MG (Hu dson de 2 MG HCl 2 12:00: ule_a [place] Oral MG 00 AM [facility] Capsule EDT ded} Care) Loperamide HCl 2 MG Loperamide Ismael .0 suspend Loperam clau eCW3 Hydrochlori mid2016 {caps ed HCl 2 MG (Hu dson de 2 MG HCl 2 12:00: ule_a [place] Oral MG 00 AM s_[facility] Capsule EDT ded} Care) Loperamide HCl 2 MG Loperamide Ismael 1.0 suspend Loperam clau eCW3 Hydrochlori mid2016 {caps ed HCl 2 MG (Hu dson de 2 MG HCl 2 12:00: ule_a [place] Oral MG 00 AM s_[facility] Health Capsule EDT ded} Care) Loperamide HCl 2 MG Loperamide Ismael .0 suspend Loperam clau eCW3 Hydrochlori mide 2016 {caps ed HCl 2 MG (Hu dson de 2 MG HCl 2 12:00: ule_a [place] Oral MG 00 AM [facility] Capsule EDT ded} Care) Loperamide HCl 2 MG Ranitidine Zantac .0 active Zantac 1 50 eCW3 150 MG Oral 150 2016 {tabl Maximum ([facility] Tablet Maximu 12:00: et_at Strength 150 [place] [Zantac] m 00 AM _bedt MG Health Zantac 150 Streng EDT kimberly} Care) Maximum th 150 Strength MG 150 MG Loperamide Ismael .0 suspend Loperam clau eCW3 Hydrochlori mid2016 {caps ed HCl 2 MG (Hu dson de 2 MG HCl 2 12:00: ule_a [place] Oral MG 00 AM [facility] Health Capsule EDT ded} Care) Loperamide HCl 2 MG Loperamide Ismael 1.0 suspend Loperam clau eCW3 Hydrochlori 2016 {caps ed HCl 2 MG (Hu dson de 2 MG HCl 2 12:00: ule_a [place] Oral MG 00 AM [facility] Health Capsule EDT ded} Care) Loperamide HCl 2 MG Loperamide Ismael 1.0 suspend Loperam clau eCW3 Hydrochlori 2016 {caps ed HCl 2 MG (Hu dson de 2 MG HCl 2 12:00: ule_a [place] Oral MG 00 AM [facility] Health Capsule EDT ded} Care) Loperamide HCl 2 MG Loperamide Ismael 1.0 suspend Loperam clau eCW3 Hydrochlori 2016 {caps ed HCl 2 MG (Hu dson de 2 MG HCl 2 12:00: ule_a [place] Oral MG 00 AM [facility] Capsule EDT ded} Care) Loperamide HCl 2 MG Glucometer UNK 05/22/ active Glucometer eCW3 2017 ([facility] 12:00: [place] 00 AM Health EDT Care) Glucometer UNK 05/22/ active Glucometer eCW3 2017 ([facility] 12:00: [place] 00 AM Health EDT Care) Glucometer UNK 05/22/ active Glucometer eCW3 2016 ([facility] 12:00: [place] 00 AM Health EDT Care) Glucometer UNK 05/22/ active Glucometer eCW3 2016 ([facility] 12:00: [place] 00 AM Health EDT Care) Glucometer UNK 05/22/ active Glucometer eCW3 2017 ([facility] 12:00: [place] 00 AM Health EDT Care) Glucometer UNK 05/22/ active Glucometer eCW3 2017 ([facility] 12:00: [place] 00 AM Health EDT Care) Glucometer UNK 05/22/ active Glucometer eCW3 2016 ([facility] 12:00: [place] 00 AM Health EDT Care) Glucometer UNK 05/22/ active Glucometer eCW3 2016 ([facility] 12:00: [place] 00 AM Health EDT Care) Glucometer UNK 05/22/ active Glucometer eCW3 2017 ([facility] 12:00: [place] 00 AM Health EDT Care) Glucometer UNK 05/22/ active Glucometer eCW3 2017 ([facility] 12:00: [place] 00 AM Health EDT Care) Glucometer UNK 05/22/ active Glucometer eCW3 2017 ([facility] 12:00: [place] 00 AM Health EDT Care) Glucometer UNK 05/22/ active Glucometer eCW3 2017 ([facility] 12:00: [place] 00 AM Health EDT Care) Glucometer UNK 05/22/ active Glucometer eCW3 2017 ([facility] 12:00: [place] 00 AM Health EDT Care) Glucometer UNK 05/22/ active Glucometer eCW3 2017 ([facility] 12:00: [place] 00 AM Health EDT Care) Glucometer UNK 05/22/ active Glucometer eCW3 2017 ([facility] 12:00: [place] 00 AM Health EDT Care) Glucometer UNK 05/22/ active Glucometer eCW3 2017 ([facility] 12:00: [place] 00 AM Health EDT Care) Glucometer UNK 05/22/ active Glucometer eCW3 2017 ([facility] 12:00: [place] 00 AM Health EDT Care) Glucometer UNK 05/22/ active Glucometer eCW3 2017 ([facility] 12:00: [place] 00 AM Health EDT Care) Glucometer UNK 05/22/ active Glucometer eCW3 2017 ([facility] 12:00: [place] 00 AM Health EDT Care) Glucometer UNK 05/22/ active Glucometer eCW3 2017 ([facility] 12:00: [place] 00 AM Health EDT Care) Glucometer UNK 05/22/ active Glucometer eCW3 2017 ([facility] 12:00: [place] 00 AM Health EDT Care) Glucometer UNK 05/22/ active Glucometer eCW3 2017 ([facility] 12:00: [place] 00 AM Health EDT Care) Glucometer UNK 05/22/ active Glucometer eCW3 2017 ([facility] 12:00: [place] 00 AM Health EDT Care) Glucometer UNK 05/22/ active Glucometer eCW3 2017 ([facility] 12:00: [place] 00 AM Health EDT Care) Glucometer UNK 05/22/ active Glucometer eCW3 2017 ([facility] 12:00: [place] 00 AM Health EDT Care) Glucometer UNK 05/22/ active Glucometer eCW3 2017 ([facility] 12:00: [place] 00 AM Health EDT Care) Glucometer UNK 05/22/ active Glucometer eCW3 2016 ([facility] 12:00: [place] 00 AM Health EDT Care) Glucometer UNK 05/22/ active Glucometer eCW3 2016 ([facility] 12:00: [place] 00 AM Health EDT Care) Glucometer UNK 05/22/ active Glucometer eCW3 2016 ([facility] 12:00: [place] 00 AM Health EDT Care) Glucometer UNK 05/22/ active Glucometer eCW3 2016 ([facility] 12:00: [place] 00 AM Health EDT Care) Glucometer UNK 05/22/ active Glucometer eCW3 2016 ([facility] 12:00: [place] 00 AM Health EDT Care) Glucometer UNK 05/22/ active Glucometer eCW3 2016 ([facility] 12:00: [place] 00 AM Health EDT Care) Glucometer UNK 05/22/ active Glucometer eCW3 2016 ([facility] 12:00: [place] 00 AM Health EDT Care) Glucometer UNK 05/22/ active Glucometer eCW3 2016 ([facility] 12:00: [place] 00 AM Health EDT Care) Glucometer UNK 05/22/ active Glucometer eCW3 2016 ([facility] 12:00: [place] 00 AM Health EDT Care) Glucometer UNK 05/22/ active Glucometer eCW3 2016 ([facility] 12:00: [place] 00 AM Health EDT Care) One Touch UNK 05/19/ active One Touch e CW3 Test Strip 2016 Test Strip (Hu dson Farfan - 12:00: [facility] - [place] 00 AM Health EDT Care) One Touch UNK 05/19/ active One Touch e CW3 Test Strip 2016 Test Strip (Hu dson [facility]fan - 12:00: [facility] - [place] 00 AM Health EDT Care) One Touch UNK 05/19/ active One Touch e CW3 Test Strip 2016 Test Strip (Hu dson Farfan - 12:00: [facility] - [place] 00 AM Health EDT Care) One Touch UNK 05/19/ active One Touch e CW3 Test Strip 2016 Test Strip (Hu dson Farfan - 12:00: [facility] - [place] 00 AM Health EDT Care) One Touch UNK 05/19/ active One Touch e CW3 Test Strip 2017 Test Strip (Hu dson Farfan - 12:00: [facility] - [place] 00 AM Health EDT Care) One Touch UNK 05/19/ active One Touch e CW3 Test Strip 2017 Test Strip (Hu dson Farfan - 12:00: [facility] - [place] 00 AM Health EDT Care) One Touch UNK 05/19/ active One Touch e CW3 Test Strip 2017 Test Strip (Hu dson Farfan - 12:00: [facility] - [place] 00 AM Health EDT Care) One Touch UNK 05/19/ active One Touch e CW3 Test Strip 2017 Test Strip (Hu dson Farfan - 12:00: [facility] - [place] 00 AM Health EDT Care) One Touch UNK 05/19/ active One Touch e CW3 Test Strip 2017 Test Strip (Hu dson Farfan - 12:00: [facility] - [place] 00 AM Health EDT Care) One Touch UNK 05/19/ active One Touch e CW3 Test Strip 2017 Test Strip (Hu dson Farfan - 12:00: [facility] - [place] 00 AM Health EDT Care) One Touch UNK 05/19/ active One Touch e CW3 Test Strip 2017 Test Strip (Hu dson Farfan - 12:00: [facility] - [place] 00 AM Health EDT Care) One Touch UNK 05/19/ active One Touch e CW3 Test Strip 2017 Test Strip (Hu dson Farfan - 12:00: [facility] - [place] 00 AM Health EDT Care) One Touch UNK 05/19/ active One Touch e CW3 Test Strip 2017 Test Strip (Hu dson Farfan - 12:00: [facility] - [place] 00 AM Health EDT Care) One Touch UNK 05/19/ active One Touch e CW3 Test Strip 2017 Test Strip (Hu dson Farfan - 12:00: [facility] - [place] 00 AM Health EDT Care) One Touch UNK 05/19/ active One Touch e CW3 Test Strip 2017 Test Strip (Hu dson Farfan - 12:00: [facility] - [place] 00 AM Health EDT Care) One Touch UNK 05/19/ active One Touch e CW3 Test Strip 2017 Test Strip (Hu dson Farfan - 12:00: [facility] - [place] 00 AM Health EDT Care) One Touch UNK 05/19/ active One Touch e CW3 Test Strip 2017 Test Strip (Hu dson Farfan - 12:00: [facility] - [place] 00 AM Health EDT Care) One Touch UNK 05/19/ active One Touch e CW3 Test Strip 2017 Test Strip (Hu dson Farafn - 12:00: [facility] - [place] 00 AM Health EDT Care) One Touch UNK 05/ active One Touch e CW3 Test Strip 2017 Test Strip (Hu dson Farfan - 12:00: [facility] - [place] 00 AM Health EDT Care) One Touch UNK 05/ active One Touch e CW3 Test Strip 2017 Test Strip (Hu dson Farfan - 12:00: [facility] - [place] 00 AM Health EDT Care) One Touch UNK 05/ active One Touch e CW3 Test Strip 2017 Test Strip (Hu dson Farfan - 12:00: [facility] - [place] 00 AM Health EDT Care) One Touch UNK 05/ active One Touch e CW3 Test Strip 2017 Test Strip (Hu dson Farfan - 12:00: [facility] - [place] 00 AM Health EDT Care) One Touch UNK 09/22/ active One Touch e CW3 Test Strip 2017 Test Strip (Hu dson Farfan - 12:00: [facility] - [place] 00 AM Health EDT Care) One Touch UNK 05/ active One Touch e CW3 Test Strip 2017 Test Strip (Hu dson Farfan - 12:00: [facility] - [place] 00 AM Health EDT Care) One Touch UNK 05/ active One Touch e CW3 Test Strip 2017 Test Strip (Hu dson Farfan - 12:00: [facility] - [place] 00 AM Health EDT Care) One Touch UNK 09/22/ active One Touch e CW3 Test Strip 2017 Test Strip (Hu dson Farfan - 12:00: [facility] - [place] 00 AM Health EDT Care) One Touch UNK 05/ active One Touch e CW3 Test Strip 2017 Test Strip (Hu dson Farfan - 12:00: [facility] - [place] 00 AM Health EDT Care) One Touch UNK 05/ active One Touch e CW3 Test Strip 2017 Test Strip (Hu dson Farfan - 12:00: [facility] - [place] 00 AM Health EDT Care) One Touch UNK 05/ active One Touch e CW3 Test Strip 2017 Test Strip (Hu dson Farfan - 12:00: [facility] - [place] 00 AM Health EDT Care) One Touch UNK 05/ active One Touch e CW3 Test Strip 2017 Test Strip (Hu dson Farfan - 12:00: [facility] - [place] 00 AM Health EDT Care) One Touch UNK 05/ active One Touch e CW3 Test Strip 2017 Test Strip (Hu dson Farfan - 12:00: [facility] - [place] 00 AM Health EDT Care) One Touch UNK 05/ active One Touch e CW3 Test Strip 2017 Test Strip (Hu dson Farfan - 12:00: [facility] - [place] 00 AM Health EDT Care) One Touch UNK 05/ active One Touch e CW3 Test Strip 2017 Test Strip (Hu dson Farfan - 12:00: [facility] - [place] 00 AM Health EDT Care) One Touch UNK 05/ active One Touch e CW3 Test Strip 2017 Test Strip (Hu dson Farfan - 12:00: [facility] - [place] 00 AM Health EDT Care) One Touch UNK 05/ active One Touch e CW3 Test Strip 2017 Test Strip (Christophe dson Farfan - 12:00: [facility] - [place] 00 AM Health EDT Care) One Touch UNK 09/22/ active One Touch e CW3 Test Strip 2016 Test Strip (Christophe dson [facility] - 12:00: [facility] - [place] 00 AM Health EDT Care) Glipizide 5 GlipiZ .0 active GlipiZI DE 5 eCW3 MG Oral CLAU 2016 {tabl MG ([facility] Tablet MG 12:00: et} [place] GlipiZIDE 5 00 AM Health EST Care) Glipizide GlipiZ .0 active GlipiZIDE 10 eCW3 10 MG Oral CLAU 2016 {tabl mg ([facility] Tablet mg 12:00: et} [place] GlipiZIDE 00 AM Health 10 mg EST Care) Glipizide 5 GlipiZ .0 active GlipiZI DE 5 eCW3 MG Oral CLAU 2016 {tabl MG ([facility] Tablet MG 12:00: et} [place] GlipiZIDE 5 00 AM Health EST Care) Glipizide 5 GlipiZ .0 active GlipiZI DE 5 eCW3 MG Oral CLAU 2016 {tabl MG ([facility] Tablet MG 12:00: et} [place] GlipiZIDE 5 00 AM Health EST Care) Glipizide GlipiZ .0 active GlipiZIDE 10 eCW3 10 MG Oral CLAU 2016 {tabl mg ([facility] [facility] Tablet mg 12:00: et} [place] GlipiZIDE 00 AM Health 10 mg EST Care) GlipiZIDE UNK .0 active GlipiZIDE 1 0 eCW3 10 mg 2017 {tabl mg ([facility] 12:00: et} [place] 00 AM Health EST Care) Glipizide 5 GlipiZ .0 active GlipiZI DE 5 eCW3 MG Oral CLAU 5 2016 {tabl MG ([facility] Tablet MG 12:00: et} [place] GlipiZIDE 5 00 AM Health MG EST Care) Glipizide 5 GlipiZ .0 active GlipiZI DE 5 eCW3 MG Oral CLAU 2016 {tabl MG ([facility] Tablet MG 12:00: et} [place] GlipiZIDE 5 00 AM Health MG EST Care) Glipizide 5 GlipiZ .0 active GlipiZI DE 5 eCW3 MG Oral CLAU 2016 {tabl MG ([facility] Tablet MG 12:00: et} [place] GlipiZIDE 5 00 AM Health MG EST Care) Glipizide 5 GlipiZ .0 active GlipiZI DE 5 eCW3 MG Oral CLAU 2016 {tabl MG ([facility] Tablet MG 12:00: et} [place] GlipiZIDE 5 00 AM Health MG EST Care) Glipizide GlipiZ .0 active GlipiZIDE 10 eCW3 10 MG Oral CLAU 2016 {tabl mg ([facility] Tablet mg 12:00: et} [place] GlipiZIDE 00 AM Health 10 mg EST Care) Glipizide 5 GlipiZ .0 active GlipiZI DE 5 eCW3 MG Oral CLAU 2016 {tabl MG ([facility] Tablet MG 12:00: et} [place] GlipiZIDE 5 00 AM Health MG EST Care) Glipizide 5 GlipiZ .0 active GlipiZI DE 5 eCW3 MG Oral CLAU 2016 {tabl MG ([facility] Tablet MG 12:00: et} [place] GlipiZIDE 5 00 AM Health MG EST Care) Glipizide GlipiZ .0 active GlipiZIDE 10 eCW3 10 MG Oral CLAU 10 2016 {tabl mg ([facility] [facility] Tablet mg 12:00: et} [place] GlipiZIDE 00 AM Health 10 mg EST Care) Glipizide 5 GlipiZ .0 active GlipiZI DE 5 eCW3 MG Oral CLAU 2016 {tabl MG ([facility] Tablet MG 12:00: et} [place] GlipiZIDE 5 00 AM Health MG EST Care) Glipizide 5 GlipiZ .0 active GlipiZI DE 5 eCW3 MG Oral CLAU 2016 {tabl MG ([facility] Tablet MG 12:00: et} [place] GlipiZIDE 5 00 AM Health MG EST Care) Glipizide 5 GlipiZ .0 active GlipiZI DE 5 eCW3 MG Oral CLAU 2016 {tabl MG ([facility] Tablet MG 12:00: et} [place] GlipiZIDE 5 00 AM Health MG EST Care) Glipizide GlipiZ .0 active GlipiZIDE 10 eCW3 10 MG Oral CLAU 2016 {tabl mg ([facility] [facility] Tablet mg 12:00: et} [place] GlipiZIDE 00 AM Health 10 mg EST Care) Glipizide 5 GlipiZ .0 active GlipiZI DE 5 eCW3 MG Oral CLAU 2016 {tabl MG ([facility] Tablet MG 12:00: et} [place] GlipiZIDE 5 00 AM Health MG EST Care) Glipizide GlipiZ .0 active GlipiZIDE 10 eCW3 10 MG Oral CLAU 2016 {tabl mg ([facility] Tablet mg 12:00: et} [place] GlipiZIDE 00 AM Health 10 mg EST Care) Glipizide GlipiZ .0 active GlipiZIDE 10 eCW3 10 MG Oral CLAU 2016 {tabl mg ([facility] [facility] Tablet mg 12:00: et} [place] GlipiZIDE 00 AM Health 10 mg EST Care) Glipizide GlipiZ .0 active GlipiZIDE 10 eCW3 10 MG Oral CLAU 2016 {tabl mg ([facility] Tablet mg 12:00: et} [place] GlipiZIDE 00 AM Health 10 mg EST Care) Glipizide 5 GlipiZ .0 active GlipiZI DE 5 eCW3 MG Oral CLAU 5 2016 {tabl MG ([facility] Tablet MG 12:00: et} [place] GlipiZIDE 5 00 AM Health MG EST Care) Glipizide 5 GlipiZ .0 active GlipiZI DE 5 eCW3 MG Oral CLAU 5 2016 {tabl MG ([facility] Tablet MG 12:00: et} [place] GlipiZIDE 5 00 AM Health MG EST Care) Glipizide 5 GlipiZ .0 active GlipiZI DE 5 eCW3 MG Oral CLAU 5 2016 {tabl MG ([facility] Tablet MG 12:00: et} [place] GlipiZIDE 5 00 AM Health MG EST Care) Glipizide 5 GlipiZ .0 active GlipiZI DE 5 eCW3 MG Oral CLAU 2016 {tabl MG ([facility] Tablet MG 12:00: et} [place] GlipiZIDE 5 00 AM Health MG EST Care) Glipizide 5 GlipiZ .0 active GlipiZI DE 5 eCW3 MG Oral CLAU 2016 {tabl MG ([facility] Tablet MG 12:00: et} [place] GlipiZIDE 5 00 AM Health MG EST Care) Glipizide GlipiZ .0 active GlipiZIDE 10 eCW3 10 MG Oral CLAU 10 2016 {tabl mg ([facility] Tablet mg 12:00: et} [place] GlipiZIDE 00 AM Health 10 mg EST Care) Glipizide 5 GlipiZ .0 active GlipiZI DE 5 eCW3 MG Oral CLAU 2016 {tabl MG ([facility] Tablet MG 12:00: et} [place] GlipiZIDE 5 00 AM Health MG EST Care) Glipizide GlipiZ .0 active GlipiZIDE 10 eCW3 10 MG Oral CLAU 10 2016 {tabl mg ([facility] Tablet mg 12:00: et} [place] GlipiZIDE 00 AM Health 10 mg EST Care) Glipizide 5 GlipiZ .0 active GlipiZI DE 5 eCW3 MG Oral CLAU 2016 {tabl MG ([facility] Tablet MG 12:00: et} [place] GlipiZIDE 5 00 AM Health MG EST Care) Glipizide GlipiZ .0 active GlipiZIDE 10 eCW3 10 MG Oral CLAU 10 2016 {tabl mg ([facility] Tablet mg 12:00: et} [place] GlipiZIDE 00 AM Health 10 mg EST Care) Glipizide GlipiZ .0 active GlipiZIDE 10 eCW3 10 MG Oral CLAU 10 2016 {tabl mg ([facility] Tablet mg 12:00: et} [place] GlipiZIDE 00 AM Health 10 EST Care) Glipizide 5 GlipiZ .0 active GlipiZI DE 5 eCW3 MG Oral CLAU 5 2016 {tabl MG ([place] Tablet MG 12:00: et} [place] GlipiZIDE 5 00 AM Health EST Care) Glipizide 5 GlipiZ .0 active GlipiZI DE 5 eCW3 MG Oral CLAU 5 2016 {tabl MG ([place] Tablet MG 12:00: et} [place] GlipiZIDE 5 00 AM Health EST Care) Glipizide 5 GlipiZ .0 active GlipiZI DE 5 eCW3 MG Oral CLAU 5 2016 {tabl MG ([place] Tablet MG 12:00: et} [place] GlipiZIDE 5 00 AM Health EST Care) Flonase Flonas .0 active Flonase eCW 3 Allergy e 2016 {spra Allergy ([place] Relief 50 Allerg 12:00: y_in_ Relief 50 [place] MCG/ACT y 00 AM each_ MCG/ACT Health Relief EST [facility]) 50 il} MCG/AC T Amoxicillin Amoxic .0 suspend Amoxic illin eCW3 500 MG Oral illin 2017 {tabl ed 500 MG ([facility] Tablet 500 MG 12:00: et} [place] 00 AM Health EST Care) Amoxicillin Amoxic .0 suspend Amoxic illin eCW3 500 MG Oral illin 2017 {tabl ed 500 MG ([facility] Tablet 500 MG 12:00: et} [place] 00 AM Health EST Care) Amoxicillin Amoxic .0 suspend Amoxic illin eCW3 500 MG Oral illin 2017 {tabl ed 500 MG ([facility] Tablet 500 MG 12:00: et} [place] 00 AM Health EST Care) Amoxicillin Amoxic .0 suspend Amoxic illin eCW3 500 MG Oral illin 2017 {tabl ed 500 MG ([facility]ud son Tablet 500 MG 12:00: et} [place] AM [facility]) Amoxicillin Amoxic .0 suspend Amoxic illin eCW3 500 MG Oral illin 2017 {tabl ed 500 MG ([facility] son Tablet 500 MG 12:00: et} [place] AM [facility]) Flonase Flonas .0 active Flonase eCW 3 Allergy e 2017 {spra Allergy ([facility] Relief 50 Allerg 12:00: y_in_ Relief 50 [place] MCG/ACT y 00 AM each_ MCG/ACT Health Relief EST [facility]) 50 il} MCG/AC T Amoxicillin Amoxic .0 suspend Amoxic illin eCW3 500 MG Oral illin 2017 {tabl ed 500 MG ([facility] son Tablet 500 MG 12:00: et} [place] AM [facility]) Amoxicillin Amoxic .0 suspend Amoxic illin eCW3 500 MG Oral illin 2017 {tabl ed 500 MG ([facility] son Tablet 500 MG 12:00: et} [facility] AM Health EST [facility]) Amoxicillin Amoxic .0 suspend Amoxic illin eCW3 500 MG Oral illin 2017 {tabl ed 500 MG ([facility] son Tablet 500 MG 12:00: et} [place] AM [facility]) Amoxicillin Amoxic .0 suspend Amoxic illin eCW3 500 MG Oral illin 2017 {tabl ed 500 MG ([facility] son Tablet 500 MG 12:00: et} [place] AM Health EST [facility]) Amoxicillin Amoxic .0 suspend Amoxic illin eCW3 500 MG Oral illin 2017 {tabl ed 500 MG ([facility] son Tablet 500 MG 12:00: et} [facility] AM [facility] Care) Amoxicillin Amoxic .0 suspend Amoxic illin eCW3 500 MG Oral illin 2017 {tabl ed 500 MG ([facility] son Tablet 500 MG 12:00: et} [place] [address] [facility] EST [facility]) Amoxicillin Amoxic .0 suspend Amoxic illin eCW3 500 MG Oral illin 2017 {tabl ed 500 MG ([facility] son Tablet 500 MG 12:00: et} [place] 00 AM Health EST Care) Flonase Flonas .0 active Flonase eCW 3 Allergy e 2017 {spra Allergy ([facility] Relief 50 Allerg 12:00: y_in_ Relief 50 [place] MCG/ACT y 00 AM each_ MCG/ACT Health Relief EST [facility]) 50 il} MCG/AC T Amoxicillin UNK .0 suspend Amoxicil flynn eCW3 500 MG 2017 {tabl ed 500 MG ([facility] 12:00: et} [facility] EST [facility]) Amoxicillin Amoxic .0 suspend Amoxic illin eCW3 500 MG Oral illin 2017 {tabl ed 500 MG ([facility] son Tablet 500 MG 12:00: et} [facility] AM [facility] EST Care) Amoxicillin Amoxic .0 suspend Amoxic illin eCW3 500 MG Oral illin 2017 {tabl ed 500 MG ([facility] son Tablet 500 MG 12:00: et} [facility] AM [facility] EST Care) Amoxicillin Amoxic .0 suspend Amoxic illin eCW3 500 MG Oral illin 2017 {tabl ed 500 MG ([facility] son Tablet 500 MG 12:00: et} [facility] AM [facility] EST Care) Flonase Flonas .0 active Flonase eCW 3 Allergy e 2017 {spra Allergy ([facility] Relief 50 Allerg 12:00: y_in_ Relief 50 [place] MCG/ACT y 00 AM each_ MCG/ACT Health Relief EST [facility]) 50 il} MCG/AC T Amoxicillin Amoxic .0 suspend Amoxic illin eCW3 500 MG Oral illin 2017 {tabl ed 500 MG ([facility] son Tablet 500 MG 12:00: et} [facility] EST Care) Amoxicillin Amoxic .0 suspend Amoxic illin eCW3 500 MG Oral illin 2017 {tabl ed 500 MG ([facility] son Tablet 500 MG 12:00: et} [place] 00 AM Health EST Care) Flonase Flonas .0 active Flonase eCW 3 Allergy e 2017 {spra Allergy ([facility] Relief 50 Allerg 12:00: y_in_ Relief 50 [place] MCG/ACT y 00 AM each_ MCG/ACT Health Relief EST [facility]) 50 il} MCG/AC T Amoxicillin Amoxic .0 suspend Amoxic illin eCW3 500 MG Oral illin 2017 {tabl ed 500 MG ([facility] son Tablet 500 MG 12:00: et} [place] 00 AM Health EST Care) Amoxicillin Amoxic .0 suspend Amoxic illin eCW3 500 MG Oral illin 2017 {tabl ed 500 MG ([facility] Tablet 500 MG 12:00: et} [place] 00 AM Health EST Care) Amoxicillin Amoxic .0 suspend Amoxic illin eCW3 500 MG Oral illin 2017 {tabl ed 500 MG ([facility] son Tablet 500 MG 12:00: et} [place] 00 AM Health EST Care) Aspirin 81 Aspiri 1.0 active Aspirin 81 eCW3 MG Delayed n 81 2016 {tabl MG ([facility] Release MG 12:00: et} [place] Oral Tablet 00 AM Health EST Care) Aspirin 81 UNK 1.0 active Aspirin 81 eCW3 MG 2016 {tabl MG ([facility] 12:00: et} [place] 00 AM Health EST Care) Aspirin 81 Aspiri 04/18/ 1.0 active Aspirin 81 eCW3 MG Delayed n 81 2016 {tabl MG ([facility] Release MG 12:00: et} [place] Oral Tablet 00 AM Health EST Care) Aspirin 81 Aspiri 04/18/ 1.0 active Aspirin 81 eCW3 MG Delayed n 81 2016 {tabl MG ([facility] Release MG 12:00: et} [place] Oral Tablet 00 AM Health EST Care) Aspirin 81 Aspiri 1.0 active Aspirin 81 eCW3 MG Delayed n 81 2016 {tabl MG ([facility] Release MG 12:00: et} [place] Oral Tablet 00 AM Health EST Care) Aspirin 81 Aspiri 04/18/ 1.0 active Aspirin 81 eCW3 MG Delayed n 81 2016 {tabl MG ([facility] Release MG 12:00: et} [place] Oral Tablet 00 AM Health EST Care) Aspirin 81 Aspiri 04/18/ 1.0 active Aspirin 81 eCW3 MG Delayed n 81 2016 {tabl MG ([facility] Release MG 12:00: et} [place] Oral Tablet 00 AM Health EST Care) Aspirin 81 Aspiri 1.0 active Aspirin 81 eCW3 MG Delayed n 81 2016 {tabl MG ([facility] Release MG 12:00: et} [place] Oral Tablet 00 AM Health EST Care) Aspirin 81 Aspiri 1.0 active Aspirin 81 eCW3 MG Delayed n 81 2016 {tabl MG ([facility] Release MG 12:00: et} [place] Oral Tablet 00 AM Health EST Care) Aspirin 81 Aspiri 1.0 active Aspirin 81 eCW3 MG Delayed n 81 2016 {tabl MG ([facility] Release MG 12:00: et} [place] Oral Tablet 00 AM Health EST Care) Aspirin 81 Aspiri 1.0 active Aspirin 81 eCW3 MG Delayed n 81 2016 {tabl MG ([facility] Release MG 12:00: et} [place] Oral Tablet 00 AM Health EST Care) Aspirin 81 Aspiri 1.0 active Aspirin 81 eCW3 MG Delayed n 81 2016 {tabl MG ([facility] Release MG 12:00: et} [place] Oral Tablet 00 AM Health EST Care) Aspirin 81 Aspiri 1.0 active Aspirin 81 eCW3 MG Delayed n 81 2016 {tabl MG ([facility] Release MG 12:00: et} [place] Oral Tablet 00 AM Health EST Care) Aspirin 81 Aspiri 04/18/ 1.0 active Aspirin 81 eCW3 MG Delayed n 81 2016 {tabl MG ([facility] Release MG 12:00: et} [place] Oral Tablet 00 AM Health EST Care) Aspirin 81 Aspiri 1.0 active Aspirin 81 eCW3 MG Delayed n 81 2016 {tabl MG ([facility] Release MG 12:00: et} [place] Oral Tablet 00 AM Health EST Care) Aspirin 81 Aspiri 1.0 active Aspirin 81 eCW3 MG Delayed n 81 2016 {tabl MG ([facility] Release MG 12:00: et} [place] Oral Tablet 00 AM Health EST Care) Aspirin 81 Aspiri 1.0 active Aspirin 81 eCW3 MG Delayed n 81 2016 {tabl MG ([facility] Release MG 12:00: et} [place] Oral Tablet 00 AM Health EST Care) Aspirin 81 Aspiri 1.0 active Aspirin 81 eCW3 MG Delayed n 81 2016 {tabl MG ([facility] Release MG 12:00: et} [place] Oral Tablet 00 AM Health EST Care) Aspirin 81 Aspiri 1.0 active Aspirin 81 eCW3 MG Delayed n 81 2016 {tabl MG ([facility] Release MG 12:00: et} [place] Oral Tablet 00 AM Health EST Care) Aspirin 81 Aspiri 1.0 active Aspirin 81 eCW3 MG Delayed n 81 2016 {tabl MG ([facility] Release MG 12:00: et} [place] Oral Tablet 00 AM Health EST Care) Aspirin 81 Aspiri 1.0 active Aspirin 81 eCW3 MG Delayed n 81 2016 {tabl MG ([facility] Release MG 12:00: et} [place] Oral Tablet 00 AM Health EST Care) Aspirin 81 Aspiri 1.0 active Aspirin 81 eCW3 MG Delayed n 81 2016 {tabl MG ([facility] Release MG 12:00: et} [place] Oral Tablet 00 AM Health EST Care) Aspirin 81 Aspiri 1.0 active Aspirin 81 eCW3 MG Delayed n 81 2016 {tabl MG ([facility] Release MG 12:00: et} [place] Oral Tablet 00 AM Health EST Care) Aspirin 81 Aspiri 1.0 active Aspirin 81 eCW3 MG Delayed n 81 2016 {tabl MG ([facility] Release MG 12:00: et} [place] Oral Tablet 00 AM Health EST Care) Aspirin 81 Aspiri 1.0 active Aspirin 81 eCW3 MG Delayed n 81 2016 {tabl MG ([facility] Release MG 12:00: et} [place] Oral Tablet 00 AM Health EST Care) Aspirin 81 Aspiri 1.0 active Aspirin 81 eCW3 MG Delayed n 81 2016 {tabl MG ([facility] Release MG 12:00: et} [place] Oral Tablet 00 AM Health EST Care) Aspirin 81 Aspiri 04/18/ 1.0 active Aspirin 81 eCW3 MG Delayed n 81 2016 {tabl MG ([facility] Release MG 12:00: et} [place] Oral Tablet 00 AM Health EST Care) Aspirin 81 Aspiri 04/18/ 1.0 active Aspirin 81 eCW3 MG Delayed n 81 2016 {tabl MG ([facility] Release MG 12:00: et} [place] Oral Tablet 00 AM Health EST Care) Aspirin 81 Aspiri 1.0 active Aspirin 81 eCW3 MG Delayed n 81 2016 {tabl MG ([facility] Release MG 12:00: et} [place] Oral Tablet 00 AM Health EST Care) Aspirin 81 Aspiri 1.0 active Aspirin 81 eCW3 MG Delayed n 81 2016 {tabl MG ([facility] Release MG 12:00: et} [place] Oral Tablet 00 AM Health EST Care) Aspirin 81 Aspiri 1.0 active Aspirin 81 eCW3 MG Delayed n 81 2016 {tabl MG ([facility] Release MG 12:00: et} [place] Oral Tablet 00 AM Health EST Care) Aspirin 81 Aspiri 1.0 active Aspirin 81 eCW3 MG Delayed n 81 2016 {tabl MG ([facility] Release MG 12:00: et} [place] Oral Tablet 00 AM Health EST Care) Aspirin 81 Aspiri 1.0 active Aspirin 81 eCW3 MG Delayed n 81 2016 {tabl MG ([facility] Release MG 12:00: et} [place] Oral Tablet 00 AM Health EST Care) Aspirin 81 Aspiri 1.0 active Aspirin 81 eCW3 MG Delayed n 81 2016 {tabl MG ([facility] Release MG 12:00: et} [place] Oral Tablet 00 AM Health EST Care) Aspirin 81 Aspiri 1.0 active Aspirin 81 eCW3 MG Delayed n 81 2016 {tabl MG ([facility] Release MG 12:00: et} [place] Oral Tablet 00 AM Health EST Care) Aspirin 81 Aspiri 1.0 active Aspirin 81 eCW3 MG Delayed n 81 2016 {tabl MG ([facility] Release MG 12:00: et} [place] Oral Tablet 00 AM Health EST Care) Diclofenac Voltar 02/28/ active Voltaren 1 % eCW3 Sodium 0.01 en 1 % 2015 ([facility] MG/MG 12:00: [place] Topical Gel 00 AM Health [Voltaren] EDT Care) Voltaren 1 % Diclofenac Voltar 02/28/ active Voltaren 1 % eCW3 Sodium 0.01 en 1 % 2015 ([facility] [facility] MG/MG 12:00: [place] Topical Gel [address] [facility] [Voltaren] EDT Care) Voltaren 1 % Permethrin Permet 1.0 suspend Permeth rin 5 eCW3 50 MG/ML hrin 5 2015 {appl ed % ([facility] Topical % 12:00: icati [place] Cream 00 AM on_to Health Permethrin EDT _affe Care) 5 % cted_ area} Permethrin Permet 10/25/ 1.0 suspend Permeth rin 5 eCW3 50 MG/ML hrin 5 2015 {appl ed % ([facility] Topical % 12:00: icati [place] Cream 00 AM on_to Health Permethrin EDT _affe Care) 5 % cted_ area} Diclofenac Voltar 10/25/ active Voltaren 1 % eCW3 Sodium 0.01 en 1 % 2015 ([facility] [facility] MG/MG 12:00: [place] Topical Gel 00 AM Health [Voltaren] EDT Care) Voltaren 1 % Diclofenac Voltar 1025/ active Voltaren 1 % eCW3 Sodium 0.01 en 1 % 2015 ([place] [facility] MG/MG 12:00: [place] Topical Gel 00 AM Health [Voltaren] EDT Care) Voltaren 1 % Permethrin Permet 02/28/ 1.0 suspend Permeth rin 5 eCW3 50 MG/ML hrin 5 2015 {appl ed % ([facility] Topical % 12:00: icati [place] Cream 00 AM on_to Health Permethrin EDT _affe Care) 5 % cted_ area} Diclofenac Voltar 1025/ active Voltaren 1 % eCW3 Sodium 0.01 en 1 % 2015 ([facility] [facility] MG/MG 12:00: [place] Topical Gel 00 AM Health [Voltaren] EDT Care) Voltaren 1 % Diclofenac Voltar 1025/ active Voltaren 1 % eCW3 Sodium 0.01 en 1 % 2015 ([facility] [facility] MG/MG 12:00: [place] Topical Gel 00 AM Health [Voltaren] EDT Care) Voltaren 1 % Diclofenac Voltar 1025/ active Voltaren 1 % eCW3 Sodium 0.01 en 1 % 2015 ([facility] [facility] MG/MG 12:00: [place] Topical Gel 00 AM Health [Voltaren] EDT Care) Voltaren 1 % Diclofenac Voltar 10/25/ active Voltaren 1 % eCW3 Sodium 0.01 en 1 % 2015 ([facility] [facility] MG/MG 12:00: [place] Topical Gel 00 AM Health [Voltaren] EDT Care) Voltaren 1 % Permethrin Permet 02/28/ 1.0 suspend Permeth rin 5 eCW3 50 MG/ML hrin 5 2015 {appl ed % ([facility] Topical % 12:00: icati [place] Cream 00 AM on_to Health Permethrin EDT _affe Care) 5 % cted_ area} Diclofenac Voltar 10/25/ active Voltaren 1 % eCW3 Sodium 0.01 en 1 % 2016 ([facility] [facility] MG/MG 12:00: [place] Topical Gel 00 AM Health [Voltaren] EDT Care) Voltaren 1 % Diclofenac Voltar 10/25/ active Voltaren 1 % eCW3 Sodium 0.01 en 1 % 2016 ([facility] [facility] MG/MG 12:00: [place] Topical Gel 00 AM Health [Voltaren] EDT Care) Voltaren 1 % Diclofenac Voltar 10/25/ active Voltaren 1 % eCW3 Sodium 0.01 en 1 % 2015 ([place] [facility] MG/MG 12:00: [place] Topical Gel 00 AM Health [Voltaren] EDT Care) Voltaren 1 % Permethrin Permet 10/25/ 1.0 suspend Permeth rin 5 eCW3 50 MG/ML hrin 5 2015 {appl ed % ([facility] Topical % 12:00: icati [place] Cream 00 AM on_to Health Permethrin EDT _affe Care) 5 % cted_ area} Permethrin Permet 10/25/ 1.0 suspend Permeth rin 5 eCW3 50 MG/ML hrin 5 2015 {appl ed % ([facility] Topical % 12:00: icati [place] Cream 00 AM on_to Health Permethrin EDT _affe Care) 5 % cted_ area} Diclofenac Voltar 10/25/ active Voltaren 1 % eCW3 Sodium 0.01 en 1 % 2015 ([facility] [facility] MG/MG 12:00: [place] Topical Gel 00 AM Health [Voltaren] EDT Care) Voltaren 1 % Diclofenac Voltar 10/25/ active Voltaren 1 % eCW3 Sodium 0.01 en 1 % 2016 ([facility] [facility] MG/MG 12:00: [place] Topical Gel 00 AM Health [Voltaren] EDT Care) Voltaren 1 % Diclofenac Voltar 10/25/ active Voltaren 1 % eCW3 Sodium 0.01 en 1 % 2016 ([facility] [facility] MG/MG 12:00: [place] Topical Gel 00 AM Health [Voltaren] EDT Care) Voltaren 1 % Diclofenac Voltar 1025/ active Voltaren 1 % eCW3 Sodium 0.01 en 1 % 2016 ([facility] [facility] MG/MG 12:00: [place] Topical Gel 00 AM Health [Voltaren] EDT Care) Voltaren 1 % Diclofenac Voltar 1025/ active Voltaren 1 % eCW3 Sodium 0.01 en 1 % 2016 ([facility] [facility] MG/MG 12:00: [place] Topical Gel 00 AM Health [Voltaren] EDT Care) Voltaren 1 % Diclofenac Voltar 1025/ active Voltaren 1 % eCW3 Sodium 0.01 en 1 % 2016 ([facility] [facility] MG/MG 12:00: [place] Topical Gel 00 AM Health [Voltaren] EDT Care) Voltaren 1 % Permethrin Permet 02/28/ 1.0 suspend Permeth rin 5 eCW3 50 MG/ML hrin 5 2015 {appl ed % ([facility] Topical % 12:00: icati [place] Cream 00 AM on_to Health Permethrin EDT _affe Care) 5 % cted_ area} Diclofenac Voltar 1025/ active Voltaren 1 % eCW3 Sodium 0.01 en 1 % 2016 ([facility] [facility] MG/MG 12:00: [place] Topical Gel 00 AM Health [Voltaren] EDT Care) Voltaren 1 % Diclofenac Voltar 1025/ active Voltaren 1 % eCW3 Sodium 0.01 en 1 % 2016 ([facility] [facility] MG/MG 12:00: [place] Topical Gel 00 AM Health [Voltaren] EDT Care) Voltaren 1 % Voltaren 1 UNK 02/28/ active Voltaren 1 % eCW3 % 2016 ([facility] 12:00: [place] 00 AM Health EDT Care) Permethrin Permet 1025/ 1.0 suspend Permeth rin 5 eCW3 50 MG/ML hrin 5 2015 {appl ed % ([facility] Topical % 12:00: icati [place] Cream 00 AM on_to Health Permethrin EDT _affe Care) 5 % cted_ area} Permethrin Permet 10/25/ 1.0 suspend Permeth rin 5 eCW3 50 MG/ML hrin 5 2015 {appl ed % ([facility] Topical % 12:00: icati [place] Cream 00 AM on_to Health Permethrin EDT _affe Care) 5 % cted_ area} Permethrin UNK 1.0 suspend Permethri n 5 eCW3 5 % 2015 {appl ed % ([facility] 12:00: icati [place] 00 AM on_to Health EDT _affe Care) cted_ area} Diclofenac Voltar 02/28/ active Voltaren 1 % eCW3 Sodium 0.01 en 1 % 2015 ([facility] [facility] MG/MG 12:00: [place] Topical Gel 00 AM Health [Voltaren] EDT Care) Voltaren 1 % Diclofenac Voltar 02/28/ active Voltaren 1 % eCW3 Sodium 0.01 en 1 % 2015 ([place] [facility] MG/MG 12:00: [place] Topical Gel 00 AM Health [Voltaren] EDT Care) Voltaren 1 % Diclofenac Voltar 02/28/ active Voltaren 1 % eCW3 Sodium 0.01 en 1 % 2015 ([place] [facility] MG/MG 12:00: [place] Topical Gel 00 AM Health [Voltaren] EDT Care) Voltaren 1 % Diclofenac Voltar 02/28/ active Voltaren 1 % eCW3 Sodium 0.01 en 1 % 2015 ([place] [facility] MG/MG 12:00: [place] Topical Gel 00 AM Health [Voltaren] EDT Care) Voltaren 1 % Diclofenac Voltar 02/28/ active Voltaren 1 % eCW3 Sodium 0.01 en 1 % 2015 ([place] [facility] MG/MG 12:00: [place] Topical Gel 00 AM Health [Voltaren] EDT Care) Voltaren 1 % Permethrin Permet 1.0 suspend Permeth rin 5 eCW3 50 MG/ML hrin 5 2015 {appl ed % ([facility] Topical % 12:00: icati [place] Cream 00 AM on_to Health Permethrin EDT _affe Care) 5 % cted_ area} Permethrin Permet 02/28/ 1.0 suspend Permeth rin 5 eCW3 50 MG/ML hrin 5 2015 {appl ed % ([facility] Topical % 12:00: icati [place] Cream 00 AM on_to Health Permethrin EDT _affe Care) 5 % cted_ area} Diclofenac Voltar 02/28/ active Voltaren 1 % eCW3 Sodium 0.01 en 1 % 2015 ([place] [facility] MG/MG 12:00: [place] Topical Gel 00 AM Health [Voltaren] EDT Care) Voltaren 1 % Diclofenac Voltar 25/ active Voltaren 1 % eCW3 Sodium 0.01 en 1 % 2015 ([place] [facility] MG/MG 12:00: [place] Topical Gel 00 AM Health [Voltaren] EDT Care) Voltaren 1 % Permethrin Permet 02/28/ 1.0 suspend Permeth rin 5 eCW3 50 MG/ML hrin 5 2015 {appl ed % ([facility] Topical % 12:00: icati [place] Cream 00 AM on_to Health Permethrin EDT _affe Care) 5 % cted_ area} Diclofenac Voltar 02/28/ active Voltaren 1 % eCW3 Sodium 0.01 en 1 % 2015 ([place] [facility] MG/MG 12:00: [place] Topical Gel 00 AM Health [Voltaren] EDT Care) Voltaren 1 % Diclofenac Voltar 02/28/ active Voltaren 1 % eCW3 Sodium 0.01 en 1 % 2015 ([place] [facility] MG/MG 12:00: [place] Topical Gel 00 AM Health [Voltaren] EDT Care) Voltaren 1 % Permethrin Permet 02/28/ 1.0 suspend Permeth rin 5 eCW3 50 MG/ML hrin 5 2015 {appl ed % ([facility] Topical % 12:00: icati [place] Cream 00 AM on_to Health Permethrin EDT _affe Care) 5 % cted_ area} Permethrin Permet 25/ 1.0 suspend Permeth rin 5 eCW3 50 MG/ML hrin 5 2015 {appl ed % ([facility] Topical % 12:00: icati [place] Cream 00 AM on_to Health Permethrin EDT _affe Care) 5 % cted_ area} Diclofenac Voltar 25/ active Voltaren 1 % eCW3 Sodium 0.01 en 1 % 2015 ([place] [facility] MG/MG 12:00: [place] Topical Gel 00 AM Health [Voltaren] EDT Care) Voltaren 1 % Diclofenac Voltar 02/28/ active Voltaren 1 % eCW3 Sodium 0.01 en 1 % 2015 ([place] [facility] MG/MG 12:00: [place] Topical Gel 00 AM Health [Voltaren] EDT Care) Voltaren 1 % Diclofenac Voltar 1025/ active Voltaren 1 % eCW3 Sodium 0.01 en 1 % 2016 ([place] [facility] MG/MG 12:00: [place] Topical Gel 00 AM Health [Voltaren] EDT Care) Voltaren 1 % Diclofenac Voltar 1025/ active Voltaren 1 % eCW3 Sodium 0.01 en 1 % 2015 ([place] [facility] MG/MG 12:00: [place] Topical Gel 00 AM Health [Voltaren] EDT Care) Voltaren 1 % Diclofenac Voltar 1025/ active Voltaren 1 % eCW3 Sodium 0.01 en 1 % 2015 ([place] [facility] MG/MG 12:00: [place] Topical Gel 00 AM Health [Voltaren] EDT Care) Voltaren 1 % Diclofenac Voltar 1025/ active Voltaren 1 % eCW3 Sodium 0.01 en 1 % 2015 ([place] [facility] MG/MG 12:00: [place] Topical Gel 00 AM Health [Voltaren] EDT Care) Voltaren 1 % Permethrin Permet 1025/ 1.0 suspend Permeth rin 5 eCW3 50 MG/ML hrin 5 2015 {appl ed % ([facility] Topical % 12:00: icati [place] Cream 00 AM on_to Health Permethrin EDT _affe Care) 5 % cted_ area} Diclofenac Voltar 1025/ active Voltaren 1 % eCW3 Sodium 0.01 en 1 % 2015 ([place] [facility] MG/MG 12:00: [place] Topical Gel 00 AM Health [Voltaren] EDT Care) Voltaren 1 % Permethrin Permet 1025/ 1.0 suspend Permeth rin 5 eCW3 50 MG/ML hrin 5 2015 {appl ed % ([facility] Topical % 12:00: icati [place] Cream 00 AM on_to Health Permethrin EDT _affe Care) 5 % cted_ area} Permethrin Permet 1025/ 1.0 suspend Permeth rin 5 eCW3 50 MG/ML hrin 5 2015 {appl ed % ([facility] Topical % 12:00: icati [place] Cream 00 AM on_to Health Permethrin EDT _affe Care) 5 % cted_ area} Permethrin Permet 1.0 suspend Permeth rin 5 eCW3 50 MG/ML hrin 5 2015 {appl ed % ([facility] Topical % 12:00: icati [place] Cream 00 AM on_to Health Permethrin EDT _affe Care) 5 % cted_ area} Permethrin Permet .0 suspend Permeth rin 5 eCW3 50 MG/ML hrin 5 2015 {appl ed % ([facility] Topical % 12:00: icati [place] Cream 00 AM on_to Health Permethrin EDT _affe Care) 5 % cted_ area} Permethrin Permet .0 suspend Permeth rin 5 eCW3 50 MG/ML hrin 5 2015 {appl ed % ([facility] Topical % 12:00: icati [place] Cream 00 AM on_to Health Permethrin EDT _affe Care) 5 % cted_ area} cetirizine ZyrTEC .0 active ZyrTEC e CW3 hydrochlori Allerg 2016 {tabl Allergy 10 ([facility] de 10 MG y 10 12:00: et} MG [place] Oral Tablet MG 00 AM Health [Zyrte] EDT Care) ZyrTEC Allergy 10 MG cetirizine ZyrTEC .0 active ZyrTEC e CW3 hydrochlori Allerg 2016 {tabl Allergy 10 ([facility] de 10 MG y 10 12:00: et} MG [place] Oral Tablet MG 00 AM Health [Zyrte] EDT Care) ZyrTEC Allergy 10 MG ZyrTEC UNK .0 active ZyrTEC eCW3 Allergy 10 2015 {tabl Allergy 10 (H udson mg 12:00: et} mg [place] 00 AM Health EDT Care) cetirizine ZyrTEC .0 active ZyrTEC e CW3 hydrochlori Allerg 2016 {tabl Allergy 10 ([facility] de 10 MG y 10 12:00: et} MG [place] Oral Tablet MG 00 AM Health [Zyrte] EDT Care) ZyrTEC Allergy 10 MG cetirizine ZyrTEC .0 active ZyrTEC e CW3 hydrochlori Allerg 2016 {tabl Allergy 10 ([place] de 10 MG y 10 12:00: et} mg [place] Oral Tablet mg 00 AM Health [[facility]] EDT Care) ZyrTEC Allergy 10 mg cetirizine ZyrTEC .0 active ZyrTEC e CW3 hydrochlori Allerg 2016 {tabl Allergy 10 ([place] de 10 MG y 10 12:00: et} MG [place] Oral Tablet MG 00 AM Health [[facility] EDT Care) ZyrTEC Allergy 10 MG cetirizine ZyrTEC .0 active ZyrTEC e CW3 hydrochlori Allerg 2016 {tabl Allergy 10 ([place] de 10 MG y 10 12:00: et} MG [place] Oral Tablet MG 00 AM Health [[facility]] EDT Care) ZyrTEC Allergy 10 MG cetirizine ZyrTEC .0 active ZyrTEC e CW3 hydrochlori Allerg 2016 {tabl Allergy 10 ([place] de 10 MG y 10 12:00: et} MG [place] Oral Tablet MG 00 AM Health [[facility] EDT Care) ZyrTEC Allergy 10 MG cetirizine ZyrTEC .0 active ZyrTEC e CW3 hydrochlori Allerg 2016 {tabl Allergy 10 ([place] de 10 MG y 10 12:00: et} mg [place] Oral Tablet mg 00 AM Health [[facility] EDT Care) ZyrTEC Allergy 10 mg cetirizine ZyrTEC .0 active ZyrTEC e CW3 hydrochlori Allerg 2016 {tabl Allergy 10 ([place] de 10 MG y 10 12:00: et} MG [place] Oral Tablet MG 00 AM Health [[facility]] EDT Care) ZyrTEC Allergy 10 MG Blood UNK 10/18/ active Blood eCW3 Glucose 2016 Glucose ([facility] Monitor 12:00: Monitor [facility] 1 00 AM Software 1 He [facility]th EDT Care) Isopropyl Alcoho 10/18/ active Alcohol P rep eCW3 Alcohol 0.7 l Prep 2016 70 % ([place] ML/ML 70 % 12:00: [place] Medicated 00 AM Health Pad Alcohol EDT Care) Prep 70 % Blood UNK 06/14/ active Blood eCW3 Glucose 2016 Glucose ([facility] Monitor 12:00: Monitor [facility] 1 00 AM Software 1 [facility] EDT [facility]) Lancets 1 UNK 0614/ active Lancets 1 e CW3 2015 ([facility] 12:00: [facility] 00 AM Health EDT Care) Lancets 1 UNK 14/ active Lancets 1 e CW3 2015 ([facility] 12:00: [place] 00 AM Health EDT Care) Blood UNK 10/18/ active Blood eCW3 Glucose 2016 Glucose ([facility] Monitor 12:00: Monitor [place] [facility] 1 00 AM Software 1 [facility] EDT Care) Isopropyl Alcoho 10/18/ active Alcohol P rep eCW3 Alcohol 0.7 l Prep 2016 70 % ([place] ML/ML 70 % 12:00: [place] Medicated 00 AM Health [facility] Alcohol EDT Care) Prep 70 % Isopropyl Alcoho 10/18/ active Alcohol P rep eCW3 Alcohol 0.7 l Prep 2015 70 % ([place] ML/ML 70 % 12:00: [place] Medicated 00 AM [facility] Alcohol EDT Care) Prep 70 % Lancets 1 UNK 14/ active Lancets 1 e CW3 2015 ([facility] 12:00: [place] 00 AM Health EDT Care) Lancets 1 UNK 14/ active Lancets 1 e CW3 2015 ([facility] 12:00: [place] [address] [facility] EDT Care) Blood UNK 10/18/ active Blood eCW3 Glucose 2016 Glucose ([facility] Monitor 12:00: Monitor [facility] 1 00 AM Software 1 [facility] EDT [facility]) Blood UNK 10/18/ active Blood eCW3 Glucose 2016 Glucose ([facility] Monitor 12:00: Monitor [facility] 1 00 AM Software 1 [facility] EDT [facility]) Lancets 1 UNK 14/ active Lancets 1 e CW3 2015 ([facility] 12:00: [facility] 00 AM Health EDT Care) Isopropyl Alcoho 10/18/ active Alcohol P rep eCW3 Alcohol 0.7 l Prep 2016 70 % ([place] ML/ML 70 % 12:00: [place] Medicated 00 AM [facility] Alcohol EDT Care) Prep 70 % Blood UNK 10/18/ active Blood eCW3 Glucose 2015 Glucose ([facility] Monitor 12:00: Monitor [facility] 1 00 AM Software 1 [facility] EDT [facility]) Isopropyl Alcoho 10/18/ active Alcohol P rep eCW3 Alcohol 0.7 l Prep 2016 70 % ([place] ML/ML 70 % 12:00: [place] Medicated 00 AM Health Pad Alcohol EDT Care) Prep 70 % Isopropyl Alcoho 06/14/ active Alcohol P rep eCW3 Alcohol 0.7 l Prep 2016 70 % ([facility] [facility] ML/ML 70 % 12:00: [facility] 00 AM [facility] Alcohol EDT Care) Prep 70 % Isopropyl Alcoho 14/ active Alcohol P rep eCW3 Alcohol 0.7 l Prep 2016 70 % ([facility] [facility] ML/ML 70 % 12:00: [facility] 00 AM [facility] Alcohol EDT Care) Prep 70 % Lancets 1 UNK 0614/ active Lancets 1 e CW3 2015 ([facility] 12:00: [facility] 00 AM Health EDT Care) Lancets 1 UNK 0614/ active Lancets 1 e CW3 2015 ([facility] 12:00: [facility] 00 AM Health EDT Care) Lancets 1 UNK 06/14/ active Lancets 1 e CW3 2015 ([facility] 12:00: [facility] 00 AM Health EDT Care) Isopropyl Alcoho 10/18/ active Alcohol P rep eCW3 Alcohol 0.7 l Prep 2016 70 % ([place] [facility] ML/ML 70 % 12:00: [facility] 00 AM [facility] Alcohol EDT Care) Prep 70 % Blood UNK 0614/ active Blood eCW3 Glucose 2016 Glucose ([facility] 12:00: [facility] 1 00 AM Software 1 [facility] EDT [facility]) Lancets 1 UNK 14/ active Lancets 1 e CW3 2015 ([facility] 12:00: [facility] 00 AM [facility] EDT Care) Blood UNK 06/14/ active Blood eCW3 Glucose 2016 Glucose ([facility] 12:00: Monitor [facility] 1 00 AM Software 1 [facility] EDT Care) Lancets 1 UNK 0614/ active Lancets 1 e CW3 2015 ([facility] 12:00: [facility] 00 AM [facility] EDT Care) Blood UNK 06/14/ active Blood eCW3 Glucose 2016 Glucose ([facility] 12:00: [facility] 1 00 AM Software 1 [facility] EDT Care) Isopropyl Alcoho /14/ active Alcohol P rep eCW3 Alcohol 0.7 l Prep 2016 70 % ([facility] ML/ML 70 % 12:00: [facility] 00 AM [facility] Pad Alcohol EDT Care) Prep 70 % Blood UNK 0614/ active Blood eCW3 Glucose 2016 Glucose ([facility] 12:00: [facility] 1 00 AM Software 1 [facility] EDT Care) Isopropyl Alcoho 14/ active Alcohol P rep eCW3 Alcohol 0.7 l Prep 2016 70 % ([facility] ML/ML 70 % 12:00: [facility] 00 AM [facility] Pad Alcohol EDT Care) Prep 70 % Isopropyl Alcoho 14/ active Alcohol P rep eCW3 Alcohol 0.7 l Prep 2016 70 % ([facility] ML/ML 70 % 12:00: [facility] 00 AM [facility] Pad Alcohol EDT Care) Prep 70 % Blood UNK 14/ active Blood eCW3 Glucose 2016 Glucose ([facility] 12:00: [facility] 1 00 AM Software 1 [facility] EDT Care) Lancets 1 UNK 14/ active Lancets 1 e CW3 2015 ([facility] 12:00: [facility] 00 AM [facility] EDT Care) Isopropyl Alcoho 10/18/ active Alcohol P rep eCW3 Alcohol 0.7 l Prep 2016 70 % ([facility] ML/ML 70 % 12:00: [facility] 00 AM [facility] Pad Alcohol EDT Care) Prep 70 % Lancets 1 UNK 14/ active Lancets 1 e CW3 2015 ([facility] 12:00: [facility] 00 AM [facility] EDT Care) Isopropyl Alcoho 10/18/ active Alcohol P rep eCW3 Alcohol 0.7 l Prep 2016 70 % ([facility] ML/ML 70 % 12:00: [facility] 00 AM [facility] Pad Alcohol EDT Care) Prep 70 % Lancets 1 UNK /14/ active Lancets 1 e CW3 2015 ([facility] 12:00: [facility] 00 AM [facility] EDT Care) Blood UNK 0614/ active Blood eCW3 Glucose 2016 Glucose ([facility] 12:00: [facility] 1 00 AM Software 1 [facility] EDT Care) Lancets 1 UNK /14/ active Lancets 1 e CW3 2015 ([facility] 12:00: [facility] 00 AM [facility] EDT Care) Isopropyl Alcoho 14/ active Alcohol P rep eCW3 Alcohol 0.7 l Prep 2016 70 % ([facility] ML/ML 70 % 12:00: [facility] 00 AM [facility] Pad Alcohol EDT Care) Prep 70 % Blood UNK 0614/ active Blood eCW3 Glucose 2016 Glucose ([facility] 12:00: [facility] 1 00 AM Software 1 [facility] EDT [facility]) Lancets 1 UNK 06/14/ active Lancets 1 e CW3 2015 ([facility] 12:00: [facility] [address] [facility] EDT Care) Lancets 1 UNK 06/14/ active Lancets 1 e CW3 2015 ([facility] 12:00: [facility] 00 AM [facility] EDT Care) Lancets 1 UNK 06/14/ active Lancets 1 e CW3 2015 ([facility] 12:00: [facility] 00 AM [facility] EDT Care) Lancets 1 UNK 06/14/ active Lancets 1 e CW3 2015 ([facility] 12:00: [facility] [address] [facility] EDT Care) Blood UNK 06/14/ active Blood eCW3 Glucose 2016 Glucose ([facility] 12:00: [facility] 1 00 AM Software 1 [facility] EDT [facility]) Blood UNK 0614/ active Blood eCW3 Glucose 2016 Glucose ([facility] 12:00: [facility] 1 00 AM Software 1 [facility] EDT [facility]) Isopropyl Alcoho 10/18/ active Alcohol P rep eCW3 Alcohol 0.7 l Prep 2016 70 % ([facility] ML/ML 70 % 12:00: [facility] 00 AM [facility] Alcohol EDT Care) Prep 70 % Blood UNK 0614/ active Blood eCW3 Glucose 2016 Glucose ([facility] 12:00: [facility] 1 00 AM Software 1 [facility] EDT [facility]) Isopropyl Alcoho 10/18/ active Alcohol P rep eCW3 Alcohol 0.7 l Prep 2016 70 % ([facility] ML/ML 70 % 12:00: [facility] Med[facility] 00 AM [facility] EDT Care) Prep 70 % Lancets 1 UNK 06/14/ active Lancets 1 e CW3 2015 ([facility] 12:00: [facility] [address] [facility] EDT Care) Blood UNK 06/14/ active Blood eCW3 Glucose 2016 Glucose ([facility] 12:00: [facility] 1 00 AM Software 1 [facility] EDT [facility]) Lancets 1 UNK 06/14/ active Lancets 1 e CW3 2015 ([facility] 12:00: [facility] [address] [facility] EDT Care) Isopropyl Alcoho 06/14/ active Alcohol P rep eCW3 Alcohol 0.7 l Prep 2016 70 % ([facility] ML/ML 70 % 12:00: [facility] 00 AM [facility] Alcohol EDT Care) Prep 70 % Alcohol UNK 10/18/ active Alcohol Prep eCW3 Prep 70 % 2015 70 % ([facility] 12:00: [facility] [address] [facility] EDT Care) Isopropyl Alcoho 10/18/ active Alcohol P rep eCW3 Alcohol 0.7 l Prep 2015 70 % ([facility] ML/ML 70 % 12:00: [facility] Med[facility] 00 AM [facility] Alcohol EDT Care) Prep 70 % Blood UNK 10/18/ active Blood eCW3 Glucose 2015 Glucose ([facility] 12:00: [facility] 1 00 AM Software 1 [facility] EDT [facility]) Blood UNK 10/18/ active Blood eCW3 Glucose 2016 Glucose ([facility] 12:00: [facility] 1 00 AM Software 1 [facility] EDT [facility]) Blood UNK 10/18/ active Blood eCW3 Glucose 2015 Glucose ([facility] 12:00: [facility] 1 00 AM Software 1 [facility] EDT [facility]) Isopropyl Alcoho 10/18/ active Alcohol P rep eCW3 Alcohol 0.7 l Prep 2016 70 % ([facility] ML/ML 70 % 12:00: [facility] Med[facility] 00 AM [facility] EDT Care) Prep 70 % Blood UNK 10/18/ active Blood eCW3 Glucose 2016 Glucose ([facility] 12:00: [facility] 1 00 AM Software 1 [facility] EDT [facility]) Blood UNK 10/18/ active Blood eCW3 Glucose 2016 Glucose ([facility] 12:00: [facility] 1 00 AM Software 1 [facility] EDT [facility]) Blood UNK 10/18/ active Blood eCW3 Glucose 2016 Glucose ([facility] 12:00: [facility] 1 00 AM Software 1 [facility] EDT [facility]) Lancets 1 UNK 10/18/ active Lancets 1 e CW3 2015 ([facility] 12:00: [facility] [address] [facility] EDT Care) Blood UNK 10/18/ active Blood eCW3 Glucose 2016 Glucose ([facility] 12:00: [facility] 1 00 AM Software 1 [facility] EDT [facility]) Lancets 1 UNK 10/18/ active Lancets 1 e CW3 2015 ([facility] 12:00: [facility] [address] [facility] EDT Care) Isopropyl Alcoho 06/14/ active Alcohol P rep eCW3 Alcohol 0.7 l Prep 2016 70 % ([facility] ML/ML 70 % 12:00: [facility] 00 AM [facility] Pad Alcohol EDT Care) Prep 70 % Isopropyl Alcoho 06/14/ active Alcohol P rep eCW3 Alcohol 0.7 l Prep 2016 70 % ([facility] ML/ML 70 % 12:00: [facility] 00 AM [facility] Pad Alcohol EDT Care) Prep 70 % Lancets 1 UNK 06/14/ active Lancets 1 e CW3 2015 ([facility] 12:00: [facility] 00 AM [facility] EDT Care) Lancets 1 UNK 06/14/ active Lancets 1 e CW3 2015 ([facility] 12:00: [facility] 00 AM [facility] EDT Care) Lancets 1 UNK 06/14/ active Lancets 1 e CW3 2015 ([facility] 12:00: [facility] 00 AM [facility] EDT Care) Blood UNK 06/14/ active Blood eCW3 Glucose 2016 Glucose ([facility] 12:00: [facility] 1 00 AM Software 1 [facility] EDT [facility]) Isopropyl Alcoho 14/ active Alcohol P rep eCW3 Alcohol 0.7 l Prep 2016 70 % ([facility] ML/ML 70 % 12:00: [facility] 00 AM [facility] Pad Alcohol EDT Care) Prep 70 % Lancets 1 UNK 06/14/ active Lancets 1 e CW3 2015 ([facility] 12:00: [facility] 00 AM [facility] EDT Care) Isopropyl Alcoho /14/ active Alcohol P rep eCW3 Alcohol 0.7 l Prep 2016 70 % ([facility] ML/ML 70 % 12:00: [facility] 00 AM [facility] Pad Alcohol EDT Care) Prep 70 % Isopropyl Alcoho 14/ active Alcohol P rep eCW3 Alcohol 0.7 l Prep 2016 70 % ([facility] ML/ML 70 % 12:00: [facility] 00 AM [facility] Pad Alcohol EDT Care) Prep 70 % Blood UNK 06/14/ active Blood eCW3 Glucose 2016 Glucose ([facility] 12:00: [facility] 1 00 AM Software 1 [facility] EDT [facility]) Isopropyl Alcoho /14/ active Alcohol P rep eCW3 Alcohol 0.7 l Prep 2016 70 % ([facility] ML/ML 70 % 12:00: [facility] 00 AM [facility] Pad Alcohol EDT Care) Prep 70 % Lancets 1 UNK 06/14/ active Lancets 1 e CW3 2015 ([facility] 12:00: [facility] 00 AM [facility] EDT Care) Isopropyl Alcoho /14/ active Alcohol P rep eCW3 Alcohol 0.7 l Prep 2016 70 % ([facility] ML/ML 70 % 12:00: [facility] 00 AM [facility] Pad Alcohol EDT Care) Prep 70 % Lancets 1 UNK 06/14/ active Lancets 1 e CW3 2015 ([facility] 12:00: [facility] 00 AM [facility] EDT Care) Isopropyl Alcoho 14/ active Alcohol P rep eCW3 Alcohol 0.7 l Prep 2016 70 % ([facility] ML/ML 70 % 12:00: [facility] 00 AM [facility] Pad Alcohol EDT Care) Prep 70 % Lancets 1 UNK 06/14/ active Lancets 1 e CW3 2015 ([facility] 12:00: [facility] 00 AM [facility] EDT Care) Lancets 1 UNK 06/14/ active Lancets 1 e CW3 2015 ([facility] 12:00: [facility] 00 AM [facility] EDT Care) Blood UNK 0614/ active Blood eCW3 Glucose 2016 Glucose ([facility] 12:00: [facility] 1 00 AM Software 1 [facility] EDT Care) Lancets 1 UNK 14/ active Lancets 1 e CW3 2015 ([facility] 12:00: [facility] 00 AM [facility] EDT Care) Blood UNK 06/14/ active Blood eCW3 Glucose 2016 Glucose ([facility] 12:00: [facility] 1 00 AM Software 1 [facility] EDT Care) Isopropyl Alcoho 14/ active Alcohol P rep eCW3 Alcohol 0.7 l Prep 2016 70 % ([facility] ML/ML 70 % 12:00: [facility] 00 AM [facility] Pad Alcohol EDT Care) Prep 70 % Lancets 1 UNK 06/14/ active Lancets 1 e CW3 2015 ([facility] 12:00: [facility] 00 AM [facility] EDT Care) Isopropyl Alcoho /14/ active Alcohol P rep eCW3 Alcohol 0.7 l Prep 2016 70 % ([facility] ML/ML 70 % 12:00: [facility] 00 AM [facility] Pad Alcohol EDT Care) Prep 70 % Isopropyl Alcoho 14/ active Alcohol P rep eCW3 Alcohol 0.7 l Prep 2016 70 % ([facility] ML/ML 70 % 12:00: [facility] 00 AM [facility] Pad Alcohol EDT Care) Prep 70 % Blood UNK 10/18/ active Blood eCW3 Glucose 2016 Glucose ([facility] 12:00: [facility] 1 00 AM Software 1 [facility] EDT Care) Isopropyl Alcoho 10/18/ active Alcohol P rep eCW3 Alcohol 0.7 l Prep 2016 70 % ([facility] ML/ML 70 % 12:00: [facility] 00 AM [facility] Pad Alcohol EDT Care) Prep 70 % Isopropyl Alcoho 10/18/ active Alcohol P rep eCW3 Alcohol 0.7 l Prep 2016 70 % ([facility] ML/ML 70 % 12:00: [facility] 00 AM [facility] Pad Alcohol EDT Care) Prep 70 % Isopropyl Alcoho 10/18/ active Alcohol P rep eCW3 Alcohol 0.7 l Prep 2016 70 % ([facility] ML/ML 70 % 12:00: [facility] 00 AM [facility] Pad Alcohol EDT Care) Prep 70 % Lancets 1 UNK 10/18/ active Lancets 1 e CW3 2015 ([facility] 12:00: [facility] 00 AM [facility] EDT Care) Isopropyl Alcoho 10/18/ active Alcohol P rep eCW3 Alcohol 0.7 l Prep 2016 70 % ([facility] ML/ML 70 % 12:00: [facility] 00 AM [facility] Pad Alcohol EDT Care) Prep 70 % Lancets 1 UNK 10/18/ active Lancets 1 e CW3 2015 ([facility] 12:00: [facility] 00 AM [facility] EDT Care) Blood UNK 10/18/ active Blood eCW3 Glucose 2016 Glucose ([facility] 12:00: [facility] 1 00 AM Software 1 [facility] EDT [facility]) Lancets 1 UNK 14/ active Lancets 1 e CW3 2015 ([facility] 12:00: [facility] 00 AM Health EDT Care) Blood UNK 10/18/ active Blood eCW3 Glucose 2016 Glucose ([facility] 12:00: [facility] 1 00 AM Software 1 [facility] EDT [facility]) Blood UNK 10/18/ active Blood eCW3 Glucose 2016 Glucose ([facility] 12:00: [facility] 1 00 AM Software 1 [facility] EDT [facility]) Blood UNK 10/18/ active Blood eCW3 Glucose 2015 Glucose ([facility] 12:00: [facility] 1 00 AM Software 1 [facility] EDT Care) Blood UNK 10/18/ active Blood eCW3 Glucose 2015 Glucose ([facility] 12:00: [facility] 1 00 AM Software 1 [facility] EDT Care) Blood UNK 10/18/ active Blood eCW3 Glucose 2016 Glucose ([facility] 12:00: [facility] 1 00 AM Software 1 [facility] EDT Care) Isopropyl Alcoho 10/18/ active Alcohol P rep eCW3 Alcohol 0.7 l Prep 2016 70 % ([facility] ML/ML 70 % 12:00: [facility] 00 AM [facility] Alcohol EDT Care) Prep 70 % Blood UNK 10/18/ active Blood eCW3 Glucose 2015 Glucose ([facility] 12:00: [facility] 1 00 AM Software 1 [facility] EDT [facility]) Lancets 1 UNK 10/18/ active Lancets 1 e CW3 2015 ([facility] 12:00: [facility] [address] [facility] EDT Care) Loratadine Clarit 1.0 active Claritin 10 eCW3 10 MG Oral in 2015 {tabl mg ([facility] Tablet mg 12:00: et} [facility] [Claritin] [address] [facility] mg Loratadine Clarit .0 active Claritin 10 eCW3 10 MG Oral in 2015 {tabl mg ([facility] Tablet mg 12:00: et} [facility] [Claritin] [address] [facility] Claritin 10 EDT Care) mg Flonase Flonas .0 active Flonase eCW 3 Allergy e 2015 {spra Allergy ([facility] Relief 50 Allerg 12:00: y_in_ Relief 50 [facility] MCG/ACT y 00 AM each_ MCG/ACT Health Relief EDT nostr Care) 50 il} MCG/AC T Flonase Flonas .0 active Flonase eCW 3 Allergy e 2015 {spra Allergy ([facility] Relief 50 Allerg 12:00: y_in_ Relief 50 [facility] MCG/ACT y 00 AM each_ MCG/ACT Health Relief EDT nostr Care) 50 il} MCG/AC T Loratadine Clarit 1.0 active Claritin 10 eCW3 10 MG Oral in 2015 {tabl mg ([facility] Tablet mg 12:00: et} [facility] [Claritin] 00 AM Health Claritin 10 EDT Care) mg Flonase Flonas 1.0 active Flonase eCW 3 Allergy e 2015 {spra Allergy ([facility] Relief 50 Allerg 12:00: y_in_ Relief 50 [facility] MCG/ACT y 00 AM each_ MCG/ACT Health Relief EDT nostr Care) 50 il} MCG/AC T Flonase Flonas 1.0 active Flonase eCW 3 Allergy e 2015 {spra Allergy ([facility] Relief 50 Allerg 12:00: y_in_ Relief 50 [facility] MCG/ACT y 00 AM each_ MCG/ACT Health Relief EDT nostr Care) 50 il} MCG/AC T Loratadine Clarit .0 active Claritin 10 eCW3 10 MG Oral in 2015 {tabl mg ([facility] Tablet mg 12:00: et} [facility] [Claritin] 00 AM Health Claritin 10 EDT Care) mg Flonase Flonas .0 active Flonase eCW 3 Allergy e 2015 {spra Allergy ([facility] Relief 50 Allerg 12:00: y_in_ Relief 50 [facility] MCG/ACT y 00 AM each_ MCG/ACT Health Relief EDT nostr Care) 50 il} MCG/AC T Flonase Flonas 1.0 active Flonase eCW 3 Allergy e 2015 {spra Allergy ([facility] Relief 50 Allerg 12:00: y_in_ Relief 50 [facility] MCG/ACT y 00 AM each_ MCG/ACT Health Relief EDT nostr Care) 50 il} MCG/AC T Flonase Flonas .0 active Flonase eCW 3 Allergy e 2015 {spra Allergy ([facility] Relief 50 Allerg 12:00: y_in_ Relief 50 [facility] MCG/ACT y 00 AM each_ MCG/ACT Health Relief EDT nostr Care) 50 il} MCG/AC T Loratadine Clarit 1.0 active Claritin 10 eCW3 10 MG Oral in 2015 {tabl mg ([facility] Tablet mg 12:00: et} [facility] [Claritin] 00 AM Health Claritin 10 EDT Care) mg Loratadine Clarit 1.0 active Claritin 10 eCW3 10 MG Oral in 2015 {tabl mg ([facility] Tablet mg 12:00: et} [facility] [Claritin] [address] [facility] Claritin 10 EDT Care) mg Flonase Flonas .0 active Flonase eCW 3 Allergy e 2015 {spra Allergy ([facility] Relief 50 Allerg 12:00: y_in_ Relief 50 [facility] MCG/ACT y 00 AM each_ MCG/ACT Health Relief EDT nostr Care) 50 il} MCG/AC T Flonase Flonas .0 active Flonase eCW 3 Allergy e 2015 {spra Allergy ([facility] Relief 50 Allerg 12:00: y_in_ Relief 50 [place] MCG/ACT y 00 AM each_ MCG/ACT Health Relief EDT nostr Care) 50 il} MCG/AC T Flonase Flonas .0 active Flonase eCW 3 Allergy e 2015 {spra Allergy ([facility] Relief 50 Allerg 12:00: y_in_ Relief 50 [place] MCG/ACT y 00 AM each_ MCG/ACT Health Relief EDT nostr Care) 50 il} MCG/AC T Loratadine Clarit .0 active Claritin 10 eCW3 10 MG Oral in 2015 {tabl mg ([facility] Tablet mg 12:00: et} [facility] [Claritin] [address] [facility] Claritin EDT [facility]) mg Loratadine Clarit .0 active Claritin 10 eCW3 10 MG Oral in 2015 {tabl mg ([facility] Tablet mg 12:00: et} [facility] [Claritin] [address] [facility] Claritin EDT [facility]) mg Loratadine Clarit .0 active Claritin 10 eCW3 10 MG Oral in 2015 {tabl mg ([facility] Tablet mg 12:00: et} [place] [Claritin] [address] [facility] Claritin 10 EDT [facility]) mg Flonase Flonas .0 active Flonase eCW 3 Allergy e 2015 {spra Allergy ([facility] Relief 50 Allerg 12:00: y_in_ Relief 50 [place] MCG/ACT y 00 AM each_ MCG/ACT Health Relief EDT nostr Care) 50 il} MCG/AC T Flonase Flonas .0 active Flonase eCW 3 Allergy e 2015 {spra Allergy ([facility] Relief 50 Allerg 12:00: y_in_ Relief 50 [place] MCG/ACT y 00 AM each_ MCG/ACT Health Relief EDT nostr Care) 50 il} MCG/AC T Loratadine Clarit .0 active Claritin 10 eCW3 10 MG Oral in 2015 {tabl mg ([facility] Tablet mg 12:00: et} [place] [Claritin] 00 AM Health Claritin 10 EDT Care) mg Loratadine Clarit .0 active Claritin 10 eCW3 10 MG Oral in 2015 {tabl mg ([facility] Tablet mg 12:00: et} [facility] [Claritin] 00 AM Health Claritin 10 EDT Care) mg Flonase Flonas .0 active Flonase eCW 3 Allergy e 2015 {spra Allergy ([facility] Relief 50 Allerg 12:00: y_in_ Relief 50 [place] MCG/ACT y 00 AM each_ MCG/ACT Health Relief EDT nostr Care) 50 il} MCG/AC T Loratadine Clarit .0 active Claritin 10 eCW3 10 MG Oral in 2015 {tabl mg ([facility] Tablet mg 12:00: et} [facility] [Claritin] 00 AM Health Claritin 10 EDT Care) mg Flonase Flonas .0 active Flonase eCW 3 Allergy e 2015 {spra Allergy ([facility] Relief 50 Allerg 12:00: y_in_ Relief 50 [place] MCG/ACT y 00 AM each_ MCG/ACT Health Relief EDT nostr Care) 50 il} MCG/AC T Flonase UNK .0 active Flonase eCW3 Allergy 2016 {spra Allergy ([facility] Relief 50 12:00: y_in_ Relief 50 [facility] MCG/ACT 00 AM each_ MCG/ACT Health EDT nostr Care) il} Loratadine Clarit 1.0 active Claritin 10 eCW3 10 MG Oral in 2015 {tabl mg ([facility] Tablet mg 12:00: et} [facility] [Claritin] 00 AM Health Claritin 10 EDT Care) mg Flonase Flonas 1.0 active Flonase eCW 3 Allergy e 2015 {spra Allergy ([facility] Relief 50 Allerg 12:00: y_in_ Relief 50 [place] MCG/ACT y 00 AM each_ MCG/ACT Health Relief EDT nostr Care) 50 il} MCG/AC T Loratadine Clarit 1.0 active Claritin 10 eCW3 10 MG Oral in 2015 {tabl mg ([facility] Tablet mg 12:00: et} [place] [Claritin] 00 AM Health Claritin 10 EDT Care) mg Flonase Flonas .0 active Flonase eCW 3 Allergy e 2015 {spra Allergy ([facility] Relief 50 Allerg 12:00: y_in_ Relief 50 [place] MCG/ACT y 00 AM each_ MCG/ACT Health Relief EDT nostr Care) 50 il} MCG/AC T Loratadine Clarit .0 active Claritin 10 eCW3 10 MG Oral in 2015 {tabl mg ([facility] Tablet mg 12:00: et} [place] [Claritin] 00 AM Health Claritin 10 EDT Care) mg Flonase Flonas .0 active Flonase eCW 3 Allergy e 2015 {spra Allergy ([facility] Relief 50 Allerg 12:00: y_in_ Relief 50 [place] MCG/ACT y 00 AM each_ MCG/ACT Health Relief EDT nostr Care) 50 il} MCG/AC T Loratadine Clarit 1.0 active Claritin 10 eCW3 10 MG Oral in 2015 {tabl mg ([facility] Tablet mg 12:00: et} [place] [Claritin] 00 AM Health Claritin 10 EDT Care) mg Flonase Flonas .0 active Flonase eCW 3 Allergy e 2015 {spra Allergy ([facility] Relief 50 Allerg 12:00: y_in_ Relief 50 [place] MCG/ACT y 00 AM each_ MCG/ACT Health Relief EDT nostr Care) 50 il} MCG/AC T Loratadine Clarit 1.0 active Claritin 10 eCW3 10 MG Oral in 2015 {tabl mg ([facility] Tablet mg 12:00: et} [place] [Claritin] 00 AM Health Claritin 10 EDT Care) mg Loratadine Clarit 1.0 active Claritin 10 eCW3 10 MG Oral in 2015 {tabl mg ([facility] Tablet mg 12:00: et} [place] [Claritin] [address] [facility] Claritin 10 EDT Care) mg Claritin 10 UNK .0 active Claritin 10 eCW3 mg 2015 {tabl mg ([facility] 12:00: et} [facility] [address] [facility] EDT Care) Loratadine Clarit .0 active Claritin 10 eCW3 10 MG Oral in 2015 {tabl mg ([facility] Tablet mg 12:00: et} [place] [Claritin] [address] [facility] Claritin 10 EDT [facility]) mg Flonase Flonas .0 active Flonase eCW 3 Allergy e 2015 {spra Allergy ([facility] Relief 50 Allerg 12:00: y_in_ Relief 50 [place] MCG/ACT y 00 AM each_ MCG/ACT Health Relief EDT nostr Care) 50 il} MCG/AC T Loratadine Clarit .0 active Claritin 10 eCW3 10 MG Oral in 2015 {tabl mg ([facility] Tablet mg 12:00: et} [place] [Claritin] [address] [facility] Claritin EDT Care) mg Flonase Flonas .0 active Flonase eCW 3 Allergy e 2015 {spra Allergy ([facility] Relief 50 Allerg 12:00: y_in_ Relief 50 [place] MCG/ACT y 00 AM each_ MCG/ACT Health Relief EDT nostr Care) 50 il} MCG/AC T Loratadine Clarit .0 active Claritin 10 eCW3 10 MG Oral in 2015 {tabl mg ([facility] Tablet mg 12:00: et} [place] [Claritin] [address] [facility] Claritin 10 EDT Care) mg Flonase Flonas .0 active Flonase eCW 3 Allergy e 2015 {spra Allergy ([facility] Relief 50 Allerg 12:00: y_in_ Relief 50 [place] MCG/ACT y 00 AM each_ MCG/ACT Health Relief EDT nostr Care) 50 il} MCG/AC T Loratadine Clarit .0 active Claritin 10 eCW3 10 MG Oral in 2015 {tabl mg ([facility] Tablet mg 12:00: et} [place] [Claritin] [address] [facility] Claritin 10 EDT Care) mg Flonase Flonas .0 active Flonase eCW 3 Allergy e 2015 {spra Allergy ([facility] Relief 50 Allerg 12:00: y_in_ Relief 50 [place] MCG/ACT y 00 AM each_ MCG/ACT Health Relief EDT nostr Care) 50 il} MCG/AC T Flonase Flonas .0 active Flonase eCW 3 Allergy e 2015 {spra Allergy ([facility] Relief 50 Allerg 12:00: y_in_ Relief 50 [place] MCG/ACT y 00 AM each_ MCG/ACT Health Relief EDT nostr Care) 50 il} MCG/AC T Loratadine Clarit .0 active Claritin 10 eCW3 10 MG Oral in 2015 {tabl mg ([facility] Tablet mg 12:00: et} [place] [Claritin] 00 AM Health Claritin 10 EDT Care) mg Flonase Flonas .0 active Flonase eCW 3 Allergy e 2015 {spra Allergy ([facility] Relief 50 Allerg 12:00: y_in_ Relief 50 [place] MCG/ACT y 00 AM each_ MCG/ACT Health Relief EDT nostr Care) 50 il} MCG/AC T Flonase Flonas .0 active Flonase eCW 3 Allergy e 2015 {spra Allergy ([facility] Relief 50 Allerg 12:00: y_in_ Relief 50 [place] MCG/ACT y 00 AM each_ MCG/ACT Health Relief EDT nostr Care) 50 il} MCG/AC T Loratadine Clarit .0 active Claritin 10 eCW3 10 MG Oral in 2015 {tabl mg ([facility] Tablet mg 12:00: et} [place] [Claritin] 00 AM Health Claritin 10 EDT Care) mg Flonase Flonas .0 active Flonase eCW 3 Allergy e 2015 {spra Allergy ([facility] Relief 50 Allerg 12:00: y_in_ Relief 50 [place] MCG/ACT y 00 AM each_ MCG/ACT Health Relief EDT nostr Care) 50 il} MCG/AC T Flonase Flonas .0 active Flonase eCW 3 Allergy e 2015 {spra Allergy ([facility] Relief 50 Allerg 12:00: y_in_ Relief 50 [place] MCG/ACT y 00 AM each_ MCG/ACT Health Relief EDT nostr Care) 50 il} MCG/AC T Loratadine Clarit 1.0 active Claritin 10 eCW3 10 MG Oral in 2015 {tabl mg ([facility] Tablet mg 12:00: et} [place] [Claritin] [address] [facility] Claritin 10 EDT Care) mg Loratadine Clarit 1.0 active Claritin 10 eCW3 10 MG Oral in 2015 {tabl mg ([facility] Tablet mg 12:00: et} [place] [Claritin] [address] [facility] Claritin 10 EDT Care) mg Loratadine Clarit 1.0 active Claritin 10 eCW3 10 MG Oral in 2015 {tabl mg ([facility] Tablet mg 12:00: et} [place] [Claritin] [address] [facility] Claritin 10 EDT Care) mg Flonase Flonas .0 active Flonase eCW 3 Allergy e 2015 {spra Allergy ([facility] Relief 50 Allerg 12:00: y_in_ Relief 50 [place] MCG/ACT y 00 AM each_ MCG/ACT Health Relief EDT nostr Care) 50 il} MCG/AC T Flonase Flonas 1.0 active Flonase eCW 3 Allergy e 2015 {spra Allergy ([facility] Relief 50 Allerg 12:00: y_in_ Relief 50 [place] MCG/ACT y 00 AM each_ MCG/ACT Health Relief EDT nostr Care) 50 il} MCG/AC T Loratadine Clarit .0 active Claritin 10 eCW3 10 MG Oral in 2015 {tabl mg ([facility] Tablet mg 12:00: et} [place] [Claritin] [address] [facility] Claritin 10 EDT Care) mg Flonase Flonas 1.0 active Flonase eCW 3 Allergy e 2015 {spra Allergy ([facility] Relief 50 Allerg 12:00: y_in_ Relief 50 [place] MCG/ACT y 00 AM each_ MCG/ACT Health Relief EDT nostr Care) 50 il} MCG/AC T Flonase Flonas 1.0 active Flonase eCW 3 Allergy e 2015 {spra Allergy ([facility] Relief 50 Allerg 12:00: y_in_ Relief 50 [place] MCG/ACT y 00 AM each_ MCG/ACT Health Relief EDT nostr Care) 50 il} MCG/AC T Flonase Flonas 1.0 active Flonase eCW 3 Allergy e 2015 {spra Allergy ([facility] Relief 50 Allerg 12:00: y_in_ Relief 50 [place] MCG/ACT y 00 AM each_ MCG/ACT Health Relief EDT nostr Care) 50 il} MCG/AC T Flonase Flonas .0 active Flonase eCW 3 Allergy e 2015 {spra Allergy ([facility] Relief 50 Allerg 12:00: y_in_ Relief 50 [place] MCG/ACT y 00 AM each_ MCG/ACT Health Relief EDT nostr Care) 50 il} MCG/AC T Loratadine Clarit .0 active Claritin 10 eCW3 10 MG Oral in 2015 {tabl mg ([facility] Tablet mg 12:00: et} [facility] [Claritin] 00 AM Health Claritin 10 EDT Care) mg Flonase Flonas .0 active Flonase eCW 3 Allergy e 2015 {spra Allergy ([facility] Relief 50 Allerg 12:00: y_in_ Relief 50 [place] MCG/ACT y 00 AM each_ MCG/ACT Health Relief EDT nostr Care) 50 il} MCG/AC T Loratadine Clarit .0 active Claritin 10 eCW3 10 MG Oral in 2015 {tabl mg ([facility] Tablet mg 12:00: et} [facility] [Claritin] 00 AM Health Claritin 10 EDT Care) mg Flonase Flonas .0 active Flonase eCW 3 Allergy e 2015 {spra Allergy ([facility] Relief 50 Allerg 12:00: y_in_ Relief 50 [place] MCG/ACT y 00 AM each_ MCG/ACT Health Relief EDT nostr Care) 50 il} MCG/AC T Loratadine Clarit 1.0 active Claritin 10 eCW3 10 MG Oral in 2015 {tabl mg ([facility] Tablet mg 12:00: et} [facility] [Claritin] 00 AM Health Claritin 10 EDT Care) mg Loratadine Clarit 1.0 active Claritin 10 eCW3 10 MG Oral in 2015 {tabl mg ([facility] Tablet mg 12:00: et} [place] [Claritin] 00 AM [facility] 10 EDT Care) mg Loratadine Clarit .0 active Claritin 10 eCW3 10 MG Oral in 2015 {tabl mg ([facility] Tablet mg 12:00: et} [place] [Claritin] 00 AM [facility] 10 EDT Care) mg Loratadine Clarit .0 active Claritin 10 eCW3 10 MG Oral in 2015 {tabl mg ([facility] Tablet mg 12:00: et} [place] [Claritin] [address] [facility]) mg Loratadine Clarit .0 active Claritin 10 eCW3 10 MG Oral in 2015 {tabl mg ([facility] Tablet mg 12:00: et} [place] [Claritin] 00 AM [facility] 10 EDT Care) mg Alcohol Alcoho 07/07/ active Alcohol Pad s eCW3 Pads 70 % l Pads 2015 70 % ([facility] 70 % 12:00: [place] 00 AM Health EST Care) FreeStyle UNK 07/07/ active FreeStyle e CW3 Lite Test 2016 Lite Test ([facility] 12:00: freestyle [facility] lite 00 AM lite Health EST Care) Lancets UNK 07/07/ active Lancets eCW3 lancet 2016 lancet ([facility] 12:00: [facility] 00 AM Health EST Care) FreeStyle FreeSt 07/07/ active FreeStyle eCW3 Lite - yle 2016 Lite - ([facility] Lite - 12:00: [place] 00 AM Health EST Care) FreeStyle FreeSt 07/07/ active FreeStyle eCW3 Lite - yle 2016 Lite - ([facility] Lite - 12:00: [place] 00 AM Health EST Care) FreeStyle FreeSt 07/07/ active FreeStyle eCW3 Lite - yle 2016 Lite - ([facility] Lite - 12:00: [place] 00 AM Health EST Care) Lancets UNK 07/07/ active Lancets eCW3 lancet 2016 lancet ([facility] 12:00: [facility] 00 AM Health EST Care) Alcohol Alcoho 07/07/ active Alcohol Pad s eCW3 Pads 70 % l Pads 2015 70 % ([facility] 70 % 12:00: [facility] 00 AM Health EST Care) FreeStyle UNK 07/07/ active FreeStyle e CW3 Lite Test 2016 Lite Test ([facility] 12:00: freestyle [facility] lite 00 AM lite Health EST Care) FreeStyle FreeSt 07/07/ active FreeStyle eCW3 Lite - yle 2016 Lite - ([facility] Lite - 12:00: [facility] 00 AM Health EST Care) Alcohol Alcoho 07/07/ active Alcohol Pad s eCW3 Pads 70 % l Pads 2016 70 % ([facility] 70 % 12:00: [facility] 00 AM Health EST Care) FreeStyle UNK 07/07/ active FreeStyle e CW3 Lite - 2016 Lite - ([facility] 12:00: [facility] 00 AM Health EST Care) Lancets UNK 07/07/ active Lancets eCW3 lancet 2016 lancet ([facility] 12:00: [facility] 00 AM Health EST Care) FreeStyle UNK 07/07/ active FreeStyle e CW3 Lite Test 2016 Lite Test ([facility] 12:00: freestyle [facility] lite 00 AM lite Health EST Care) FreeStyle UNK 07/07/ active FreeStyle e CW3 Lite Test 2016 Lite Test ([facility] 12:00: freestyle [facility] lite 00 AM lite Health EST Care) FreeStyle UNK 07/07/ active FreeStyle e CW3 Lite Test 2016 Lite Test ([facility] 12:00: freestyle [facility] lite 00 AM lite Health EST Care) FreeStyle FreeSt 07/07/ active FreeStyle eCW3 Lite - yle 2016 Lite - ([facility] Lite - 12:00: [facility] 00 AM Health EST Care) FreeStyle FreeSt 07/07/ active FreeStyle eCW3 Lite - yle 2016 Lite - ([facility] Lite - 12:00: [place] 00 AM Health EST Care) FreeStyle FreeSt 07/07/ active FreeStyle eCW3 Lite - yle 2016 Lite - ([facility] Lite - 12:00: [place] 00 AM Health EST Care) Lancets UNK 07/07/ active Lancets eCW3 lancet 2016 lancet ([facility] 12:00: [facility] 00 AM Health EST Care) FreeStyle UNK 07/07/ active FreeStyle e CW3 Lite Test 2016 Lite Test ([facility] 12:00: freestyle [facility] lite 00 AM lite Health EST Care) FreeStyle FreeSt 07/07/ active FreeStyle eCW3 Lite - yle 2016 Lite - ([facility] Lite - 12:00: [facility] 00 AM Health EST Care) Alcohol Alcoho 07/07/ active Alcohol Pad s eCW3 Pads 70 % l Pads 2016 70 % ([facility] 70 % 12:00: [place] 00 AM Health EST Care) FreeStyle UNK 07/07/ active FreeStyle e CW3 Lite Test 2016 Lite Test ([facility] 12:00: freestyle [facility] lite 00 AM lite Health EST Care) Lancets UNK 07/07/ active Lancets eCW3 lancet 2016 lancet ([facility] 12:00: [facility] 00 AM Health EST Care) FreeStyle FreeSt 07/07/ active FreeStyle eCW3 Lite - yle 2016 Lite - ([facility] Lite - 12:00: [facility] 00 AM Health EST Care) Lancets UNK 07/07/ active Lancets eCW3 lancet 2016 lancet ([facility] 12:00: [facility] 00 AM Health EST Care) Alcohol Alcoho 07/07/ active Alcohol Pad s eCW3 Pads 70 % l Pads 2016 70 % ([facility] 70 % 12:00: [facility] 00 AM Health EST Care) FreeStyle FreeSt 07/07/ active FreeStyle eCW3 Lite - yle 2016 Lite - ([facility] Lite - 12:00: [facility] 00 AM Health EST Care) Lancets UNK 07/07/ active Lancets eCW3 lancet 2016 lancet ([facility] 12:00: [facility] 00 AM Health EST Care) FreeStyle UNK 07/07/ active FreeStyle e CW3 Lite Test 2016 Lite Test ([facility] 12:00: freestyle [facility] lite 00 AM lite Health EST Care) Alcohol UNK 07/07/ active Alcohol Pads eCW3 Pads 70 % 2016 70 % ([facility] 12:00: [facility] 00 AM Health EST Care) Lancets UNK 07/07/ active Lancets eCW3 lancet 2016 lancet ([facility] 12:00: [facility] 00 AM Health EST Care) FreeStyle FreeSt 07/07/ active FreeStyle eCW3 Lite - yle 2016 Lite - ([facility] Lite - 12:00: [facility] 00 AM Health EST Care) Lancets UNK 07/07/ active Lancets eCW3 lancet 2016 lancet ([facility] 12:00: [facility] 00 AM Health EST Care) Alcohol Alcoho 07/07/ active Alcohol Pad s eCW3 Pads 70 % l Pads 2016 70 % ([facility] 70 % 12:00: [facility] 00 AM Health EST Care) Lancets UNK 07/07/ active Lancets eCW3 lancet 2016 lancet ([facility] 12:00: [facility] 00 AM Health EST Care) FreeStyle UNK 07/07/ active FreeStyle e CW3 Lite Test 2016 Lite Test ([facility] 12:00: freestyle [facility] lite 00 AM lite Health EST Care) Lancets UNK 07/07/ active Lancets eCW3 lancet 2016 lancet ([facility] 12:00: [facility] 00 AM Health EST Care) FreeStyle FreeSt 07/07/ active FreeStyle eCW3 Lite - yle 2016 Lite - ([facility] Lite - 12:00: [facility] 00 AM Health EST Care) FreeStyle UNK 07/07/ active FreeStyle e CW3 Lite Test 2016 Lite Test ([facility] 12:00: freestyle [facility] lite 00 AM lite Health EST Care) Alcohol Alcoho 07/07/ active Alcohol Pad s eCW3 Pads 70 % l Pads 2016 70 % ([facility] 70 % 12:00: [facility] 00 AM Health EST Care) Lancets UNK 07/07/ active Lancets eCW3 lancet 2016 lancet ([facility] 12:00: [facility] 00 AM Health EST Care) FreeStyle UNK 07/07/ active FreeStyle e CW3 Lite Test 2016 Lite Test ([facility] 12:00: freestyle [facility] lite 00 AM lite Health EST Care) Lancets UNK 07/07/ active Lancets eCW3 lancet 2016 lancet ([facility] 12:00: [facility] 00 AM Health EST Care) Lancets UNK 07/07/ active Lancets eCW3 lancet 2016 lancet ([facility] 12:00: [facility] 00 AM Health EST Care) FreeStyle UNK 07/07/ active FreeStyle e CW3 Lite Test 2016 Lite Test ([facility] 12:00: freestyle [facility] lite 00 AM lite Health EST Care) FreeStyle FreeSt 07/07/ active FreeStyle eCW3 Lite - yle 2016 Lite - ([facility] Lite - 12:00: [facility] 00 AM Health EST Care) FreeStyle FreeSt 07/07/ active FreeStyle eCW3 Lite - yle 2016 Lite - ([facility] Lite - 12:00: [facility] 00 AM Health EST Care) FreeStyle UNK 07/07/ active FreeStyle e CW3 Lite Test 2016 Lite Test ([facility] 12:00: freestyle [facility] lite 00 AM lite Health EST Care) Lancets UNK 07/07/ active Lancets eCW3 lancet 2016 lancet ([facility] 12:00: [facility] 00 AM Health EST Care) Alcohol Alcoho 07/07/ active Alcohol Pad s eCW3 Pads 70 % l Pads 2016 70 % ([facility] 70 % 12:00: [facility] 00 AM Health EST Care) Lancets UNK 07/07/ active Lancets eCW3 lancet 2016 lancet ([facility] 12:00: [facility] 00 AM Health EST Care) Alcohol Alcoho 07/07/ active Alcohol Pad s eCW3 Pads 70 % l Pads 2016 70 % ([facility] 70 % 12:00: [facility] 00 AM Health EST Care) Lancets UNK 07/07/ active Lancets eCW3 lancet 2016 lancet ([facility] 12:00: [facility] 00 AM Health EST Care) Alcohol Alcoho 07/07/ active Alcohol Pad s eCW3 Pads 70 % l Pads 2016 70 % ([facility] 70 % 12:00: [facility] 00 AM Health EST Care) Alcohol Alcoho 07/07/ active Alcohol Pad s eCW3 Pads 70 % l Pads 2016 70 % ([facility] 70 % 12:00: [facility] 00 AM Health EST Care) FreeStyle UNK 07/07/ active FreeStyle e CW3 Lite Test 2016 Lite Test ([facility] 12:00: freestyle [facility] lite 00 AM lite Health EST Care) FreeStyle FreeSt 07/07/ active FreeStyle eCW3 Lite - yle 2016 Lite - ([facility] Lite - 12:00: [facility] 00 AM Health EST Care) FreeStyle UNK 07/07/ active FreeStyle e CW3 Lite Test 2016 Lite Test ([facility] 12:00: freestyle [facility] lite 00 AM lite Health EST Care) Alcohol Alcoho 07/07/ active Alcohol Pad s eCW3 Pads 70 % l Pads 2016 70 % ([facility] 70 % 12:00: [facility] 00 AM Health EST Care) FreeStyle FreeSt 07/07/ active FreeStyle eCW3 Lite - yle 2016 Lite - ([facility] Lite - 12:00: [facility] 00 AM Health EST Care) Lancets UNK 07/07/ active Lancets eCW3 lancet 2016 lancet ([facility] 12:00: [facility] 00 AM Health EST Care) Lancets UNK 07/07/ active Lancets eCW3 lancet 2016 lancet ([facility] 12:00: [facility] 00 AM Health EST Care) FreeStyle UNK 07/07/ active FreeStyle e CW3 Lite Test 2016 Lite Test ([facility] 12:00: freestyle [facility] lite 00 AM lite Health EST Care) FreeStyle UNK 07/07/ active FreeStyle e CW3 Lite Test 2016 Lite Test ([facility] 12:00: freestyle [facility] lite 00 AM lite Health EST Care) Alcohol Alcoho 07/07/ active Alcohol Pad s eCW3 Pads 70 % l Pads 2016 70 % ([facility] 70 % 12:00: [facility] 00 AM Health EST Care) Alcohol Alcoho 07/07/ active Alcohol Pad s eCW3 Pads 70 % l Pads 2016 70 % ([facility] 70 % 12:00: [facility] 00 AM Health EST Care) Lancets UNK 07/07/ active Lancets eCW3 lancet 2016 lancet ([facility] 12:00: [facility] 00 AM Health EST Care) FreeStyle FreeSt 07/07/ active FreeStyle eCW3 Lite - yle 2016 Lite - ([facility] Lite - 12:00: [facility] 00 AM Health EST Care) Alcohol Alcoho 07/07/ active Alcohol Pad s eCW3 Pads 70 % l Pads 2016 70 % ([facility] 70 % 12:00: [facility] 00 AM Health EST Care) Alcohol Alcoho 07/07/ active Alcohol Pad s eCW3 Pads 70 % l Pads 2016 70 % ([facility] 70 % 12:00: [facility] 00 AM Health EST Care) FreeStyle UNK 07/07/ active FreeStyle e CW3 Lite Test 2016 Lite Test ([facility] 12:00: freestyle [facility] lite 00 AM lite Health EST Care) FreeStyle FreeSt 07/07/ active FreeStyle eCW3 Lite - yle 2016 Lite - ([facility] Lite - 12:00: [facility] 00 AM Health EST Care) FreeStyle FreeSt 07/07/ active FreeStyle eCW3 Lite - yle 2016 Lite - ([facility] Lite - 12:00: [facility] 00 AM Health EST Care) Alcohol Alcoho 07/07/ active Alcohol Pad s eCW3 Pads 70 % l Pads 2016 70 % ([facility] 70 % 12:00: [facility] 00 AM Health EST Care) FreeStyle UNK 07/07/ active FreeStyle e CW3 Lite Test 2016 Lite Test ([facility] 12:00: freestyle [facility] lite 00 AM lite Health EST Care) Lancets UNK 07/07/ active Lancets eCW3 lancet 2016 lancet ([facility] 12:00: [facility] 00 AM Health EST Care) FreeStyle FreeSt 07/07/ active FreeStyle eCW3 Lite - yle 2016 Lite - ([facility] Lite - 12:00: [facility] 00 AM Health EST Care) FreeStyle UNK 07/07/ active FreeStyle e CW3 Lite Test 2016 Lite Test ([facility] 12:00: freestyle [facility] er lite 00 AM lite Health EST Care) FreeStyle FreeSt 07/07/ active FreeStyle eCW3 Lite - yle 2016 Lite - ([facility] Lite - 12:00: [facility] 00 AM Health EST Care) Alcohol Alcoho 07/07/ active Alcohol Pad s eCW3 Pads 70 % l Pads 2016 70 % ([facility] 70 % 12:00: [facility] 00 AM Health EST Care) Lancets UNK 07/07/ active Lancets eCW3 lancet 2016 lancet ([facility] 12:00: [facility] 00 AM Health EST Care) FreeStyle FreeSt 07/07/ active FreeStyle eCW3 Lite - yle 2016 Lite - ([facility] Lite - 12:00: [facility] 00 AM Health EST Care) FreeStyle UNK 07/07/ active FreeStyle e CW3 Lite Test 2016 Lite Test ([facility] 12:00: freestyle [facility] lite 00 AM lite Health EST Care) FreeStyle UNK 07/07/ active FreeStyle e CW3 Lite Test 2016 Lite Test ([facility] 12:00: freestyle Mari Aa er lite 00 AM lite Health EST Care) Alcohol Alcoho 07/07/ active Alcohol Pad s eCW3 Pads 70 % l Pads 2016 70 % ([facility] 70 % 12:00: [facility] 00 AM Health EST Care) FreeStyle UNK 07/07/ active FreeStyle e CW3 Lite Test 2016 Lite Test ([facility] 12:00: freestyle [facility] lite 00 AM lite Health EST Care) FreeStyle UNK 07/07/ active FreeStyle e CW3 Lite Test 2016 Lite Test ([facility] 12:00: freestyle [facility] lite 00 AM lite Health EST Care) FreeStyle FreeSt 07/07/ active FreeStyle eCW3 Lite - yle 2016 Lite - ([facility] Lite - 12:00: [facility] 00 AM Health EST Care) Lancets UNK 07/07/ active Lancets eCW3 lancet 2016 lancet ([facility] 12:00: [facility] 00 AM Health EST Care) Alcohol Alcoho 07/07/ active Alcohol Pad s eCW3 Pads 70 % l Pads 2016 70 % ([facility] 70 % 12:00: [facility] 00 AM Health EST Care) FreeStyle UNK 07/07/ active FreeStyle e CW3 Lite Test 2016 Lite Test ([facility] 12:00: freestyle [facility] lite 00 AM lite Health EST Care) Lancets UNK 07/07/ active Lancets eCW3 lancet 2016 lancet ([facility] 12:00: [facility] 00 AM Health EST Care) FreeStyle FreeSt 07/07/ active FreeStyle eCW3 Lite - yle 2016 Lite - ([facility] Lite - 12:00: [facility] 00 AM Health EST Care) Alcohol Alcoho 07/07/ active Alcohol Pad s eCW3 Pads 70 % l Pads 2016 70 % ([facility] 70 % 12:00: [facility] 00 AM Health EST Care) FreeStyle FreeSt 07/07/ active FreeStyle eCW3 Lite - yle 2016 Lite - ([facility] Lite - 12:00: [facility] 00 AM Health EST Care) Alcohol Alcoho 07/07/ active Alcohol Pad s eCW3 Pads 70 % l Pads 2016 70 % ([facility] 70 % 12:00: [facility] 00 AM Health EST Care) Alcohol Alcoho 07/07/ active Alcohol Pad s eCW3 Pads 70 % l Pads 2016 70 % ([facility] 70 % 12:00: [facility] 00 AM Health EST Care) Lancets UNK 07/07/ active Lancets eCW3 lancet 2016 lancet ([facility] 12:00: [facility] 00 AM Health EST Care) FreeStyle FreeSt 07/07/ active FreeStyle eCW3 Lite - yle 2016 Lite - ([facility] Lite - 12:00: [facility] 00 AM Health EST Care) FreeStyle UNK 07/07/ active FreeStyle e CW3 Lite Test 2016 Lite Test ([facility] 12:00: freestyle [facility] lite 00 AM lite Health EST Care) FreeStyle FreeSt 07/07/ active FreeStyle eCW3 Lite - yle 2016 Lite - ([facility] Lite - 12:00: [facility] 00 AM Health EST Care) Lancets UNK 07/07/ active Lancets eCW3 lancet 2016 lancet ([facility] 12:00: [facility] 00 AM Health EST Care) Alcohol Alcoho 07/07/ active Alcohol Pad s eCW3 Pads 70 % l Pads 2016 70 % ([facility] 70 % 12:00: [facility] 00 AM Health EST Care) FreeStyle FreeSt 07/07/ active FreeStyle eCW3 Lite - yle 2016 Lite - ([facility] Lite - 12:00: [facility] 00 AM Health EST Care) Alcohol Alcoho 07/07/ active Alcohol Pad s eCW3 Pads 70 % l Pads 2016 70 % ([facility] 70 % 12:00: [facility] 00 AM Health EST Care) FreeStyle UNK 07/07/ active FreeStyle e CW3 Lite Test 2016 Lite Test ([facility] 12:00: freestyle [facility] A er lite 00 AM lite Health EST Care) Alcohol Alcoho 07/07/ active Alcohol Pad s eCW3 Pads 70 % l Pads 2016 70 % ([facility] 70 % 12:00: [facility] 00 AM Health EST Care) Lancets UNK 07/07/ active Lancets eCW3 lancet 2016 lancet ([facility] 12:00: [facility] 00 AM Health EST Care) FreeStyle UNK 07/07/ active FreeStyle e CW3 Lite Test 2016 Lite Test ([facility] 12:00: freestyle [facility] er lite 00 AM lite Health EST Care) Lancets UNK 07/07/ active Lancets eCW3 lancet 2016 lancet ([facility] 12:00: [facility] 00 AM Health EST Care) Lancets UNK 07/07/ active Lancets eCW3 lancet 2016 lancet ([facility] 12:00: [facility] 00 AM Health EST Care) Alcohol Alcoho 07/07/ active Alcohol Pad s eCW3 Pads 70 % l Pads 2016 70 % ([facility] 70 % 12:00: [facility] 00 AM Health EST Care) Alcohol Alcoho 07/07/ active Alcohol Pad s eCW3 Pads 70 % l Pads 2016 70 % ([facility] 70 % 12:00: [place] 00 AM Health EST Care) FreeStyle UNK 07/07/ active FreeStyle e CW3 Lite Test 2016 Lite Test ([facility] 12:00: freestyle [facility] er lite 00 AM lite Health EST Care) Alcohol Alcoho 07/07/ active Alcohol Pad s eCW3 Pads 70 % l Pads 2016 70 % ([facility] 70 % 12:00: [facility] 00 AM Health EST Care) Lancets UNK 07/07/ active Lancets eCW3 lancet 2016 lancet ([facility] 12:00: [facility] 00 AM Health EST Care) FreeStyle FreeSt 07/07/ active FreeStyle eCW3 Lite - yle 2016 Lite - ([facility] Lite - 12:00: [place] 00 AM Health EST Care) FreeStyle UNK 07/07/ active FreeStyle e CW3 Lite Test 2016 Lite Test ([facility] 12:00: freestyle [facility] er lite 00 AM lite Health EST Care) Lancets UNK 07/07/ active Lancets eCW3 lancet 2016 lancet ([facility] 12:00: [facility] 00 AM Health EST Care) Alcohol Alcoho 07/07/ active Alcohol Pad s eCW3 Pads 70 % l Pads 2016 70 % ([facility] 70 % 12:00: [facility] 00 AM Health EST Care) FreeStyle FreeSt 07/07/ active FreeStyle eCW3 Lite - yle 2016 Lite - ([facility] Lite - 12:00: [place] 00 AM Health EST Care) FreeStyle FreeSt 07/07/ active FreeStyle eCW3 Lite - yle 2016 Lite - ([facility] Lite - 12:00: [place] 00 AM Health EST Care) Lancets UNK 07/07/ active Lancets eCW3 lancet 2016 lancet ([facility] 12:00: [facility] 00 AM Health EST Care) FreeStyle UNK 07/07/ active FreeStyle e CW3 Lite Test 2016 Lite Test ([facility] 12:00: freestyle [facility] er lite 00 AM lite Health EST Care) FreeStyle FreeSt 07/07/ active FreeStyle eCW3 Lite - yle 2016 Lite - ([facility] Lite - 12:00: [facility] 00 AM Health EST Care) Lancets UNK 07/07/ active Lancets eCW3 lancet 2016 lancet ([facility] 12:00: [facility] 00 AM Health EST Care) Lancets UNK 07/07/ active Lancets eCW3 lancet 2016 lancet ([facility] 12:00: [facility] 00 AM Health EST Care) FreeStyle UNK 07/07/ active FreeStyle e CW3 Lite Test 2016 Lite Test ([facility] 12:00: freestyle [facility] lite 00 AM lite Health EST Care) Alcohol Alcoho 07/07/ active Alcohol Pad s eCW3 Pads 70 % l Pads 2016 70 % ([facility] 70 % 12:00: [facility] 00 AM Health EST Care) FreeStyle UNK 07/07/ active FreeStyle e CW3 Lite Test 2016 Lite Test ([facility] 12:00: freestyle [facility] lite 00 AM lite Health EST Care) Alcohol Alcoho 07/07/ active Alcohol Pad s eCW3 Pads 70 % l Pads 2016 70 % ([facility] 70 % 12:00: [place] 00 AM Health EST Care) FreeStyle UNK 07/07/ active FreeStyle e CW3 Lite Test 2016 Lite Test ([facility] 12:00: freestyle [facility] er lite 00 AM lite Health EST Care) Lancets UNK 07/07/ active Lancets eCW3 lancet 2016 lancet ([facility] 12:00: [place] 00 AM Health EST Care) FreeStyle UNK 07/07/ active FreeStyle e CW3 Lite Test 2016 Lite Test ([facility] 12:00: freestyle [facility] lite 00 AM lite Health EST Care) Alcohol Alcoho 07/07/ active Alcohol Pad s eCW3 Pads 70 % l Pads 2016 70 % ([facility] 70 % 12:00: [facility] 00 AM Health EST Care) FreeStyle FreeSt 07/07/ active FreeStyle eCW3 Lite - yle 2016 Lite - ([facility] Lite - 12:00: [place] 00 AM Health EST Care) FreeStyle FreeSt 07/07/ active FreeStyle eCW3 Lite - yle 2016 Lite - ([facility] Lite - 12:00: [place] 00 AM Health EST Care) Alcohol Alcoho 07/07/ active Alcohol Pad s eCW3 Pads 70 % l Pads 2016 70 % ([facility] 70 % 12:00: [place] 00 AM Health EST Care) Alcohol Alcoho 07/07/ active Alcohol Pad s eCW3 Pads 70 % l Pads 2016 70 % ([facility] 70 % 12:00: [place] 00 AM Health EST Care) FreeStyle FreeSt 07/07/ active FreeStyle eCW3 Lite - yle 2016 Lite - ([facility] Lite - 12:00: [place] 00 AM Health EST Care) FreeStyle UNK 07/07/ active FreeStyle e CW3 Lite Test 2016 Lite Test ([facility] 12:00: freestyle [facility] A er lite 00 AM lite Health EST Care) Lancets UNK 07/07/ active Lancets eCW3 lancet 2016 lancet ([facility] 12:00: [facility] 00 AM Health EST Care) Diclofenac Voltar / active Voltaren 1 % eCW3 Sodium 0.01 en 1 % 2016 ([facility] MG/MG 12:00: [place] Topical Gel [address] [facility] [[facility]) Voltaren 1 % Diclofenac Voltar / active Voltaren 1 % eCW3 Sodium 0.01 en 1 % 2016 ([facility] MG/MG 12:00: [place] Topical Gel [address] [facility] [[facility]] [facility]) Voltaren 1 % Diclofenac Voltar / active Voltaren 1 % eCW3 Sodium 0.01 en 1 % 2016 ([facility] MG/MG 12:00: [place] Topical Gel [address] [facility] [[facility]] [facility]) Voltaren 1 % Diclofenac Voltar / active Voltaren 1 % eCW3 Sodium 0.01 en 1 % 2016 ([facility] MG/MG 12:00: [place] Topical Gel [address] [facility] [[facility]] [facility]) Voltaren 1 % Diclofenac Voltar / active Voltaren 1 % eCW3 Sodium 0.01 en 1 % 2016 ([facility] MG/MG 12:00: [place] Topical Gel [address] [facility]) Voltaren 1 % Diclofenac Voltar / active Voltaren 1 % eCW3 Sodium 0.01 en 1 % 2016 ([facility] MG/MG 12:00: [place] Topical Gel [address] [facility]) Voltaren 1 % Diclofenac Voltar / active Voltaren 1 % eCW3 Sodium 0.01 en 1 % 2016 ([facility] MG/MG 12:00: [place] Topical Gel [address] [facility] [[facility]] [facility]) Voltaren 1 % Diclofenac Voltar / active Voltaren 1 % eCW3 Sodium 0.01 en 1 % 2016 ([facility] MG/MG 12:00: [place] Topical Gel [address] [facility]) Voltaren 1 % Diclofenac Voltar / active Voltaren 1 % eCW3 Sodium 0.01 en 1 % 2016 ([facility] MG/MG 12:00: [place] Topical Gel [address] [facility]) Voltaren 1 % Diclofenac Voltar / active Voltaren 1 % eCW3 Sodium 0.01 en 1 % 2016 ([facility] MG/MG 12:00: [place] Topical Gel [address] [facility] [[facility]] EST Care) Voltaren 1 % Diclofenac Voltar / active Voltaren 1 % eCW3 Sodium 0.01 en 1 % 2016 ([facility] MG/MG 12:00: [place] Topical Gel 00 AM Health [[facility]] EST Care) Voltaren 1 % Diclofenac Voltar / active Voltaren 1 % eCW3 Sodium 0.01 en 1 % 2016 ([facility] MG/MG 12:00: [place] Topical Gel [address] [facility] [[facility]] EST Care) Voltaren 1 % Diclofenac Voltar / active Voltaren 1 % eCW3 Sodium 0.01 en 1 % 2015 ([facility] MG/MG 12:00: [place] Topical Gel [address] [facility] [[facility]] EST Care) Voltaren 1 % Voltaren 1 UNK / active Voltaren 1 % eCW3 % 2015 ([facility] 12:00: [place] [address] [facility] EST [facility]) Diclofenac Voltar / active Voltaren 1 % eCW3 Sodium 0.01 en 1 % 2015 ([facility] MG/MG 12:00: [place] Topical Gel [address] [facility] [[facility]] EST Care) Voltaren 1 % Diclofenac Voltar / active Voltaren 1 % eCW3 Sodium 0.01 en 1 % 2015 ([facility] MG/MG 12:00: [place] Topical Gel [address] [facility] [[facility]] EST Care) Voltaren 1 % Diclofenac Voltar / active Voltaren 1 % eCW3 Sodium 0.01 en 1 % 2016 ([facility] MG/MG 12:00: [place] Topical Gel 00 AM Health [[facility]] EST Care) Voltaren 1 % Diclofenac Voltar / active Voltaren 1 % eCW3 Sodium 0.01 en 1 % 2015 ([facility] MG/MG 12:00: [place] Topical Gel [address] [facility] [[facility]] EST Care) Voltaren 1 % Diclofenac Voltar / active Voltaren 1 % eCW3 Sodium 0.01 en 1 % 2015 ([facility] MG/MG 12:00: [place] Topical Gel 00 AM Health [[facility]] EST [facility]) Voltaren 1 % Diclofenac Voltar / active Voltaren 1 % eCW3 Sodium 0.01 en 1 % 2016 ([facility] MG/MG 12:00: [place] Topical Gel [address] [facility]) Voltaren 1 % Diclofenac Voltar / active Voltaren 1 % eCW3 Sodium 0.01 en 1 % 2016 ([facility] MG/MG 12:00: [place] Topical Gel [address] [facility]) Voltaren 1 % Diclofenac Voltar / active Voltaren 1 % eCW3 Sodium 0.01 en 1 % 2015 ([facility]/MG 12:00: [facility] Topical Gel [address] [facility] [[facility]] [facility]) Voltaren 1 % Diclofenac Voltar / active Voltaren 1 % eCW3 Sodium 0.01 en 1 % 2015 ([facility]/MG 12:00: [facility] Topical Gel [address] [facility] [[facility]] [facility]) Voltaren 1 % Diclofenac Voltar / active Voltaren 1 % eCW3 Sodium 0.01 en 1 % 2016 ([facility]/MG 12:00: [facility] Topical Gel [address] [facility]) Voltaren 1 % Diclofenac Voltar / active Voltaren 1 % eCW3 Sodium 0.01 en 1 % 2016 ([facility] [facility]/MG 12:00: [facility] Topical Gel [address] [facility] [[facility]] EST [facility]) Voltaren 1 % Diclofenac Voltar / active Voltaren 1 % eCW3 Sodium 0.01 en 1 % 2016 ([facility] [facility]/MG 12:00: [facility] Topical Gel [address] [facility] [[facility]] [facility]) Voltaren 1 % Diclofenac Voltar / active Voltaren 1 % eCW3 Sodium 0.01 en 1 % 2015 ([facility] 12:00: [facility] Topical Gel [address] [facility] [[facility]] [facility]) Voltaren 1 % Diclofenac Voltar / active Voltaren 1 % eCW3 Sodium 0.01 en 1 % 2016 ([facility] [facility] 12:00: [facility] Topical Gel [address] [facility] [[facility]] EST [facility]) Voltaren 1 % Diclofenac Voltar / active Voltaren 1 % eCW3 Sodium 0.01 en 1 % 2016 ([facility] 12:00: [facility] Topical Gel 00 AM [facility] [[facility]] EST Care) Voltaren 1 % Diclofenac Voltar / active Voltaren 1 % eCW3 Sodium 0.01 en 1 % 2016 ([facility] 12:00: [facility] Topical Gel 00 AM [facility] [[facility]] EST Care) Voltaren 1 % Diclofenac Voltar / active Voltaren 1 % eCW3 Sodium 0.01 en 1 % 2016 ([facility] [facility]/MG 12:00: [facility] Topical Gel 00 AM [facility] [[facility]] EST Care) Voltaren 1 % Diclofenac Voltar / active Voltaren 1 % eCW3 Sodium 0.01 en 1 % 2015 ([facility] 12:00: [facility] Topical Gel 00 AM [facility] [[facility]] EST Care) Voltaren 1 % Diclofenac Voltar / active Voltaren 1 % eCW3 Sodium 0.01 en 1 % 2015 ([facility] 12:00: [facility] Topical Gel 00 AM [facility] [[facility]] EST Care) Voltaren 1 % Diclofenac Voltar / active Voltaren 1 % eCW3 Sodium 0.01 en 1 % 2015 ([facility] [facility] 12:00: [place] Topical Gel 00 AM [facility] [[facility]] EST Care) Voltaren 1 % Diclofenac Voltar / active Voltaren 1 % eCW3 Sodium 0.01 en 1 % 2015 ([facility] 12:00: [facility] Topical Gel 00 AM [facility] [[facility]] EST Care) Voltaren 1 % Diclofenac Voltar / active Voltaren 1 % eCW3 Sodium 0.01 en 1 % 2016 ([facility]/MG 12:00: [facility] Topical Gel 00 AM [facility] [[facility]] EST Care) Voltaren 1 % Multi For UNK 06/05/ active Multi For e CW3 Her 50+ 1 2015 Her 50+ 1 ([facility] 12:00: [facility] 00 AM [facility] EST Care) Multi For UNK 06/05/ active Multi For e CW3 Her 50+ 1 2015 Her 50+ 1 ([facility] 12:00: [facility] 00 AM [facility] EST Care) Multi For UNK 06/05/ active Multi For e CW3 Her 50+ 1 2016 Her 50+ 1 ([facility] 12:00: [facility] 00 AM [facility] EST Care) Multi For UNK 06/05/ active Multi For e CW3 Her 50+ 1 2016 Her 50+ 1 ([facility] 12:00: [facility] 00 AM [facility] EST Care) Multi For UNK 06/05/ active Multi For e CW3 Her 50+ 1 2016 Her 50+ 1 ([facility] 12:00: [facility] 00 AM [facility] EST Care) Multivitami UNK 0429/ active Multivita min eCW3 n 1 2014 05 ([facility] 12:00: [facility] 00 AM [facility] EDT Care) Multivitami UNK 04/29/ active Multivita min eCW3 n 1 2014 05 ([facility] 12:00: [facility] 00 AM [facility] EDT Care) Multivitami UNK 04/29/ active Multivita min eCW3 n 1 2014 05 ([facility] 12:00: [facility] 00 AM [facility] EDT Care) Multivitami UNK 04/29/ active Multivita min eCW3 n 1 2014 1 ([facility] 12:00: [facility] 00 AM [facility] EDT Care) Multivitami UNK 29/ active Multivita min eCW3 n 1 2014 05 ([facility] 12:00: [facility] 00 AM [facility] EDT Care) Multivitami UNK /29/ active Multivita min eCW3 n 1 2014 1 ([facility] 12:00: [facility] 00 AM [facility] EDT Care) Multivitami UNK 04/29/ active Multivita min eCW3 n 1 2014 05 ([facility] 12:00: [facility] 00 AM [facility] EDT Care) Multivitami UNK 29/ active Multivita min eCW3 n 1 2014 1 ([facility] 12:00: [facility] 00 AM [facility] EDT Care) Multivitami UNK 04/29/ active Multivita min eCW3 n 1 2014 05 ([facility] 12:00: [facility] 00 AM [facility] EDT Care) Multivitami UNK 04/29/ active Multivita min eCW3 n 1 2014 05 ([facility] 12:00: [facility] 00 AM [facility] EDT Care) Multivitami UNK 04/29/ active Multivita min eCW3 n 1 2014 05 ([facility] 12:00: [facility] 00 AM [facility] EDT Care) Multivitami UNK 09/02/ active Multivita min eCW3 n 1 2014 1 ([facility] 12:00: [facility] 00 AM [facility] EDT Care) Multivitami UNK 09/02/ active Multivita min eCW3 n 1 2014 1 ([facility] 12:00: [facility] 00 AM [facility] EDT Care) Multivitami UNK 09/02/ active Multivita min eCW3 n 1 2014 1 ([facility] 12:00: [facility] 00 AM [facility] EDT Care) Multivitami UNK 09/02/ active Multivita min eCW3 n 1 2014 1 ([facility] 12:00: [facility] 00 AM [facility] EDT Care) Multivitami UNK 09/02/ active Multivita min eCW3 n 1 2014 1 ([facility] 12:00: [facility] 00 AM [facility] EDT Care) Multivitami UNK 09/02/ active Multivita min eCW3 n 1 2014 05 ([facility] 12:00: [facility] 00 AM [facility] EDT Care) Multivitami UNK 09/02/ active Multivita min eCW3 n 1 2014 1 ([facility] 12:00: [facility] 00 AM [facility] EDT Care) Multivitami UNK 09/02/ active Multivita min eCW3 n 1 2014 1 ([facility] 12:00: [facility] 00 AM [facility] EDT Care) Multivitami UNK 09/02/ active Multivita min eCW3 n 1 2014 1 ([facility] 12:00: [facility] 00 AM [facility] EDT Care) Multivitami UNK 09/02/ active Multivita min eCW3 n 1 2014 05 ([facility] 12:00: [facility] 00 AM [facility] EDT Care) Multivitami UNK 09/02/ active Multivita min eCW3 n 1 2014 1 ([facility] 12:00: [facility] 00 AM [facility] EDT Care) Multivitami UNK 09/02/ active Multivita min eCW3 n 1 2014 05 ([facility] 12:00: [facility] 00 AM [facility] EDT Care) Multivitami UNK 09/02/ active Multivita min eCW3 n 1 2014 1 ([facility] 12:00: [facility] 00 AM [facility] EDT Care) Multivitami UNK 09/02/ active Multivita min eCW3 n 1 2014 05 ([facility] 12:00: [facility] 00 AM [facility] EDT Care) Multivitami UNK 09/02/ active Multivita min eCW3 n 1 2014 1 ([facility] 12:00: [facility] 00 AM [facility] EDT Care) Multivitami UNK 09/02/ active Multivita min eCW3 n 1 2014 1 ([facility] 12:00: [facility] 00 AM [facility] EDT Care) Multivitami UNK 09/02/ active Multivita min eCW3 n 1 2014 1 ([facility] 12:00: [facility] 00 AM [facility] EDT Care) Multivitami UNK 09/02/ active Multivita min eCW3 n 1 2014 1 ([facility] 12:00: [facility] 00 AM [facility] EDT Care) Multivitami UNK 09/02/ active Multivita min eCW3 n 1 2014 1 ([facility] 12:00: [place] 00 AM [facility] EDT Care) Multivitami UNK 09/02/ active Multivita min eCW3 n 1 2014 1 ([facility] 12:00: [facility] 00 AM [facility] EDT Care) Multivitami UNK 09/02/ active Multivita min eCW3 n 1 2014 1 ([facility] 12:00: [place] 00 AM [facility] EDT Care) Multivitami UNK 09/02/ active Multivita min eCW3 n 1 2014 1 ([facility] 12:00: [place] 00 AM [facility] EDT Care) Multivitami UNK 09/02/ active Multivita min eCW3 n 1 2014 1 ([facility] 12:00: [facility] 00 AM [facility] EDT Care) Multivitami UNK 09/02/ active Multivita min eCW3 n 1 2014 1 ([facility] 12:00: [facility] 00 AM [facility] EDT Care) Multivitami UNK 09/02/ active Multivita min eCW3 n 1 2014 1 ([facility] 12:00: [facility] 00 AM [facility] EDT Care) Lancets 10 UNK 12/16/ active Lancets 10 eCW3 mg 2014 mg ([facility] 12:00: [facility] 00 AM [facility] EST Care) Lancets 10 UNK 12/16/ active Lancets 10 eCW3 mg 2014 mg ([facility] 12:00: [facility] 00 AM [facility] EST Care) Lancets 10 UNK 12/16/ active Lancets 10 eCW3 mg 2014 mg ([facility] 12:00: [facility] 00 AM [facility] EST Care) Lancets 10 UNK 12/16/ active Lancets 10 eCW3 mg 2014 mg ([facility] 12:00: [facility] 00 AM [facility] EST Care) Lancets 10 UNK 12/16/ active Lancets 10 eCW3 mg 2014 mg ([facility] 12:00: [place] 00 AM [facility] EST Care) Lancets 10 UNK 12/16/ active Lancets 10 eCW3 mg 2014 mg ([facility] 12:00: [facility] 00 AM [facility] EST Care) Lancets 10 UNK 12/16/ active Lancets 10 eCW3 mg 2014 mg ([facility] 12:00: [facility] 00 AM [facility] EST Care) Lancets 10 UNK 12/16/ active Lancets 10 eCW3 mg 2014 mg ([facility] 12:00: [facility] 00 AM [facility] EST Care) Lancets 10 UNK 12/16/ active Lancets 10 eCW3 mg 2014 mg ([facility] 12:00: [facility] 00 AM [facility] EST Care) Lancets 10 UNK 12/16/ active Lancets 10 eCW3 mg 2014 mg ([facility] 12:00: [facility] 00 AM [facility] EST Care) Lancets 10 UNK 12/16/ active Lancets 10 eCW3 mg 2014 mg ([facility] 12:00: [facility] 00 AM [facility] EST Care) Lancets 10 UNK 12/16/ active Lancets 10 eCW3 mg 2014 mg ([facility] 12:00: [facility] 00 AM [facility] EST Care) Lancets 10 UNK 12/16/ active Lancets 10 eCW3 mg 2014 mg ([facility] 12:00: [facility] 00 AM [facility] EST Care) Lancets 10 UNK 12/16/ active Lancets 10 eCW3 mg 2014 mg ([facility] 12:00: [facility] 00 AM [facility] EST Care) Lancets 10 UNK 12/16/ active Lancets 10 eCW3 mg 2014 mg ([facility] 12:00: [facility] 00 AM [facility] EST Care) Lancets 10 UNK 12/16/ active Lancets 10 eCW3 mg 2014 mg ([facility] 12:00: [facility] 00 AM [facility] EST Care) Lancets 10 UNK 12/16/ active Lancets 10 eCW3 mg 2014 mg ([facility] 12:00: [place] 00 AM [facility] EST Care) Lancets 10 UNK 12/16/ active Lancets 10 eCW3 mg 2014 mg ([facility] 12:00: [facility] 00 AM [facility] EST Care) Lancets 10 UNK 12/16/ active Lancets 10 eCW3 mg 2014 mg ([facility] 12:00: [place] 00 AM [facility] EST Care) Lancets 10 UNK 12/16/ active Lancets 10 eCW3 mg 2014 mg ([facility] 12:00: [place] 00 AM [facility] EST Care) Lancets 10 UNK 12/16/ active Lancets 10 eCW3 mg 2014 mg ([facility] 12:00: [place] 00 AM [facility] EST Care) Lancets 10 UNK 12/16/ active Lancets 10 eCW3 mg 2014 mg ([facility] 12:00: [place] 00 AM [facility] EST Care) Lancets 10 UNK 12/16/ active Lancets 10 eCW3 mg 2014 mg ([facility] 12:00: [facility] 00 AM [facility] EST Care) Lancets 10 UNK 12/16/ active Lancets 10 eCW3 mg 2014 mg ([facility] 12:00: [facility] 00 AM [facility] EST Care) Lancets 10 UNK 12/16/ active Lancets 10 eCW3 mg 2014 mg ([facility] 12:00: [facility] 00 AM [facility] EST Care) Lancets 10 UNK 12/16/ active Lancets 10 eCW3 mg 2014 mg ([facility] 12:00: [place] 00 AM [facility] EST Care) Lancets 10 UNK 12/16/ active Lancets 10 eCW3 mg 2014 mg ([facility] 12:00: [place] 00 AM [facility] EST Care) Lancets 10 UNK 12/16/ active Lancets 10 eCW3 mg 2014 mg ([facility] 12:00: [place] 00 AM [facility] EST Care) Lancets 10 UNK 12/16/ active Lancets 10 eCW3 mg 2014 mg ([facility] 12:00: [place] 00 AM [facility] EST Care) Lancets 10 UNK 12/16/ active Lancets 10 eCW3 mg 2014 mg ([facility] 12:00: [place] 00 AM [facility] EST Care) Lancets 10 UNK 12/16/ active Lancets 10 eCW3 mg 2014 mg ([facility] 12:00: [place] 00 AM [facility] EST Care) Lancets 10 UNK 12/16/ active Lancets 10 eCW3 mg 2014 mg ([facility] 12:00: [place] 00 AM [facility] EST Care) Lancets 10 UNK 12/16/ active Lancets 10 eCW3 mg 2014 mg ([facility] 12:00: [place] 00 AM [facility] EST Care) Lancets 10 UNK 12/16/ active Lancets 10 eCW3 mg 2014 mg ([facility] 12:00: [facility] 00 AM [facility] EST Care) Lancets 10 UNK 04/21/ active Lancets 10 eCW3 mg 2014 mg ([facility] 12:00: [facility] 00 AM [facility] EST Care) Lancets 10 UNK 04/21/ active Lancets 10 eCW3 mg 2014 mg ([facility] 12:00: [facility] 00 AM [facility] EST Care) Pen Nancy Pen 12/23/ active Pen Needl es eCW3 09/19" 31G X Needle 09/19" 31G X ([facility] 8 MM s 12:00: 8 MM [place] 09/19" 00 AM Health 31G X EDT Care) 8 MM Pen Nancy Pen 12/23/ active Pen Needl es eCW3 09/19" 31G X Needle 09/19" 31G X ([facility] 8 MM s 12:00: 8 MM [place] 09/19" 00 AM Health 31G X EDT Care) 8 MM Pen Nancy Pen 12/23/ active Pen Needl es eCW3 09/19" 31G X Needle 09/19" 31G X ([facility] 8 MM s 12:00: 8 MM [place] 09/19" 00 AM Health 31G X EDT Care) 8 MM Pen Nancy Pen 12/23/ active Pen Needl es eCW3 09/19" 31G X Needle 09/19" 31G X ([facility] 8 MM s 12:00: 8 MM [place] 09/19" 00 AM Health 31G X EDT Care) 8 MM Pen Nancy Pen 12/23/ active Pen Needl es eCW3 09/19" 31G X Needle 09/19" 31G X ([facility] 8 MM s 12:00: 8 MM [place] 09/19" 00 AM [facility] 31G X EDT Care) 8 MM Pen Nancy Pen 12/23/ active Pen Needl es eCW3 09/19" 31G X Needle 09/19" 31G X ([facility] 8 MM s 12:00: 8 MM [place] 09/19" 00 AM Health 31G X EDT Care) 8 MM Pen Nancy Pen 12/23/ active Pen Needl es eCW3 09/19" 31G X Needle 09/19" 31G X ([place] 8 MM s 12:00: 8 MM [place] 09/19" 00 AM [facility] 31G X EDT Care) 8 MM Pen Nancy Pen 12/23/ active Pen Needl es eCW3 09/19" 31G X Needle 2014 09/19" 31G X ([facility] 8 MM s 12:00: 8 MM [place] 09/19" 00 AM Health 31G X EDT Care) 8 MM Pen Nancy Pen 12/23/ active Pen Needl es eCW3 09/19" 31G X Needle 09/19" 31G X ([facility] 8 MM s 12:00: 8 MM [place] 09/19" 00 AM Health 31G X EDT Care) 8 MM Pen Nancy Pen 12/23/ active Pen Needl es eCW3 09/19" 31G X Needle 09/19" 31G X ([facility] 8 MM s 12:00: 8 MM [place] 09/19" 00 AM Health 31G X EDT Care) 8 MM Pen Nancy Pen 12/23/ active Pen Needl es eCW3 09/19" 31G X Needle 09/19" 31G X ([facility] 8 MM s 12:00: 8 MM [place] 09/19" 00 AM Health 31G X EDT Care) 8 MM Pen Nancy Pen 12/23/ active Pen Needl es eCW3 09/19" 31G X Needle 09/19" 31G X ([facility] 8 MM s 12:00: 8 MM [place] 09/19" 00 AM Health 31G X EDT Care) 8 MM Pen Nancy UNK 12/23/ active Pen Needl es eCW3 09/19" 31G X 09/19" 31G X ( [place] 8 MM 12:00: 8 MM [place] 00 AM [facility] EDT Care) Pen Nancy Pen 12/23/ active Pen Needl es eCW3 09/19" 31G X Needle 09/19" 31G X ([facility] 8 MM s 12:00: 8 MM [place] 09/19" 00 AM Health 31G X EDT Care) 8 MM Pen Nancy Pen 12/23/ active Pen Needl es eCW3 09/19" 31G X Needle 09/19" 31G X ([facility] 8 MM s 12:00: 8 MM [place] 09/19" 00 AM Health 31G X EDT Care) 8 MM Pen Nancy Pen 12/23/ active Pen Needl es eCW3 09/19" 31G X Needle 09/19" 31G X ([facility] 8 MM s 12:00: 8 MM [place] 09/19" 00 AM Health 31G X EDT Care) 8 MM Pen Nancy Pen 12/23/ active Pen Needl es eCW3 09/19" 31G X Needle 09/19" 31G X ([facility] 8 MM s 12:00: 8 MM [place] 09/19" 00 AM Health 31G X EDT Care) 8 MM Pen Nancy Pen 12/23/ active Pen Needl es eCW3 09/19" 31G X Needle 09/19" 31G X ([facility] 8 MM s 12:00: 8 MM [place] 09/19" 00 AM Health 31G X EDT Care) 8 MM Pen Nancy Pen 12/23/ active Pen Needl es eCW3 09/19" 31G X Needle 09/19" 31G X ([facility] 8 MM s 12:00: 8 MM [place] 09/19" 00 AM Health 31G X EDT Care) 8 MM Pen Nancy Pen 12/23/ active Pen Needl es eCW3 09/19" 31G X Needle 09/19" 31G X ([facility] 8 MM s 12:00: 8 MM [place] 09/19" 00 AM Health 31G X EDT Care) 8 MM Pen Nancy Pen 12/23/ active Pen Needl es eCW3 09/19" 31G X Needle 09/19" 31G X ([facility] 8 MM s 12:00: 8 MM [place] 09/19" 00 AM Health 31G X EDT Care) 8 MM Pen Nancy Pen 12/23/ active Pen Needl es eCW3 09/19" 31G X Needle 09/19" 31G X ([facility] 8 MM s 12:00: 8 MM [place] 09/19" 00 AM Health 31G X EDT Care) 8 MM Pen Nancy Pen 12/23/ active Pen Needl es eCW3 09/19" 31G X Needle 09/19" 31G X ([facility] 8 MM s 12:00: 8 MM [place] 09/19" 00 AM Health 31G X EDT Care) 8 MM Pen Nancy Pen 12/23/ active Pen Needl es eCW3 09/19" 31G X Needle 09/19" 31G X ([facility] 8 MM s 12:00: 8 MM [place] 09/19" 00 AM Health 31G X EDT Care) 8 MM Pen Nancy Pen 12/23/ active Pen Needl es eCW3 09/19" 31G X Needle 2014 09/19" 31G X ([facility] 8 MM s 12:00: 8 MM [place] 09/19" 00 AM Health 31G X EDT Care) 8 MM Pen Nancy Pen 12/23/ active Pen Needl es eCW3 09/19" 31G X Needle 09/19" 31G X ([facility] 8 MM s 12:00: 8 MM [place] 09/19" 00 AM Health 31G X EDT Care) 8 MM Pen Nancy Pen 12/23/ active Pen Needl es eCW3 09/19" 31G X Needle 09/19" 31G X ([facility] 8 MM s 12:00: 8 MM [place] 09/19" 00 AM Health 31G X EDT Care) 8 MM Pen Nancy Pen 12/23/ active Pen Needl es eCW3 09/19" 31G X Needle 09/19" 31G X ([facility] 8 MM s 12:00: 8 MM [place] 09/19" 00 AM Health 31G X EDT Care) 8 MM Pen Nancy Pen 12/23/ active Pen Needl es eCW3 09/19" 31G X Needle 2014 09/19" 31G X ([facility] 8 MM s 12:00: 8 MM [place] 09/19" 00 AM Health 31G X EDT Care) 8 MM Pen Nancy Pen 12/23/ active Pen Needl es eCW3 09/19" 31G X Needle 09/19" 31G X ([facility] 8 MM s 12:00: 8 MM [place] 09/19" 00 AM Health 31G X EDT Care) 8 MM Pen Nancy Pen 12/23/ active Pen Needl es eCW3 09/19" 31G X Needle 2014 09/19" 31G X ([facility] 8 MM s 12:00: 8 MM [place] 09/19" 00 AM Health 31G X EDT Care) 8 MM Pen Nancy Pen 12/23/ active Pen Needl es eCW3 09/19" 31G X Needle 2014 09/19" 31G X ([facility] 8 MM s 12:00: 8 MM [place] 09/19" 00 AM Health 31G X EDT Care) 8 MM Pen Nancy Pen 12/23/ active Pen Needl es eCW3 5/16" 31G X Needle 09/19" 31G X ([facility] 8 MM s 12:00: 8 MM [facility] AM [facility] 31G X EDT Care) 8 MM Pen Nancy Pen 12/23/ active Pen Needl es eCW3 09/19" 31G X Needle 09/19" 31G X ([place] 8 MM s 12:00: 8 MM [facility] AM [facility] 31G X EDT Care) 8 MM Pen Nancy Pen 12/23/ active Pen Needl es eCW3 09/19" 31G X Needle 09/19" 31G X ([place] 8 MM s 12:00: 8 MM [facility] AM [facility] 31G X EDT Care) 8 MM Pen Nancy Pen 12/23/ active Pen Needl es eCW3 09/19" 31G X Needle 09/19" 31G X ([place] 8 MM s 12:00: 8 MM [facility] 31G X EDT Care) 8 MM GLUCOSE UNK 03/11/ active GLUCOSE TEST eCW3 TEST STRIPS 2013 STRIPS dx: ([facility] dx: DM 12:00: DM [facility] 00 AM [facility] EDT Care) Glucose UNK 03/11/ active Glucose Test eCW3 Test Strips 2013 Strips dx: ([facility] dx: DM 12:00: DM [place] 00 AM [facility] EDT Care) GLUCOSE UNK 03/11/ active GLUCOSE TEST eCW3 TEST STRIPS 2013 STRIPS dx: ([facility] dx: DM 12:00: DM [place] 00 AM [facility] EDT Care) GLUCOSE UNK 03/11/ active GLUCOSE TEST eCW3 TEST STRIPS 2014 STRIPS dx: ([facility] dx: DM 12:00: DM [place] 00 AM [facility] EDT Care) GLUCOSE UNK 03/11/ active GLUCOSE TEST eCW3 TEST STRIPS 2014 STRIPS dx: ([facility] dx: DM 12:00: DM [place] 00 AM [facility] EDT Care) GLUCOSE UNK 03/11/ active GLUCOSE TEST eCW3 TEST STRIPS 2014 STRIPS dx: ([facility] dx: DM 12:00: DM [place] 00 AM [facility] EDT Care) GLUCOSE UNK 03/11/ active GLUCOSE TEST eCW3 TEST STRIPS 2014 STRIPS dx: ([facility] dx: DM 12:00: DM [place] 00 AM [facility] EDT Care) GLUCOSE UNK 03/11/ active GLUCOSE TEST eCW3 TEST STRIPS 2014 STRIPS dx: ([facility] dx: DM 12:00: DM [place] 00 AM [facility] EDT Care) GLUCOSE UNK 03/11/ active GLUCOSE TEST eCW3 TEST STRIPS 2014 STRIPS dx: ([facility] dx: DM 12:00: DM [place] 00 AM [facility] EDT Care) GLUCOSE UNK 03/11/ active GLUCOSE TEST eCW3 TEST STRIPS 2014 STRIPS dx: ([facility] dx: DM 12:00: DM [place] 00 AM [facility] EDT Care) GLUCOSE UNK 03/11/ active GLUCOSE TEST eCW3 TEST STRIPS 2014 STRIPS dx: ([facility] dx: DM 12:00: DM [place] 00 AM [facility] EDT Care) GLUCOSE UNK 03/11/ active GLUCOSE TEST eCW3 TEST STRIPS 2014 STRIPS dx: ([facility] dx: DM 12:00: DM [place] 00 AM [facility] EDT Care) GLUCOSE UNK 03/11/ active GLUCOSE TEST eCW3 TEST STRIPS 2014 STRIPS dx: ([facility] dx: DM 12:00: DM [place] 00 AM [facility] EDT Care) GLUCOSE UNK 03/11/ active GLUCOSE TEST eCW3 TEST STRIPS 2013 STRIPS dx: ([facility] dx: DM 12:00: DM [place] 00 AM [facility] EDT Care) GLUCOSE UNK 03/11/ active GLUCOSE TEST eCW3 TEST STRIPS 2014 STRIPS dx: ([facility] dx: DM 12:00: DM [place] 00 AM [facility] EDT Care) GLUCOSE UNK 03/11/ active GLUCOSE TEST eCW3 TEST STRIPS 2014 STRIPS dx: ([facility] dx: DM 12:00: DM [place] 00 AM [facility] EDT Care) GLUCOSE UNK 03/11/ active GLUCOSE TEST eCW3 TEST STRIPS 2014 STRIPS dx: ([facility] dx: DM 12:00: DM [place] 00 AM [facility] EDT Care) GLUCOSE UNK 03/11/ active GLUCOSE TEST eCW3 TEST STRIPS 2014 STRIPS dx: ([facility] dx: DM 12:00: DM [place] 00 AM [facility] EDT Care) GLUCOSE UNK 03/11/ active GLUCOSE TEST eCW3 TEST STRIPS 2014 STRIPS dx: ([facility] dx: DM 12:00: DM [place] 00 AM [facility] EDT Care) Glucose UNK 03/11/ active Glucose Test eCW3 Test Strips 2014 Strips dx: ([facility] dx: DM 12:00: DM [place] 00 AM [facility] EDT Care) GLUCOSE UNK 03/11/ active GLUCOSE TEST eCW3 TEST STRIPS 2014 STRIPS dx: ([facility] dx: DM 12:00: DM [place] 00 AM Health EDT Care) GLUCOSE UNK 03/11/ active GLUCOSE TEST eCW3 TEST STRIPS 2014 STRIPS dx: ([facility] dx: DM 12:00: DM [place] 00 AM Health EDT Care) GLUCOSE UNK 03/11/ active GLUCOSE TEST eCW3 TEST STRIPS 2014 STRIPS dx: ([facility] dx: DM 12:00: DM [place] 00 AM Health EDT Care) GLUCOSE UNK 03/11/ active GLUCOSE TEST eCW3 TEST STRIPS 2014 STRIPS dx: ([facility] dx: DM 12:00: DM [place] 00 AM Health EDT Care) GLUCOSE UNK 03/11/ active GLUCOSE TEST eCW3 TEST STRIPS 2014 STRIPS dx: ([facility] dx: DM 12:00: DM [place] 00 AM Health EDT Care) GLUCOSE UNK 03/11/ active GLUCOSE TEST eCW3 TEST STRIPS 2014 STRIPS dx: ([facility] dx: DM 12:00: DM [place] 00 AM Health EDT Care) GLUCOSE UNK 03/11/ active GLUCOSE TEST eCW3 TEST STRIPS 2014 STRIPS dx: ([facility] dx: DM 12:00: DM [place] 00 AM Health EDT Care) GLUCOSE UNK 03/11/ active GLUCOSE TEST eCW3 TEST STRIPS 2014 STRIPS dx: ([facility] dx: DM 12:00: DM [place] 00 AM Health EDT Care) GLUCOSE UNK 03/11/ active GLUCOSE TEST eCW3 TEST STRIPS 2014 STRIPS dx: ([facility] ud[facility] dx: DM 12:00: DM [place] 00 AM Health EDT Care) GLUCOSE UNK 03/11/ active GLUCOSE TEST eCW3 TEST STRIPS 2014 STRIPS dx: ([facility] dx: DM 12:00: DM [place] 00 AM Health EDT Care) GLUCOSE UNK 03/11/ active GLUCOSE TEST eCW3 TEST STRIPS 2014 STRIPS dx: ([facility] dx: DM 12:00: DM [place] 00 AM Health EDT Care) GLUCOSE UNK 03/11/ active GLUCOSE TEST eCW3 TEST STRIPS 2014 STRIPS dx: ([facility] dx: DM 12:00: DM [place] 00 AM Health EDT Care) GLUCOSE UNK 03/11/ active GLUCOSE TEST eCW3 TEST STRIPS 2014 STRIPS dx: ([facility] udson dx: DM 12:00: DM [place] 00 AM Health EDT Care) GLUCOSE UNK 03/ active GLUCOSE TEST eCW3 TEST STRIPS 2013 STRIPS dx: ([facility] udson dx: DM 12:00: DM [place] 00 AM Health EDT Care) GLUCOSE UNK 0311/ active GLUCOSE TEST eCW3 TEST STRIPS 2013 STRIPS dx: (H udson dx: DM 12:00: DM [place] 00 AM Health EDT Care) GLUCOSE UNK 0311/ active GLUCOSE TEST eCW3 TEST STRIPS 2013 STRIPS dx: (H udson dx: DM 12:00: DM [place] 00 AM [facility] EDT Care) Heating Pad Heatin 02/24/ suspend Heatin g Pad eCW3 - g Pad 2013 ed - ([facility] - 12:00: [place] 00 AM [facility] EST Care) Heating Pad Heatin 02/24/ suspend Heatin g Pad eCW3 - g Pad 2013 ed - ( - 12:00: [place] 00 AM [facility] EST Care) Heating Pad Heatin /24/ suspend Heatin g Pad eCW3 - g Pad 2013 ed - ( - 12:00: [place] 00 AM [facility] EST Care) Heating Pad Heatin /24/ suspend Heatin g Pad eCW3 - g Pad 2013 ed - ([facility] - 12:00: [place] 00 AM [facility] EST Care) Heating Pad Heatin /24/ suspend Heatin g Pad eCW3 - g Pad 2013 ed - ( - 12:00: [place] 00 AM [facility] EST Care) Heating Pad Heatin /24/ suspend Heatin g Pad eCW3 - g Pad 2013 ed - ([facility] - 12:00: [place] 00 AM [facility] EST Care) Heating Pad Heatin /24/ suspend Heatin g Pad eCW3 - g Pad 2013 ed - ([facility] - 12:00: [place] 00 AM [facility] EST Care) Heating Pad Heatin 02/24/ suspend Heatin g Pad eCW3 - g Pad 2013 ed - ([facility] - 12:00: [place] 00 AM [facility] EST Care) Heating Pad Heatin 02/24/ suspend Heatin g Pad eCW3 - g Pad 2013 ed - ([place] - 12:00: [place] 00 AM [facility] EST Care) Heating Pad Heatin /24/ suspend Heatin g Pad eCW3 - g Pad 2013 ed - ([facility] - 12:00: [place] 00 AM [facility] EST Care) Heating Pad Heatin 06/30/ suspend Heatin g Pad eCW3 - g Pad 2013 ed - ([facility] - 12:00: [facility] 00 AM [facility] EST Care) Heating Pad UNK 06/30/ suspend Heating Pad eCW3 - 2014 ed - ([facility] 12:00: [facility] 00 AM [facility] EST Care) Heating Pad Heatin 06/30/ suspend Heatin g Pad eCW3 - g Pad 2013 ed - ([facility] - 12:00: [facility] 00 AM [facility] EST Care) Heating Pad Heatin 06/30/ suspend Heatin g Pad eCW3 - g Pad 2013 ed - ([facility] - 12:00: [place] 00 AM [facility] EST Care) Heating Pad Heatin 24/ suspend Heatin g Pad eCW3 - g Pad 2013 ed - ([facility] - 12:00: [facility] 00 AM [facility] EST Care) Heating Pad Heatin 06/30/ suspend Heatin g Pad eCW3 - g Pad 2013 ed - ([facility] - 12:00: [facility] 00 AM [facility] EST Care) Heating Pad Heatin 06/30/ suspend Heatin g Pad eCW3 - g Pad 2013 ed - ([facility] - 12:00: [place] 00 AM [facility] EST Care) Heating Pad Heatin 24/ suspend Heatin g Pad eCW3 - g Pad 2013 ed - ([facility] - 12:00: [place] 00 AM [facility] EST Care) Heating Pad Heatin 24/ suspend Heatin g Pad eCW3 - g Pad 2013 ed - ([facility] - 12:00: [place] 00 AM [facility] EST Care) Heating Pad Heatin 06/30/ suspend Heatin g Pad eCW3 - g Pad 2013 ed - ([facility] - 12:00: [place] 00 AM [facility] EST Care) Heating Pad Heatin /24/ suspend Heatin g Pad eCW3 - g Pad 2013 ed - ([facility] - 12:00: [facility] 00 AM [facility] EST Care) olopatadine Patano 1.0 suspend Patano l 0.1 eCW3 1 MG/ML l 0.1 2012 {drop ed % ([facility] % 12:00: _[facility] 00 AM _[facility] [Patanol] EST cted_ Care) Patanol 0.1 eye} % olopatadine Patano 11/06/ 1.0 suspend Patano l 0.1 eCW3 1 MG/ML l 0.1 2013 {drop ed % ([facility] % 12:00: _[facility] [place] [facility] 00 AM _[facility] [Patanol] EST cted_ Care) Patanol 0.1 eye} % olopatadine Patano .0 suspend Patano l 0.1 eCW3 1 MG/ML l 0.1 2012 {drop ed % ([facility] % 12:00: _[facility] 00 AM _[facility] [Patanol] EST cted_ Care) Patanol 0.1 eye} % olopatadine Patano .0 suspend Patano l 0.1 eCW3 1 MG/ML l 0.1 2012 {drop ed % ([facility] % 12:00: _[facility] 00 AM _[facility] [Patanol] EST cted_ Care) Patanol 0.1 eye} % olopatadine Patano .0 suspend Patano l 0.1 eCW3 1 MG/ML l 0.1 2012 {drop ed % ([facility] % 12:00: _[facility] 00 AM _[facility] [Patanol] EST cted_ Care) Patanol 0.1 eye} % olopatadine Patano .0 suspend Patano l 0.1 eCW3 1 MG/ML l 0.1 2013 {drop ed % ([facility] % 12:00: _[facility] 00 AM [facility] [Patanol] EST cted_ Care) Patanol 0.1 eye} % olopatadine Patano .0 suspend Patano l 0.1 eCW3 1 MG/ML l 0.1 2012 {drop ed % ([facility] % 12:00: _[facility] [place] [facility] 00 AM _[facility] [Patanol] EST cted_ Care) Patanol 0.1 eye} % olopatadine Patano .0 suspend Patano l 0.1 eCW3 1 MG/ML l 0.1 2012 {drop ed % ([facility] % 12:00: _[facility] [place] [facility] 00 AM _[facility] [Patanol] EST cted_ Care) Patanol 0.1 eye} % olopatadine Patano .0 suspend Patano l 0.1 eCW3 1 MG/ML l 0.1 2012 {drop ed % ([facility] % 12:00: _[facility] [place] [facility] 00 AM _[facility] [Patanol] EST cted_ Care) Patanol 0.1 eye} % olopatadine Patano .0 suspend Patano l 0.1 eCW3 1 MG/ML l 0.1 2012 {drop ed % ([facility] % 12:00: _[facility] [place] [facility] 00 AM _[facility] [Patanol] EST cted_ Care) Patanol 0.1 eye} % olopatadine Patano .0 suspend Patano l 0.1 eCW3 1 MG/ML l 0.1 2012 {drop ed % ([facility] % 12:00: _[facility] [place] [facility] 00 AM _[facility] [Patanol] EST cted_ Care) Patanol 0.1 eye} % olopatadine Patano .0 suspend Patano l 0.1 eCW3 1 MG/ML l 0.1 2012 {drop ed % ([facility] % 12:00: _[facility] 00 AM [facility] [Patanol] EST cted_ Care) Patanol 0.1 eye} % Patanol 0.1 UNK .0 suspend Patanol 0.1 eCW3 % 2012 {drop ed % ([facility] 12:00: _[facility] AM [facility] EST cted_ Care) eye} olopatadine Patano .0 suspend Patano l 0.1 eCW3 1 MG/ML l 0.1 2012 {drop ed % ([facility] % 12:00: _[facility] [place] [facility] 00 AM _[facility] [Patanol] EST cted_ Care) Patanol 0.1 eye} % olopatadine Patano .0 suspend Patano l 0.1 eCW3 1 MG/ML l 0.1 2012 {drop ed % ([facility] % 12:00: _[facility] [place] [facility] 00 AM [facility] [Patanol] EST cted_ Care) Patanol 0.1 eye} % olopatadine Patano 1.0 suspend Patano l 0.1 eCW3 1 MG/ML l 0.1 2013 {drop ed % ([facility] % 12:00: _[facility] [place] [facility] 00 AM [facility] [Patanol] EST cted_ Care) Patanol 0.1 eye} % olopatadine Patano .0 suspend Patano l 0.1 eCW3 1 MG/ML l 0.1 2013 {drop ed % ([facility] % 12:00: _[facility] [place] [facility] 00 AM _[facility] [Patanol] EST cted_ Care) Patanol 0.1 eye} % olopatadine Patano .0 suspend Patano l 0.1 eCW3 1 MG/ML l 0.1 2013 {drop ed % ([facility] % 12:00: _[facility] [place] [facility] 00 AM _[facility] [Patanol] EST cted_ Care) Patanol 0.1 eye} % olopatadine Patano .0 suspend Patano l 0.1 eCW3 1 MG/ML l 0.1 2013 {drop ed % ([facility] % 12:00: _[facility] [place] [facility] 00 AM [facility] [Patanol] EST cted_ Care) Patanol 0.1 eye} % olopatadine Patano .0 suspend Patano l 0.1 eCW3 1 MG/ML l 0.1 2012 {drop ed % ([facility] % 12:00: _[facility] [place] [facility] 00 AM [facility] [Patanol] EST cted_ Care) Patanol 0.1 eye} % olopatadine Patano .0 suspend Patano l 0.1 eCW3 1 MG/ML l 0.1 2012 {drop ed % ([facility] % 12:00: _[facility] [place] [facility] 00 AM [facility] [Patanol] EST cted_ Care) Patanol 0.1 eye} % Artificial UNK 01/29/ suspend Artificia l eCW3 Tear 2012 ed Tear ([facility] 12:00: [facility] 00 AM Health EDT Care) Artificial UNK 01/29/ suspend Artificia l eCW3 Tear 2013 ed Tear ([facility] 12:00: [facility] 00 AM Health EDT Care) Artificial UNK 09/25/ suspend Artificia l eCW3 Tear 2013 ed Tear ([facility] 12:[facility]: [facility] 00 AM Health EDT Care) Artificial UNK 09/25/ suspend Artificia l eCW3 Tear 2013 ed Tear ([facility] 12:[facility]: [facility] 00 AM Health EDT Care) Artificial UNK 09/25/ suspend Artificia l eCW3 Tear 2012 ed Tear ([facility] 12:[facility]: [facility] 00 AM Health EDT Care) Artificial UNK 09/25/ suspend Artificia l eCW3 Tear 2012 ed Tear ([facility] 12:[facility]: [facility] 00 AM Health EDT Care) Artificial UNK 09/25/ suspend Artificia l eCW3 Tear 2012 ed Tear ([facility] 12:00: [facility] 00 AM Health EDT Care) Artificial UNK 09/25/ suspend Artificia l eCW3 Tear 2012 ed Tear ([facility] 12:00: [facility] [place] 00 AM Health EDT Care) Artificial UNK 09/25/ suspend Artificia l eCW3 Tear 2012 ed Tear ([facility] 12:00: [facility] 00 AM Health EDT Care) Artificial UNK 09/25/ suspend Artificia l eCW3 Tear 2013 ed Tear ([facility] 12:00: [facility] 00 AM Health EDT Care) Artificial UNK 09/25/ suspend Artificia l eCW3 Tear 2012 ed Tear ([facility] 12:[facility]: [facility] [place] 00 AM Health EDT Care) Artificial UNK 09/25/ suspend Artificia l eCW3 Tear 2012 ed Tear ([facility] 12:[facility]: [facility] 00 AM Health EDT Care) Artificial UNK 09/25/ suspend Artificia l eCW3 Tear 2013 ed Tear ([facility] 12:[facility]: [facility] 00 AM Health EDT Care) Artificial UNK 09/25/ suspend Artificia l eCW3 Tear 2013 ed Tear ([facility] 12:[facility]: [facility] [place] 00 AM Health EDT Care) Artificial UNK 09/25/ suspend Artificia l eCW3 Tear 2013 ed Tear ([facility] 12:[facility]: [facility] 00 AM Health EDT Care) Artificial UNK /25/ suspend Artificia l eCW3 Tear 2012 ed Tear ([facility] 12:[facility]: [facility] 00 AM Health EDT Care) Artificial UNK /25/ suspend Artificia l eCW3 Tear 2012 ed Tear ([facility] 12:[facility]: [facility] [place] 00 AM Health EDT Care) Artificial UNK /25/ suspend Artificia l eCW3 Tear 2012 ed Tear ([facility] 12:[facility]: [facility] 00 AM Health EDT Care) Artificial UNK /25/ suspend Artificia l eCW3 Tear 2012 ed Tear ([facility] 12:[facility]: [facility] 00 AM Health EDT Care) Artificial UNK /25/ suspend Artificia l eCW3 Tear 2012 ed Tear ([facility] 12:[facility]: [facility] [place] 00 AM Health EDT Care) Artificial UNK /25/ suspend Artificia l eCW3 Tear 2012 ed Tear ([facility] 12:00: [facility] 00 AM Health EDT Care) canaglifloz Invoka active Invokana 100 eCW3 in 100 MG na 100 MG ([facility] [place] [facility]Invoka[facility] MG Mirtazapine Mirtaz active Mirtazapi ne eCW3 15 MG Oral apine 15 MG ([facility] Tablet 15 MG [facility]) canaglifloz Invoka active Invokana 100 eCW3 in 100 MG na 100 MG ([facility] Tablet MG [place] [Invoka] [facility]) 100 MG Acetaminoph Acetam 2.0 active Acetamino phe eCW3 en 500 MG inophe {tabl n 500 mg ([facility] Oral Tablet n 500 et_[facility] Acetaminoph mg _[facility] en 500 mg ed} Care) Mirtazapine Mirtaz active Mirtazapi ne eCW3 15 MG Oral apine 15 MG ([facility] Tablet 15 MG [facility]) Mirtazapine Mirtaz active Mirtazapi ne eCW3 15 MG Oral apine 15 MG ([facility] Tablet 15 MG [facility]) Acetaminoph Acetam 2.0 active Acetamino phe eCW3 en 500 MG inophe {tabl n 500 mg ([facility] Oral Tablet n 500 et_[facility] [place] Acetaminoph mg _[facility] en 500 mg ed} Care) Acetaminoph Acetam 2.0 active Acetamino phe eCW3 en 500 MG inophe {tabl n 500 mg ([facility] Oral Tablet n 500 et_[facility] [place] Acetaminoph mg _[facility] en 500 mg ed} Care) Bladder Bladde active Bladder eCW3 Control r Control Pads ([facility] son Pads Ex Contro Ex Absorb - Maria A er Absorb - l [facility] Ex Care) Absorb - Fluticasone Flutic 2.0 active Fluticaso ne eCW3 Propionate asone {puff Propionate ( [facility] 50 MCG/ACT Propio _in_e 50 MCG/ACT [facility] ach_n [facility] 50 ostri Care) MCG/AC l} T Acetaminoph Acetam 2.0 active Acetamino phe eCW3 en 500 MG inophe {tabl n 500 mg ([facility] Oral Tablet n 500 et_[facility] Acetaminoph mg _[facility] en 500 mg ed} Care) Enalapril Enalap 1.0 active Enalapril e CW3 Maleate 2.5 ril {tabl Maleate 2.5 ([facility] MG Oral Maleat et} [facility] Tablet e 2.5 Health MG Care) Acetaminoph Acetam 2.0 active Acetamino phe eCW3 en 500 MG inophe {tabl n 500 mg ([facility] Oral Tablet n 500 et_[facility] Acetaminoph mg _[facility] en 500 mg ed} Care) NITROFURANT Macrob 1.0 suspend Macrobid 100 eCW3 OIN, id 100 {caps ed mg ([facility] MACROCRYSTA mg ule_w [place] LS 25 MG / ith_f Health Nitrofurant ood} Care) oin, Monohydrate 75 MG Oral Capsule [Macrobid] Macrobid 100 mg Fluticasone Flutic 2.0 active Fluticaso ne eCW3 Propionate asone {puff Propionate ( [facility] 50 MCG/ACT Propio _in_e 50 MCG/ACT [facility] 50 ostri Care) MCG/AC l} T Bladder Bladde active Bladder eCW3 Control r Control Pads ([facility] son Pads Ex Contro Ex Absorb - Maria A er Absorb - l Pads [facility] Ex Care) Absorb - Enalapril Enalap 1.0 active Enalapril e CW3 Maleate 2.5 ril {tabl Maleate 2.5 ([facility] MG Oral Maleat et} [facility] Tablet e 2.5 Health MG Care) Fluticasone Flutic 2.0 active Fluticaso ne eCW3 Propionate asone {puff Propionate ( [facility] 50 MCG/ACT Propio _in_e 50 MCG/ACT [facility] a[facility] 50 ostri Care) MCG/AC l} T Mirtazapine Mirtaz active Mirtazapi ne eCW3 15 MG Oral apine 15 MG ([facility] Tablet 15 MG [facility]) Mirtazapine Mirtaz 1.0 active Mirtazapi ne eCW3 15 MG Oral apine {tabl 15 MG ([facility] Tablet 15 MG et_at [facility]} Care) Enalapril Enalap 1.0 active Enalapril e CW3 Maleate 2.5 ril {tabl Maleate 2.5 ([facility] MG Oral Maleat et} [facility] Tablet e 2.5 Health MG Care) Acetaminoph Acetam 2.0 active Acetamino phe eCW3 en 500 MG inophe {tabl n 500 mg ([facility] Oral Tablet n 500 et_[facility] [place] Acetaminoph mg _[facility] en 500 mg ed} Care) Acetaminoph Acetam 2.0 active Acetamino phe eCW3 en 500 MG inophe {tabl n 500 mg ([facility] Oral Tablet n 500 et_[facility] [place] Acetaminoph mg _[facility] en 500 mg ed} Care) NITROFURANT Macrob 1.0 suspend Macrobid 100 eCW3 OIN, id 100 {caps ed mg ([facility] MACROCRYSTA mg ule_w [place] LS 25 MG / ith_f Health Nitrofurant ood} Care) oin, Monohydrate 75 MG Oral Capsule [Macrobid] Macrobid 100 mg Fluticasone Flutic 2.0 active Fluticaso ne eCW3 Propionate asone {puff Propionate ( [facility] 50 MCG/ACT Propio _in_e 50 MCG/ACT [facility] 50 ostri Care) MCG/AC l} T Enalapril Enalap 1.0 active Enalapril e CW3 Maleate 2.5 ril {tabl Maleate 2.5 ([facility] MG Oral Maleat et} [facility] Tablet e 2.5 Health MG Care) Acetaminoph Acetam 2.0 active Acetamino phe eCW3 en 500 MG inophe {tabl n 500 mg ([facility] Oral Tablet n 500 et_[facility] [place] Acetaminoph mg _[facility] en 500 mg ed} Care) Bladder Bladde active Bladder eCW3 Control r Control Pads ([facility] son Pads Ex Contro Ex Absorb - Maria A er Absorb - l [facility] Ex Care) Absorb - canaglifloz Invoka active Invokana 100 eCW3 in 100 MG na 100 MG ([facility] Tablet [facility] [Invokana] [facility] Invokana Care) 100 MG Fluticasone Flutic 2.0 active Fluticaso ne eCW3 Propionate asone {puff Propionate ( [facility] 50 MCG/ACT Propio _in_e 50 MCG/ACT [facility] 50 ostri Care) MCG/AC l} T Fluticasone Flutic 2.0 active Fluticaso ne eCW3 Propionate asone {puff Propionate ( [facility] 50 MCG/ACT Propio _in_e 50 MCG/ACT [facility] 50 ostri Care) MCG/AC l} T Acetaminoph Acetam 2.0 active Acetamino phe eCW3 en 500 MG inophe {tabl n 500 mg ([facility] Oral Tablet n 500 et_[facility] [place] Acetaminoph mg _[facility] en 500 mg ed} Care) Acetaminoph Acetam 2.0 active Acetamino phe eCW3 en 500 MG inophe {tabl n 500 mg ([facility] Oral Tablet n 500 et_[facility] [place] Acetaminoph mg _[facility] en 500 mg ed} Care) Bladder Bladde active Bladder eCW3 Control r Control Pads ([facility] son Pads Ex Contro Ex Absorb - Maria A er Absorb - l P[facility] Ex Care) Absorb - NITROFURANT Macrob 1.0 suspend Macrobid 100 eCW3 OIN, id 100 {caps ed mg ([facility] MACROCRYSTA mg ule_w [place] LS 25 MG / ith_f Health Nitrofurant ood} Care) oin, Monohydrate 75 MG Oral Capsule [Macrobid] Macrobid 100 mg Acetaminoph Acetam 2.0 active Acetamino phe eCW3 en 500 MG inophe {tabl n 500 mg ([facility] Oral Tablet n 500 et_[facility] [place] Acetaminoph mg _[facility] en 500 mg ed} Care) Bladder Bladde active Bladder eCW3 Control r Control Pads ([facility] son Pads Ex Contro Ex Absorb - Maria A er Absorb - l Pads [facility] Ex Care) Absorb - Enalapril Enalap 1.0 active Enalapril e CW3 Maleate 2.5 ril {tabl Maleate 2.5 ([facility] MG Oral Maleat et} [facility] Tablet e 2.5 Health MG Care) Mirtazapine UNK 1.0 active Mirtazapine eCW3 30 MG {tabl 30 MG ([facility] et_at [facility]} Care) Mirtazapine Mirtaz active Mirtazapi ne eCW3 15 MG Oral apine 15 MG ([facility] Tablet 15 MG [facility]) Bladder Bladde active Bladder eCW3 Control r Control Pads ([facility] son Pads Ex Contro Ex Absorb - Maria A er Absorb - l Pads [facility] Ex Care) Absorb - Mirtazapine Mirtaz 1.0 active Mirtazapi ne eCW3 15 MG Oral apine {tabl 15 MG ([facility] Tablet 15 MG et_at [facility]} Care) NITROFURANT Macrob 1.0 suspend Macrobid 100 eCW3 OIN, id 100 {caps ed mg ([facility] MACROCRYSTA mg ule_w [place] LS 25 MG / ith_f Health Nitrofurant ood} Care) oin, Monohydrate 75 MG Oral Capsule [Macrobid] Macrobid 100 mg NITROFURANT Macrob 1.0 suspend Macrobid 100 eCW3 OIN, id 100 {caps ed mg ([facility] MACROCRYSTA mg ule_w [place] LS 25 MG / ith_f Health Nitrofurant ood} Care) oin, Monohydrate 75 MG Oral Capsule [Macrobid] Macrobid 100 mg Fluticasone Flutic 2.0 active Fluticaso ne eCW3 Propionate asone {puff Propionate ( [facility] 50 MCG/ACT Propio _in_e 50 MCG/ACT [facility] a[facility] 50 ostri Care) MCG/AC l} T Mirtazapine Mirtaz 1.0 active Mirtazapi ne eCW3 15 MG Oral apine {tabl 15 MG ([facility] [facility] Tablet 15 MG et_at [facility]} Care) Fluticasone Flutic 2.0 active Fluticaso ne eCW3 Propionate asone {puff Propionate ( [facility] 50 MCG/ACT Propio _in_e 50 MCG/ACT [facility] a[facility]_n [facility] 50 ostri Care) MCG/AC l} T Acetaminoph Acetam 2.0 active Acetamino phe eCW3 en 500 MG inophe {tabl n 500 mg ([facility] Oral Tablet n 500 et_as [place] Acetaminoph mg _need [facility] en 500 mg ed} Care) NITROFURANT Macrob 1.0 suspend Macrobid 100 eCW3 OIN, id 100 {caps ed mg ([facility] MACROCRYSTA mg ule_w [place] LS 25 MG / ith_f Health Nitrofurant ood} Care) oin, Monohydrate 75 MG Oral Capsule [Macrobid] Macrobid 100 mg Bladder Bladde active Bladder eCW3 Control r Control Pads ([facility] son Pads Ex Contro Ex Absorb - Maria A er Absorb - l Pads Health Ex Care) Absorb - Enalapril Enalap 1.0 active Enalapril e CW3 Maleate 2.5 ril {tabl Maleate 2.5 ([facility] MG Oral Maleat et} [facility] Tablet e 2.5 Health MG Care) Fluticasone Flutic 2.0 active Fluticaso ne eCW3 Propionate asone {puff Propionate ( [facility] 50 MCG/ACT Propio _in_e 50 MCG/ACT [facility] a[facility] 50 ostri Care) MCG/AC l} T Fluticasone Flutic 2.0 active Fluticaso ne eCW3 Propionate asone {puff Propionate ( [facility] 50 MCG/ACT Propio _in_e 50 MCG/ACT [facility] a[facility] 50 ostri Care) MCG/AC l} T Bladder Bladde active Bladder eCW3 Control r Control Pads ([facility] son Pads Ex Contro Ex Absorb - Maria A er Absorb - l Pads [facility] Ex Care) Absorb - Fluticasone Flutic 2.0 active Fluticaso ne eCW3 Propionate asone {puff Propionate ( [facility] 50 MCG/ACT Propio _in_e 50 MCG/ACT [facility] a[facility] 50 ostri Care) MCG/AC l} T Acetaminoph Acetam 2.0 active Acetamino phe eCW3 en 500 MG inophe {tabl n 500 mg ([facility] Oral Tablet n 500 et_as [place] Acetaminoph mg _[facility] en 500 mg ed} Care) Mirtazapine Mirtaz 1.0 active Mirtazapi ne eCW3 15 MG Oral apine {tabl 15 MG ([facility] Tablet 15 MG et_at [facility]} Care) Fluticasone Flutic 2.0 active Fluticaso ne eCW3 Propionate asone {puff Propionate ( [facility] 50 MCG/ACT Propio _in_e 50 MCG/ACT [facility] a[facility]_n [facility] 50 ostri Care) MCG/AC l} T 3 ML liragl complet Victo[facility] [place] liraglutide utide ed 3-Flako Umesh s 6 MG/ML Pen ([facility] [[facility]icto[facility]] 3-Flako) liraglutide 0.6 ([facility] mg/0.1 3-Flako) 0.6 mL (18 mg/0.1 mL mg/3 (18 mg/3 mL) mL) Pen Pen Injector Inject or Bladder Bladde active Bladder eCW3 Control r Control Pads ([facility] son Pads Ex Contro Ex Absorb - Maria A er Absorb - l Pads Health Ex Care) Absorb - Ranitidine raniti complet Modesta t 150 MG Oral dine ed Carlyn Tablet HCl Medical ranitidine 150 mg Center HCl 150 mg Tablet Tablet Bladder Bladde active Bladder eCW3 Control r Control Pads ([facility] son Pads Ex Contro Ex Absorb - Maria A er Absorb - l Pads Health Ex Care) Absorb - Bladder Bladde active Bladder eCW3 Control r Control Pads ([facility] son Pads Ex Contro Ex Absorb - Maria A er Absorb - l Pads Health Ex Care) Absorb - Enalapril Enalap 1.0 active Enalapril e CW3 Maleate 2.5 ril {tabl Maleate 2.5 ([facility] MG Oral Maleat et} [facility] Tablet e 2.5 Health MG Care) Acetaminoph Acetam 2.0 active Acetamino phe eCW3 en 500 MG inophe {tabl n 500 mg ([facility] Oral Tablet n 500 et_as [place] Acetaminoph mg _need Health en 500 mg ed} Care) Fluticasone Flutic 2.0 active Fluticaso ne eCW3 Propionate asone {puff Propionate ( [facility] 50 MCG/ACT Propio _in_e 50 MCG/ACT [facility] ach_n [facility] 50 ostri Care) MCG/AC l} T Fluticasone Flutic 2.0 active Fluticaso ne eCW3 Propionate asone {puff Propionate ( [facility] 50 MCG/ACT Propio _in_e 50 MCG/ACT [facility] ach_n [facility] 50 ostri Care) MCG/AC l} T Macrobid UNK 1.0 suspend Macrobid 100 eCW3 100 mg {caps ed mg ([facility] ule_w [facility] ith_f Health ood} Care) Mirtazapine Mirtaz 1.0 active Mirtazapi ne eCW3 15 MG Oral apine {tabl 15 MG ([facility] Tablet 15 MG et_at [facility]} Care) Bladder Bladde active Bladder eCW3 Control r Control Pads ([facility] son Pads Ex Contro Ex Absorb - Maria A er Absorb - l Pads Health Ex Care) Absorb - Bladder Bladde active Bladder eCW3 Control r Control Pads ([facility] son Pads Ex Contro Ex Absorb - Maria A er Absorb - l Pads [facility] Ex Care) Absorb - Bladder Bladde active Bladder eCW3 Control r Control Pads ([facility] son Pads Ex Contro Ex Absorb - Maria A er Absorb - l Pads Health Ex Care) Absorb - diclofenac complet [facility] sodium 1 % [facility] NITROFURANT Macrob 1.0 suspend Macrobid 100 eCW3 OIN, id 100 {caps ed mg ([facility] MACROCRYSTA mg ule_w [place] LS 25 MG / ith_f Health Nitrofurant ood} Care) oin, Monohydrate 75 MG Oral Capsule [Macrobid] Macrobid 100 mg Bladder UNK active Bladder eCW3 Control Control Pads ([facility] son Pads Ex Ex Absorb - [facility] Absorb - Health Care) Mirtazapine Mirtaz 1.0 active Mirtazapi ne eCW3 15 MG Oral apine {tabl 15 MG ([facility] Tablet 15 MG et_at [facility]} Care) Fluticasone Flutic 2.0 active Fluticaso ne eCW3 Propionate asone {puff Propionate ( [facility] 50 MCG/ACT Propio _in_e 50 MCG/ACT [facility] ach_n [facility] 50 ostri Care) MCG/AC l} T Acetaminoph Acetam 2.0 active Acetamino phe eCW3 en 500 MG inophe {tabl n 500 mg ([facility] Oral Tablet n 500 et_as [place] Acetaminoph mg _need Health en 500 mg ed} Care) Acetaminoph Acetam 2.0 active Acetamino phe eCW3 en 500 MG inophe {tabl n 500 mg ([facility] Oral Tablet n 500 et_as [place] Acetaminoph mg _need Health en 500 mg ed} Care) Mirtazapine Mirtaz active Mirtazapi ne eCW3 15 MG Oral apine 15 MG ([facility] Tablet 15 MG [facility] Care) Mirtazapine Mirtaz 1.0 active Mirtazapi ne eCW3 15 MG Oral apine {tabl 15 MG ([facility] Tablet 15 MG et_at [facility]} Care) Acetaminoph Acetam 2.0 active Acetamino phe eCW3 en 500 MG inophe {tabl n 500 mg ([facility] Oral Tablet n 500 et_as [place] Acetaminoph mg _need Health en 500 mg ed} Care) Fluticasone Flutic 2.0 active Fluticaso ne eCW3 Propionate asone {puff Propionate ( [facility] 50 MCG/ACT Propio _in_e 50 MCG/ACT [facility] ach_n Health 50 ostri Care) MCG/AC l} T canaglifloz Invoka active Invokana 100 eCW3 in 100 MG na 100 MG ([facility] Oral Tablet [facility] [Invokana] Health Invok[facility] Care) 100 MG Acetaminoph Acetam 2.0 active Acetamino phe eCW3 en 500 MG inophe {tabl n 500 mg ([facility] Oral Tablet n 500 et_as [place] Acetaminoph mg _need Health en 500 mg ed} Care) Mirtazapine Mirtaz active Mirtazapi ne eCW3 15 MG Oral apine 15 MG ([facility] Tablet 15 MG [facility] Care) Mirtazapine Mirtaz active Mirtazapi ne eCW3 15 MG Oral apine 15 MG ([facility] Tablet 15 MG [facility] Care) Acetaminoph Acetam 2.0 active Acetamino phe eCW3 en 500 MG inophe {tabl n 500 mg ([facility] Oral Tablet n 500 et_as [place] Acetaminoph mg _need Health en 500 mg ed} Care) Bladder Bladde active Bladder eCW3 Control r Control Pads ([facility] son Pads Ex Contro Ex Absorb - Maria A er Absorb - l Pads Health Ex Care) Absorb - NITROFURANT Macrob 1.0 suspend Macrobid 100 eCW3 OIN, id 100 {caps ed mg ([facility] MACROCRYSTA mg ule_w [place] LS 25 MG / ith_f Health Nitrofurant ood} Care) oin, Monohydrate 75 MG Oral Capsule [Macrobid] Macrobid 100 mg NITROFURANT Macrob 1.0 suspend Macrobid 100 eCW3 OIN, id 100 {caps ed mg ([facility] MACROCRYSTA mg ule_w [place] LS 25 MG / ith_f Health Nitrofurant ood} Care) oin, Monohydrate 75 MG Oral Capsule [Macrobid] Macrobid 100 mg Acetaminoph Acetam 2.0 active Acetamino phe eCW3 en 500 MG inophe {tabl n 500 mg ([facility] Oral Tablet n 500 et_as [place] Acetaminoph mg _need Health en 500 mg ed} Care) Mirtazapine Mirtaz 1.0 active Mirtazapi ne eCW3 15 MG Oral apine {tabl 15 MG ([facility] [facility] Tablet 15 MG et_at [facility]} Care) Fluticasone Flutic 2.0 active Fluticaso ne eCW3 Propionate asone {puff Propionate ( [facility] 50 MCG/ACT Propio _in_e 50 MCG/ACT [facility] ach_n Health 50 ostri Care) MCG/AC l} T Enalapril Enalap 1.0 active Enalapril e CW3 Maleate 2.5 ril {tabl Maleate 2.5 ([facility] MG Oral Maleat et} [facility] Tablet e 2.5 Health MG Care) Fluticasone Flutic 2.0 active Fluticaso ne eCW3 Propionate asone {puff Propionate ( [facility] 50 MCG/ACT Propio _in_e 50 MCG/ACT [facility] ach_n Health 50 ostri Care) MCG/AC l} T Bladder Bladde active Bladder eCW3 Control r Control Pads ([facility] son Pads Ex Contro Ex Absorb - Maria A er Absorb - l Pads Health Ex Care) Absorb - Mirtazapine Mirtaz 1.0 active Mirtazapi ne eCW3 30 MG Oral apine {tabl 30 MG ([facility] Tablet 30 MG et_at [facility]} Care) NITROFURANT Macrob 1.0 suspend Macrobid 100 eCW3 OIN, id 100 {caps ed mg ([facility] MACROCRYSTA mg ule_w [place] LS 25 MG / ith_f Health Nitrofurant ood} Care) oin, Monohydrate 75 MG Oral Capsule [Macrobid] Macrobid 100 mg Mirtazapine Mirtaz 1.0 active Mirtazapi ne eCW3 15 MG Oral apine {tabl 15 MG ([facility] Tablet 15 MG et_at [facility]} Care) Fluticasone Flutic 2.0 active Fluticaso ne eCW3 Propionate asone {puff Propionate ( [facility] 50 MCG/ACT Propio _in_e 50 MCG/ACT [facility] ach_n Health 50 ostri Care) MCG/AC l} T Enalapril Enalap 1.0 active Enalapril e CW3 Maleate 2.5 ril {tabl Maleate 2.5 ([facility] MG Oral Maleat et} MG [facility] Tablet e 2.5 Health MG Care) Enalapril Enalap 1.0 active Enalapril e CW3 Maleate 2.5 ril {tabl Maleate 2.5 ([facility] MG Oral Maleat et} MG [place] Tablet e 2.5 Health MG Care) Fluticasone Flutic 2.0 active Fluticaso ne eCW3 Propionate asone {puff Propionate ( [facility] 50 MCG/ACT Propio _in_e 50 MCG/ACT [facility] tyrese ach_n Health 50 ostri Care) MCG/AC l} T Enalapril Enalap 1.0 active Enalapril e CW3 Maleate 2.5 ril {tabl Maleate 2.5 ([place] MG Oral Maleat et} [facility] Tablet e 2.5 [facility]) Bladder Bladde active Bladder eCW3 Control r Control Pads (Hud son Pads Ex Contro Ex Absorb - Maria A er Absorb - l Pads Health Ex Care) Absorb - Enalapril Enalap 1.0 active Enalapril e CW3 Maleate 2.5 ril {tabl Maleate 2.5 ([place] MG Oral Maleat et} [facility] Tablet e 2.5 [facility]) Enalapril Enalap 1.0 active Enalapril e CW3 Maleate 2.5 ril {tabl Maleate 2.5 ([place] MG Oral Maleat et} [facility] Tablet e 2.5 [facility]) Acetaminoph Acetam 2.0 active Acetamino phe eCW3 en 500 MG inophe {tabl n 500 mg (Hu dson Oral Tablet n 500 et_as [place] Acetaminoph mg _need Health en 500 mg ed} Care) Acetaminoph Acetam 2.0 active Acetamino phe eCW3 en 500 MG inophe {tabl n 500 mg (Hu d[facility] Oral Tablet n 500 et_as [place] Acetaminoph mg _need Health en 500 mg ed} Care) Acetaminoph Acetam 2.0 active Acetamino phe eCW3 en 500 MG inophe {tabl n 500 mg ([facility] Oral Tablet n 500 et_as [place] Acetaminoph mg _need Health en 500 mg ed} Care) Mirtazapine Mirtaz 1.0 active Mirtazapi ne eCW3 30 MG Oral apine {tabl 30 MG ([place] Tablet 30 MG et_at [facility]} Care) Mirtazapine Mirtaz 1.0 active Mirtazapi ne eCW3 30 MG Oral apine {tabl 30 MG ([place] Tablet 30 MG et_at [facility]} Care) NITROFURANT Macrob 1.0 suspend Macrobid 100 eCW3 OIN, id 100 {caps ed mg ([place] MACROCRYSTA mg ule_w [place] LS 25 MG / ith_f Health Nitrofurant ood} Care) oin, Monohydrate 75 MG Oral Capsule [Macrobid] Macrobid 100 mg Enalapril Enalap 1.0 active Enalapril e CW3 Maleate 2.5 ril {tabl Maleate 2.5 ([place] MG Oral Maleat et} MG [place] Tablet e 2.5 Health MG Care) NITROFURANT Macrob 1.0 suspend Macrobid 100 eCW3 OIN, id 100 {caps ed mg ([place] MACROCRYSTA mg ule_w [place] LS 25 MG / ith_f Health Nitrofurant ood} Care) oin, Monohydrate 75 MG Oral Capsule [Macrobid] Macrobid 100 mg Mirtazapine Mirtaz 1.0 active Mirtazapi ne eCW3 45 MG Oral apine {tabl 45 MG ([place] Tablet 45 MG et_at [place] _[facility]} Care) Mirtazapine Mirtaz 1.0 active Mirtazapi ne eCW3 30 MG Oral apine {tabl 30 MG ([place] Tablet 30 MG et_at [place] [facility]} Care) Acetaminoph Acetam 2.0 active Acetamino phe eCW3 en 500 MG inophe {tabl n 500 mg ([facility] Oral Tablet n 500 et_as [place] Acetaminoph mg _need Health en 500 mg ed} Care) Fluticasone Flutic 2.0 active Fluticaso ne eCW3 Propionate asone {puff Propionate ( [place] 50 MCG/ACT Propio _in_e 50 MCG/ACT [place] tyrese ach_n Health 50 ostri Care) MCG/AC l} T Enalapril Enalap 1.0 active Enalapril e CW3 Maleate 2.5 ril {tabl Maleate 2.5 ([place] MG Oral Maleat et} MG [facility] Tablet e 2.5 Health MG Care) Fluticasone Flutic 2.0 active Fluticaso ne eCW3 Propionate asone {puff Propionate ( [place] 50 MCG/ACT Propio _in_e 50 MCG/ACT [place] tyrese ach_n Health 50 ostri Care) MCG/AC l} T Acetaminoph Acetam 2.0 active Acetamino phe eCW3 en 500 MG inophe {tabl n 500 mg ([facility] Oral Tablet n 500 et_as [place] Acetaminoph mg _need Health en 500 mg ed} Care) Enalapril Enalap 1.0 active Enalapril e CW3 Maleate 2.5 ril {tabl Maleate 2.5 ([place] MG Oral Maleat et} MG [place] Tablet e 2.5 Health MG Care) Fluticasone Flutic 2.0 active Fluticaso ne eCW3 Propionate asone {puff Propionate ( [place] 50 MCG/ACT Propio _in_e 50 MCG/ACT [place] tyrese ach_n Health 50 ostri Care) MCG/AC l} T Bladder Bladde active Bladder eCW3 Control r Control Pads ([facility] son Pads Ex Contro Ex Absorb - Maria A er Absorb - l Pads Health Ex Care) Absorb - Bladder Bladde active Bladder eCW3 Control r Control Pads ([facility] son Pads Ex Contro Ex Absorb - Maria A er Absorb - l Pads Health Ex Care) Absorb - Bladder Bladde active Bladder eCW3 Control r Control Pads ([facility] son Pads Ex Contro Ex Absorb - Maria A er Absorb - l Pads Health Ex Care) Absorb - Fluticasone Flutic 2.0 active Fluticaso ne eCW3 Propionate asone {puff Propionate ( [place] 50 MCG/ACT Propio _in_e 50 MCG/ACT [place] tyrese ach_n Health 50 ostri Care) MCG/AC l} T NITROFURANT Macrob 1.0 suspend Macrobid 100 eCW3 OIN, id 100 {caps ed mg ([place] MACROCRYSTA mg ule_w [place] LS 25 MG / ith_f Health Nitrofurant ood} Care) oin, Monohydrate 75 MG Oral Capsule [Macrobid] Macrobid 100 mg Bladder Bladde active Bladder eCW3 Control r Control Pads ([facility] son Pads Ex Contro Ex Absorb - Maria A er Absorb - l Pads Health Ex Care) Absorb - 8 HR acetam 1 complet Tylenol 8 [facility] Acetaminoph inophe ed Hour Umesh s en 650 MG n Medical Extended (Tylen Center Release ol 8 Oral Tablet Hour) [Tylenol] 650 mg acetaminoph Tablet en (Tylenol Extend 8 Hour) 650 ed mg Tablet Releas Extended e, Release, Ordere Ordered By: d By: wolf Macedo, ns: 1 FNPDir tablet oral ection every eight s: 1 hours PRN tablet pain oral every eight hours PRN pain Bladder Bladde active Bladder eCW3 Control r Control Pads ([facility] son Pads Ex Contro Ex Absorb - Maria A er Absorb - l Pads Health Ex Care) Absorb - Bladder Bladde active Bladder eCW3 Control r Control Pads (H[facility] son Pads Ex Contro Ex Absorb - Maria A er Absorb - l Pads Health Ex Care) Absorb - Ibuprofen ibupro 1 complet [facility] 400 MG Oral fen ed Carlyn Tablet 400 mg Medical ibuprofen Tablet Center 400 mg , Tablet, Ordere Ordered By: d By: wolf Macedo FNPDmarvin Mathew, ns: 1 FNPDir tablet oral ection every six s: 1 hours PRN tablet pain oral every six hours PRN pain NITROFURANT Macrob 1.0 suspend Macrobid 100 eCW3 OIN, id 100 {caps ed mg ([place] MACROCRYSTA mg ule_w [place] LS 25 MG / ith_f Health Nitrofurant ood} Care) oin, Monohydrate 75 MG Oral Capsule [Macrobid] Macrobid 100 mg Enalapril Enalap 1.0 active Enalapril e CW3 Maleate 2.5 ril {tabl Maleate 2.5 ([place] MG Oral Maleat et} MG [place] Tablet e 2.5 Health MG Care) Acetaminoph Acetam 2.0 active Acetamino phe eCW3 en 500 MG inophe {tabl n 500 mg ([facility] Oral Tablet n 500 et_as [place] Acetaminoph mg _need Health en 500 mg ed} Care) Enalapril Enalap 1.0 active Enalapril e CW3 Maleate 2.5 ril {tabl Maleate 2.5 ([place] MG Oral Maleat et} MG [place] Tablet e 2.5 Health MG Care) Famotidine famoti complet Modesta t 40 MG Oral dine ed Carlyn Tablet 40 mg Medical famotidine Tablet Center 40 mg Tablet Glipizide glipiZ complet [facility] 10 MG Oral CLAU 10 ed Carlyn Tablet mg Medical glipiZIDE Tablet Center 10 mg Tablet gabapentin gabape complet Modesta t 300 MG Oral ntin ed C[place]n Capsule 300 mg Medical gabapentin Capsul Center 300 mg e Capsule Bladder Bladde active Bladder eCW3 Control r Control Pads ([facility] son Pads Ex Contro Ex Absorb - Maria A er Absorb - l Pads Health Ex Care) Absorb - pantoprazol pantop complet Douglas nt e 40 MG razole ed Carlyn Delayed 40 mg Medical Release tablet Center Oral Tablet ,delay pantoprazol ed e 40 mg releas tablet,raul e yed release (DR/EC (DR/EC) ) 3 ML insuli complet Lantus [facility] Insulin n ed Solostar Carlyn Glargine glargi U-100 Medical 100 UNT/ML ne Insulin Center Pen (Lantu Injector s [Lantus] Solost insulin ar glargine U-100 (Lantus Insuli Solostar n) 100 U-100 unit/m Insulin) L (3 100 unit/mL mL) (3 mL) Insuli Insulin Pen n Pen Lidocaine lidoca complet [facility] Hydrochlori ine ed Carlyn de 40 MG/ML HCl 40 Medica l Mucous mg/mL Center Membrane Soluti Topical on Solution lidocaine HCl 40 mg/mL Solution olopatadine olopat complet Douglas nt 1 MG/ML adine ed Carlyn Ophthalmic 0.1 % Medical Solution Drops Center olopatadine 0.1 % Drops Bladder Bladde active Bladder eCW3 Control r Control Pads ([facility] son Pads Ex Contro Ex Absorb - Maria A er Absorb - l Pads Health Ex Care) Absorb - Omeprazole omepra complet Modesta t 40 MG zole ed Carlyn Delayed 40 mg Medical Release capsul Center Oral e,raul Capsule yed omeprazole releas 40 mg e(/Lynn capsule,del C) ayed release(/ EC) Fluticasone UNK 2.0 active Fluticasone eCW3 Propionate {puff Propionate ([facility] ud[facility] 50 MCG/ACT _in_e 50 MCG/ACT Ri pancho ach_n Health ostri Care) l} canaglifloz Invoka active Invokana 100 eCW3 in 100 MG na 100 MG ([place] Oral Tablet MG [place] [Invokana] Health Invokana Care) 100 MG Bladder Bladde active Bladder eCW3 Control r Control Pads ([facility] son Pads Ex Contro Ex Absorb - Maria A er Absorb - l Pads Health Ex Care) Absorb - Enalapril Enalap 1.0 active Enalapril e CW3 Maleate 2.5 ril {tabl Maleate 2.5 ([place] MG Oral Maleat et} MG [place] Tablet e 2.5 [facility] Care) Mirtazapine Mirtaz active Mirtazapi ne eCW3 15 MG Oral apine 15 MG ([place] Tablet 15 MG [facility] Care) Mirtazapine Mirtaz active Mirtazapi ne eCW3 15 MG Oral apine 15 MG ([place] Tablet 15 MG [facility] Care) Fluticasone Flutic 2.0 active Fluticaso ne eCW3 Propionate asone {puff Propionate ( [place] 50 MCG/ACT Propio _in_e 50 MCG/ACT [place] tyrese ach_n Health 50 ostri Care) MCG/AC l} T Bladder Bladde active Bladder eCW3 Control r Control Pads ([facility] son Pads Ex Contro Ex Absorb - Maria A er Absorb - l Pads Health Ex Care) Absorb - Acetaminoph Acetam 2.0 active Acetamino phe eCW3 en 500 MG inophe {tabl n 500 mg ([facility] Oral Tablet n 500 et_as [place] Acetaminoph mg _need Health en 500 mg ed} Care) NITROFURANT Macrob 1.0 suspend Macrobid 100 eCW3 OIN, id 100 {caps ed mg ([place] MACROCRYSTA mg ule_w [place] LS 25 MG / ith_f Health Nitrofurant ood} Care) oin, Monohydrate 75 MG Oral Capsule [Macrobid] Macrobid 100 mg Fluticasone Flutic 2.0 active Fluticaso ne eCW3 Propionate asone {puff Propionate ( [place] 50 MCG/ACT Propio _in_e 50 MCG/ACT [place] tyrese ach_n Health 50 ostri Care) MCG/AC l} T Acetaminoph Acetam 2.0 active Acetamino phe eCW3 en 500 MG inophe {tabl n 500 mg ([facility] Oral Tablet n 500 et_as [place] Acetaminoph mg _need Health en 500 mg ed} Care) Enalapril Enalap 1.0 active Enalapril e CW3 Maleate 2.5 ril {tabl Maleate 2.5 ([place] MG Oral Maleat et} MG [place] Tablet e 2.5 Health MG Care) Mirtazapine Mirtaz active Mirtazapi ne eCW3 15 MG Oral apine 15 MG ([place] Tablet 15 MG [facility] Care) Enalapril Enalap 1.0 active Enalapril e CW3 Maleate 2.5 ril {tabl Maleate 2.5 ([place] MG Oral Maleat et} MG [place] Tablet e 2.5 Health MG Care) Enalapril Enalap 1.0 active Enalapril e CW3 Maleate 2.5 ril {tabl Maleate 2.5 ([place] MG Oral Maleat et} MG [place] Tablet e 2.5 Health MG Care) Bladder Bladde active Bladder eCW3 Control r Control Pads ([facility] son Pads Ex Contro Ex Absorb - Maria A er Absorb - l Pads Health Ex Care) Absorb - Fluticasone Flutic 2.0 active Fluticaso ne eCW3 Propionate asone {puff Propionate ( [place] 50 MCG/ACT Propio _in_e 50 MCG/ACT [place] tyrese ach_n Health 50 ostri Care) MCG/AC l} T Acetaminoph Acetam 2.0 active Acetamino phe eCW3 en 500 MG inophe {tabl n 500 mg ([facility] d[place] Oral Tablet n 500 et_as [place] Acetaminoph mg _need Health en 500 mg ed} Care) Enalapril UNK 1.0 active Enalapril eCW 3 Maleate 2.5 {tabl Maleate 2.5 ([place] MG et} MG [facility]) Fluticasone Flutic 2.0 active Fluticaso ne eCW3 Propionate asone {puff Propionate ( [place] 50 MCG/ACT Propio _in_e 50 MCG/ACT [place] tyrese ach_n Health 50 ostri Care) MCG/AC l} T NITROFURANT Macrob 1.0 suspend Macrobid 100 eCW3 OIN, id 100 {caps ed mg ([place] MACROCRYSTA mg ule_w [place] LS 25 MG / ith_f Health Nitrofurant ood} Care) oin, Monohydrate 75 MG Oral Capsule [Macrobid] Macrobid 100 mg canaglifloz Invoka active Invokana 100 eCW3 in 100 MG na 100 MG ([place] Oral Tablet MG [place] [Invokana] Health Invokana Care) 100 MG Enalapril Enalap 1.0 active Enalapril e CW3 Maleate 2.5 ril {tabl Maleate 2.5 ([place] MG Oral Maleat et} MG [place] Tablet e 2.5 Health MG Care) Acetaminoph Acetam 2.0 active Acetamino phe eCW3 en 500 MG inophe {tabl n 500 mg ([facility] d[facility] Oral Tablet n 500 et_as [place] Acetaminoph mg _need Health en 500 mg ed} Care) Acetaminoph Acetam 2.0 active Acetamino phe eCW3 en 500 MG inophe {tabl n 500 mg ([facility] Oral Tablet n 500 et_as [place] Acetaminoph mg _need Health en 500 mg ed} Care) Mirtazapine Mirtaz active Mirtazapi ne eCW3 15 MG Oral apine 15 MG ([place] Tablet 15 MG [facility]) NITROFURANT Macrob 1.0 suspend Macrobid 100 eCW3 OIN, id 100 {caps ed mg ([place] MACROCRYSTA mg ule_w [place] LS 25 MG / ith_f Health Nitrofurant ood} Care) oin, Monohydrate 75 MG Oral Capsule [Macrobid] Macrobid 100 mg Bladder Bladde active Bladder eCW3 Control r Control Pads ([facility] son Pads Ex Contro Ex Absorb - Maria A er Absorb - l Pads Health Ex Care) Absorb - Enalapril Enalap 1.0 active Enalapril e CW3 Maleate 2.5 ril {tabl Maleate 2.5 ([place] MG Oral Maleat et} MG [place] Tablet e 2.5 Health MG Care) Fluticasone Flutic 2.0 active Fluticaso ne eCW3 Propionate asone {puff Propionate ( [place] 50 MCG/ACT Propio _in_e 50 MCG/ACT [place] tyrese ach_n Health 50 ostri Care) MCG/AC l} T Enalapril Enalap 1.0 active Enalapril e CW3 Maleate 2.5 ril {tabl Maleate 2.5 ([place] MG Oral Maleat et} MG [place] Tablet e 2.5 Health MG Care) NITROFURANT Macrob 1.0 suspend Macrobid 100 eCW3 OIN, id 100 {caps ed mg ([place] MACROCRYSTA mg ule_w [place] LS 25 MG / ith_f Health Nitrofurant ood} Care) oin, Monohydrate 75 MG Oral Capsule [Macrobid] Macrobid 100 mg Mirtazapine Mirtaz active Mirtazapi ne eCW3 15 MG Oral apine 15 MG ([place] Tablet 15 MG [facility]) Fluticasone Flutic 2.0 active Fluticaso ne eCW3 Propionate asone {puff Propionate ( [place] 50 MCG/ACT Propio _in_e 50 MCG/ACT [facility] Care) MCG/AC l} T Mirtazapine Mirtaz 1.0 active Mirtazapi ne eCW3 15 MG Oral apine {tabl 15 MG ([place] Tablet 15 MG et_at [place] [facility]} Care) Enalapril Enalap 1.0 active Enalapril e CW3 Maleate 2.5 ril {tabl Maleate 2.5 ([place] MG Oral Maleat et} MG [place] Tablet e 2.5 Health MG Care) Fluticasone Flutic 2.0 active Fluticaso ne eCW3 Propionate asone {puff Propionate ( [place] 50 MCG/ACT Propio _in_e 50 MCG/ACT [facility] ostri Care) MCG/AC l} T Fluticasone Flutic 2.0 active Fluticaso ne eCW3 Propionate asone {puff Propionate ( [place] 50 MCG/ACT Propio _in_e 50 MCG/ACT [facility] ostri Care) MCG/AC l} T Fluticasone Flutic 2.0 active Fluticaso ne eCW3 Propionate asone {puff Propionate ( [place] 50 MCG/ACT Propio _in_e 50 MCG/ACT [facility] ostri Care) MCG/AC l} T Mirtazapine Mirtaz 1.0 active Mirtazapi ne eCW3 15 MG Oral apine {tabl 15 MG ([place] Tablet 15 MG et_at [place] [facility]} Care) Enalapril Enalap 1.0 active Enalapril e CW3 Maleate 2.5 ril {tabl Maleate 2.5 ([place] MG Oral Maleat et} MG [place] Tablet e 2.5 Health MG Care) canaglifloz Invoka active Invokana 100 eCW3 in 100 MG na 100 MG ([place] Oral Tablet MG [place] [Invokana] Health Invokana Care) 100 MG Enalapril Enalap 1.0 active Enalapril e CW3 Maleate 2.5 ril {tabl Maleate 2.5 ([place] MG Oral Maleat et} MG [place] Tablet e 2.5 Health MG Care) Acetaminoph Acetam 2.0 active Acetamino phe eCW3 en 500 MG inophe {tabl n 500 mg ([facility] d[facility] Oral Tablet n 500 et_as [place] Acetaminoph mg _need Health en 500 mg ed} Care) Acetaminoph Acetam 2.0 active Acetamino phe eCW3 en 500 MG inophe {tabl n 500 mg ([facility] d[place] Oral Tablet n 500 et_as [place] Acetaminoph mg _need Health en 500 mg ed} Care) Enalapril Enalap 1.0 active Enalapril e CW3 Maleate 2.5 ril {tabl Maleate 2.5 ([place] MG Oral Maleat et} MG [place] Tablet e 2.5 Health MG Care) Fluticasone Flutic 2.0 active Fluticaso ne eCW3 Propionate asone {puff Propionate ( [place] 50 MCG/ACT Propio _in_e 50 MCG/ACT [place] tyrese ach_n Health 50 ostri Care) MCG/AC l} T Bladder Bladde active Bladder eCW3 Control r Control Pads (H[facility] son Pads Ex Contro Ex Absorb - Maria A er Absorb - l Pads Health Ex Care) Absorb - Cyclobenzap cyclob 1 complet Douglas nt rine enzapr ed Carlyn hydrochlori ine 5 Medical de 5 MG mg Center Oral Tablet Tablet cyclobenzap , rine 5 mg Ordere Tablet, d By: Ordered By: Hayley ramos , , MDDirection MDDire s: 1 tablet ctions oral daily : 1 at bedtime tablet oral daily at bedtim e Enalapril Enalap 1.0 active Enalapril e CW3 Maleate 2.5 ril {tabl Maleate 2.5 ([place] MG Oral Maleat et} MG [place] Tablet e 2.5 Health MG Care) canaglifloz Invoka active Invokana 100 eCW3 in 100 MG na 100 MG ([place] Oral Tablet MG [place] [Invokana] Health Invokana Care) 100 MG Enalapril Enalap 1.0 active Enalapril e CW3 Maleate 2.5 ril {tabl Maleate 2.5 ([place] MG Oral Maleat et} MG [place] Tablet e 2.5 Health MG Care) Enalapril Enalap 1.0 active Enalapril e CW3 Maleate 2.5 ril {tabl Maleate 2.5 ([place] MG Oral Maleat et} MG [place] Tablet e 2.5 Health MG Care) canaglifloz Invoka active Invokana 100 eCW3 in 100 MG na 100 MG ([place] Oral Tablet MG [place] [Invokana] Health Invokana Care) 100 MG Acetaminoph Acetam 2.0 active Acetamino phe eCW3 en 500 MG inophe {tabl n 500 mg (Hu dson Oral Tablet n 500 et_as [place] Acetaminoph mg _need Health en 500 mg ed} Care) Bladder Bladde active Bladder eCW3 Control r Control Pads (Hud son Pads Ex Contro Ex Absorb - Maria A er Absorb - l Pads Health Ex Care) Absorb - NITROFURANT Macrob 1.0 suspend Macrobid 100 eCW3 OIN, id 100 {caps ed mg ([place] MACROCRYSTA mg ule_w [place] LS 25 MG / ith_f Health Nitrofurant ood} Care) oin, Monohydrate 75 MG Oral Capsule [Macrobid] Macrobid 100 mg Mirtazapine Mirtaz 1.0 active Mirtazapi ne eCW3 15 MG Oral apine {tabl 15 MG ([place] Tablet 15 MG et_at [place] [facility]} Care) Enalapril Enalap 1.0 active Enalapril e CW3 Maleate 2.5 ril {tabl Maleate 2.5 ([place] MG Oral Maleat et} MG [place] Tablet e 2.5 Health MG Care) Enalapril Enalap 1.0 active Enalapril e CW3 Maleate 2.5 ril {tabl Maleate 2.5 ([place] MG Oral Maleat et} MG [place] Tablet e 2.5 Health MG Care) Bladder Bladde active Bladder eCW3 Control r Control Pads (Hud son Pads Ex Contro Ex Absorb - Maria A er Absorb - l Pads Health Ex Care) Absorb - Bladder Bladde active Bladder eCW3 Control r Control Pads (Hud son Pads Ex Contro Ex Absorb - Maria A er Absorb - l Pads Health Ex Care) Absorb - Acetaminoph Acetam 2.0 active Acetamino phe eCW3 en 500 MG inophe {tabl n 500 mg (Hu d[place] Oral Tablet n 500 et_as [place] Acetaminoph mg _need Health en 500 mg ed} Care) Enalapril Enalap 1.0 active Enalapril e CW3 Maleate 2.5 ril {tabl Maleate 2.5 ([place] MG Oral Maleat et} MG [place] Tablet e 2.5 Health MG Care) NITROFURANT Macrob 1.0 suspend Macrobid 100 eCW3 OIN, id 100 {caps ed mg ([place] MACROCRYSTA mg ule_w [place] LS 25 MG / ith_f Health Nitrofurant ood} Care) oin, Monohydrate 75 MG Oral Capsule [Macrobid] Macrobid 100 mg Fluticasone Flutic 2.0 active Fluticaso ne eCW3 Propionate asone {puff Propionate ( [place] 50 MCG/ACT Propio _in_e 50 MCG/ACT [place] tyrese ach_n Health 50 ostri Care) MCG/AC l} T Bladder Bladde active Bladder eCW3 Control r Control Pads (H[facility] son Pads Ex Contro Ex Absorb - Maria A er Absorb - l Pads Health Ex Care) Absorb - Bladder Bladde active Bladder eCW3 Control r Control Pads (Hud son Pads Ex Contro Ex Absorb - Maria A er Absorb - l Pads Health Ex Care) Absorb - Mirtazapine Mirtaz 1.0 active Mirtazapi ne eCW3 45 MG Oral apine {tabl 45 MG ([place] [facility] Tablet 45 MG et_at [place] _[facility]} Care) Acetaminoph UNK 2.0 active Acetaminoph e eCW3 en 500 mg {tabl n 500 mg ([facility] on et_as [place] _need Health ed} Care) Cyclobenzap drug complet Saint rine 5 mg, or ed Carlyn Ordered By: medica Medica l Hayley tion [place] Slim , MDDirection s: 1 tab oral hs prn Ibuprofen drug complet Saint 600 mg, or ed Carlyn Ordered By: medica Medica l Hayley tion [place] Slim , MDDirection s: 1 tab oral 2x/day Insurance Providers Payer name Policy Policy ID Covered Covered Policy Plan Info rmation type / alliance party ID alliance party's Farfan Coverage relationship type to farfan MEDICAID OF [id number] [facility] [id number] HEALTHCARE COMMUNITY [place] [id number] PART B [facility] [id number] CLAIMS MEDICAID [id number] [facility] [id number] SP [id number] COMPLETE RYAN [id number] SP [id number] MEDICARE ADV PLAN RYAN [id number] SP [id number] MEDICARE ADV PLAN W [id number] [facility] [id number] 01 [id number] HEALTHCARE MCARE OPD Medicaid [id number] Regular Clinic Visit 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 020 [facility] ([address] myelopathy or MYELOPATHY OR 12:00:00 AM [facility] radiculopathy, RADICULOPATHY, [facility], [facility]) lumbosacral region LUMBOSACRAL REGION M54.16 Radiculopathy, RADICULOPATHY, Problem 01/06/[address] [facility] ([address] lumbar region LUMBAR REGION 12:00:00 AM [facility]) M54.5 Low back pain LOW BACK PAIN Problem 01/06/2020 [facility] ( St 12:00:00 AM [facility], ) M54.16 Radiculopathy, RADICULOPATHY, Problem 01/06/2020 [facility] ([address] lumbar region LUMBAR REGION 12:00:00 AM [facility]) M54.5 Low back pain LOW BACK PAIN Problem 01/06/2020 [facility] ( St 12:00:00 AM [facility]) J30.2 Seasonal allergic Seasonal allergic Problem 10/23/2019 eCW3 ([place] rhinitis, rhinitis, 12:00:00 AM [facility] unspecified trigger unspecified trigger EDT Care) M75.122 Nontraumatic Nontraumatic Problem 05/22/2019 eCW3 ([facility] complete tear of complete tear of 12:00:00 AM [employer] [facility] left rotator cuff left rotator cuff EST Care) M75.122 Nontraumatic Nontraumatic Problem 05/22/2019 eCW3 ([facility] complete tear of complete tear of 12:00:00 AM [facility] left rotator cuff left rotator cuff EST Care) K29.70 Gastritis, presence Gastritis, presence Problem 019 eCW3 ([place] of bleeding of bleeding 12:00:00 AM [facility] unspecified, unspecified, EST Care) unspecified unspecified chronicity, chronicity, unspecified unspecified gastritis type gastritis type K29.70 Gastritis, presence Gastritis, presence Problem 019 eCW3 ([place] of bleeding of bleeding 12:00:00 AM [facility] unspecified, unspecified, EST Care) unspecified unspecified chronicity, chronicity, unspecified unspecified gastritis type gastritis type K29.70 Gastritis, presence Gastritis, presence Problem 019 eCW3 ([place] of bleeding of bleeding 12:00:00 AM [facility] unspecified, unspecified, EST Care) unspecified unspecified chronicity, chronicity, unspecified unspecified gastritis type gastritis type K29.50 Chronic gastritis Chronic gastritis Problem 02/13/2019 eCW3 ([place] without bleeding, without bleeding, 12:00:00 AM [facility] unspecified unspecified EDT Care) gastritis type gastritis type K29.50 Chronic gastritis Chronic gastritis Problem 02/13/2019 eCW3 ([place] without bleeding, without bleeding, 12:00:00 AM [facility] unspecified unspecified EDT Care) gastritis type gastritis type N39.41 Urge incontinence Urge incontinence Problem 12/05/2018 eCW3 ([place] 12:00:00 AM [facility] EDT Care) N39.3 Stress incontinence Stress incontinence Problem 019 eCW3 ([place] 12:00:00 AM [facility] EDT Care) N39.46 Urge and stress Urge and stress Problem 12/05/2018 eCW3 ([place] incontinence incontinence 12:00:00 AM [facility] EDT Care) N39.46 Urge and stress Urge and stress Problem 12/05/2018 eCW3 ([place] incontinence incontinence 12:00:00 AM [facility] EDT Care) N39.41 Urge incontinence Urge incontinence Problem 12/05/2018 eCW3 ([place] 12:00:00 AM [facility] EDT Care) N39.41 Urge incontinence Urge incontinence Problem 12/05/2018 eCW3 ([place] 12:00:00 AM [facility] EDT Care) N39.3 Stress incontinence Stress incontinence Problem 019 eCW3 ([place] 12:00:00 AM [facility] EDT Care) E04.1 Thyroid nodule Thyroid nodule Problem 10/21/2018 eCW3 ( [place] 12:00:00 AM [facility] EDT Care) E04.1 Thyroid nodule Thyroid nodule Problem 10/21/2018 eCW3 ( [place] 12:00:00 AM [facility] EDT Care) F41.1 Generalized anxiety Generalized anxiety Problem 04/04/2 019 eCW3 ([place] disorder disorder 12:00:00 AM [facility] EDT Care) F41.1 Generalized anxiety Generalized anxiety Problem 04/04/2 019 eCW3 ([place] disorder disorder 12:00:00 AM [facility] EDT Care) F41.1 Generalized anxiety Generalized anxiety Problem 04/2 019 eCW3 ([place] disorder disorder 12:00:00 AM [facility] EDT Care) F41.1 Generalized anxiety Generalized anxiety Problem 0404/2 019 eCW3 ([place] disorder disorder 12:00:00 AM [facility] EDT Care) F41.1 Generalized anxiety Generalized anxiety Problem 0404/2 019 eCW3 ([place] disorder disorder 12:00:00 AM [facility] EDT Care) G56.03 Carpal tunnel Carpal tunnel Problem 08/02/2018 eCW3 ([facility] dson syndrome, bilateral syndrome, bilateral 12:00:0 0 AM [facility] EDT Care) M54.42 Bilateral low back Bilateral low back Problem 9 eCW3 ([place] pain with left-sided pain with left-sided 12:00 :00 AM [facility] sciatica, sciatica, EDT Care) unspecified unspecified chronicity chronicity M54.42 Bilateral low back Bilateral low back Problem 9 eCW3 ([place] pain with left-sided pain with left-sided 12:00 :00 AM [facility] sciatica, sciatica, EDT Care) unspecified unspecified chronicity chronicity G56.03 Carpal tunnel Carpal tunnel Problem 08/02/2018 eCW3 ([facility]son syndrome, bilateral syndrome, bilateral 12:00:0 0 AM [facility] EDT Care) M54.42 Bilateral low back Bilateral low back Problem 9 eCW3 ([place] pain with left-sided pain with left-sided 12:00 :00 AM [facility] sciatica, sciatica, EDT Care) unspecified unspecified chronicity chronicity M54.42 Bilateral low back Bilateral low back Problem 9 eCW3 ([place] pain with left-sided pain with left-sided 12:00 :00 AM [facility] sciatica, sciatica, EDT Care) unspecified unspecified chronicity chronicity G56.03 Carpal tunnel Carpal tunnel Problem 08/02/2018 eCW3 (Hu dson syndrome, bilateral syndrome, bilateral 12:00:0 0 AM [facility] EDT Care) M54.42 Bilateral low back Bilateral low back Problem 9 eCW3 ([place] pain with left-sided pain with left-sided 12:00 :00 AM [facility] sciatica, sciatica, EDT Care) unspecified unspecified chronicity chronicity K21.9 Gastroesophageal Gastroesophageal Problem 06/17/2018 eC W3 ([place] reflux disease reflux disease 12:00:00 AM [facility] without esophagitis without esophagitis EST Care) K21.9 Gastroesophageal Gastroesophageal Problem 06/17/2018 eC W3 ([place] reflux disease reflux disease 12:00:00 AM [facility] without esophagitis without esophagitis EST Care) K21.9 Gastroesophageal Gastroesophageal Problem 06/17/2018 eC W3 ([place] reflux disease reflux disease 12:00:00 AM [facility] without esophagitis without esophagitis EST Care) K21.9 Gastroesophageal Gastroesophageal Problem 06/17/2018 eC W3 ([place] reflux disease reflux disease 12:00:00 AM [facility] without esophagitis without esophagitis EST Care) K21.9 Gastroesophageal Gastroesophageal Problem 06/17/2018 eC W3 ([place] reflux disease reflux disease 12:00:00 AM [facility] without esophagitis without esophagitis EST Care) K21.9 Gastroesophageal Gastroesophageal Problem 06/17/2018 eC W3 ([place] reflux disease reflux disease 12:00:00 AM [facility] without esophagitis without esophagitis EST Care) H52.4 Presbyopia of both Presbyopia of both Problem 9 eCW3 ([place] eyes eyes 12:00:00 AM [facility] EST Care) H25.13 Nuclear age-related Nuclear age-related Problem 019 eCW3 ([place] cataract, both eyes cataract, both eyes 12:00:0 0 AM [facility] EST Care) H35.033 Hypertensive Hypertensive Problem 06/02/2018 eCW3 ([facility] retinopathy of both retinopathy of both 12:00:0 0 AM [facility] eyes eyes EST Care) H25.13 Nuclear age-related Nuclear age-related Problem 019 eCW3 ([place] cataract, both eyes cataract, both eyes 12:00:0 0 AM [facility] EST Care) H52.4 Presbyopia of both Presbyopia of both Problem 9 eCW3 ([place] eyes eyes 12:00:00 AM [facility] EST Care) H35.033 Hypertensive Hypertensive Problem 06/02/2018 eCW3 ([facility] retinopathy of both retinopathy of both 12:00:0 0 AM [facility] eyes eyes EST Care) H25.13 Nuclear age-related Nuclear age-related Problem 019 eCW3 ([place] cataract, both eyes cataract, both eyes 12:00:0 0 AM [facility] EST Care) H52.4 Presbyopia of both Presbyopia of both Problem 9 eCW3 ([place] eyes eyes 12:00:00 AM [facility] EST Care) H35.033 Hypertensive Hypertensive Problem 06/02/2018 eCW3 ([facility] retinopathy of both retinopathy of both 12:00:0 0 AM [facility] eyes eyes EST Care) H52.4 Presbyopia of both Presbyopia of both Problem 9 eCW3 ([place] eyes eyes 12:00:00 AM [facility] EST Care) H25.13 Nuclear age-related Nuclear age-related Problem 019 eCW3 ([place] cataract, both eyes cataract, both eyes 12:00:0 0 AM [facility] EST Care) H35.033 Hypertensive Hypertensive Problem 06/02/2018 eCW3 ([facility] retinopathy of both retinopathy of both 12:00:0 0 AM [facility] eyes eyes EST Care) H25.13 Nuclear age-related Nuclear age-related Problem 019 eCW3 ([place]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 includes the [facility]) Body weight 140.4 140.4 [lb_av] eCW3 ([facility] on [lb_av] [facility]) Body height 60.5 [in_i] 60.5 [in_i] eCW3 ([facility]) Diastolic blood 61 mm[Hg] 61 mm[Hg] eCW3 ([facility]) Systolic blood 97 mm[Hg] 97 mm[Hg] eCW3 ([facility]) Body temperature 98.1 [degF] 98.1 [degF] eCW3 ( [facility]) Heart rate 20 /min 20 /min eCW3 ([facility]) Body mass index 25.74 kg/m2 25.74 kg/m2 eCW3 ([facility] (BMI) [Ratio] Count includes the [facility]) Body weight 134 [lb_av] 134 [lb_av] eCW3 ([facility]) Body height 60.5 [in_i] 60.5 [in_i] eCW3 ([facility]) Diastolic blood 69 mm[Hg] 69 mm[Hg] eCW3 ([facility]) Systolic blood 125 mm[Hg] 125 mm[Hg] eCW3 ([facility] on [facility]) Body temperature 98.1 [degF] 98.1 [degF] eCW3 ( [facility]) Heart rate 20 /min 20 /min eCW3 ([facility]) Body mass index 27.85 kg/m2 27.85 kg/m2 eCW3 ([facility] (BMI) [Ratio] Count includes the [facility]) Body weight 145 [lb_av] 145 [lb_av] eCW3 ([facility]) Body height 60.5 [in_i] 60.5 [in_i] eCW3 ([facility]) Diastolic blood 77 mm[Hg] 77 mm[Hg] eCW3 ([facility]) Systolic blood 125 mm[Hg] 125 mm[Hg] eCW3 ([facility]) Body temperature 98.0 [degF] 98.0 [degF] eCW3 ( [facility]) Heart rate 18 /min 18 /min eCW3 ([facility]) Body mass index 28.23 kg/m2 28.23 kg/m2 eCW3 ([facility] (BMI) [Ratio] Count includes the [facility]) Body weight 147 [lb_av] 147 [lb_av] eCW3 ([facility]) Body height 60.5 [in_i] 60.5 [in_i] eCW3 ([facility]) Body mass index 28.23 kg/m2 28.23 kg/m2 eCW3 ([facility] (BMI) [Ratio] Count includes the [facility]) Body weight 147 [lb_av] 147 [lb_av] eCW3 ([facility]) Body height 60.5 [in_i] 60.5 [in_i] eCW3 ([facility]) Diastolic blood 71 mm[Hg] 71 mm[Hg] eCW3 ([facility]) Systolic blood 130 mm[Hg] 130 mm[Hg] eCW3 ([facility]) Body temperature 97.6 [degF] 97.6 [degF] eCW3 ( [facility]) Heart rate 20 /min 20 /min eCW3 ([facility]) Body mass index 27.07 kg/m2 27.07 kg/m2 eCW3 ([facility] (BMI) [Ratio] Count includes the [facility]) Body weight 148 [lb_av] 148 [lb_av] eCW3 ([facility]) Body height 62 [in_i] 62 [in_i] eCW3 ([facility]) Body height 157.48 cm 157.48 cm [facility] [place]) Body weight 65.771 kg 65.771 kg NEXTGEN ([facility] [place]) Systolic blood 122 mm[Hg] 122 mm[Hg] NEXTGEN ([facility] [place]) Diastolic blood 78 mm[Hg] 78 mm[Hg] NEXTGEN ( [facility] pressure [facility] [place]) Heart rate 85 /min 85 /min [facility] [place] Body temperature 36.33 Lucille 36.33 Lucille [facility]) Respiratory rate 18 /min 18 /min [facility] ([facility]) Body mass index 26.52 kg/m2 Overweight 26.52 kg/m2 [facility] ([facility] (BMI) [Ratio] [facility]) Oxygen saturation 100 % 100 % [facility] in Arterial blood [facility] by Pulse oximetry Center) Diastolic blood 75 mm[Hg] 75 mm[Hg] eCW3 ([facility]) Systolic blood 125 mm[Hg] 125 mm[Hg] eCW3 ([facility]) Body temperature 98.0 [degF] 98.0 [degF] eCW3 ( [facility]) Heart rate 20 /min 20 /min eCW3 ([facility]) Body mass index 27.07 kg/m2 27.07 kg/m2 eCW3 [facility] [Ratio] Count includes the [facility]) Body weight 148 [lb_av] 148 [lb_av] eCW3 ([facility]) Body height 62 [in_i] 62 [in_i] eCW3 ([facility]) Body height 160.02 cm 160.02 cm NEXTGEN ([facility] Body weight 64.864 kg 64.864 kg NEXTGEN ([facility]) Systolic blood 131 mm[Hg] 131 mm[Hg] NEXTGEN ([facility] [place]) Diastolic blood 87 mm[Hg] 87 mm[Hg] NEXTGEN ( [facility] [place]) Heart rate 94 /min 94 /min [facility] ([facility]) Body temperature 36.83 Lucille 36.83 Lucille [facility]) Respiratory rate 18 /min 18 /min [facility] ([facility]) Body mass index 25.33 kg/m2 Overweight 25.33 kg/m2 NEXTGEN ([facility] (BMI) [Ratio] [facility]) Body mass index 26.52 kg/m2 26.52 kg/m2 eCW3 ([facility] (BMI) [Ratio] Count includes the [facility]) Body weight 145 [lb_av] 145 [lb_av] eCW3 ([facility]) Body height 62 [in_i] 62 [in_i] eCW3 ([facility]) Diastolic blood 72 mm[Hg] 72 mm[Hg] eCW3 ([facility]) Systolic blood 107 mm[Hg] 107 mm[Hg] eCW3 ([facility]) Body temperature 98.4 [degF] 98.4 [degF] eCW3 ( [facility]) Heart rate 20 /min 20 /min eCW3 ([facility]) Body mass index 26.52 kg/m2 26.52 kg/m2 eCW3 ([facility] (BMI) [Ratio] Count includes the [facility]) Body weight 145 [lb_av] 145 [lb_av] eCW3 ([facility]) Body height 62 [in_i] 62 [in_i] eCW3 ([facility]) Diastolic blood 81 mm[Hg] 81 mm[Hg] eCW3 ([facility]) Systolic blood 149 mm[Hg] 149 mm[Hg] eCW3 ([facility]) Body temperature 98.6 [degF] 98.6 [degF] eCW3 ( [facility]) Heart rate 20 /min 20 /min eCW3 ([facility]) Body mass index 26.70 kg/m2 26.70 kg/m2 eCW3 ([facility] (BMI) [Ratio] Count includes the [facility]) Body weight 146 [lb_av] 146 [lb_av] eCW3 ([facility]) Body height 62 [in_i] 62 [in_i] eCW3 ([facility]) Patient Treatment Plan of Care Planned Activity Planned Date Details Description Data Source (s) Blood Glucose Monitor 11/20/2019 eCW3 ( [facility] w/Device 12:00:00 AM EDT Health Ca re) Blood Glucose Monitor 11/20/2019 eCW3 ( [facility] w/Device 12:00:00 AM EDT Health Ca re) Blood Glucose Monitor 11/20/2019 eCW3 ( [facility] w/Device 12:00:00 AM EDT Health Pa re) Diclofenac Sodium 0.01 10/14/2019 eCW3 ([place] MG/MG Topical Gel 12:00:00 AM [facility]) Diclofenac Sodium 0.01 10/14/2019 eCW3 ([place] MG/MG Topical Gel 12:00:00 AM [facility] Health [facility]) Hydroxyzine Hydrochloride 10/14/2019 eC W3 ([place] 25 MG Oral Tablet 12:00:00 AM [facility]) Hydroxyzine Hydrochloride 10/14/2019 eC W3 ([place] 25 MG Oral Tablet 12:00:00 AM [facility]) Heating Pad - 09/22/2019 eCW3 ([facility] 12:00:00 AM [facility]) Heating Pad - 09/22/2019 eCW3 ([facility] 12:00:00 AM [facility] Care) Heating Pad - 09/22/2019 eCW3 ([facility] 12:00:00 AM [facility] Care) Heating Pad - 09/22/2019 eCW3 ([facility] 12:00:00 AM ED Health Care) Heating Pad - 09/22/2019 eCW3 ([facility] 12:00:00 AM [facility]) Heating Pad - 09/22/2019 eCW3 ([facility] 12:00:00 AM [facility]) Heating Pad - 09/22/2019 eCW3 ([facility] 12:00:00 AM [facility]) Sertraline 50 MG Oral 08/25/2019 eCW3 ( [place] Tablet 12:00:00 AM [facility]) Sertraline 50 MG Oral 08/25/2019 eCW3 ( [place] Tablet 12:00:00 AM [facility]) Sertraline 50 MG Oral 08/25/2019 eCW3 ( [place] Tablet 12:00:00 AM [facility]) Sertraline 50 MG Oral 08/25/2019 eCW3 ( [place] Tablet 12:00:00 AM [facility]) Sertraline 50 MG Oral 08/25/2019 eCW3 ( [place] Tablet 12:00:00 AM [facility]) Sertraline 50 MG Oral 08/25/2019 eCW3 ( [place] Tablet 12:00:00 AM [facility]) Sertraline 50 MG Oral 08/25/2019 eCW3 ( [place] Tablet 12:00:00 AM [facility]) Sertraline 50 MG Oral 08/25/2019 eCW3 ( [place] Tablet 12:00:00 AM [facility]) Sertraline 50 MG Oral 08/25/2019 eCW3 ( [place] Tablet 12:00:00 AM [facility]) Sertraline 50 MG Oral 08/25/2019 eCW3 ( [place] Tablet 12:00:00 AM [facility]) Sertraline 50 MG Oral 08/25/2019 eCW3 ( [place] Tablet 12:00:00 AM [facility]) Sertraline 50 MG Oral 08/25/2019 eCW3 ( [place] Tablet 12:00:00 AM [facility]) Sertraline 50 MG Oral 08/25/2019 eCW3 ( [place] Tablet 12:00:00 AM [facility]) Ketoconazole 20 MG/ML 08/06/2019 eCW3 ( [place] Medicated Shampoo 12:00:00 AM [facility]) pantoprazole 40 MG Delayed 07/21/2019 e CW3 ([place] Release Oral Tablet 12:00:00 AM [facility]) pantoprazole 40 MG Delayed 07/21/2019 e CW3 ([place] Release Oral Tablet 12:00:00 AM [facility]) Omeprazole 40 MG Delayed 02/13/2019 eCW 3 ([place] Release Oral Capsule 12:00:00 AM [facility]) Omeprazole 40 MG Delayed 02/13/2019 eCW 3 ([place] Release Oral Capsule 12:00:00 AM [facility]) Omeprazole 40 MG Delayed 02/13/2019 eCW 3 ([place] Release Oral Capsule 12:00:00 AM [facility]) Senna 8.6 MG 02/13/2019 eCW3 ([facility] [place] [facility] 12:00:00 AM [facility]) Omeprazole 40 MG Delayed 02/13/2019 eCW 3 ([place] Release Oral Capsule 12:00:00 AM [facility]) Senna 8.6 MG 02/13/2019 eCW3 ([place] [place] [facility] 12:00:00 AM [facility]) Senna 8.6 MG 02/13/2019 eCW3 ([facility] 12:00:00 AM [facility]) Senna 8.6 MG 02/13/2019 eCW3 ([facility] 12:00:00 AM [facility]) Senna 8.6 MG 02/13/2019 eCW3 ([facility] 12:00:00 AM [facility]) Senna 8.6 MG 02/13/2019 eCW3 ([facility] 12:00:00 AM [facility]) Senna 8.6 MG 02/13/2019 eCW3 ([facility] 12:00:00 AM [facility]) Acetaminophen 500 MG Oral 02/13/2019 eC W3 ([place] Tablet 12:00:00 AM [facility]) Omeprazole 40 MG Delayed 02/13/2019 eCW 3 ([place] Release Oral Capsule 12:00:00 AM [facility]) Mirtazapine 7.5 MG Oral 08/19/2018 eCW3 ([place] Tablet 12:00:00 AM [facility]) Blood Glucose Test - 05/10/2018 eCW3 ([facility] 12:00:00 AM [facility]) Lac-Hydrin 12 % 05/22/2017 eCW3 ([place] 12:00:00 AM [facility]) Zenpep [id number] UNIT 05/22/2017 eCW3 ([place] 12:00:00 AM [facility]) VICTOZA 1.2 MG 02/13/2017 eCW3 ([place] 12:00:00 AM [facility]) VICTOZA 1.2 MG 02/13/2017 eCW3 ([place] 12:00:00 AM [facility]) VICTOZA 1.2 MG 02/13/2017 eCW3 ([place] 12:00:00 AM [facility]) VICTOZA 1.2 MG 02/13/2017 eCW3 ([place] 12:00:00 AM [facility]) VICTOZA 1.2 MG 02/13/2017 eCW3 ([place] 12:00:00 AM [facility]) Metformin hydrochloride 02/13/2017 eCW3 ([place] 1000 MG Oral Tablet 12:00:00 AM [facility]) VICTOZA 1.2 MG 02/13/2017 eCW3 ([place] 12:00:00 AM [facility]) VICTOZA 1.2 MG 02/13/2017 eCW3 ([facility] 12:00:00 AM [facility]) 3 ML Insulin Glargine 100 12/07/2016 eC W3 ([facility] UNT/ML Pen Injector 12:00:00 AM [facility]) [Lantus] Glipizide 5 MG Oral Tablet 06/16/2016 e CW3 ([facility] 12:00:00 AM [facility]) Glipizide 10 MG Oral Tablet 06/16/2016 eCW3 ([facility] 12:00:00 AM [facility]) Glipizide 5 MG Oral Tablet 06/16/2016 e CW3 ([facility] 12:00:00 AM [facility]) Aspirin 81 MG Delayed 04/18/2016 eCW3 ( [facility] Release Oral Tablet 12:00:00 AM [facility]) Diclofenac Sodium 0.01 02/29/2016 eCW3 ([facility] MG/MG Topical Gel 12:00:00 AM [facility]) [Voltaren] Flonase Allergy Relief 50 09/01/2015 eC W3 ([place] MCG/ACT 12:00:00 AM [facility]) Flonase Allergy Relief 50 09/01/2015 eC W3 ([facility] MCG/ACT 12:00:00 AM [facility]) Loratadine 10 MG Oral 09/01/2015 eCW3 ( [place] Tablet [Claritin] 12:00:00 AM [facility]) FreeStyle Lite Test 07/08/2015 eCW3 ([facility] freestyle lite 12:00:00 AM EST Health Car e) FreeStyle Lite Test 07/08/2015 eCW3 ([facility] freestyle lite 12:00:00 AM EST Health Car e) FreeStyle Lite Test 07/08/2015 eCW3 ([facility] freestyle lite 12:00:00 AM EST Health Car e) Alcohol Pads 70 % 07/08/2015 eCW3 ([facility] 12:00:00 AM [facility] Health Care) Diclofenac Sodium 0.01 07/05/2015 eCW3 ([facility] MG/MG Topical Gel 12:00:00 AM [facility]) [Voltaren] Multivitamin 1 09/02/2014 eCW3 ([facility] 12:00:00 AM [facility]) Fluticasone Propionate 50 eC W3 ([facility]) Mirtazapine 15 MG Oral eCW3 ([facility]) Fluticasone Propionate 50 eC W3 ([facility]) Mirtazapine 15 MG Oral eCW3 ([facility]) Fluticasone Propionate 50 eC W3 ([facility]) Mirtazapine 15 MG Oral eCW3 ([facility]) Mirtazapine 15 MG Oral eCW3 ([facility]) Fluticasone Propionate 50 eC W3 ([facility]) Mirtazapine 15 MG Oral eCW3 ([facility]) Mirtazapine 15 MG Oral eCW3 ([facility]) Mirtazapine 15 MG Oral eCW3 ([facility]) Acetaminophen 500 MG Oral eC W3 ([facility]) Enalapril Maleate 2.5 MG eCW 3 ([facility]) Ibuprofen 600 mg, Ordered [facility] By: Hayley Almeida, [facility] MDDirections: 1 tab oral 2x/day Cyclobenzaprine 5 mg, [facility] Ordered By: Hayley Watts C enter Slim, MDDirections: 1 tab oral hs prn Mirtazapine 15 MG [facility]CW[facility] 15 MG Oral eCW3 ([facility]) Mirtazapine 30 MG Oral eCW3 ([facility]) diclofenac sodium 1 % Gel [facility] 8 HR Acetaminophen 650 MG [facility] [Tylenol] Ibuprofen 400 MG Oral [facility] 3 ML liraglutide 6 MG/ML [facility] Pen Injector [Victoza] Medic al [place] Ranitidine 150 MG Oral [facility] pantoprazole 40 MG Delayed [facility] Release Oral [facility] Omeprazole 40 MG Delayed [facility] Release Oral Capsule [facility] olopatadine 1 MG/ML [facility] Ophthalmic Solution [facility] Lidocaine [facility]chloride [facility]ML Mucous Membrane [facility] Topical Solution 3 ML Insulin Glargine 100 [facility] UNT/ML Pen Injector Medical [place] [Lantus] Glipizide 10 MG Oral Tablet [facility] gabapentin 300 MG Oral [facility] Famotidine 40 MG Oral [facility] Mirtazapine 30 MG Oral eCW3 ([facility]) Cyclobenzaprine [facility] hydrochloride 5 MG Oral [facility] Tablet Mirtazapine 45 MG Oral eCW3 ([facility])
[2020-01-29 11:12] VITALS: BMI 26.5
--- OUTSIDE RECORDS SUMMARY | 2020-01-30 05:36 | XMS ---
:1955 Author Organization [facility] Care Team Providers Name Role Phone SURENDRAWUBA, II Unavailable Unavailable Eduardo Shailesh Unavailable Erosa Shailesh Unavailable ED STAFF PHYSICIAN, STAFF Unavailable Unavailable ANNA KERN Unavailable Unavailable Gwen Sánchez Unavailable [phone] Catrachito Sánchez Unavailable [phone] Catrachito Sánchez Unavailable [phone] ED STAFF PHYSICIAN Unavailable Unavailable RAHUL GO MD Unavailable Unavailable PRINCESS Winston Unavailable Unavailable SLIM HARDY Unavailable Unavailable GERRY Hill Unavailable Unavailable Re-disclosure [...] is protected by Article 27-F of the [facility] Public Health law. If you continue you may haveaccess to information: Regarding HIV / AIDS; Provided by facilities licensed or operated by the [facility] Office of Mental Health; or Provided by the [facility] Office for People With Developmental Disabilities. If such information is present, then the following [facility] mandated warning applies: This information has been [...] law may result in a fine or shelter sentence or both. A general authorization for the release of medical or other information is NOT sufficient authorization for further disclosure. Allergies and Adverse Reactions Type Description Substance Reaction Status Data Source(s ) No Known Allergies No Known Allergies No Known eCW3 ([facility]) No Known Allergies No Known Allergies No Known eCW3 ([facility]) No Known Allergies No Known Allergies No Known eCW3 ([facility]) No Known Allergies No Known Allergies No Known eCW3 ([facility]) No Known Allergies No Known Allergies No Known eCW3 ([facility]) No Known Allergies No Known Allergies No Known eCW3 ([facility]) No Known Allergies No Known Allergies No Known eCW3 ([facility]) No Known Allergies No Known Allergies No Known eCW3 ([facility]) No Known Allergies No Known Allergies No Known eCW3 ([facility]) No Known Allergies No Known Allergies No Known eCW3 ([facility]) No Known Allergies No Known Allergies No Known eCW3 ([facility]) No Known Allergies No Known Allergies No Known eCW3 ([facility]) No Known Allergies No Known Allergies No Known eCW3 ([facility]) No Known Allergies No Known Allergies No Known eCW3 ([facility]) No Known Allergies No Known Allergies No Known eCW3 ([facility]) No Known Allergies No Known Allergies No Known eCW3 ([facility]) No Known Allergies No Known Allergies No Known eCW3 ([facility]) No Known Allergies No Known Allergies No Known eCW3 ([facility]) No Known Allergies No Known Allergies No Known eCW3 ([facility]) No Known Allergies No Known Allergies No Known eCW3 ([facility]) No Known Allergies No Known Allergies No Known eCW3 ([facility]) No Known Allergies No Known Allergies No Known eCW3 ([facility]) No Known Allergies No Known Allergies No Known eCW3 ([facility]) No Known Allergies No Known Allergies No Known eCW3 ([facility]) No Known Allergies No Known Allergies No Known eCW3 ([facility]) No Known Allergies No Known Allergies No Known eCW3 ([facility]) No Known Allergies No Known Allergies No Known eCW3 ([facility]) No Known Allergies No Known Allergies No Known eCW3 ([facility]) No Known Allergies No Known Allergies No Known eCW3 ([facility]) No Known Allergies No Known Allergies No Known eCW3 ([facility]) No Known Allergies No Known Allergies No Known eCW3 ([facility]) Propensity to Propensity to Propensity to NEXT EN ([facility] adverse reactions adverse reactions adverse reactions [facility] (disorder) (disorder) (disorder) [place]) No Known Allergies No Known Allergies No Known eCW3 ([facility]) No Known Allergies No Known Allergies No Known eCW3 ([facility]) No Known Allergies No Known Allergies No known eCW3 ([facility] (situation) [facility]) No Known Allergies No Known Allergies No known eCW3 ([facility] (situation) [facility]) No Known Allergies No Known Allergies No known eCW3 ([facility] (situation) Care) No Known Allergies No Known Allergies No known eCW3 ([facility] (situation) [facility]) Encounters Encounter Providers Location Date Indications Data Source(s ) Attender: Shailesh 01/20/2020 [facility] [place] 12:00:00 AM [facility]) Office Attender: [facility] Attender: Shailesh Obeyanna 01/06/2020 12:00:00 AM ED [facility] ([facility]) Office Outpatient Attender: SHAY AGOSTOWUBAAdmitter: H 10/14/2019 01:22:0 0 PM [facility] Carlyn SHAY AGOSTOWUBAReferrer: SHAY MARTINEZ [facility] Outpatient Attender: HAYLEY BISHOPDTRAVIS H 06/17/2019 09:03:0 0 AM [facility] DANUTAAdmitter: HAYLEY EST [facility] PRZECHODZKA DANUTAReferrer: JAME Hill Outpatient Attender: HAYLEY PRZECHODZDIEGO H 06/10/2019 10:03:0 0 AM [facility] DANUTAAdmitter: HAYLEY EST [facility] PRZECHODZKA TIMURUTAReferrer: JAME Hill Outpatient Attender: HAYLEY PRZECHODZDIEGO H 06/03/2019 08:37:0 0 AM [facility] DANUTAAdmitter: HAYLEY EST [facility] PRZECHODZKA DANUTAReferrer: JAME Hill Outpatient Attender: HAYLEY PRZECHODZKA H 05/23/2019 10:18:0 0 AM [facility] DANUTAAdmitter: HAYLEY EST [facility] PRZECHODZKA TIMURUTAReferrer: JAME Hill Outpatient Attender: HAYLEY PRZECHODZKA H 05/20/2019 08:21:0 0 AM [facility] DANUTAAdmitter: HAYLEY EST [facility]ical [facility] PRZECHODZKA DANUTAReferrer: JAME Hill Outpatient Attender: HAYLEY PRZECHODZDIEGO H 05/13/2019 08:39:0 0 AM [facility] DANUTAAdmitter: HAYLEY EST [facility] PRZECHODZKA DANUTAReferrer: ABBI GO MD Outpatient Attender: HAYLEY PRZECHODZKA 05/01/2019 08:37:0 0 AM [facility] DANUTAAdmitter: HAYLEY EST [facility]ical Center PRZECHODZKA DANUTAReferrer: JAME Hill Outpatient Attender: HAYLEY PRZECHODZDIEGO 04/17/2019 08:53:0 0 AM [facility] DANUTAAdmitter: HAYLEY EST Me dical Center PRZECHODZKA DANUTAReferrer: JAME Hill Outpatient Attender: HAYLEY PRZECHODZKA 04/07/2019 10:20:0 0 AM [facility] DANUTAAdmitter: HAYLEY EST Me dical Center PRZECHODZKA DANUTAReferrer: JAME Hill Emergency Attender: [facility] ED STAFF H 04/01/2019 04:07:00 PM [facility] PHYSICIANAttender: STAFF ED EST - 04/01/2019 Medical Center STAFF PHYSICIANAdmitter: 08:16:00 PM EST KAMALJIT ED STAFF PHYSICIAN Patient discharged. Outpatient Attender: ANNA 03/21/2019 [facility] NEGHASSIAdmitter: ANNA 08:24:00 AM EST [facility] Attender: HAYLEY H 03/20/2019 [facility] PRZECHODTRAVIS 08:24:00 AM EST Medical DANUTAAdmitter: HAYLEY Ce nter PRZECHODZDIEGO DANUTAReferrer: JAME Hill Outpatient Attender: HAYLEY H 03/13/2019 [facility] PRZECHODTRAVIS 12:29:00 PM EST Medical DANUTAAdmitter: HAYLEY Ce nter PRZECHODZKA DANUTAReferrer: JAME Hill A28-Est Therapy, [place] 03/04/2019 eCW3 ([facility] d[place] 45-60 minutes Primary Care 12:00:00 AM EDT [facility] A28 - 03/04/2019 Care) 12:00:00 AM EDT Outpatient Attender: HAYLEY 03/03/2019 [facility] PRZECHODTRAVIS 08:26:00 AM EDT Medical DANUTAAdmitter: HAYLEY Ce nter PRZECHODZKA HAYLEY Outpatient Attender: HAYLEY 02/20/2019 [facility] SLIM 08:22:00 AM EDT Medical DANUTAAdmitter: HAYLEY Ce nter PRZECHODZKA HAYLEY Outpatient [place] 02/13/2019 eCW3 ([place] [facility] 12:00:00 AM EDT [facility] 02/13/2019 Care) 12:00:00 AM EDT Subsequent [place] 02/11/2019 eCW3 ([facility] Primary Care 12:00:00 AM EDT [facility] 02/11/2019 Care) 12:00:00 AM EDT Outpatient Attender: HAYLEY 02/10/2019 [facility] SLIM 09:10:00 AM EDT Medical DANUTAAdmitter: HAYLEY Ce nter PRZECHODTRAVIS DANUTAReferrer: JAME DELGADOOD P A28-Est Therapy, [place] 02/04/2019 eCW3 (Hu dson 45-60 minutes Primary Care 12:00:00 AM EDT [place] [id number]/04/2019 Care) 12:00:00 AM EDT Outpatient Attender: HAYLEY 02/03/2019 [facility] SLIM 08:59:00 AM EDT Medical DANUTAAdmitter: HAYLEY Ce nter PRZECHODZKA HAYLEY Outpatient Attender: HAYLEY H 01/23/2019 [facility] SLIM 08:55:00 AM EDT Medical DANUTAAdmitter: HAYLEY Ce nter PRZECHODZKA DANUTAReferrer: JAME DELGADOOD P A28-Est Therapy, [place] 01/22/2019 eCW3 (Hu dson 45-60 minutes Primary Care 12:00:00 AM EDT [place] [id number]/22/2019 Care) 12:00:00 AM EDT Outpatient Attender: HAYLEY 01/20/2019 [facility] SLIM 09:15:00 AM EDT Medical DANUTAAdmitter: HAYLEY Ce nter PRZECHODZKA DANUTAReferrer: JAME Hill Outpatient [place] 01/16/2019 eCW3 ([place] [facility] 12:00:00 AM EDT [place] [id number]/16/2019 Care) 12:00:00 AM EDT Outpatient Attender: HAYLEY 01/09/2019 [facility] PRZECHODTRAVIS 10:35:00 AM EDT Medical DANUTAAdmitter: HAYLEY Ce nter PRZECHODZKA DANUTAReferrer: JAME Hill Outpatient Attender: HAYLEY 01/07/2019 [facility] PRZECHODZDIEGO 09:21:00 AM EDT Medical DANUTAAdmitter: HAYLEY Ce nter PRZECHODZKA DANUTAReferrer: JAME Hill A28-Est Therapy, [place] 01/07/2019 eCW3 (Hu dson 45-60 minutes Primary Care 12:00:00 AM EDT [place] [address] 01/07/2019 Care) 12:00:00 AM EDT Outpatient Attender: HAYLEY 12/23/2018 [facility] PRZECHODTRAVIS 09:26:00 AM EDT Medical DANUTAAdmitter: HAYLEY Ce nter PRZECHODZKA DANUTAReferrer: JAME Hill (ACO) Medicare [place] 12/19/2018 eCW3 ([facility] Primary Care 12:00:00 AM EDT [place] [id number]/19/2018 Care) 12:00:00 AM EDT A28-Est Therapy, [place] 12/18/2018 eCW3 (Hu dson 45-60 minutes Primary Care 12:00:00 AM EDT [place] [address] 12/18/2018 Care) 12:00:00 AM EDT Outpatient Attender: HAYLEY 12/16/2018 [facility] PRZECHODTRAVIS 11:31:00 AM EDT Medical DANUTAAdmitter: HAYLEY Ce nter PRZECHODZKA DANUTAReferrer: JAME Hill Outpatient Attender: HAYLEY 12/16/2018 [facility] PRZECHODTRAVIS 11:05:00 AM EDT Medical DANUTAAdmitter: HAYLEY Ce nter PRZECHODZKA DANUTAReferrer: JAME Hill A28-Est Therapy [place] 12/09/2018 eCW3 ([place] with Medical Primary Care 12:00:00 AM EDT [facility] A212/09/2018 Care) 20-30 Min 12:00:00 AM EDT Outpatient [place] 12/05/2018 eCW3 ([place] [facility] 12:00:00 AM EDT [facility] A212/05/2018 Care) 12:00:00 AM EDT A28-Est Therapy, [place] 12/03/2018 eCW3 (Hu dson 45-60 minutes Primary Care 12:00:00 AM EDT [facility] A212/03/2018 Care) 12:00:00 AM EDT (NBillable) [place] 12/03/2018 eCW3 ([place] Lab/Outreach/Nurs Primary Care 12:00:00 AM EDT [facility] A212/03/2018 Care) Management 12:00:00 AM EDT A28-Est Therapy, [place] 11/19/2018 eCW3 (Hu dson 45-60 minutes Primary Care 12:00:00 AM EDT [facility] A211/19/2018 Care) 12:00:00 AM EDT A28-Est Therapy [place] 11/11/2018 eCW3 ([facility] son with Medical Primary Care 12:00:00 AM EDT [facility] A211/11/2018 Care) 20-30 Min 12:00:00 AM EDT Outpatient [place] 11/06/2018 eCW3 ([place] [facility] 12:00:00 AM EDT [facility] A211/06/2018 Care) 12:00:00 AM EDT (NBillable) [place] 10/31/2018 eCW3 ([place] Lab/Outreach/Nurs Primary Care 12:00:00 AM EDT [facility] A210/31/2018 Care) Management 12:00:00 AM EDT A28-Est Therapy, [place] 10/30/2018 eCW3 ([place] 30 minutes Primary Care 12:00:00 AM EDT [facility] A210/30/2018 Care) 12:00:00 AM EDT Outpatient [place] 10/23/2018 eCW3 ([place] [facility] 12:00:00 AM EDT [facility] A210/23/2018 Care) 12:00:00 AM EDT Subsequent [place] 10/22/2018 eCW3 ([place] Individual Primary Care 12:00:00 AM EDT [facility] 10/22/2018 Care) 12:00:00 AM EDT A28-Est Therapy, [place] 10/16/2018 eCW3 ([place] d[place] 30 minutes Primary Care 12:00:00 AM EDT [facility] A210/16/2018 Care) 12:00:00 AM EDT Outpatient [place] 10/15/2018 eCW3 ([place] [facility] 12:00:00 AM EDT [facility] 10/15/2018 Care) 12:00:00 AM EDT A28-Est Therapy [place] 10/14/2018 eCW3 ([facility] with Medical Primary Care 12:00:00 AM EDT [facility] 10/14/2018 Care) 20-30 Min 12:00:00 AM EDT (NBillable) [place] 09/26/2018 eCW3 ([place] Lab/Outreach/Nurs Primary Care 12:00:00 AM EDT [facility] ing/Care Clinic 09/26/2018 Care) Management 12:00:00 AM EDT A28-Est Therapy, [place] 09/24/2018 eCW3 (Hu dson 30 minutes Primary Care 12:00:00 AM EDT [facility] 09/24/2018 Care) 12:00:00 AM EDT Outpatient Admitter: GWEN Chaves 09/06/2018 [facility] 10:28:00 AM EDT Medical Center Outpatient Attender: GWEN Chaves 09/06/2018 [facility] 07:22:00 AM EDT Medical MAdmitter: GWEN Pimentel 09/06/2018 [facility] PRINCESS HIDALGO 10:10:00 AM EDT MReferrer: GWEN Winston Attender: Gwen 09/06/2018 [facility] Princess 07:22:00 AM EDT ([facility] 09/06/2018 [facility] 07:22:00 AM EDT Medical [place]) Est Therapy with [place] 09/02/2018 eCW3 ([facility] Primary Care 12:00:00 AM EDT [facility] 09/02/2018 Care) 20-30 Min 12:00:00 AM EDT Est Therapy, 30 [place] 08/20/2018 eCW3 ([facility] minutes Primary Care 12:00:00 AM EDT [facility] 08/20/2018 Care) 12:00:00 AM EDT [facility] 08/19/2018 eCW3 ([place] [facility] Primary Care 12:00:00 AM EDT [facility] 08/19/2018 Care) 12:00:00 AM EDT Outpatient Attender: GWEN [facility]aves [facility] 11:37:00 AM EDT Medical MAdmitter: [facility] PRINCESS Winston OutpatientOFFICE/ Attender: Gwen [facility] 08/14/2018 [facility] OUTPATIENT VISIT, [place] 11:37:00 AM EDT ( [facility] 08/14/2018 [facility] 11:37:00 AM EDT [facility]) Est Therapy, 30 [place] 08/06/2018 eCW3 ([facility] son minutes Primary Care 12:00:00 AM EDT [facility] 08/06/2018 Care) 12:00:00 AM EDT Outpatient [place] 08/02/2018 eCW3 ([place] [facility] 12:00:00 AM EDT [facility] 08/02/2018 Care) 12:00:00 AM EDT Est Therapy, [place] 07/23/2018 eCW3 ([place] 45-60 minutes Primary Care 12:00:00 AM EDT [facility] 07/23/2018 Care) 12:00:00 AM EDT Est Therapy, 30 [place] 07/09/2018 eCW3 ([facility] minutes Primary Care 12:00:00 AM EST [facility] 07/09/2018 Care) 12:00:00 AM EST Est Therapy, 30 [place] 06/25/2018 eCW3 ([facility] minutes Primary Care 12:00:00 AM EST [facility] A206/25/2018 Care) 12:00:00 AM EST OutpatientOFFICE/ Attender: [facility] 06/19/2018 [facility] OUTPATIENT VISIT, [place] 01:14:00 PM EST ( [facility] 06/19/2018 [place] 01:14:00 PM [facility] Medical Center) Outpatient Admitter: H[place]AL[place] 06/19/2018 [facility] CHAMBERARTEMIO SANTANAMAN [place] 12:47:00 PM [facility] Medical Center Attender: [facility] 06/19/2018 [facility] [place] 12:47:00 PM EST ([facility] 06/19/2018 [place] 12:47:00 PM [facility] Medical Center) Outpatient [place] 06/18/2018 eCW3 ([place] Primary Care 12:00:00 AM [facility] 06/18/2018 Care) 12:00:00 AM EST Subsequent [place] 06/18/2018 eCW3 ([place] Individual Primary Care 12:00:00 AM [facility] Nutrition Clinic 06/18/2018 Care) 12:00:00 AM EST Outpatient [place] 06/17/2018 eCW3 ([place] [facility] 12:00:00 AM [facility] 06/17/2018 Care) 12:00:00 AM [facility] Outpatient [place] 05/14/2018 eCW3 ([place] Primary [facility] 12:00:00 AM EST [facility] 8 05/14/2018 Care) 12:00:00 AM [facility] Immunizations Vaccine Date Status Description Data Source(s) New in 2011. IIV4 01/16/2019 completed eCW3 ([place] 01:13:00 PM [facility]) New in 2011. IIV4 01/16/2019 completed eCW3 ([place] [place] 01:13:00 PM [facility]) New in 2011. IIV4 01/16/2019 completed eCW3 ([place] [place] 01:13:00 PM [facility] Health [facility]) New in 2011. IIV4 01/16/2019 completed eCW3 ([place] [place] 01:13:00 PM [facility] Health [facility]) New in 2011. IIV4 01/16/2019 completed eCW3 ([place] [place] 01:13:00 PM [facility] Health [facility]) New in 2011. IIV4 01/16/2019 completed eCW3 [...] son [place] 10:51:00 AM EDT Health Care) IIV3. [...] Care) Tdap 02/09/2011 completed eCW3 ([place] [facility] 09:59:43 AM EDT Health Care) Tdap 02/09/2011 completed eCW3 ([facility] 09:59:43 AM EDT Health Care) This code applies to any 02/09/2011 completed eCW 3 ([place] standard pediatric 09:58:34 AM [facility]) formulation of Hepatitis B vaccine. It should not be used for the 2-dose hepatitis B schedule for adolescents (11-15 year olds). It requires Merck's Recombivax HB adult formulation. Use code 43 for that vaccine. This code applies to any 02/09/2011 completed eCW 3 ([facility] pediatric 09:58:34 AM [facility]) formulation of Hepatitis B vaccine. It should not be used for the 2-dose hepatitis B schedule for adolescents (11-15 year olds). It requires Merck's Recombivax HB adult formulation. Use code 43 for that vaccine. This code applies to any 02/09/2011 completed eCW 3 ([facility] pediatric 09:58:34 AM [facility]) formulation of Hepatitis B vaccine. It should not be used for the 2-dose hepatitis B schedule for adolescents (11-15 year olds). It requires Merck's Recombivax HB adult formulation. Use code 43 for that vaccine. This code applies to any 02/09/2011 completed eCW 3 ([facility] pediatric 09:58:34 AM [facility]) formulation of Hepatitis B vaccine. It should not be used for the 2-dose hepatitis B schedule for adolescents (11-15 year olds). It requires Merck's Recombivax HB adult formulation. Use code 43 for that vaccine. This code applies to any 02/09/2011 completed eCW 3 ([facility] pediatric 09:58:34 AM [facility]) formulation of Hepatitis B vaccine. It should not be used for the 2-dose hepatitis B schedule for adolescents (11-15 year olds). It requires Merck's Recombivax HB adult formulation. Use code 43 for that vaccine. This code applies to any 02/09/2011 completed eCW 3 ([facility] pediatric 09:58:34 AM [facility]) formulation of Hepatitis B vaccine. It should not be used for the 2-dose hepatitis B schedule for adolescents (11-15 year olds). It requires Merck's Recombivax HB adult formulation. Use code 43 for that vaccine. This code applies to any 02/09/2011 completed eCW 3 ([facility] pediatric 09:58:34 AM [facility]) formulation of Hepatitis B vaccine. It should [...] applies to any 09/23/2010 completed eCW 3 ([employer] [facility] formulation of Hepatitis B vaccine. It should not be used for the 2-dose hepatitis B schedule for adolescents (11-15 year olds). It requires Merck's Recombivax HB adult formulation. Use code 43 for that vaccine. This code applies to any 09/23/2010 completed eCW 3 ([employer] standard pediatric 09:29:28 AM [facility] Health Care) formulation of Hepatitis B vaccine. It should not be used for the 2-dose hepatitis B schedule for adolescents (11-15 year olds). It requires Merck's Recombivax HB adult formulation. Use code 43 for that vaccine. This code applies to any 09/23/2010 completed eCW 3 ([facility] pediatric 09:29:28 AM [facility]) formulation of Hepatitis B vaccine. It should not be used for the 2-dose hepatitis B schedule for adolescents (11-15 year olds). It requires Merck's Recombivax HB adult formulation. Use code 43 for that vaccine. This code applies to any 09/23/2010 completed eCW 3 ([facility] pediatric 09:29:28 AM [facility]) formulation of Hepatitis B vaccine. It should not be used for the 2-dose hepatitis B schedule for adolescents (11-15 year olds). It requires Merck's Recombivax HB adult formulation. Use code 43 for that vaccine. This code applies to any 09/23/2010 completed eCW 3 ([facility] pediatric 09:29:28 AM [facility]) formulation of Hepatitis B vaccine. It should not be used for the 2-dose hepatitis B schedule for adolescents (11-15 year olds). It requires Merck's Recombivax HB adult formulation. Use code 43 for that vaccine. This code applies to any 09/23/2010 completed eCW 3 ([facility] pediatric 09:29:28 AM [facility]) formulation of Hepatitis B vaccine. It should not be used for the 2-dose hepatitis B schedule for adolescents (11-15 year olds). It requires Merck's Recombivax HB adult formulation. Use code 43 for that vaccine. This code applies to any 09/23/2010 completed eCW 3 ([facility] pediatric 09:29:28 AM [facility]) formulation of Hepatitis B vaccine. It should not be used for the 2-dose hepatitis B schedule for adolescents (11-15 year olds). It requires Merck's Recombivax HB adult formulation. Use code 43 for that vaccine. This code applies to any 08/19/2010 completed eCW 3 ([facility] pediatric 10:27:41 AM [facility]) formulation of Hepatitis B vaccine. It should not be used for the 2-dose hepatitis B schedule for adolescents (11-15 year olds). It requires Merck's Recombivax HB adult formulation. Use code 43 for that vaccine. This code applies to any 08/19/2010 completed eCW 3 ([facility] pediatric 10:27:41 AM [facility]) formulation of Hepatitis B vaccine. It should not be used for the 2-dose hepatitis B schedule for adolescents (11-15 year olds). It requires Merck's Recombivax HB adult formulation. Use code 43 for that vaccine. This code applies to any 08/19/2010 completed eCW 3 ([facility] pediatric 10:27:41 AM [facility]) formulation of Hepatitis B vaccine. It should not be used for the 2-dose hepatitis B schedule for adolescents (11-15 year olds). It requires Merck's Recombivax HB adult formulation. Use code 43 for that vaccine. This code applies to any 08/19/2010 completed eCW 3 ([facility] pediatric 10:27:41 AM [facility]) formulation of Hepatitis B vaccine. It should not be used for the 2-dose hepatitis B schedule for adolescents (11-15 year olds). It requires Merck's Recombivax HB adult formulation. Use code 43 for that vaccine. This code applies to any 08/19/2010 completed eCW 3 ([facility] pediatric 10:27:41 AM [facility]) formulation of Hepatitis B vaccine. It should not be used for the 2-dose hepatitis B schedule for adolescents (11-15 year olds). It requires Merck's Recombivax HB adult formulation. Use code 43 for that vaccine. This code applies to any 08/19/2010 completed eCW 3 ([facility] pediatric 10:27:41 AM [facility]) formulation of Hepatitis B vaccine. It should not be used for the 2-dose hepatitis B schedule for adolescents (11-15 year olds). It requires Merck's Recombivax HB adult formulation. Use code 43 for that vaccine. This code applies to any 08/19/2010 completed eCW 3 ([facility] pediatric 10:27:41 AM [facility]) formulation of Hepatitis B vaccine. It should [...] Date Form Instructions Instructions Source(s) Blood Blood 16/ active Blood eCW3 Glucose [...] w/Device Care) System w/Janis ce Hydroxyzine HydrOX 1.0 active HydrOXY zine eCW3 Hydrochlori Yzine 2019 [...] EDT Care) Sodium 1 % Hydroxyzine HydrOX 1.0 active HydrOXY zine eCW3 Hydrochlori Yzine 2019 [...] 25 12:00: et_as [place] Oral Tablet MG AM _need Health HydrOXYzine EDT ed} Care) HCl 25 MG Diclofenac Diclof 10/13/ active Diclofen ac eCW3 Sodium 0.01 enac 2020 Sodium 1 % ([facility] MG/MG Sodium 12:00: [place] Topical Gel 1 % AM Health Diclofenac EDT Care) Sodium 1 % Hydroxyzine HydrOX .0 active HydrOXY zine eCW3 Hydrochlori Yzine 2019 {tabl HCl 25 MG ( [place] de 25 MG HCl 25 12:00: et_as [place] Oral Tablet MG AM _need Health HydrOXYzine EDT ed} Care) [...] - g Pad 2020 - ([place] - 12:00: [place] 00 AM Health EDT Care) Heating Pad Heatin 05/18/ active Heating Pad eCW3 - g Pad 2020 - ([place] - :00: [place] 00 AM Health EDT Care) Heating Pad Heatin 05/18/ active Heating Pad eCW3 - g Pad 2020 - ([place] - 12:00: [place] 00 AM Health EDT Care) Heating Pad Heatin 05/18/ active Heating Pad eCW3 - g Pad 2020 - ([place] - 12:00: [place] 00 AM Health EDT Care) Heating Pad Heatin 0518/ active Heating Pad eCW3 - g Pad 2020 - ([place] - 12:00: [place] 00 AM Health EDT Care) Heating Pad Heatin 05/18/ active Heating Pad eCW3 - g Pad 2020 - ([place] - 12:00: [place] 00 AM Health EDT Care) Heating Pad Heatin 0518/ active Heating Pad eCW3 - g Pad 2020 - ([place] - 12:00: [place] 00 AM Health EDT Care) Heating Pad Heatin 0518/ active Heating Pad eCW3 - g Pad 2020 - ([place] - 12:00: [place] 00 AM Health EDT Care) Sertraline [...] AM Health EDT Care) Senna 8.6 Senna 2.0 active Senna 8.6 MG eCW3 MG 8.6 [...] UNK .0 active Omeprazole eCW3 40 mg 2018 {caps 40 mg ([place] 12:00: ule} [place] [...] Capsule Omeprazole 40 mg Senna 8.6 Senna 2.0 active Senna 8.6 MG eCW3 MG 8.6 MG 2018 {tabl ([place] 12:00: ets_a [place] 00 AM t_bed Health EDT time_ Care) as_ne eded} Omeprazole Omepra .0 active Omeprazo le eCW3 40 MG zole 2018 {caps 40 mg ([place] Delayed 40 mg 12:00: ule} [place] Release 00 AM Health Oral EDT Care) Capsule Omeprazole 40 mg Omeprazole Omepra .0 active Omeprazo le eCW3 40 MG zole 2018 {caps 40 mg ([place] Delayed 40 mg 12:00: ule} [place] Release 00 AM Health Oral EDT Care) Capsule Omeprazole 40 mg Senna 8.6 Senna 2.0 active Senna 8.6 MG eCW3 MG 8.6 MG 2018 {tabl ([place] 12:00: ets_a [place] 00 AM t_bed Health EDT time_ Care) as_ne eded} Senna 8.6 Senna 2.0 active Senna 8.6 MG eCW3 MG 8.6 MG 2018 {tabl ([place] 12:00: ets_a [place] 00 AM t_bed Health EDT time_ Care) as_ne eded} Omeprazole Omepra .0 active Omeprazo le eCW3 40 MG zole 2018 {caps 40 mg ([place] Delayed 40 mg 12:00: ule} [place] Release 00 AM Health Oral EDT Care) Capsule Omeprazole 40 mg Senna 8.6 Senna 2.0 active Senna 8.6 MG eCW3 MG 8.6 [...] 40 MG zole 2018 {caps 40 mg ([place] Delayed 40 mg 12:00: ule} [place] Release [...] Capsule Omeprazole 40 mg Senna 8.6 Senna 2.0 active Senna 8.6 MG eCW3 MG 8.6 [...] e - 00 AM Health EDT Care) Naproxen UNK 10/23/ active Naproxen 500 eCW3 500 MG 2019 MG ([place] 12:00: [place] 00 AM Health EDT Care) Toilet Seat Toilet 10/23/ active Toilet Seat eCW3 Elevator - Seat 2019 Elevator - ([facility] Elevat 12:00: [facility] EDT Care) Commode Commod 10/23/ active Commode eCW 3 Bedside - e 2018 Bedside - ([facility] 12:00: [place] e AM Health EDT Care) Naproxen Naprox 10/23/ active Naproxen 5 00 eCW3 500 MG Oral en 500 2019 MG ([place] Tablet MG 12:00: AM Health EDT Care) Naproxen Naprox 10/23/ active Naproxen 5 00 eCW3 500 MG Oral en 500 2019 MG ([place] Tablet MG 12:00: Health EDT Care) Naproxen Naprox 10/23/ active Naproxen 5 00 eCW3 500 MG Oral en 500 2019 MG ([place] Tablet MG 12:00: Health EDT Care) Commode Commod 10/23/ active Commode eCW 3 Bedside - 2018 Bedside - ([facility] 12:00: [facility] EDT Care) Commode Commod 10/23/ active Commode eCW 3 Bedside - e 2018 Bedside - ([facility] 12:00: [facility] EDT Care) Naproxen Naprox 10/23/ active Naproxen 5 00 eCW3 500 MG Oral en 500 2019 MG ([place] Tablet MG 12:00: Health EDT Care) Naproxen Naprox 10/23/ active Naproxen 5 00 eCW3 500 MG Oral en 500 2019 MG ([place] Tablet MG 12:00: AM Health EDT Care) Commode Commod 10/23/ active Commode eCW 3 Bedside - e 2018 Bedside - ([facility] 12:00: [place] e AM Health EDT Care) Commode Commod 10/23/ active Commode eCW 3 Bedside - e 2018 Bedside - ([facility] 12:00: [place] e AM Health EDT Care) Toilet Seat Toilet [...] 00 AM Health EDT Care) Toilet Seat UNK 10/23/ active Toilet Se at eCW3 Elevator - 2019 Elevator - ([facility] 12:00: [place] 00 AM Health EDT Care) Commode Commod 10/23/ active Commode eCW 3 Bedside - e 2018 Bedside - ([facility] 12:00: [place] e - 00 AM Health EDT Care) Naproxen [...] eCW3 Elevator - Seat 2018 Elevator - ( dson Elevat 12:00: [place] or - AM [...] eCW3 Elevator - Seat 2019 Elevator - ( dson Elevat 12:00: [place] or Health EDT Care) Commode Commod 10/23/ active Commode eCW 3 Bedside - e 2018 Bedside - ([facility] 12:00: [place] e - Health EDT Care) Naproxen Naprox 10/23/ active [...] ([facility] Elevat 12:00: [place] or - Health EDT Care) Toilet Seat Toilet 10/23/ active Toilet Seat eCW3 Elevator - Seat 2019 Elevator - ([facility] Elevat 12:00: [place] or - Health EDT Care) Naproxen Naprox 10/23/ active [...] 2019 MG ([place] Tablet MG 12:00: Health EDT Care) Naproxen Naprox 10/23/ active Naproxen 5 00 eCW3 500 MG Oral en 500 2019 MG ([place] Tablet MG 12:00: Health EDT Care) Toilet Seat Toilet 10/23/ active Toilet Seat eCW3 Elevator - Seat 2019 Elevator - ([facility] Elevat 12:00: [place] AM Health EDT Care) Toilet Seat Toilet 10/23/ active Toilet Seat eCW3 Elevator - Seat 2019 Elevator - ([facility] Elevat 12:00: [place] [facility] EDT Care) Toilet Seat Toilet 10/23/ active Toilet Seat eCW3 Elevator - Seat 2019 Elevator - ([facility] Elevat 12:00: [place] [facility] EDT Care) Toilet Seat Toilet 10/23/ active Toilet Seat eCW3 Elevator - Seat 2019 Elevator - ([facility] Elevat 12:00: [facility] EDT Care) Commode Commod 10/23/ active Commode eCW 3 Bedside - e 2018 Bedside - ([facility] 12:00: [facility] EDT Care) Toilet Seat Toilet 10/23/ active Toilet Seat eCW3 Elevator - Seat 2019 Elevator - ([facility] Elevat 12:00: [place] [facility] EDT Care) Naproxen Naprox 10/23/ active Naproxen 5 eCW3 500 MG Oral en 500 2019 MG ([place] Tablet MG 12:00: AM Health EDT Care) Commode Commod 10/23/ active Commode eCW 3 Bedside - e 2019 Bedside - ([facility] 12:00: [place] e AM Health EDT Care) Commode Commod 10/23/ active Commode eCW 3 Bedside - e 2019 Bedside - ([facility] 12:00: [place] e AM Health EDT Care) Toilet Seat Toilet [...] active Artifici al eCW3 Tears 1-0.3 cial 2019 Tears 1-0.3 ( [place] % Tears 12:00: % [place] 1-0.3 00 AM Health % EST Care) Blood Blood 05/10/ active Blood eCW3 Glucose Glucos 2019 Glucose Test ([facility] Test - e Test 12:00: - [place] - 00 AM Health EST Care) Blood Blood 05/10/ active Blood eCW3 Glucose Glucos 2019 Glucose ([place] Monitor e 12:00: Monitor [place] [facility] [place] 00 AM System Health w/Device r EST w/Device Care) System w/Janis ce Blood Blood 05/10/ active Blood eCW3 Glucose Glucos 2019 Glucose Test ([facility] Test - e Test 12:00: - [place] - 00 AM Health EST Care) Blood Blood 05/10/ active Blood eCW3 Glucose Glucos 2019 Glucose Test ([facility] Test - e Test 12:00: - [place] - AM Health EST Care) Blood Blood 05/10/ active Blood eCW3 Glucose Glucos 2019 Glucose ([place] Monitor e 12:00: Monitor [place] [facility] [place] 00 AM System Health w/Device r EST w/Device Care) System w/Janis ce Blood Blood 05/10/ active Blood eCW3 Glucose Glucos 2019 Glucose Test ([facility] Test - e Test 12:00: - [place] - AM Health EST Care) Blood Blood 05/10/ active Blood eCW3 Glucose Glucos 2019 Glucose ([place] Monitor e 12:00: Monitor [place] [facility] [place] 00 AM System Health w/Device r EST w/Device Care) System w/Janis ce Blood Blood 05/10/ active Blood eCW3 Glucose Glucos 2019 Glucose Test ([facility] Test - e Test 12:00: - [place] - 00 AM Health EST Care) Blood Blood [...] - e Test 12:00: - [place] - AM Health EST Care) Blood Blood [...] - e Test 12:00: - [place] - AM Health EST Care) Blood Blood 05/10/ active Blood eCW3 Glucose Glucos 2019 Glucose Test ([facility] Test - e Test 12:00: - [place] - AM Health EST Care) Blood Blood 05/10/ active Blood eCW3 Glucose Glucos 2019 Glucose ([place] Monitor e 12:00: Monitor [place] [facility] [place] 00 AM System Health w/Device r EST w/Device Care) System w/Janis ce Blood Blood 05/10/ active Blood eCW3 Glucose Glucos 2019 Glucose Test ([facility] Test - e Test 12:00: - [place] - AM Health EST Care) Blood Blood [...] [place] - 00 AM Health EST Care) Blood Blood 05/10/ active Blood eCW3 Glucose Glucos 2019 Glucose Test ([facility] Test - e Test 12:00: - [place] AM Health EST Care) Blood UNK 05/10/ active Blood eCW3 Glucose 2019 Glucose Test ([facility] Test - 12:00: - AM Health EST Care) Blood [...] - e Test 12:00: - [place] - AM Health EST Care) Blood Blood 05/10/ active Blood eCW3 Glucose Glucos 2019 Glucose Test ([facility] Test - e Test 12:00: - [place] - AM Health EST Care) Blood Blood [...] - e Test 12:00: - [place] - AM Health EST Care) Blood Blood [...] - e Test 12:00: - [place] - AM Health EST Care) Simethicone Simeth .0 active Simethi cone eCW3 125 MG icone 2018 {tabl 125 MG ([place] 125 MG 12:00: [facility]) and_a t_bed time_ as_ne eded} Simethicone Simeth .0 active Simethi cone eCW3 125 MG icone 2017 {tabl 125 MG ([place] 125 MG 12:00: et_af [facility] ED[facility] eals_ Care) and_a t_bed time_ as_ne eded} Simethicone Simeth .0 active Simethi cone eCW3 125 MG icone 2017 {tabl 125 MG ([place] 125 MG 12:00: et_af [facility] ED[facility] eals_ Care) and_a t_bed time_ [...] Care) and_a t_bed time_ as_ne eded} Simethicone UNK .0 active Simethico ne eCW3 125 MG [...] 125 MG 12:00: et_af [place] [address] [facility] EDT eals_ Care) and_a t_bed time_ as_ne eded} Simethicone Simeth .0 active Simethi cone eCW3 125 MG icone 2017 {tabl 125 MG ([place] 125 MG 12:00: et_af [place] [address] [facility] EDT eals_ Care) and_a t_bed time_ as_ne eded} Simethicone Simeth .0 active Simethi cone eCW3 125 MG icone 2017 {tabl 125 MG ([place] 125 MG 12:00: et_af [place] [address] [facility] EDT eals_ Care) and_a t_bed time_ as_ne eded} Simethicone Simeth .0 active Simethi cone eCW3 125 MG icone 2017 {tabl 125 MG ([place] 125 MG 12:00: et_af [place] [address] [facility] EDT eals_ Care) and_a t_bed time_ as_ne eded} Simethicone Simeth .0 active Simethi cone eCW3 125 MG icone 2018 {tabl 125 MG ([place] 125 MG 12:00: et_af [place] [address] [facility] EDT eals_ Care) and_a t_bed time_ [...] AM Health - EDT Care) TENS TENS /02/ active TENS Therapy eCW 3 Therapy Therap [...] 00 AM Health EDT Care) TENS TENS // active TENS [...] .0 active [place] in eCW3 12 % drin 2018 {appl 12 % ([place] 12 % [...] .0 active [place] eCW3 lactate 120 drin 2018 {appl 12 % ([place] MG/ML 12 % [...] .0 active [place] eCW3 lactate 120 drin 2018 {appl 12 % ([place] MG/ML 12 % [...] active [place] in eCW3 12 % in 2017 {appl 12 % ([place] 12 % [...] .0 active [place] in eCW3 12 % drin 2018 {appl 12 % ([place] 12 % [...] cted_ ] area} [place] 12 % Zenpep K 05/22/ active Zenpep e CW3 UNIT 2018 UNIT ([place] 12:00: [place] 00 AM Health EST Care) Zenpep 05/22/ active Zenpep e CW3 UNIT 2018 UNIT ([place] 12:00: [place] 00 AM Health EST Care) Zenpep 05/22/ active Zenpep e CW3 UNIT [...] EST _affe Care) cted_ area} [place] active [place] in eCW3 12 2017 {appl 12 % ([place] 12 % [...] Vitamin D eCW3 lola 1000 n D 2016 {tabl 1000 UNIT ([facility] UNT Oral 1000 12:00: et} [place] Tablet UNIT 00 AM Health Vitamin D EDT Care) 1000 UNIT Metformin Metfor .0 active Metformin eCW3 hydrochlori min 2017 {tabl HCl 1000 mg ([place] de 1000 MG HCl 12:00: et_wi [place] Oral Tablet 1000 00 AM th_sd Health Metformin mg EDT als} Care) HCl 1000 mg Metformin Metfor .0 active Metformin eCW3 hydrochlori min 2017 {tabl HCl 1000 mg ([place] de 1000 MG HCl 12:00: et_wi [place] Oral Tablet 1000 00 AM th_sd Health Metformin mg EDT als} Care) HCl 1000 mg Vitamin D UNK 1.0 active Vitamin D e CW3 1000 UNIT 2017 {tabl 1000 UNIT ([facility] 12:00: et} [place] 00 AM Health EDT Care) VICTOZA 1.2 UNK 10/ active VICTOZA 1 [...] et_wi [place] Oral Tablet 1000 00 AM [facility] Health Metformin mg EDT als} Care) [...] AM Health EDT Care) VICTOZA 1.2 UNK 10/ active VICTOZA 1 [...] et_wi [place] Oral Tablet 1000 00 AM _sd Health Metformin mg EDT als} Care) HCl [...] CW3 1000 UNIT 2017 {tabl 1000 UNIT ([facility] son 12:00: et} [place] 00 AM Health EDT Care) Metformin Metfor .0 active Metformin eCW3 hydrochlori min 2016 {tabl HCl 1000 mg ([place] de 1000 MG HCl 12:00: et_wi [place] Oral Tablet 1000 00 AM th_sd Health Metformin mg EDT als} Care) HCl 1000 mg Metformin Metfor .0 active Metformin eCW3 hydrochlori min 2017 {tabl HCl 1000 mg ([place] de 1000 MG HCl 12:00: et_wi [place] Oral Tablet 1000 00 AM th_sd Health Metformin mg EDT als} Care) HCl 1000 mg Metformin Metfor .0 active Metformin eCW3 hydrochlori min 2017 {tabl HCl 1000 mg ([place] de 1000 MG HCl 12:00: et_wi [place] Oral Tablet 1000 00 AM th_sd Health Metformin mg EDT als} Care) HCl 1000 mg Metformin Metfor .0 active Metformin eCW3 hydrochlori min 2017 {tabl HCl 1000 mg ([place] de 1000 MG HCl 12:00: et_wi [place] Oral Tablet 1000 00 AM th_sd Health Metformin mg EDT als} Care) HCl 1000 mg Vitamin D UNK .0 active Vitamin D e CW3 1000 UNIT 2017 {tabl 1000 UNIT ([facility] 12:00: et} [place] 00 AM Health EDT Care) Metformin Metfor .0 active Metformin eCW3 hydrochlori min 2017 {tabl HCl 1000 mg ([place] de 1000 MG HCl 12:00: et_wi [place] Oral Tablet 1000 00 AM th_sd Health Metformin mg EDT als} Care) HCl 1000 mg Metformin Metfor .0 active Metformin eCW3 hydrochlori min 2017 {tabl HCl 1000 mg ([place] de 1000 MG HCl 12:00: et_wi [place] Oral Tablet 1000 00 AM [facility] Metformin mg EDT als} Care) HCl 1000 mg Metformin Metfor 1.0 active Metformin eCW3 hydrochlori min 2017 {tabl HCl 1000 mg ([place] de 1000 MG HCl 12:00: et_wi [place] Oral Tablet 1000 00 AM [facility] Health Metformin mg EDT als} Care) [...] et_wi [place] Oral Tablet 1000 00 AM [facility] Health Metformin mg EDT als} Care) HCl 1000 mg Metformin Metfor .0 active Metformin eCW3 hydrochlori min 2017 {tabl HCl 1000 mg ([place] de 1000 MG HCl 12:00: et_wi [place] Oral Tablet 1000 00 AM [facility] Health Metformin mg EDT als} Care) [...] 1000 n D 2017 {tabl 1000 UNIT ([facility] son UNT Oral 1000 12:00: et} [place] Tablet UNIT 00 AM Health Vitamin D EDT Care) 1000 UNIT Vitamin D UNK .0 active Vitamin D e CW3 1000 UNIT 2017 {tabl 1000 UNIT ([facility] son 12:00: et} [place] 00 AM Health EDT Care) Metformin Metfor .0 active Metformin eCW3 hydrochlori min 2017 {tabl HCl 1000 mg ([place] de 1000 MG HCl 12:00: et_wi [place] Oral Tablet 1000 00 AM _sd Health Metformin mg EDT als} Care) HCl 1000 mg Vitamin D UNK .0 active Vitamin D e CW3 1000 UNIT 2017 {tabl 1000 UNIT ([facility] son 12:00: et} [place] 00 AM Health EDT Care) Metformin Metfor 1.0 active Metformin eCW3 hydrochlori min 2017 {tabl HCl 1000 mg ([place] de 1000 MG HCl 12:00: et_wi [place] Oral Tablet 1000 00 AM [facility] Health Metformin mg EDT als} Care) HCl 1000 mg Metformin Metfor .0 active Metformin eCW3 hydrochlori min 2017 {tabl HCl 1000 mg ([place] de 1000 MG HCl 12:00: et_wi [place] Oral Tablet 1000 00 AM [facility] Health Metformin mg EDT als} Care) HCl 1000 mg Vitamin D UNK 1.0 active Vitamin D e CW3 1000 UNIT 2017 {tabl 1000 UNIT ([facility] son 12:00: et} [place] 00 AM Health EDT Care) Cholecalcif Vitami 1.0 active Vitamin D eCW3 lola 1000 n D 2017 {tabl 1000 UNIT ([facility] son UNT Oral 1000 12:00: et} [place] Tablet UNIT 00 AM Health Vitamin D EDT Care) 1000 UNIT Vitamin D UNK 1.0 active Vitamin D e CW3 1000 UNIT 2017 {tabl 1000 UNIT ([facility] son 12:00: et} [place] 00 AM Health EDT Care) Vitamin D UNK .0 active Vitamin D e CW3 1000 UNIT 2017 {tabl 1000 UNIT ([facility] son 12:00: et} [place] 00 AM Health EDT Care) Metformin Metfor .0 active Metformin eCW3 hydrochlori min 2017 {tabl HCl 1000 mg ([place] de 1000 MG HCl 12:00: et_wi [place] Oral Tablet 1000 00 AM [facility] Health Metformin mg EDT als} Care) HCl 1000 mg Metformin Metfor .0 active Metformin eCW3 hydrochlori min 2016 {tabl HCl 1000 mg ([place] de 1000 MG HCl 12:00: et_wi [place] Oral Tablet 1000 00 AM [facility] Health Metformin mg EDT als} Care) HCl 1000 mg VICTOZA 1.2 UNK 02/13/ active VICTOZA 1 .2 eCW3 MG 2017 MG ([place] 12:00: [place] 00 AM Health EDT Care) Metformin Metfor .0 active Metformin eCW3 hydrochlori min 2016 {tabl HCl 1000 mg ([place] de 1000 MG HCl 12:00: et_wi [place] Oral Tablet 1000 00 AM [facility] Metformin mg EDT als} Care) HCl 1000 mg Vitamin D UNK .0 active Vitamin D e CW3 1000 UNIT 2017 {tabl 1000 UNIT ([facility] son 12:00: et} [place] 00 AM Health EDT Care) VICTOZA 1.2 UNK 02/13/ active VICTOZA 1 .2 eCW3 MG 2017 MG ([place] 12:00: [place] 00 AM Health EDT Care) Vitamin D UNK .0 active Vitamin D e CW3 1000 UNIT 2017 {tabl 1000 UNIT ([facility] son 12:00: et} [place] 00 AM Health EDT Care) Vitamin D UNK .0 active Vitamin D e CW3 1000 UNIT 2017 {tabl 1000 UNIT ([facility] son 12:00: et} [place] 00 AM Health EDT Care) Metformin Metfor .0 active Metformin eCW3 hydrochlori min 2016 {tabl HCl 1000 mg ([place] de 1000 MG HCl 12:00: et_wi [place] Oral Tablet 1000 00 AM [facility] Health Metformin mg EDT als} Care) [...] et_wi [place] Oral Tablet 1000 00 AM _sd Health Metformin mg EDT als} Care) HCl [...] et_wi [place] Oral Tablet 1000 00 AM [facility] Health Metformin mg EDT als} Care) [...] et_wi [place] Oral Tablet 1000 00 AM _sd Health Metformin mg EDT als} Care) HCl 1000 mg VICTOZA 1.2 UNK 1010/ active VICTOZA 1 .2 eCW3 MG 2017 MG ([place] 12:00: [place] 00 AM Health EDT Care) Vitamin D UNK 1.0 active Vitamin D e CW3 1000 UNIT 2017 {tabl 1000 UNIT ([facility] 12:00: et} [place] 00 AM Health EDT Care) VICTOZA 1.2 UNK 10/ active VICTOZA 1 .2 eCW3 MG 2017 MG ([place] 12:00: [place] 00 AM Health EDT Care) VICTOZA 1.2 UNK 10/ active VICTOZA 1 .2 eCW3 MG 2017 MG ([place] 12:00: [place] 00 AM Health EDT Care) VICTOZA 1.2 UNK 10/ active VICTOZA 1 .2 eCW3 MG 2017 MG ([place] 12:00: [place] 00 AM Health EDT Care) VICTOZA 1.2 UNK 10/ active VICTOZA 1 [...] et_wi [place] Oral Tablet 1000 00 AM _sd Health Metformin mg EDT als} Care) HCl 1000 mg VICTOZA 1.2 UNK 10/ active VICTOZA 1 .2 eCW3 MG 2017 MG ([place] 12:00: [place] 00 AM Health EDT Care) VICTOZA 1.2 UNK 10/ active VICTOZA 1 .2 eCW3 MG 2017 MG ([place] 12:00: [place] 00 AM Health EDT Care) Metformin Metfor .0 active Metformin eCW3 hydrochlori min 2017 {tabl HCl 1000 mg ([place] de 1000 MG HCl 12:00: et_wi [place] Oral Tablet 1000 00 AM th_sd Health Metformin mg EDT als} Care) HCl 1000 mg Vitamin D UNK 1.0 active Vitamin D e CW3 1000 UNIT 2017 {tabl 1000 UNIT ([facility] son 12:00: et} [place] 00 AM Health EDT Care) Vitamin D UNK 1.0 active Vitamin D e CW3 1000 UNIT 2017 {tabl 1000 UNIT ([facility] son 12:00: et} [place] 00 AM Health EDT Care) Metformin Metfor .0 active Metformin eCW3 hydrochlori min 2017 {tabl HCl 1000 mg ([place] de 1000 MG HCl 12:00: et_wi [place] Oral Tablet 1000 00 AM th_sd Health Metformin mg EDT als} Care) HCl 1000 mg VICTOZA 1.2 UNK 02/13/ active VICTOZA 1 .2 eCW3 MG 2017 MG ([place] 12:00: [place] 00 AM Health EDT Care) Vitamin D UNK .0 active Vitamin D e CW3 1000 UNIT 2017 {tabl 1000 UNIT ([facility] son 12:00: et} [place] 00 AM Health EDT Care) Metformin Metfor 1.0 active Metformin eCW3 hydrochlori min 2017 {tabl HCl 1000 mg ([place] de 1000 MG HCl 12:00: et_wi [place] Oral Tablet 1000 00 AM th_sd Health Metformin mg EDT als} Care) HCl 1000 mg Vitamin D UNK 1.0 active Vitamin D e CW3 1000 UNIT 2017 {tabl 1000 UNIT ([facility] son 12:00: et} [place] 00 AM Health EDT Care) Vitamin D UNK 1.0 active Vitamin D e CW3 1000 UNIT 2017 {tabl 1000 UNIT ([facility] son 12:00: et} [place] 00 AM Health EDT Care) VICTOZA 1.2 UNK 02/13/ active VICTOZA 1 .2 eCW3 MG 2017 MG ([place] 12:00: [place] 00 AM Health EDT Care) Metformin Metfor 1.0 active Metformin eCW3 hydrochlori min 2017 {tabl HCl 1000 mg ([place] de 1000 MG HCl 12:00: et_wi [place] Oral Tablet 1000 00 AM [facility]_sd Health Metformin mg EDT als} Care) HCl 1000 mg Metformin Metfor .0 active Metformin eCW3 hydrochlori min 2017 {tabl HCl 1000 mg ([place] de 1000 MG HCl 12:00: et_wi [place] Oral Tablet 1000 00 AM [facility] Metformin mg EDT als} Care) HCl 1000 mg Metformin UNK .0 active Metformin e CW3 HCl 1000 mg 2016 {tabl HCl 1000 mg ([place] 12:00: et_wi [place] 00 AM th_sd Health EDT als} Care) Metformin Metfor .0 active Metformin eCW3 hydrochlori min 2017 {tabl HCl 1000 mg ([place] de 1000 MG HCl 12:00: et_wi [place] Oral Tablet 1000 00 AM [facility] Metformin mg EDT als} Care) HCl 1000 mg Metformin Metfor .0 active Metformin eCW3 hydrochlori min 2017 {tabl HCl 1000 mg ([place] de 1000 MG HCl 12:00: et_wi [place] Oral Tablet 1000 00 AM [facility] Metformin mg EDT als} Care) HCl 1000 mg Metformin Metfor .0 active Metformin eCW3 hydrochlori min 2017 {tabl HCl 1000 mg ([place] de 1000 MG HCl 12:00: et_wi [place] Oral Tablet 1000 00 AM [facility] Metformin mg EDT als} Care) [...] et_wi [place] Oral Tablet 1000 00 AM [facility] Health Metformin mg EDT als} Care) HCl 1000 mg Metformin Metfor .0 active Metformin eCW3 hydrochlori min 2017 {tabl HCl 1000 mg ([place] de 1000 MG HCl 12:00: et_wi [place] Oral Tablet 1000 00 AM [facility] Metformin mg EDT als} Care) HCl 1000 mg VICTOZA 1.2 UNK 10/ active VICTOZA 1 .2 eCW3 MG 2017 MG ([place] 12:00: [place] 00 AM Health EDT Care) Vitamin D UNK 1.0 active Vitamin D e CW3 1000 UNIT 2017 {tabl 1000 UNIT ([facility] son 12:00: et} [place] 00 AM Health EDT Care) VICTOZA 1.2 UNK 10/ active VICTOZA 1 .2 eCW3 MG 2017 MG ([place] 12:00: [place] 00 AM Health EDT Care) Metformin Metfor 1.0 active Metformin eCW3 hydrochlori min 2017 {tabl HCl 1000 mg ([place] de 1000 MG HCl 12:00: et_wi [place] Oral Tablet 1000 00 AM [facility] Metformin mg EDT als} Care) HCl 1000 mg VICTOZA 1.2 UNK 10/ active VICTOZA 1 .2 eCW3 MG 2017 MG ([facility] 12:00: [facility] 00 AM Health EDT Care) VICTOZA 1.2 UNK 02/13/ active VICTOZA 1 .2 eCW3 MG 2017 MG ([facility] 12:00: [facility] 00 AM Health EDT Care) Vitamin D UNK 1.0 active Vitamin D e CW3 1000 UNIT 2017 {tabl 1000 UNIT ([facility] son 12:00: et} [facility] 00 AM Health [...] CW3 1000 UNIT 2017 {tabl 1000 UNIT ([facility] son 12:00: et} [facility] 00 AM Health EDT Care) Vitamin D UNK 1.0 active Vitamin D e CW3 1000 UNIT 2017 {tabl 1000 UNIT ([facility] son 12:00: et} [facility] 00 AM Health EDT Care) Vitamin D UNK 1.0 active Vitamin D e CW3 1000 UNIT 2017 {tabl 1000 UNIT ([facility] son 12:00: et} [facility] 00 AM Health EDT Care) VICTOZA 1.2 UNK 02/13/ active VICTOZA 1 .2 eCW3 MG 2017 MG ([facility] 12:00: [facility] 00 AM Health EDT Care) Metformin Metfor 02/13/ 1.0 active Metformin eCW3 hydrochlori min 2017 {tabl HCl 1000 mg ([facility] de 1000 MG HCl 12:00: et_wi [place] Oral Tablet 1000 00 AM _sd Health Metformin mg EDT als} Care) HCl 1000 mg VICTOZA 1.2 UNK 02/13/ active VICTOZA 1 .2 eCW3 MG 2017 MG ([facility] 12:00: [facility] 00 AM Health EDT Care) 3 ML Lantus // active Lantus eCW3 [...] Lantus /03/ active Lantus eCW3 Insulin SoloSt 2016 SoloStar [...] Lantus UNK 12/07/ active Lantus eCW3 SoloStar 2016 SoloStar 100 (Hu dson 100 UNIT/ML 12:00: [...] Lantus SoloStar 100 UNIT/ML 3 ML Lantus 08// active Lantus eCW3 Insulin SoloSt 2017 SoloStar [...] [Lantus] Lantus SoloStar 100 UNIT/ML Loperamide Ismael 11/20/ 1.0 suspend Loperam clau eCW3 Hydrochlori mide 2017 {caps ed HCl 2 MG (Hu dson de 2 MG HCl 2 12:00: ule_a [place] Oral MG 00 AM s_nee Health Capsule EDT ded} Care) Loperamide HCl 2 MG Loperamide Ismael .0 suspend Loperam clau eCW3 Hydrochlori 2016 {caps [...] Ismael .0 suspend Loperam clau eCW3 Hydrochlori 2016 {caps [...] ded} Care) Loperamide HCl 2 MG Loperamide Simael 1.0 suspend Loperam clau eCW3 Hydrochlori 2016 {caps ed HCl 2 MG (Hu dson de 2 MG HCl 2 12:00: ule_a [place] Oral MG 00 AM s_nee Health Capsule EDT ded} Care) Loperamide HCl 2 MG Glucometer UNK 09/25/ active Glucometer eCW3 2016 ([facility] 12:00: [facility] 00 AM Health EDT Care) Glucometer UNK 09/25/ active Glucometer eCW3 2016 ([facility] 12:00: [facility] 00 AM Health EDT Care) Glucometer UNK 09/25/ active Glucometer eCW3 2016 ([facility] 12:00: [facility] 00 AM Health EDT Care) Glucometer UNK 09/25/ active Glucometer eCW3 2016 ([facility] 12:00: [facility] 00 AM Health EDT Care) Glucometer UNK 09/25/ active Glucometer eCW3 2016 ([facility] 12:00: [facility] [...] AM Health EDT Care) One Touch UNK 0519/ active One Touch e CW3 Test Strip 2017 Test Strip (Hu dson Farfan - 12:00: [facility] - [facility] 00 AM Health EDT Care) One Touch UNK 05/19/ active One Touch e CW3 Test Strip 2017 Test Strip (Hu dson [facility] - 12:00: [facility] - [facility] 00 AM Health EDT Care) One Touch UNK 0519/ active One Touch e CW3 Test Strip [...] AM Health EDT Care) One Touch UNK 0519/ active One Touch e CW3 Test Strip [...] AM Health EDT Care) Glipizide 5 GlipiZ 1.0 active GlipiZI DE 5 eCW3 MG Oral CLAU 5 2016 {tabl MG ([facility] Tablet MG 12:00: et} [facility] GlipiZIDE 5 00 AM Health MG EST Care) Glipizide GlipiZ 1.0 active GlipiZIDE 10 eCW3 10 MG Oral [...] active GlipiZIDE 1 0 eCW3 10 mg 2016 {tabl mg ([facility] 12:00: et} [facility] 00 [...] Health MG EST Care) Glipizide 5 GlipiZ 1.0 active GlipiZI DE 5 eCW3 MG Oral [...] MG Oral CLAU 5 2016 {tabl MG ([facility] Tablet MG 12:00: et} [place] GlipiZIDE 5 [...] [facility] GlipiZIDE 5 00 AM Health EST [facility]) Flonase Flonas .0 active Flonase eCW 3 [...] Tablet 500 MG 12:00: et} [facility] AM [facility] EST Care) Amoxicillin Amoxic .0 suspend Amoxic illin eCW3 500 MG Oral illin 2017 {tabl ed 500 MG ([facility] son Tablet 500 MG 12:00: et} [facility] AM [facility] EST Care) Amoxicillin Amoxic .0 suspend Amoxic illin eCW3 500 MG Oral illin 2017 {tabl ed 500 MG ([facility] son Tablet 500 MG 12:00: et} [facility] AM [facility] EST Care) Amoxicillin Amoxic .0 suspend Amoxic illin eCW3 500 MG Oral illin 2017 {tabl ed 500 MG ([facility] son Tablet 500 MG 12:00: et} [facility] AM [facility] EST Care) Flonase Flonas .0 active Flonase [...] 00 AM each_ MCG/ACT Health Relief EST [facility]) 50 il} MCG/AC T Amoxicillin UNK .0 [...] 12:00: et} [facility] AM Health EST Care) Aspirin 81 Aspiri 1.0 active Aspirin 81 eCW3 MG Delayed n 81 2015 {tabl MG ([facility] Release MG 12:00: et} [place] Oral Tablet 00 AM Health EST Care) Aspirin 81 UNK .0 active Aspirin 81 eCW3 MG 2016 {tabl [...] AM Health EST Care) Aspirin 81 Aspiri 12/13/ 1.0 active Aspirin 81 eCW3 MG Delayed [...] 00 AM Health EST Care) Diclofenac Voltar 1025/ active Voltaren 1 % eCW3 Sodium 0.01 en 1 % 2016 ([facility] MG/MG 12:00: [place] Topical Gel 00 AM Health [[facility]] EDT Care) Voltaren 1 % Diclofenac Voltar 1025/ active Voltaren 1 % eCW3 Sodium 0.01 en 1 % 2015 ([facility] MG/MG 12:00: [place] Topical Gel 00 AM Health [Voltaren] EDT Care) Voltaren 1 % Permethrin Permet 25/ 1.0 suspend Permeth rin [...] EDT Care) Voltaren 1 % Permethrin Permet 10/ 1.0 suspend Permeth rin 5 eCW3 50 [...] 00 AM Health EDT Care) Permethrin Permet 1.0 suspend Permeth rin 5 [...] Care) 5 % cted_ area} Permethrin UNK 02/28/ 1.0 suspend Permethri n 5 eCW3 5 % 2015 {appl ed % ([facility] 12:00: icati [facility] 00 AM on_to Health EDT _affe Care) cted_ area} Diclofenac Voltar 25/ active Voltaren [...] [facility] Oral Tablet MG 00 AM Health [[facility]] EDT Care) ZyrTEC Allergy 10 MG cetirizine ZyrTEC .0 active ZyrTEC e CW3 hydrochlori Allerg 2016 {tabl Allergy 10 ([facility] de 10 MG y 10 12:00: et} MG [facility] Oral Tablet MG 00 AM Health [[facility]] EDT Care) ZyrTEC Allergy 10 MG ZyrTEC UNK .0 active ZyrTEC eCW3 Allergy 10 2015 {tabl Allergy 10 (H udson mg 12:00: et} mg [facility] 00 AM Health EDT Care) cetirizine ZyrTEC .0 active ZyrTEC e CW3 hydrochlori Allerg 2016 {tabl Allergy 10 ([facility] de 10 MG y 10 12:00: et} MG [place] Oral Tablet MG 00 AM Health [[facility]] EDT Care) ZyrTEC Allergy 10 MG cetirizine ZyrTEC .0 active ZyrTEC e CW3 hydrochlori Allerg 2016 {tabl Allergy 10 ([facility] de 10 MG y 10 12:00: et} mg [place] Oral Tablet mg 00 AM Health [[facility]] EDT Care) ZyrTEC Allergy 10 mg cetirizine ZyrTEC .0 active ZyrTEC e CW3 hydrochlori Allerg 2016 {tabl Allergy 10 ([facility] de 10 MG y 10 12:00: et} MG [place] Oral Tablet MG 00 AM Health [[facility]] EDT Care) ZyrTEC Allergy 10 MG cetirizine ZyrTEC .0 active ZyrTEC e CW3 hydrochlori Allerg 2016 {tabl Allergy 10 ([facility] de 10 MG y 10 12:00: et} MG [place] Oral Tablet MG 00 AM Health [[email or web address]] EDT Care) ZyrTEC Allergy 10 MG cetirizine ZyrTEC .0 active ZyrTEC e CW3 hydrochlori Allerg 2016 {tabl Allergy 10 ([facility] de 10 MG y 10 12:00: et} MG [place] Oral Tablet MG 00 AM Health [[facility] [[email or web address]] EDT Care) ZyrTEC Allergy 10 MG cetirizine ZyrTEC .0 active ZyrTEC e CW3 hydrochlori Allerg 2016 {tabl Allergy 10 ([facility] de 10 MG y 10 12:00: et} mg [place] Oral Tablet mg 00 AM Health [[facility] [[email or web address]] EDT Care) ZyrTEC Allergy 10 mg cetirizine ZyrTEC .0 active ZyrTEC e CW3 hydrochlori Allerg 2016 {tabl Allergy 10 ([facility] de 10 MG y 10 12:00: et} MG [facility] Oral Tablet MG 00 AM Health [[facility] [[email or web address]] EDT Care) ZyrTEC Allergy 10 MG Blood UNK 10/18/ active Blood eCW3 Glucose 2016 Glucose ([facility] Monitor 12:00: Monitor [facility] Software 1 00 AM Software 1 [facility] EDT [facility]) Isopropyl Alcoho 10/18/ active Alcohol P rep eCW3 Alcohol 0.7 l Prep 2016 70 % ([facility] ML/ML 70 % 12:00: [facility] Medicated [address] [facility] EDT Care) Prep 70 % Blood UNK 10/18/ active Blood eCW3 Glucose 2016 Glucose ([facility] Monitor 12:00: Monitor [facility] [employer] 1 00 AM Software 1 [facility] EDT [facility]) Lancets 1 UNK 14/ active Lancets 1 e CW3 2015 ([facility] 12:00: [facility] 00 AM [facility] EDT Care) Lancets 1 UNK 0614/ active Lancets 1 e CW3 2016 ([facility] 12:00: [facility] 00 AM [facility] EDT Care) Blood UNK 10/18/ active Blood eCW3 Glucose 2016 Glucose ([facility] Monitor 12:00: Monitor [facility] [employer] 1 00 AM Software 1 [facility] EDT [facility]) Isopropyl Alcoho 10/18/ active Alcohol P rep [...] [facility] Software 1 00 AM Software 1 [facility] EDT Care) Blood UNK 14/ active Blood eCW3 Glucose 2016 Glucose ([facility] Monitor 12:00: Monitor [facility] [employer] 1 00 AM Software 1 [facility] EDT [facility]) Lancets 1 UNK 14/ active Lancets 1 [...] [facility] Software 1 00 AM Software 1 [facility] EDT [facility]) Isopropyl Alcoho 14/ active Alcohol P rep [...] 00 AM Health EDT Care) Isopropyl Alcoho // active Alcohol P rep eCW3 Alcohol 0.7 l Prep 2016 70 % ([facility] ML/ML 70 % 12:00: [facility] Medicated 00 AM Health [facility] Alcohol EDT Care) Prep 70 % Blood UNK /14/ active Blood eCW3 Glucose 2016 Glucose ([facility] Monitor 12:00: Monitor [facility] [employer] 1 00 AM Software 1 [facility] EDT [facility]) Lancets 1 UNK 0614/ active Lancets 1 e CW3 2015 ([facility] 12:00: [facility] 00 AM Health EDT Care) Isopropyl Alcoho 10/18/ active Alcohol P rep eCW3 Alcohol 0.7 l Prep 2016 70 % ([facility] ML/ML 70 % 12:00: [facility] Medicated 00 AM [facility] Alcohol EDT Care) Prep 70 % Blood UNK 14/ active Blood eCW3 Glucose 2016 Glucose ([facility] Monitor 12:00: Monitor [facility] [employer] 1 00 AM Software 1 [facility] EDT [facility]) Lancets 1 UNK 14/ active Lancets 1 e CW3 2015 ([facility] 12:00: [facility] 00 AM Health EDT Care) Blood UNK 06/14/ active Blood eCW3 Glucose 2016 Glucose ([facility] Monitor 12:00: Monitor [facility] [employer] 1 00 AM Software 1 [facility] EDT Care) Isopropyl Alcoho 10/18/ active Alcohol P rep eCW3 Alcohol 0.7 l Prep 2016 70 % ([facility] ML/ML 70 % 12:00: [facility] Medicated 00 AM Health [facility] Alcohol EDT Care) Prep 70 % Blood UNK 0614/ active Blood eCW3 Glucose 2016 Glucose ([facility] Monitor 12:00: Monitor [facility] [employer] 1 00 AM Software 1 [facility] EDT [facility]) Isopropyl Alcoho /14/ active Alcohol P rep eCW3 Alcohol 0.7 l Prep 2016 70 % ([facility] ML/ML 70 % 12:00: [facility] Medicated 00 AM Health [facility] Alcohol EDT Care) Prep 70 % Isopropyl Alcoho 10/18/ active Alcohol P rep eCW3 Alcohol 0.7 l Prep 2016 70 % ([facility] ML/ML 70 % 12:00: [facility] Medicated 00 AM Health Pad Alcohol EDT Care) Prep 70 % Blood UNK 10/18/ active Blood eCW3 Glucose 2016 Glucose ([facility] Monitor 12:00: Monitor [facility] 1 00 AM Software 1 [facility] EDT Care) Lancets 1 UNK 10/18/ active Lancets 1 [...] [facility] Software 1 00 AM Software 1 [facility] EDT Care) Lancets 1 UNK 10/18/ active Lancets 1 [...] [facility] Software 1 00 AM Software 1 [facility] EDT Care) Lancets 1 UNK 14/ active [...] CW3 2015 ([facility] 12:00: [facility] 00 AM [facility] EDT Care) Blood UNK 10/18/ active Blood eCW3 Glucose 2016 Glucose ([facility] Monitor 12:00: Monitor [facility] [employer] 1 00 AM Software 1 [facility] EDT Care) Blood UNK 10/18/ active Blood eCW3 Glucose 2015 Glucose ([facility] Monitor 12:00: Monitor [facility] 1 00 AM Software 1 [facility] EDT Care) Isopropyl Alcoho 10/18/ active Alcohol P rep eCW3 Alcohol 0.7 l Prep 2015 70 % ([facility] ML/ML 70 % 12:00: [facility] Medicated [address] [facility] EDT Care) Prep 70 % Blood UNK 10/18/ active Blood eCW3 Glucose 2015 Glucose ([facility] Monitor 12:00: Monitor [facility] 1 00 AM Software 1 [facility] EDT [facility]) Blood UNK 10/18/ active Blood eCW3 Glucose 2016 Glucose ([facility] Monitor 12:00: Monitor [facility] 1 00 AM Software 1 [facility] EDT [facility]) Isopropyl Alcoho 10/18/ active Alcohol P rep eCW3 Alcohol 0.7 l Prep 2015 70 % ([facility] ML/ML 70 % 12:00: [place] Medicated 00 AM Health [facility] Alcohol EDT Care) Prep 70 % Lancets 1 UNK 10/18/ active Lancets 1 e CW3 2015 ([facility] 12:00: [facility] 00 AM Health EDT Care) Blood UNK 10/18/ active Blood eCW3 Glucose 2016 Glucose ([facility] Monitor 12:00: Monitor [facility] 1 00 AM Software 1 [facility] EDT [facility]) Lancets 1 UNK 10/18/ active Lancets 1 e CW3 2015 ([facility] 12:00: [facility] 00 AM Health EDT Care) Isopropyl Alcoho 10/18/ active Alcohol P rep eCW3 Alcohol 0.7 l Prep 2015 70 % ([facility] ML/ML 70 % 12:00: [facility] Medicated 00 AM Health [facility] Alcohol EDT Care) Prep 70 % Alcohol UNK 10/18/ active Alcohol Prep eCW3 Prep 70 % 2015 70 % ([facility] 12:00: [facility] 00 AM Health EDT Care) Isopropyl Alcoho 10/18/ active Alcohol P rep eCW3 Alcohol 0.7 l Prep 2016 70 % ([facility] ML/ML 70 % 12:00: [facility] Medicated 00 AM Health [facility] Alcohol EDT Care) Prep 70 % Blood UNK 10/18/ active Blood eCW3 Glucose 2016 Glucose ([facility] Monitor 12:00: Monitor [facility] 1 00 AM Software 1 [facility] EDT [facility]) Blood UNK 10/18/ active Blood eCW3 Glucose 2016 Glucose ([facility] Monitor 12:00: Monitor [facility] 1 00 AM Software 1 [facility] EDT [facility]) Blood UNK 10/18/ active Blood eCW3 Glucose 2016 Glucose ([facility] Monitor 12:00: Monitor [facility] 1 00 AM Software 1 [facility] EDT Care) Isopropyl Alcoho 10/18/ active Alcohol P rep eCW3 Alcohol 0.7 l Prep 2016 70 % ([facility] ML/ML 70 % 12:00: [facility] Medicated [address] [facility] EDT Care) Prep 70 % Blood UNK 10/18/ active Blood eCW3 Glucose 2015 Glucose ([facility] Monitor 12:00: Monitor [facility] 1 00 AM Software 1 [facility] EDT [facility]) Blood UNK 10/18/ active Blood eCW3 Glucose 2016 Glucose ([facility] Monitor 12:00: Monitor [facility] 1 00 AM Software 1 [facility] EDT [facility]) Blood UNK 10/18/ active Blood eCW3 Glucose 2016 Glucose ([facility] Monitor 12:00: Monitor [facility] 1 00 AM Software 1 [facility] EDT [facility]) Lancets 1 UNK 10/18/ active Lancets 1 e CW3 2015 ([facility] 12:00: [facility] 00 AM [facility] EDT Care) Blood UNK 10/18/ active Blood eCW3 Glucose 2016 Glucose ([facility] Monitor 12:00: Monitor [place] [facility] 1 00 AM Software 1 [facility] EDT [facility]) Lancets 1 UNK 10/18/ active Lancets 1 e CW3 2015 ([facility] 12:00: [facility] 00 AM [facility] EDT Care) Isopropyl Alcoho 10/18/ active Alcohol P rep eCW3 Alcohol 0.7 l Prep 2016 70 % ([facility] ML/ML 70 % 12:00: [facility] Medicated 00 AM [facility] Alcohol EDT Care) Prep 70 % Isopropyl [...] [facility] Software 1 00 AM Software 1 [facility] EDT Care) Isopropyl Alcoho /14/ active Alcohol [...] [facility] Software 1 00 AM Software 1 [facility] EDT Care) Isopropyl Alcoho /14/ active Alcohol P rep eCW3 Alcohol 0.7 l Prep 2016 70 % ([facility] ML/ML 70 % 12:00: [facility] Medicated 00 AM Health Pad Alcohol EDT Care) Prep 70 % Lancets 1 UNK 06/14/ active Lancets 1 e CW3 2015 ([facility] 12:00: [facility] 00 AM Health EDT Care) Isopropyl Alcoho 06/14/ active Alcohol [...] [facility] Software 1 00 AM Software 1 [facility] EDT [facility]) Lancets 1 UNK 14/ active Lancets 1 e CW3 2015 ([facility] 12:00: [facility] 00 AM Health EDT Care) Blood UNK 0614/ active Blood eCW3 Glucose 2016 Glucose ([facility] Monitor 12:00: Monitor [place] [facility] 1 00 AM Software 1 [facility] EDT [facility]) Isopropyl Alcoho 10/18/ active Alcohol P rep [...] [facility] Software 1 00 AM Software 1 [facility] EDT [facility]) Isopropyl Alcoho 10/18/ active Alcohol P rep [...] CW3 2015 ([facility] 12:00: [facility] 00 AM [facility] EDT Care) Blood UNK 10/18/ active Blood eCW3 Glucose 2016 Glucose ([facility] Monitor 12:00: Monitor [place] [facility] 1 00 AM Software 1 [facility] EDT [facility]) Lancets 1 UNK 14/ active Lancets 1 e CW3 2015 ([facility] 12:00: [facility] 00 AM [facility] EDT Care) Blood UNK 06/ active Blood eCW3 Glucose 2016 Glucose ([facility] Monitor 12:00: Monitor [facility] 1 00 AM Software 1 [facility] EDT [facility]) Blood UNK 10/18/ active Blood eCW3 Glucose 2016 Glucose ([facility] Monitor 12:00: Monitor [facility] 1 00 AM Software 1 [facility] EDT [facility]) Blood UNK 14/ active Blood eCW3 Glucose 2016 Glucose ([facility] Monitor 12:00: Monitor [place] [facility] 1 00 AM Software 1 [facility] EDT [facility]) Blood UNK 14/ active Blood eCW3 Glucose 2016 Glucose ([facility] Monitor 12:00: Monitor [place] [employer] 1 00 AM Software 1 [facility] EDT [facility]) Blood UNK 0614/ active Blood eCW3 Glucose 2015 Glucose ([facility] Monitor 12:00: Monitor [place] [facility] 1 00 AM Software 1 [facility] EDT Care) Isopropyl Alcoho 10/18/ active Alcohol P rep eCW3 Alcohol 0.7 l Prep 2015 70 % ([facility] ML/ML 70 % 12:00: [place] Medicated 00 AM Health Pad Alcohol EDT Care) Prep 70 % Blood UNK 10/18/ active Blood eCW3 Glucose 2015 Glucose ([facility] Monitor 12:00: Monitor [place] Software 1 00 AM Software 1 [facility] EDT Care) Lancets 1 UNK 10/18/ active Lancets 1 e CW3 2015 ([facility] 12:00: [facility] 00 AM Health EDT Care) Loratadine Clarit .0 active Claritin [...] mg 12:00: et} [place] [Claritin] 00 AM [facility] Claritin 10 EDT Care) mg Loratadine Clarit .0 active Claritin 10 eCW3 10 MG Oral in 2015 {tabl mg ([facility] Tablet mg 12:00: et} [place] [Claritin] 00 AM [facility] Claritin 10 EDT Care) mg Loratadine Clarit .0 active Claritin 10 eCW3 10 MG Oral in 2015 {tabl mg ([facility] Tablet mg 12:00: et} [place] [Claritin] 00 AM [facility] Claritin 10 EDT Care) mg Flonase [...] Health EDT nostr Care) il} Loratadine Clarit .0 active Claritin 10 eCW3 [...] mg 12:00: et} [place] [Claritin] 00 AM [facility] Claritin 10 EDT Care) mg Claritin 10 UNK .0 active Claritin 10 eCW3 mg 2015 {tabl mg ([facility] 12:00: et} [place] 00 AM [facility] EDT Care) Loratadine Clarit .0 active Claritin 10 eCW3 10 MG Oral in 2015 {tabl mg ([facility] Tablet mg 12:00: et} [place] [Claritin] 00 AM [facility] Claritin 10 EDT [facility]) mg Flonase Flonas .0 active Flonase eCW 3 Allergy e 2015 {spra Allergy ([facility] Relief 50 Allerg 12:00: y_in_ Relief 50 [place] MCG/ACT y 00 AM each_ MCG/ACT Health Relief EDT nostr Care) 50 il} MCG/AC T Loratadine Clarit .0 active Claritin 10 eCW3 10 MG Oral in 2015 {tabl mg ([facility] Tablet mg 12:00: et} [place] [Claritin] 00 AM [facility] Claritin 10 EDT Care) mg Flonase [...] mg 12:00: et} [place] [Claritin] 00 AM [facility] Claritin 10 EDT Care) mg Flonase [...] mg 12:00: et} [place] [Claritin] 00 AM [facility] Claritin 10 EDT Care) mg Flonase [...] mg 12:00: et} [place] [Claritin] 00 AM [facility] Claritin 10 EDT Care) mg Loratadine Clarit .0 active Claritin 10 eCW3 10 MG Oral in 2015 {tabl mg ([facility] Tablet mg 12:00: et} [place] [Claritin] 00 AM [facility] Claritin 10 EDT Care) mg Loratadine Clarit .0 active Claritin 10 eCW3 10 MG Oral in 2015 {tabl mg ([facility] Tablet mg 12:00: et} [place] [Claritin] 00 AM [facility] Claritin 10 EDT Care) mg Flonase [...] mg 12:00: et} [place] [Claritin] 00 AM [facility] Claritin 10 EDT Care) mg Flonase [...] mg 12:00: et} [place] [Claritin] 00 AM [facility]) mg Loratadine Clarit 1.0 active Claritin 10 eCW3 10 MG Oral in 2015 {tabl mg ([facility] Tablet mg 12:00: et} [place] [Claritin] 00 AM [place] [address] EDT [facility]) mg Loratadine Clarit 1.0 active Claritin 10 eCW3 10 MG Oral in 2015 {tabl mg ([facility] Tablet mg 12:00: et} [place] [Claritin] 00 AM [facility] [place] [address] EDT [facility]) mg Loratadine Clarit .0 active Claritin 10 eCW3 10 MG Oral in 2015 {tabl mg ([facility] Tablet mg 12:00: et} [place] [Claritin] 00 AM [place] [address] EDT [facility]) mg Loratadine Clarit .0 active Claritin 10 eCW3 10 MG Oral in 2015 {tabl mg ([facility] Tablet mg 12:00: et} [place] [Claritin] 00 AM [place] [address] EDT Care) mg Alcohol Alcoho 07/07/ active [...] 07/07/ active FreeStyle eCW3 Lite - yle 2015 Lite - ([facility] Lite - 12:00: [place] [...] 07/07/ active FreeStyle e CW3 Lite Test 2015 Lite Test ([facility] freestyle 12:00: freestyle [...] MG/MG 12:00: [place] Topical Gel 00 AM [facility] [[facility]] EST Care) Voltaren 1 % Diclofenac Voltar / active Voltaren 1 % eCW3 Sodium 0.01 en 1 % 2015 ([facility] MG/MG 12:00: [place] Topical Gel 00 AM [facility] [[facility]] EST [facility]) Voltaren 1 % Diclofenac Voltar / active Voltaren 1 % eCW3 Sodium 0.01 en 1 % 2015 ([facility] [facility] MG/MG 12:00: [place] Topical Gel 00 AM [facility] [[facility]] EST [facility]) Voltaren 1 % Diclofenac Voltar / active Voltaren 1 % eCW3 Sodium 0.01 en 1 % 2015 ([place] [facility] MG/MG 12:00: [place] Topical Gel 00 AM [facility] [[facility]] EST [facility]) Voltaren 1 % Diclofenac Voltar / active Voltaren 1 % eCW3 Sodium 0.01 en 1 % 2015 ([place] [facility] MG/MG 12:00: [place] Topical Gel 00 AM [facility] [[facility]] EST [facility]) Voltaren 1 % Diclofenac Voltar / active Voltaren 1 % eCW3 Sodium 0.01 en 1 % 2015 ([facility] [facility] MG/MG 12:00: [place] Topical Gel 00 AM [facility] [[facility]] EST Care) Voltaren 1 % Diclofenac Voltar / active Voltaren 1 % eCW3 Sodium 0.01 en 1 % 2016 ([place] [facility] MG/MG 12:00: [place] Topical Gel 00 AM [facility] [[facility]] EST [facility]) Voltaren 1 % Diclofenac Voltar / active Voltaren 1 % eCW3 Sodium 0.01 en 1 % 2015 ([facility] [facility] MG/MG 12:00: [place] Topical Gel 00 AM [facility] [[facility]] EST Care) Voltaren 1 % Voltaren 1 UNK / active Voltaren 1 % eCW3 % 2016 ([facility] 12:00: [facility] 00 AM [facility] EST [facility]) Diclofenac Voltar / active Voltaren 1 % eCW3 Sodium 0.01 en 1 % 2016 ([facility] [facility] MG/MG 12:00: [place] Topical Gel 00 AM Health [[facility]] EST Care) Voltaren 1 % Diclofenac Voltar / active Voltaren 1 % eCW3 Sodium 0.01 en 1 % 2016 ([place] [facility] MG/MG 12:00: [place] Topical Gel 00 AM [facility] [[facility]] EST Care) Voltaren 1 % Diclofenac Voltar / active Voltaren 1 % eCW3 Sodium 0.01 en 1 % 2016 ([facility] [facility] MG/MG 12:00: [place] Topical Gel 00 AM Health [[facility]] EST Care) Voltaren 1 % Diclofenac Voltar / active Voltaren 1 % eCW3 Sodium 0.01 en 1 % 2015 ([facility] [facility] MG/MG 12:00: [place] Topical Gel 00 AM [facility] [[facility]] EST Care) Voltaren 1 % Diclofenac Voltar / active Voltaren 1 % eCW3 Sodium 0.01 en 1 % 2015 ([place] [facility] MG/MG 12:00: [facility] Topical Gel 00 AM [facility] [Voltare] EST [facility]) Voltaren 1 % Diclofenac Voltar / active Voltaren 1 % eCW3 Sodium 0.01 en 1 % 2015 ([place] [facility] MG/MG 12:00: [facility] Topical Gel 00 AM [facility] [Voltare] EST Care) Voltaren 1 % Diclofenac Voltar / active Voltaren 1 % eCW3 Sodium 0.01 en 1 % 2015 ([place] [facility] MG/MG 12:00: [facility] Topical Gel 00 AM [facility] [Voltare] EST [facility]) Voltaren 1 % Diclofenac Voltar / active Voltaren 1 % eCW3 Sodium 0.01 en 1 % 2016 ([place] [facility] MG/MG 12:00: [facility] Topical Gel 00 AM [facility] [Voltaren] EST Care) Voltaren 1 % Diclofenac Voltar / active Voltaren 1 % eCW3 Sodium 0.01 en 1 % 2015 ([place] MG/MG 12:00: [facility] Topical Gel 00 AM [facility] [Voltaren] EST Care) Voltaren 1 % Diclofenac Voltar / active Voltaren 1 % eCW3 Sodium 0.01 en 1 % 2015 ([place] MG/MG 12:00: [facility] Topical Gel 00 AM [facility]) Voltaren 1 % Diclofenac Voltar / active Voltaren 1 % eCW3 Sodium 0.01 en 1 % 2016 ([place] [facility] MG/MG 12:00: [place] Topical Gel 00 AM [facility] [Voltare] [facility]) Voltaren 1 % Diclofenac Voltar / active Voltaren 1 % eCW3 Sodium 0.01 en 1 % 2015 ([place] [facility] MG/MG 12:00: [facility] Topical Gel 00 AM [facility]) Voltaren 1 % Diclofenac Voltar / active Voltaren 1 % eCW3 Sodium 0.01 en 1 % 2015 ([place] [facility] MG/MG 12:00: [facility] Topical Gel 00 AM [facility]) Voltaren 1 % Diclofenac Voltar / active Voltaren 1 % eCW3 Sodium 0.01 en 1 % 2015 ([place] MG/MG 12:00: [facility] Topical Gel 00 AM [facility]) Voltaren 1 % Diclofenac Voltar / active Voltaren 1 % eCW3 Sodium 0.01 en 1 % 2015 ([place] [facility] MG/MG 12:00: [facility] Topical Gel 00 AM [facility]) Voltaren 1 % Diclofenac Voltar / active Voltaren 1 % eCW3 Sodium 0.01 en 1 % 2015 ([place] MG/MG 12:00: [facility] Topical Gel 00 AM [facility] [Voltare] EST [facility]) Voltaren 1 % Diclofenac Voltar / active Voltaren 1 % eCW3 Sodium 0.01 en 1 % 2015 ([place] [facility] MG/MG 12:00: [place] Topical Gel 00 AM [facility] [Voltare] [facility]) Voltaren 1 % Diclofenac Voltar / active Voltaren 1 % eCW3 Sodium 0.01 en 1 % 2015 ([place] MG/MG 12:00: [place] Topical Gel 00 AM [facility] [Voltare] [facility]) Voltaren 1 % Diclofenac Voltar / active Voltaren 1 % eCW3 Sodium 0.01 en 1 % 2015 ([place] MG/MG 12:00: [place] Topical Gel 00 AM [facility] [Voltare] EST Care) Voltaren 1 % [...] AM Health EST Care) Multi For UNK 30/ active Multi For e CW3 Her 50+ 1 2016 Her 50+ 1 ([facility] 12:00: [facility] 00 AM Health EST Care) Multivitami UNK 09/02/ active Multivita min [...] [place] 00 AM Health EST Care) Pen [place] Pen 12/23/ active Pen Needl es eCW3 09/19" 31G X Needle 2014 09/19" 31G X ([place] 8 MM s 12:00: 8 MM [place] 09/19" 00 AM Health 31G X EDT Care) 8 MM Pen [place] Pen 12/23/ active Pen Needl es eCW3 09/19" 31G X Needle 2014 09/19" 31G X ([place] 8 MM s 12:00: 8 MM [place] 09/19" 00 AM Health 31G X EDT Care) 8 MM Pen [place] Pen 12/23/ active Pen Needl es eCW3 09/19" 31G X Needle 09/19" 31G X ([place] 8 MM s 12:00: 8 MM [place] 09/19" 00 AM Health 31G X EDT Care) 8 MM Pen [place] Pen 12/23/ active Pen Needl es eCW3 09/19" 31G X Needle 09/19" 31G X ([place] 8 MM s 12:00: 8 MM [place] 09/19" 00 AM Health 31G X EDT Care) 8 MM Pen [place] Pen 12/23/ active Pen Needl es eCW3 09/19" 31G X Needle 09/19" 31G X ([place] 8 MM s 12:00: 8 MM [place] 09/19" 00 AM Health 31G X EDT Care) 8 MM Pen [place] Pen 12/23/ active Pen Needl es eCW3 09/19" 31G X Needle 09/19" 31G X ([place] 8 MM s 12:00: 8 MM [place] 09/19" 00 AM Health 31G X EDT Care) 8 MM Pen [place] Pen 12/23/ active Pen Needl es eCW3 09/19" 31G X Needle 09/19" 31G X ([place] 8 MM s 12:00: 8 MM [place] 09/19" 00 AM Health 31G X EDT Care) 8 MM Pen [place] Pen 12/23/ active Pen Needl es eCW3 09/19" 31G X Needle 09/19" 31G X ([place] 8 MM s 12:00: 8 MM [place] 09/19" 00 AM Health 31G X EDT Care) 8 MM Pen [place] Pen 12/23/ active Pen Needl es eCW3 09/19" 31G X Needle 09/19" 31G X ([place] 8 MM s 12:00: 8 MM [place] 09/19" 00 AM Health 31G X EDT Care) 8 MM Pen [place] Pen 12/23/ active Pen Needl es eCW3 09/19" 31G X Needle 09/19" 31G X ([place] 8 MM s 12:00: 8 MM [place] 09/19" 00 AM Health 31G X EDT Care) 8 MM Pen [place] Pen 12/23/ active Pen Needl es eCW3 09/19" 31G X Needle 09/19" 31G X ([place] 8 MM s 12:00: 8 MM [place] 09/19" 00 AM Health 31G X EDT Care) 8 MM Pen [place] Pen 12/23/ active Pen Needl es eCW3 09/19" 31G X Needle 09/19" 31G X ([place] 8 MM s 12:00: 8 MM [place] 09/19" 00 AM Health 31G X EDT Care) 8 MM Pen [place] Pen 12/23/ active Pen Needl es eCW3 09/19" 31G X Needle 09/19" 31G X ([place] 8 MM s 12:00: 8 MM [facility] AM [facility] 31G X EDT Care) 8 MM Pen [place] UNK 12/23/ active Pen Needl es eCW3 09/19" 31G X 09/19" 31G X ( [place] 8 MM 12:00: 8 MM [place] 00 AM Health EDT Care) Pen [place] Pen 12/23/ active Pen Needl es eCW3 09/19" 31G X Needle 09/19" 31G X ([place] 8 MM s 12:00: 8 MM [place] 09/19" 00 AM Health 31G X EDT Care) 8 MM Pen [place] Pen 12/23/ active Pen Needl es eCW3 09/19" 31G X Needle 09/19" 31G X ([place] 8 MM s 12:00: 8 MM [place] 09/19" 00 AM Health 31G X EDT Care) 8 MM Pen [place] Pen 12/23/ active Pen Needl es eCW3 09/19" 31G X Needle 2014 09/19" 31G X ([place] 8 MM s 12:00: 8 MM [place] 09/19" 00 AM Health 31G X EDT Care) 8 MM Pen [place] Pen 12/23/ active Pen Needl es eCW3 09/19" 31G X Needle 09/19" 31G X ([place] 8 MM s 12:00: 8 MM [place] 09/19" 00 AM Health 31G X EDT Care) 8 MM Pen [place] Pen 12/23/ active Pen Needl es eCW3 09/19" 31G X Needle 2014 09/19" 31G X ([place] 8 MM s 12:00: 8 MM [place] 09/19" 00 AM Health 31G X EDT Care) 8 MM Pen [place] Pen 12/23/ active Pen Needl es eCW3 09/19" 31G X Needle 09/19" 31G X ([place] 8 MM s 12:00: 8 MM [place] 09/19" 00 AM Health 31G X EDT Care) 8 MM Pen [place] Pen 12/23/ active Pen Needl es eCW3 09/19" 31G X Needle 2014 09/19" 31G X ([place] 8 MM s 12:00: 8 MM [place] 09/19" 00 AM Health 31G X EDT Care) 8 MM Pen [place] Pen 12/23/ active Pen Needl es eCW3 09/19" 31G X Needle 09/19" 31G X ([place] 8 MM s 12:00: 8 MM [place] 09/19" 00 AM Health 31G X EDT Care) 8 MM Pen [place] Pen 12/23/ active Pen Needl es eCW3 09/19" 31G X Needle 09/19" 31G X ([place] 8 MM s 12:00: 8 MM [place] 09/19" 00 AM Health 31G X EDT Care) 8 MM Pen [place] Pen 12/23/ active Pen Needl es eCW3 09/19" 31G X Needle 09/19" 31G X ([place] 8 MM s 12:00: 8 MM [place] 09/19" 00 AM Health 31G X EDT Care) 8 MM Pen [place] Pen 12/23/ active Pen Needl es eCW3 09/19" 31G X Needle 2014 09/19" 31G X ([place] 8 MM s 12:00: 8 MM [place] 09/19" 00 AM Health 31G X EDT Care) 8 MM Pen [place] Pen 12/23/ active Pen Needl es eCW3 09/19" 31G X Needle 2014 09/19" 31G X ([place] 8 MM s 12:00: 8 MM [place] 09/19" 00 AM Health 31G X EDT Care) 8 MM Pen [place] Pen 12/23/ active Pen Needl es eCW3 09/19" 31G X Needle 2014 09/19" 31G X ([place] 8 MM s 12:00: 8 MM [place] 09/19" 00 AM Health 31G X EDT Care) 8 MM Pen [place] Pen 12/23/ active Pen Needl es eCW3 09/19" 31G X Needle 09/19" 31G X ([place] 8 MM s 12:00: 8 MM [place] 09/19" 00 AM Health 31G X EDT Care)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 Received: 01/23/2020 at 08:58:00 QTE : [facility], [address], [place], [address], Christofer Combs MD Received: 01/23/2020 at 08:58:00 QTE : [facility], [address], [place], [address], Christofer Combs MD Name Value Range Interpretation Description Data Sup porting Code Source(s) Document(s ) Cholesterol 162 <200 Normal (applies [facility] [Mass/volume] mg/dL to non-numeric Diagnostics in Serum or results) Plasma Cholesterol in 57 mg/dL > OR = Normal (applies [facility] HDL 50 to non-numeric Diagnostics [Mass/volume] results) in Serum or Plasma Triglyceride 64 mg/dL <150 Normal ([facility]lies [facility] [Mass/volume] to non-numeric Diagnostics in Serum or results) Plasma Cholesterol in 90 mg/dL Normal (applies [facility] LDL (calc) to non-numeric Diagnostics [Mass/volume] results) in Serum or Plasma by calculation Reference range: <100Desirable range <10 0 mg/dL for primary prevention;<70 mg/dL for patients with CHD or diabetic patientswi th > or = 2 CHD risk factors.LDL-C is now calculated using the Jamil lation, which is a validated novel method providingbetter accuracy than the Friede negin equation in theestimation of LDL-C.John PORRAS et al. YOUNG. 2013;310(19 ): 0031-0730(http://education.AppsFlyer.com/faq/YSV897) Cholesterol.total/Cholesterol in 2.8 (calc) <5.0 Normal (applies [facility] HDL [Mass Ratio] in Serum or to non-numeric Diagnostics Plasma results) Cholesterol non HDL [Mass/volume] 105 mg/dL <130 Normal ([facility]lies [facility] in Serum or Plasma (calc) to non-numeric Diagno stics results) For patients with diabetes plus 1 major ASCVD riskfactor, treating to a non-HDL-C goal of <100 mg/dL(LDL-C of <70 mg/dL) i s considered a therapeuticoption. ID Date Data Source [id number] 01/26/2020 06:02:00 PM EDT [facility] FASTING:YESFASTING: YESReceived: 020 at 08:58:00 QTE: [facility] [place], [address], Christofer Combs MD FASTING:YESFASTING: YESReceived: 020 at 08:58:00 QTE: [facility] [place], [address], Christofer Combs MD Received: 01/23/2020 at 08:58:00 QTE : [facility], [address], [place], [address], Christofer Combs MD Received: 01/23/2020 at 08:58:00 QTE : [facility], [address], [place], [address], Christofer Combs MD Received: 01/23/2020 at 08:58:00 QTE : [facility], [address], [place], [address], Christofer Combs MD Received: 01/23/2020 at 08:58:00 QTE : [facility], [address], [place], [address], Christofer Combs MD Received: 01/23/2020 at 08:58:00 QTE : [facility], [address], [place], [address], Christofer Combs MD Received: 01/23/2020 at 08:58:00 QTE : [facility], [address], [place], [address], Christofer Combs MD Received: 01/23/2020 at 08:58:00 QTE : [facility], [address], [place], [address], Christofer Combs MD Received: 01/23/2020 at 08:58:00 QTE : [facility], [address], [place], [address], Christofer Combs MD Received: 01/23/2020 at 08:58:00 QTE : [facility], [address], [place], [address], Christofer Combs MD Received: 01/23/2020 at 08:58:00 QTE : [facility], [address], [place], [address], Christofer Combs MD Received: 01/23/2020 at 08:58:00 QTE : [facility], [address], [place], [address], Christofer Combs MD Received: 01/23/2020 at 08:58:00 QTE : [facility], [address], [place], [address], Christofer Combs MD Received: 01/23/2020 at 08:58:00 QTE : [facility], [address], [place], [address], Christofer Combs MD Received: 01/23/2020 at 08:58:00 QTE : [facility], [address] [place] [place], [place], [address], Christofer Combs MD Received: 01/23/2020 at 08:58:00 QTE : [facility], [address], [place], [address], Christofer Combs MD Name Value Range Interpretation Description Data Source(s ) Supporting Code Document(s ) Cholesterol 162 <200 Normal (applies [facility] [Mass/volume] mg/dL to non-numeric Diagnostics in Serum or results) Plasma ID Date Data Source [id number] 01/26/2020 06:02:00 PM EDT [facility] FASTING:YESFASTING: YESReceived: 020 at 08:58:00 QTE: [facility], [place], [place], [address], Christofer Combs MD FASTING:YESFASTING: YESReceived: 020 at 08:58:00 QTE: [facility], [place], [address]hCristofer MD Received: 01/23/2020 at 08:58:00 QTE : [facility], [place], [address]Christofer MD Received: 01/23/2020 at 08:58:00 QTE : [facility], [place], [address], Christofer Combs MD Received: 01/23/2020 at 08:58:00 QTE : [facility], [address], [place], [address], Christofer Combs MD Received: 01/23/2020 at 08:58:00 QTE : [facility], [address], [place], [address], Christofer Combs MD Received: 01/23/2020 at 08:58:00 QTE : [facility], [address], [place], [address], Christofer Combs MD Received: 01/23/2020 at 08:58:00 QTE : [facility], [address], [place], [address], Christofer Combs MD Received: 01/23/2020 at 08:58:00 QTE : [facility], [address], [place], [address], Christofer Combs MD Received: 01/23/2020 at 08:58:00 QTE : [facility], [address], [place], [address], Christofer Combs MD Received: 01/23/2020 at 08:58:00 QTE : [facility], [address], [place], [address], Christofer Combs MD Received: 01/23/2020 at 08:58:00 QTE : [facility], [address], [place], [address], Christofer Combs MD Received: 01/23/2020 at 08:58:00 QTE : [facility], [address], [place], [address], Christofer Combs MD Received: 01/23/2020 at 08:58:00 QTE : [facility], [address], [place], [address], Christofer Combs MD Received: 01/23/2020 at 08:58:00 QTE : [facility], [address] [place] [place], [place], [address], Christofer Combs MD Received: 01/23/2020 at 08:58:00 QTE : [facility], [address], [place], [address], Christofer Combs MD Received: 01/23/2020 at 08:58:00 QTE : [facility], [address] [place], [place], [address], Christofer Combs MD Name Value Range Interpretation Description Data Sup porting Code Source(s) Document(s ) Cholesterol in 57 mg/dL > OR = Normal (applies [facility] HDL 50 to non-numeric Diagnostics [Mass/volume] results) in Serum or Plasma ID Date Data Source [id number] 01/26/2020 06:02:00 PM EDT [facility] FASTING:YESFASTING: YESReceived: 020 at 08:58:00 QTE: [facility], [place], [address], Christofer Combs MD FASTING:YESFASTING: YESReceived: 020 at 08:58:00 QTE: [facility], [place], [address], Christofer Combs MD Received: 01/23/2020 at 08:58:00 QTE : [facility], [address], Christofer Combs MD Received: 01/23/2020 at 08:58:00 QTE : [facility], [address]Christofer MD Received: 01/23/2020 at 08:58:00 QTE : [facility], [address]Christofer MD Received: 01/23/2020 at 08:58:00 QTE : [facility], [address], [place], [address], Christofer Combs MD Received: 01/23/2020 at 08:58:00 QTE : [facility], [address], [place], [address], Christofer Combs MD Received: 01/23/2020 at 08:58:00 QTE : [facility], [address], [place], [address], Christofer Combs MD Received: 01/23/2020 at 08:58:00 QTE : [facility], [address], [place], [address], Christofer Combs MD Received: 01/23/2020 at 08:58:00 QTE : [facility], [address], [place], [address], Christofer Combs MD Received: 01/23/2020 at 08:58:00 QTE : [facility], [address], [place], [address], Christofer Combs MD Received: 01/23/2020 at 08:58:00 QTE : [facility], [address], [place], [address], Christofer Combs MD Received: 01/23/2020 at 08:58:00 QTE : [facility], [address], [place], [address], Christofer Combs MD Received: 01/23/2020 at 08:58:00 QTE : [facility], [address], [place], [address], Christofer Combs MD Received: 01/23/2020 at 08:58:00 QTE : [facility], [address], [place], [address], Christofer Combs MD Received: 01/23/2020 at 08:58:00 QTE : [facility], [address], [place], [address], Christofer Combs MD Received: 01/23/2020 at 08:58:00 QTE : [facility], [place], [address], Christofer Combs MD Name Value Range Interpretation Description Data Source(s ) Supporting Code Document(s ) Triglyceride 64 mg/dL <150 Normal (applies [facility] [Mass/volume] to non-numeric Diagnostics in Serum or results) Plasma ID Date Data Source [id number] 01/26/2020 06:02:00 PM EDT [facility] FASTING:YESFASTING: YESReceived: 020 at 08:58:00 QTE: [facility], [place], [address], Christofer Combs MD FASTING:YESFASTING: YESReceived: 020 at 08:58:00 QTE: [facility], [place], [address], Christofer Combs MD Received: 01/23/2020 at 08:58:00 QTE : [facility] [place], [address], Christofer Combs MD Received: 01/23/2020 at 08:58:00 QTE : [facility] [place], [address], Christofer Combs MD Received: 01/23/2020 at 08:58:00 QTE : [facility], [address]Christofer MD Received: 01/23/2020 at 08:58:00 QTE : [facility], [address]Christofer MD Received: 01/23/2020 at 08:58:00 QTE : [facility], [address]Christofer MD Received: 01/23/2020 at 08:58:00 QTE : [facility], [address], [place], [address], Christofer Combs MD Received: 01/23/2020 at 08:58:00 QTE : [facility], [address], [place], [address], Christofer Combs MD Received: 01/23/2020 at 08:58:00 QTE : [facility], [address], [place], [address], Christofer Combs MD Received: 01/23/2020 at 08:58:00 QTE : [facility], [address], [place], [address], Christofer Combs MD Received: 01/23/2020 at 08:58:00 QTE : [facility], [address], [place], [address], Christofer Combs MD Received: 01/23/2020 at 08:58:00 QTE : [facility], [address], [place], [address], Christofer Combs MD Received: 01/23/2020 at 08:58:00 QTE : [facility], [address], [place], [address], Christofer Combs MD Received: 01/23/2020 at 08:58:00 QTE : [facility], [address], [place], [address], Christofer Combs MD Received: 01/23/2020 at 08:58:00 QTE : [facility], [address], [place], [address], Christofer Combs MD Received: 01/23/2020 at 08:58:00 QTE : [facility], [address], [place], [address], Christofer Combs MD Name Value Range Interpretation Description Data Source(s ) Supporting Code Document(s ) Cholesterol in 90 mg/dL Normal (applies [facility] LDL (calc) to non-numeric Diagnostics [Mass/volume] results) in Serum or Plasma by calculation Reference range: <100Desirable range <10 0 mg/dL for primary prevention;<70 mg/dL for patients with CHD or diabetic patientswi th > or = 2 CHD risk factors.LDL-C is now calculated using the JohnDavid lation, which is a validated novel method providingbetter accuracy than the Friede negin equation in theestimation of LDL-C.John PORRAS et al. YOUNG. 2013;310(19 ): 9090-5164(http://education.AppsFlyer.com/faq/JHT828) ID Date Data Source [id number] 01/26/2020 06:02:00 PM EDT [facility] FASTING:YESFASTING: YESReceived: 020 at 08:58:00 QTE: [place], [address]Christofer MD FASTING:YESFASTING: YESReceived: 020 at 08:58:00 QTE: [place], [address]Christofer MD Received: 01/23/2020 at 08:58:00 QTE : [place], [address]Christofer MD Received: 01/23/2020 at 08:58:00 QTE : [place], [address]Christofer MD Received: 01/23/2020 at 08:58:00 QTE : [place], [address]Christofer MD Received: 01/23/2020 at 08:58:00 QTE : [place], [address]Christofer MD Received: 01/23/2020 at 08:58:00 QTE : [facility], [address], [place], [address], Christofer Combs MD Received: 01/23/2020 at 08:58:00 QTE : [facility], [address], [place], [address], Christofer Combs MD Received: 01/23/2020 at 08:58:00 QTE : [facility], [address], [place], [address], Christofer Combs MD Received: 01/23/2020 at 08:58:00 QTE : [facility], [address], [place], [address], Christofer Combs MD Received: 01/23/2020 at 08:58:00 QTE : [facility], [address], [place], [address], Christofer Combs MD Received: 01/23/2020 at 08:58:00 QTE : [facility], [address], [place], [address], Christofer Combs MD Received: 01/23/2020 at 08:58:00 QTE : [facility], [address], [place], [address], Christofer Combs MD Received: 01/23/2020 at 08:58:00 QTE : [facility], [address], [place], [address], Christofer Combs MD Received: 01/23/2020 at 08:58:00 QTE : [facility], [address], [place], [address], Christofer Combs MD Received: 01/23/2020 at 08:58:00 QTE : [facility], [address], [place], [address], Christofer Combs MD Received: 01/23/2020 at 08:58:00 QTE : [facility], [place], [address], Christofer Combs MD Name Value Range Interpretation Description Data Source(s ) Supporting Code Document(s ) Cholestero 2.8 <5.0 Normal (applies to [facility] l.total/Ch (calc) non-numeric Diagnostics olesterol results) in HDL [Mass Ratio] in Serum or Plasma ID Date Data Source [id number] 01/26/2020 06:02:00 PM EDT [facility] FASTING:YESFASTING: YESReceived: 020 at 08:58:00 QTE: [facility], [place], [address], Christofer Combs MD FASTING:YESFASTING: YESReceived: 020 at 08:58:00 QTE: [facility], [place], [address], Christofer Combs MD Received: 01/23/2020 at 08:58:00 QTE : [facility], [place], [address], Christofer Combs MD Received: 01/23/2020 at 08:58:00 QTE : [facility], [place], [address], Christofer Combs MD Received: 01/23/2020 at 08:58:00 QTE : [facility], [address], Christofer Combs MD Received: 01/23/2020 at 08:58:00 QTE : [facility], [address], Christofer Combs MD Received: 01/23/2020 at 08:58:00 QTE : [facility], [place], [address], Christofer Combs MD Received: 01/23/2020 at 08:58:00 QTE : [facility], [address], [place], [address], Christofer Combs MD Received: 01/23/2020 at 08:58:00 QTE : [facility], [address], [place], [address], Christofer Combs MD Received: 01/23/2020 at 08:58:00 QTE : [facility], [address], [place], [address], Christofer Combs MD Received: 01/23/2020 at 08:58:00 QTE : [facility], [address], [place], [address], Christofer Combs MD Received: 01/23/2020 at 08:58:00 QTE : [facility], [address], [place], [address], Christofer Combs MD Received: 01/23/2020 at 08:58:00 QTE : [facility], [address], [place], [address], Christofer Combs MD Received: 01/23/2020 at 08:58:00 QTE : [facility], [address], [place], [address], Christofer Combs MD Received: 01/23/2020 at 08:58:00 QTE : [facility], [address], [place], [address], Christofer Combs MD Received: 01/23/2020 at 08:58:00 QTE : [facility], [address], [place], [address], Christofer Combs MD Received: 01/23/2020 at 08:58:00 QTE : [facility], [address], [place], [address], Christofer Combs MD Name Value Range Interpretation Description Data Source(s ) Supporting Code Document(s ) Cholesterol 105 <130 Normal (applies [facility] non HDL mg/dL to non-numeric Diagnostics [Mass/volume] (calc) results) in Serum or Plasma For patients with diabetes plus 1 major ASCVD riskfactor, treating to a non-HDL-C goal of <100 mg/dL(LDL-C of <70 mg/dL) i s considered a therapeuticoption. ID Date Data Source [id number] 01/26/2020 06:02:00 PM EDT [facility] FASTING:YESFASTING: YESReceived: 020 at 08:58:00 QTE: [facility], [place], [address], Christofer Combs MD FASTING:YESFASTING: YESReceived: 020 at 08:58:00 QTE: [facility], [place], [address], Christofer Combs MD Received: 01/23/2020 at 08:58:00 QTE : [facility], [place], [address], Christofer Combs MD Received: 01/23/2020 at 08:58:00 QTE : [facility], [address], Christofer Combs MD Received: 01/23/2020 at 08:58:00 QTE : [facility], [address]Christofer MD Received: 01/23/2020 at 08:58:00 QTE : [facility], [address]Christofer MD Received: 01/23/2020 at 08:58:00 QTE : [facility], [address]Christofer MD Received: 01/23/2020 at 08:58:00 QTE : [facility], [address], Christofer Combs MD Received: 01/23/2020 at 08:58:00 QTE : [facility], [address], [place], [address], Christofer Combs MD Received: 01/23/2020 at 08:58:00 QTE : [facility], [address], [place], [address], Christofer Combs MD Received: 01/23/2020 at 08:58:00 QTE : [facility], [address], [place], [address], Christofer Combs MD Received: 01/23/2020 at 08:58:00 QTE : [facility], [address], [place], [address], Christofer Combs MD Received: 01/23/2020 at 08:58:00 QTE : [facility], [address], [place], [address], Christofer Combs MD Received: 01/23/2020 at 08:58:00 QTE : [facility], [address], [place], [address], Christofer Combs MD Received: 01/23/2020 at 08:58:00 QTE : [facility], [address], [place], [address], Christofer Combs MD Received: 01/23/2020 at 08:58:00 QTE : [facility], [address], [place], [address], Christofer Combs MD Received: 01/23/2020 at 08:58:00 QTE : [facility], [address], [place], [address], Christofer Combs MD Name Value Range Interpretation Description Data Sup porting Code Source(s) Document(s ) Microalbumin 0.5 See Normal (applies [facility] [Mass/volume] mg/dL Note: to non-numeric Diagnostics in Urine results) Reference Range:Reference RangeNot estab lished Albumin/Creatinine [Mass 6 mcg/mg creat <30 Normal (applies to [facility] Ratio] in Urine non-numeric results) The ADA defines abnormalities in albumin excretion as follows:Category Result (mcg/mg creatinine)Normal <30Microalbuminuria 30-299Clinical albuminuria > OR = 300T he ADA recommends that at least two of threespecimens collected within a 3-6 mo nth period beabnormal before considering a patient to bewithin a diagnostic categor y. Creatinine [Mass/volume] 85 mg/dL 20-275 Normal (applies to [facility] in Urine non-numeric results) ID Date Data Source [id number] 01/26/2020 06:02:00 PM EDT [facility] FASTING:YESFASTING: YESReceived: 020 at 08:58:00 QTE: [facility], [place], [address], Christofer Combs MD FASTING:YESFASTING: YESReceived: 020 at 08:58:00 QTE: [facility], [place], [address], Christofer Combs MD Received: 01/23/2020 at 08:58:00 QTE : [place], [address]Christofer MD Received: 01/23/2020 at 08:58:00 QTE : [place], [address]Christofer MD Received: 01/23/2020 at 08:58:00 QTE : [place], [address]Christofer MD Received: 01/23/2020 at 08:58:00 QTE : [place], [address]Christofer MD Received: 01/23/2020 at 08:58:00 QTE : [place], [address], Christofer Combs MD Received: 01/23/2020 at 08:58:00 QTE : [facility], [address], [place], [address], Christofer Combs MD Received: 01/23/2020 at 08:58:00 QTE : [facility], [address], [place], [address], Christofer Combs MD Received: 01/23/2020 at 08:58:00 QTE : [facility], [address], [place], [address], Christofer Combs MD Received: 01/23/2020 at 08:58:00 QTE : [facility], [address], [place], [address], Christofer Combs MD Received: 01/23/2020 at 08:58:00 QTE : [facility], [address], [place], [address], Christofer Combs MD Received: 01/23/2020 at 08:58:00 QTE : [facility], [address], [place], [address], Christofer Combs MD Received: 01/23/2020 at 08:58:00 QTE : [facility], [address], [place], [address], Christofer Combs MD Received: 01/23/2020 at 08:58:00 QTE : [facility], [address], [place], [address], Christofer Combs MD Received: 01/23/2020 at 08:58:00 QTE : [facility], [address], [place], [address], Christofer Combs MD Received: 01/23/2020 at 08:58:00 QTE : [facility], [address], [place], [address], Christofer Combs MD Name Value Range Interpretation Description Data Source(s ) Supporting Code Document(s ) Glucose 218 mg/dL 65-99 Above high normal [facility] [Mass/volum Diagnostics e] in Serum or Plasma Fasting reference intervalFor someone without known diabetes, a glucosevalue >125 mg/dL indicates that t ayanna may havediabetes and this should be confirmed with afollow-up test. Urea nitrogen 8 mg/dL 7-25 Normal (applies to [facility] D iagnostics [Mass/volume] in Serum non-numeric results) or Plasma Creatinine 0.66 mg/dL 0.50-0.99 Normal (applies to [facility] Joni gn[facility] [Mass/volume] in Serum non-numeric results) or Plasma For patients >49 years of age, the refer ence limitfor Creatinine is approximately 13% higher for peopleidentified as -A merican. Glomerular filtration 95 mL/min/1.73m2 > OR = Normal (applies [facility] rate/1.73 sq 60 to non-numeric Diagnostics M.predicted [Volume results) Rate/Area] in Serum, Plasma or Blood by Creatinine-based formula (MDRD) Glomerular filtration 110 mL/min/1.73m2 > OR = Normal (applies [facility] rate/1.73 sq M 60 to non-numeric Diagnostic s predicted among blacks results) [Volume Rate/Area] in Serum or Plasma by Creatinine-based formula (MDRD) Urea NOT APPLICABLE 6-22 [facility] nitrogen/Creatinine (calc) Diagnostic s [Mass Ratio] in Serum or Plasma Sodium [Moles/volume] 137 mmol/L 135-146 Normal (applies Q uest in Serum or Plasma to non-numeric Diagno stics results) Potassium 4.5 mmol/L 3.5-5.3 Normal (applies [facility] [Moles/volume] in to non-numeric Diagnos tics Serum or Plasma results) Chloride 100 mmol/L 98-110 Normal (applies [facility] [Moles/volume] in to non-numeric Diagnos tics Serum or Plasma results) Carbon dioxide, total 29 mmol/L 20-32 Normal (applies Qu est [Moles/volume] in to non-numeric Diagnos tics Serum or Plasma results) Calcium [Mass/volume] 9.8 mg/dL 8.6-10.4 Normal (applies Qu est in Serum or Plasma to non-numeric Diagno stics results) Protein [Mass/volume] 7.5 g/dL 6.1-8.1 Normal (applies Qu est in Serum or Plasma to non-numeric Diagno stics results) Albumin [Mass/volume] 4.2 g/dL 3.6-5.1 Normal (applies Qu est in Serum or Plasma to non-numeric Diagno stics results) Globulin [Mass/volume] 3.3 g/dL (calc) 1.9-3.7 Normal (applies [facility] in Serum by to non-numeric Diagnostics calculation results) Albumin/Globulin [Mass 1.3 (calc) 1.0-2.5 Normal (applies [facility] Ratio] in Serum or to non-numeric Diagno stics Plasma results) Bilirubin.total 0.5 mg/dL 0.2-1.2 Normal (applies [facility] [Mass/volume] in Serum to non-numeric Di agnostics or Plasma results) Alkaline phosphatase 102 U/L 37-153 Normal (applies Que st [Enzymatic to non-numeric Diagnostics activity/volume] in results) Serum or Plasma Aspartate 82 U/L 10-35 Above high [facility] aminotransferase normal Diagnostics [Enzymatic activity/volume] in Serum or Plasma Alanine 107 U/L 6-29 Above high [facility] aminotransferase normal Diagnostics [Enzymatic activity/volume] in Serum or Plasma ID Date Data Source [id number] 01/26/2020 06:02:00 PM EDT [facility] FASTING:YESFASTING: YESReceived: 020 at 08:58:00 QTE: [address] [place], [address], Christofer Combs MD FASTING:YESFASTING: YESReceived: 020 at 08:58:00 QTE: [place], [address], Christofer Combs MD Received: 01/23/2020 at 08:58:00 QTE : [place], [address]Christofer MD Received: 01/23/2020 at 08:58:00 QTE : [place], [address], Christofer Combs MD Received: 01/23/2020 at 08:58:00 QTE : [facility], [address], [place], [address], Christofer Combs MD Received: 01/23/2020 at 08:58:00 QTE : [facility], [address], [place], [address], Christofer Combs MD Received: 01/23/2020 at 08:58:00 QTE : [facility], [address], [place], [address], Christofer Combs MD Received: 01/23/2020 at 08:58:00 QTE : [facility], [address], [place], [address], Christofer Combs MD Received: 01/23/2020 at 08:58:00 QTE : [facility], [address], [place], [address], Christofer Combs MD Received: 01/23/2020 at 08:58:00 QTE : [facility], [address], [place], [address], Christofer Combs MD Received: 01/23/2020 at 08:58:00 QTE : [facility], [address], [place], [address], Christofer Combs MD Received: 01/23/2020 at 08:58:00 QTE : [facility], [address], [place], [address], Christofer Combs MD Received: 01/23/2020 at 08:58:00 QTE : [facility], [address], [place], [address], Christofer Combs MD Received: 01/23/2020 at 08:58:00 QTE : [facility], [address], [place], [address], Christofer Combs MD Received: 01/23/2020 at 08:58:00 QTE : [facility], [address], [place], [address], Christofer Combs MD Received: 01/23/2020 at 08:58:00 QTE : [facility], [address], [place], [address], Christofer Combs MD Received: 01/23/2020 at 08:58:00 QTE : [facility], [address], [place], [address], Christofer Combs MD Name Value Range Interpretation Description Data Sup porting Code Source(s) Document(s ) Color of Urine YELLOW YELLOW Normal (applies [facility] to non-numeric Diagnostics results) Appearance of CLEAR CLEAR Normal (applies [facility] Urine to non-numeric Diagnostics results) Specific 1.015 1.001-1.03 Normal (applies [facility] gravity of 5 to non-numeric Diagnostics Urine by Test results) strip pH of Urine by 6.5 5.0-8.0 Normal (applies [facility] Test strip to non-numeric Diagnostics results) Glucose NEGATIVE NEGATIVE Normal (applies [facility] [Presence] in to non-numeric Diagnostics Urine by Test results) strip Bilirubin.tota NEGATIVE NEGATIVE Normal (applies [facility] l [Presence] to non-numeric Diagnostics in Urine by results) Test strip Ketones NEGATIVE NEGATIVE Normal (applies [facility] [Presence] in to non-numeric Diagnostics Urine by Test results) strip Hemoglobin NEGATIVE NEGATIVE Normal (applies [facility] [Presence] in to non-numeric Diagnostics Urine by Test results) strip Protein NEGATIVE NEGATIVE Normal (applies [facility] [Presence] in to non-numeric Diagnostics Urine by Test results) strip Nitrite NEGATIVE NEGATIVE Normal (applies [facility] [Presence] in to non-numeric Diagnostics Urine by Test results) strip Leukocyte NEGATIVE NEGATIVE Normal (applies [facility] esterase to non-numeric Diagnostics [Presence] in results) Urine by Test strip Leukocytes NONE SEEN < OR = 5 Normal (applies [facility] [#/area] in /HPF to non-numeric Diagnostics Urine sediment results) by Microscopy high power field Erythrocytes NONE SEEN < OR = 2 Normal (applies [facility] [#/area] in /HPF to non-numeric Diagnostics Urine sediment results) by Microscopy high power field Epithelial NONE SEEN < OR = 5 Normal (applies [facility] cells.squamous /HPF to non-numeric Diagnostic s [#/area] in results) Urine sediment by Microscopy high power field Bacteria NONE SEEN NONE SEEN Normal (applies [facility] [#/area] in /HPF to non-numeric Diagnostics Urine sediment results) by Microscopy high power field Hyaline casts NONE SEEN NONE SEEN Normal (applies [facility] [#/area] in /LPF to non-numeric Diagnostics Urine sediment results) by Microscopy low power field ID Date Data Source [id number] 01/26/2020 06:02:00 PM EDT [facility] FASTING:YESFASTING: YESReceived: 020 at 08:58:00 QTE: [facility], [address], [place], [address], Christofer Combs MD FASTING:YESFASTING: YESReceived: 020 at 08:58:00 QTE: [facility], [address] [place], [address], Christofer Combs MD Received: 01/23/2020 at 08:58:00 QTE : [facility], [address] [place], [address], Christofer Combs MD Received: 01/23/2020 at 08:58:00 QTE : [facility], [place], [address], Christofer Combs MD Received: 01/23/2020 at 08:58:00 QTE : [facility], [place], [address], Christofer Combs MD Received: 01/23/2020 at 08:58:00 QTE : [facility], [place], [address], Christofer Combs MD Received: 01/23/2020 at 08:58:00 QTE : [facility], [place], [address], Christofer Combs MD Received: 01/23/2020 at 08:58:00 QTE : [facility], [place], [address], Christofer Combs MD Received: 01/23/2020 at 08:58:00 QTE : [facility], [address], [place], [address], Christofer Combs MD Received: 01/23/2020 at 08:58:00 QTE : [facility], [address], [place], [address], Christofer Combs MD Received: 01/23/2020 at 08:58:00 QTE : [facility], [address], [place], [address], Christofer Combs MD Received: 01/23/2020 at 08:58:00 QTE : [facility], [address], [place], [address], Christofer Combs MD Received: 01/23/2020 at 08:58:00 QTE : [facility], [address], [place], [address], Christofer Combs MD Received: 01/23/2020 at 08:58:00 QTE : [facility], [address], [place], [address], Christofer Combs MD Received: 01/23/2020 at 08:58:00 QTE : [facility], [address], [place], [address], Christofer Combs MD Received: 01/23/2020 at 08:58:00 QTE : [facility], [address], [place], [address], Christofer Combs MD Received: 01/23/2020 at 08:58:00 QTE : [facility], [address], [place], [address], Christofer Combs MD Name Value Range Interpretation Description Data Sup porting Code Source(s) Document(s ) Leukocytes 7.0 3.8-10. Normal (applies [facility] [#/volume] in Thousand 8 to non-numeric Diagnostics Blood by /uL results) Automated count Erythrocytes 5.29 3.80-5. Above high [facility] [#/volume] in Million/ 10 normal Diagnostics Blood by uL Automated count Hemoglobin 14.0 11.7-15 Normal (applies [facility] [Mass/volume] in g/dL .5 to non-numeric Diagnost ics Blood results) Hematocrit 43.0 % 35.0-45 Normal (applies [facility] [Volume .0 to non-numeric Diagnostics Fraction] of results) Blood by Automated count Erythrocyte mean 81.3 fL 80.0-10 Normal (applies [facility] corpuscular 0.0 to non-numeric Diagnostics volume [Entitic results) volume] by Automated count Erythrocyte mean 26.5 pg 27.0-33 Below low normal [facility] corpuscular .0 Diagnostics hemoglobin [Entitic mass] by Automated count Erythrocyte mean 32.6 32.0-36 Normal (applies [facility] corpuscular g/dL .0 to non-numeric Diagnostics hemoglobin results) concentration [Mass/volume] by Automated count Erythrocyte 13.8 % 11.0-15 Normal (applies [facility] distribution .0 to non-numeric Diagnostics width [Ratio] by results) Automated count Platelets 472 140-400 Above high [facility] [#/volume] in Thousand normal Diagnostics Blood by /uL Automated count Platelet mean 10.6 fL 7.5-12. Normal (applies [facility] volume [Entitic 5 to non-numeric Diagnosti cs volume] in Blood results) by Andres Neutrophils 2828 1500-78 Normal (applies [facility] [#/volume] in cells/uL 00 to non-numeric Diagnostics Blood by results) Automated count Lymphocytes 2926 850-390 Normal (applies [facility] [#/volume] in cells/uL 0 to non-numeric Diagnostics Blood by results) Automated count Monocytes 679 200-950 Normal (applies [facility] [#/volume] in cells/uL to non-numeric Diagnostics Blood by results) Automated count Eosinophils 518 15-500 Above high [facility] [#/volume] in cells/uL normal Diagnostics Blood by Automated count Basophils 49 0-200 Normal (applies [facility] [#/volume] in cells/uL to non-numeric Diagnostics Blood by results) Automated count Neutrophils/100 40.4 % 38-80 Normal (applies [facility] leukocytes in to non-numeric Diagnostics Blood by results) Automated count Lymphocytes/100 41.8 % 15-49 Normal (applies [facility] leukocytes in to non-numeric Diagnostics Blood by results) Automated count Monocytes/100 9.7 % 0-13 Normal (applies [facility] leukocytes in to non-numeric Diagnostics Blood by results) Automated count Eosinophils/100 7.4 % 0-8 Normal (applies [facility] leukocytes in to non-numeric Diagnostics Blood by results) Automated count Basophils/100 0.7 % 0-2 Normal (applies [facility] leukocytes in to non-numeric Diagnostics Blood by results) Automated count ID Date Data Source [id number] 01/26/2020 06:02:00 PM EDT [facility] FASTING:YESFASTING: YESReceived: 020 at 08:58:00 QTE: [facility], [address], [address], Christofer Combs MD FASTING:YESFASTING: YESReceived: 020 at 08:58:00 QTE: [facility], [address] [place], [address], Christofer Combs MD Received: 01/23/2020 at 08:58:00 QTE : [facility], [address] [place], [address], Christofer Combs MD Received: 01/23/2020 at 08:58:00 QTE : [facility], [address] [place] [place], [address], Christofer Combs MD Received: 01/23/2020 at 08:58:00 QTE : [facility], [address] [place], [address], Christofer Combs MD Received: 01/23/2020 at 08:58:00 QTE : [facility], [place], [address]Christofer MD Received: 01/23/2020 at 08:58:00 QTE : [facility], [place], [address], Christofer Combs MD Received: 01/23/2020 at 08:58:00 QTE : [facility], [address], [place], [address], Christofer Combs MD Received: 01/23/2020 at 08:58:00 QTE : [facility], [address], [place], [address], Christofer Combs MD Received: 01/23/2020 at 08:58:00 QTE : [facility], [address], [place], [address], Christofer Combs MD Received: 01/23/2020 at 08:58:00 QTE : [facility], [address], [place], [address], Christofer Combs MD Received: 01/23/2020 at 08:58:00 QTE : [facility], [address], [place], [address], Christofer Combs MD Received: 01/23/2020 at 08:58:00 QTE : [facility], [address] [place], [place], [address], Christofer Combs MD Received: 01/23/2020 at 08:58:00 QTE : [facility], [address], [place], [address], Christofer Combs MD Received: 01/23/2020 at 08:58:00 QTE : [facility], [address], [place], [address], Christofer Combs MD Received: 01/23/2020 at 08:58:00 QTE : [facility], [address], [place], [address], Christofer Combs MD Received: 01/23/2020 at 08:58:00 QTE : [facility], [address], [place], [address], Christofer Combs MD Name Value Range Interpretation Description Data Sup porting Code Source(s) Document(s ) Thyroglobulin Ab <1 IU/mL < or = Normal (applies [facility] [Units/volume] 1 to non-numeric Diagnostic s in Serum or results) Plasma ID Date Data Source [id number] 01/26/2020 06:02:00 PM EDT [facility] FASTING:YESFASTING: YESReceived: 020 at 08:58:00 QTE: [facility], [address], [place], [address], Christofer Combs MD FASTING:YESFASTING: YESReceived: 020 at 08:58:00 QTE: [facility], [address], [place], [address], Christofer Combs MD Received: 01/23/2020 at 08:58:00 QTE : [facility], [address], [place], [address], Christofer Combs MD Received: 01/23/2020 at 08:58:00 QTE : [facility], [address], [place], [address], Christofer Combs MD Received: 01/23/2020 at 08:58:00 QTE : [facility], [place], [address], Christofer Combs MD Received: 01/23/2020 at 08:58:00 QTE : [facility], [place], [address], Christofer Combs MD Received: 01/23/2020 at 08:58:00 QTE : [facility], [place], [address], Christofer Combs MD Received: 01/23/2020 at 08:58:00 QTE : [facility], [address], [place], [address], Christofer Combs MD Received: 01/23/2020 at 08:58:00 QTE : [facility], [place], [address], Christofer Combs MD Received: 01/23/2020 at 08:58:00 QTE : [facility], [address], [place], [address], Christofer Combs MD Received: 01/23/2020 at 08:58:00 QTE : [facility], [address], [place], [address], Chrsitofer Combs MD Received: 01/23/2020 at 08:58:00 QTE : [facility], [address], [place], [address], Christofer Combs MD Received: 01/23/2020 at 08:58:00 QTE : [facility], [address], [place], [address], Christofer Combs MD Received: 01/23/2020 at 08:58:00 QTE : [facility], [address], [place], [address], Christofer Combs MD Received: 01/23/2020 at 08:58:00 QTE : [facility], [address], [place], [address], Christofer Combs MD Received: 01/23/2020 at 08:58:00 QTE : [facility], [address], [place], [address], Christofer Combs MD Received: 01/23/2020 at 08:58:00 QTE : [facility], [address], [place], [address], Christofer Combs MD Name Value Range Interpretation Description Data Sup porting Code Source(s) Document(s ) Thyroperoxidase Ab 1 IU/mL <9 Normal (applies [facility] [Units/volume] in to non-numeric Diagnos tics Serum or Plasma results) ID Date Data Source [id number] 01/26/2020 06:02:00 PM EDT [facility] FASTING:YESFASTING: YESReceived: 020 at 08:58:00 QTE: [facility], [address], [place], [address], Christofer Combs MD FASTING:YESFASTING: YESReceived: 020 at 08:58:00 QTE: [facility], [address], [place], [address], Christofer Combs MD Received: 01/23/2020 at 08:58:00 QTE : [facility], [address], [place], [address], Christofer Combs MD Received: 01/23/2020 at 08:58:00 QTE : [facility], [address], [place], [address], Christofer Combs MD Received: 01/23/2020 at 08:58:00 QTE : [facility], [address], [place], [address], Christofer Combs MD Received: 01/23/2020 at 08:58:00 QTE : [facility], [address], [place], [address], Christofer Combs MD Received: 01/23/2020 at 08:58:00 QTE : [facility], [address], [place], [address], Christofer Combs MD Received: 01/23/2020 at 08:58:00 QTE : [facility], [address], [place], [address], Christofer Combs MD Received: 01/23/2020 at 08:58:00 QTE : [facility], [address], [place], [address], Christofer Combs MD Received: 01/23/2020 at 08:58:00 QTE : [facility], [address], [place], [address], Christofer Combs MD Received: 01/23/2020 at 08:58:00 QTE : [facility], [address], [place], [address], Christofer Combs MD Received: 01/23/2020 at 08:58:00 QTE : [facility], [address], [place], [address], Christofer Combs MD Received: 01/23/2020 at 08:58:00 QTE : [facility], [address], [place], [address], Christofer Combs MD Received: 01/23/2020 at 08:58:00 QTE : [facility], [address], [place], [address], Christofer Combs MD Received: 01/23/2020 at 08:58:00 QTE : [facility], [address], [place], [address], Christofer Combs MD Received: 01/23/2020 at 08:58:00 QTE : [facility], [address], [place], [address], Christofer Combs MD Received: 01/23/2020 at 08:58:00 QTE : [facility], [address], [place], [address], Christofer Combs MD Name Value Range Interpretation Description Data Source(s ) Supporting Code Document(s ) Thyroxine 1.2 0.8-1.8 Normal (applies [facility] (T4) free ng/dL to non-numeric Diagnostics [Mass/volume results) ] in Serum or Plasma ID Date Data Source [id number] 01/26/2020 06:02:00 PM EDT [facility] FASTING:YESFASTING: YESReceived: 020 at 08:58:00 QTE: [facility], [address], [place], [address], Christofer Combs MD FASTING:YESFASTING: YESReceived: 020 at 08:58:00 QTE: [facility], [address], [place], [address], Christofer Combs MD Received: 01/23/2020 at 08:58:00 QTE : [facility], [address], [place], [address], Christofer Combs MD Received: 01/23/2020 at 08:58:00 QTE : [facility], [address], [place], [address], Christofer Combs MD Received: 01/23/2020 at 08:58:00 QTE : [facility], [address], [place], [address], Christofer Combs MD Received: 01/23/2020 at 08:58:00 QTE : [facility], [address], [place], [address], Christofer Combs MD Received: 01/23/2020 at 08:58:00 QTE : [facility], [address], [place], [address], Christofer Combs MD Received: 01/23/2020 at 08:58:00 QTE : [facility], [address], [place], [address], Christofer Combs MD Received: 01/23/2020 at 08:58:00 QTE : [facility], [address], [place], [address], Christofer Combs MD Received: 01/23/2020 at 08:58:00 QTE : [facility], [address], [place], [address], Christofer Combs MD Received: 01/23/2020 at 08:58:00 QTE : [facility], [address], [place], [address], Christofer Combs MD Received: 01/23/2020 at 08:58:00 QTE : [facility], [address], [place], [address], Christofer Combs MD Received: 01/23/2020 at 08:58:00 QTE : [facility], [address], [place], [address], Christofer Combs MD Received: 01/23/2020 at 08:58:00 QTE : [facility], [address], [place], [address], Christofer Combs MD Received: 01/23/2020 at 08:58:00 QTE : [facility], [address], [place], [address], Christofer Combs MD Received: 01/23/2020 at 08:58:00 QTE : [facility], [address], [place], [address], Christofer Combs MD Received: 01/23/2020 at 08:58:00 QTE : [facility], [address], [place], [address], Christofer Combs MD Name Value Range Interpretation Description Data Sup porting Code Source(s) Document(s ) Thyrotropin 1.86 0.40-4.5 Normal (applies [facility] [Units/volume] mIU/L 0 to non-numeric Diagnostic s in Serum or results) Plasma ID Date Data Source [id number] 01/26/2020 06:02:00 PM EDT [facility] FASTING:YESFASTING: YESReceived: 020 at 08:58:00 QTE: [facility], [address], [place], [address]Christofer MD FASTING:YESFASTING: YESReceived: 020 at 08:58:00 QTE: [facility], [address], [place], [address]Christofer MD Received: 01/23/2020 at 08:58:00 QTE : [facility], [address], [place], [address], Christofer Combs MD Received: 01/23/2020 at 08:58:00 QTE : [facility], [address], [place], [address], Christofer Combs MD Received: 01/23/2020 at 08:58:00 QTE : [facility], [address], [place], [address], Christofer Combs MD Received: 01/23/2020 at 08:58:00 QTE : [facility], [address], [place], [address], Christofer Combs MD Received: 01/23/2020 at 08:58:00 QTE : [facility], [address], [place], [address], Christofer Combs MD Received: 01/23/2020 at 08:58:00 QTE : [facility], [address], [place], [address], Christofer Combs MD Received: 01/23/2020 at 08:58:00 QTE : [facility], [address], [place], [address], Christofer Combs MD Received: 01/23/2020 at 08:58:00 QTE : [facility], [address], [place], [address], Christofer Combs MD Received: 01/23/2020 at 08:58:00 QTE : [facility], [address], [place], [address], Christofer Combs MD Received: 01/23/2020 at 08:58:00 QTE : [facility], [address], [place], [address], Christofer Combs MD Received: 01/23/2020 at 08:58:00 QTE : [facility], [address], [place], [address], Christofer Combs MD Received: 01/23/2020 at 08:58:00 QTE : [facility], [address], [place], [address], Christofer Combs MD Received: 01/23/2020 at 08:58:00 QTE : [facility], [address] [place], [address], Christofer Combs MD Received: 01/23/2020 at 08:58:00 QTE : [facility], [address], [place], [address], Christofer Combs MD Received: 01/23/2020 at 08:58:00 QTE : [facility], [address] [place], [address], Christofer Combs MD Name Value Range Interpretation Description Data Source(s ) Supporting Code Document(s ) Calcidiol 59 ng/mL 30-100 Normal (applies [facility] [Mass/volume] to non-numeric Diagnostics in Serum or results) Plasma Vitamin D Status 25-OH Vitamin D :Deficiency: <20 ng/mLInsufficiency: 20 - 29 ng/mLOptimal: > or = 30 ng/mLFor 25-OH Vitamin D testing on arminda ents onD2-supplementation and patients for whom quantitationof D2 and D3 fractions is required, the QuestAssureD(TM)25-OH VIT D, (D2,D3), LC/MS/MS is recommended: [facility] [place] [id number] (patients >2yrs).See Note 1Note 1For additional information, please refe alicia [email or web address](This link is being provided for informational/educational purposes only. ) ID Date Data Source [id number] 01/26/2020 06:02:00 PM EDT [facility] FASTING:YESFASTING: YESReceived: 020 at 08:58:00 QTE: [facility], [address] [place], [address], Christofer Combs MD FASTING:YESFASTING: YESReceived: 020 at 08:58:00 QTE: [facility], [address], [place], [address], Christofer Combs MD Received: 01/23/2020 at 08:58:00 QTE : [facility], [address], [place], [address], Christofer Combs MD Received: 01/23/2020 at 08:58:00 QTE : [facility], [address], [place], [address], Christofer Combs MD Received: 01/23/2020 at 08:58:00 QTE : [facility], [address], [place], [address], Christofer Combs MD Received: 01/23/2020 at 08:58:00 QTE : [facility], [address], [place], [address], Christofer Combs MD Received: 01/23/2020 at 08:58:00 QTE : [facility], [address], [place], [address], Christofer Combs MD Received: 01/23/2020 at 08:58:00 QTE : [facility], [address], [place], [address], Christofer Combs MD Received: 01/23/2020 at 08:58:00 QTE : [facility], [address], [place], [address], Christofer Combs MD Received: 01/23/2020 at 08:58:00 QTE : [facility], [address], [place], [address], Christofer Combs MD Received: 01/23/2020 at 08:58:00 QTE : [facility], [address], [place], [address], Christofer Combs MD Received: 01/23/2020 at 08:58:00 QTE : [facility], [address], [place], [address], Christofer Combs MD Received: 01/23/2020 at 08:58:00 QTE : [facility], [place], [address]Christofer MD Received: 01/23/2020 at 08:58:00 QTE : [facility], [place], [address]Christofer MD Received: 01/23/2020 at 08:58:00 QTE : [facility], [place], [address], Christofer Combs MD Received: 01/23/2020 at 08:58:00 QTE : [facility], [address], [address]Christofer MD Received: 01/23/2020 at 08:58:00 QTE : [facility], [address] [place], [address], Christofer Combs MD Name Value Range Interpretation Description Data Source(s ) Supporting Code Document(s ) Hemoglobin 8.9 % of <5.7 Above high normal [facility] A1c/Hemoglobin total Diagnostics .total in Hgb Blood For someone without known diabetes, a he moglobin X3efwazr of 6.5% or greater indicates that they may havediabetes and this should be confirmed with a follow-uptest.For someone with known joni betes, a value <7% indicatesthat their diabetes is well controlled and a valueg reater than or equal to 7% indicates suboptimalcontrol. A1c targets should be individualized based onduration of diabetes, age, comorbid conditions, andother consi derations.Currently, no consensus exists regarding use ofhemoglobin A1c for diagn osis of diabetes for children. Procedure Social History Code Duration Value Status Description Data Source(s ) Smoking 01/20/2020 denies etoh completed denies etoh denies MEDGE N ([facility] 12:00:00 AM EDT denies smoking smoking denies [facility]) denies illicit illicit drugs. drugs. Smoking 01/20/2020 Unknown if ever completed Unknown if ever MEDG EN ([facility] 12:00:00 AM EDT [facility]) Smoking 01/06/2020 denies etoh completed denies etoh denies MEDGE N ([facility] 12:00:00 AM EDT denies smoking smoking denies [facility]) denies illicit illicit drugs. drugs. Smoking 01/06/2020 Unknown if ever completed Unknown if ever MEDG EN ([facility] 12:00:00 AM EDT smoked [facility]) Smoking 12/22/2019 Never Smoker completed Never Smoker eCW3 ([facility] 12:[facility]:00 AM [facility]) Smoking 12/22/2019 Never Smoker completed Never Smoker eCW3 ([facility] 12:00:00 AM [facility]) Smoking 12/22/2019 Never Smoker completed Never Smoker eCW3 ([facility] 12:00:00 AM [facility]) Smoking 12/22/2019 Never Smoker completed Never Smoker eCW3 ([facility] 12:00:00 AM [facility]) Smoking 12/22/2019 Never Smoker completed Never Smoker eCW3 ([facility] 12:00:00 AM [facility]) Smoking 12/22/2019 Never Smoker completed Never Smoker eCW3 ([facility] 12:00:00 AM [facility]) Smoking 12/22/2019 Never Smoker completed Never Smoker eCW3 ([facility] 12:00:00 AM [facility]) Smoking 11/20/2019 Never Smoker completed Never Smoker eCW3 ([facility] 12:00:00 AM [facility]) Smoking 11/20/2019 Never Smoker completed Never Smoker eCW3 ([facility] 12:00:00 AM [facility]) Smoking 11/20/2019 Never Smoker completed Never Smoker eCW3 ([facility] 12:00:00 AM [facility]) Smoking 10/23/2019 Never Smoker completed Never Smoker eCW3 ([facility] 12:00:00 AM [facility]) Smoking 10/23/2019 Never Smoker completed Never Smoker eCW3 ([facility] 12:00:00 AM [facility]) Smoking 10/23/2019 Never Smoker completed Never Smoker eCW3 ([facility] 12:00:00 AM [facility]) Smoking 10/23/2019 Never Smoker completed Never Smoker eCW3 ([facility] 12:00:00 AM [facility]) Smoking 10/14/2019 Never Smoker completed Never Smoker eCW3 ([facility] 12:00:00 AM [facility]) Smoking 10/14/2019 Never Smoker completed Never Smoker eCW3 ([facility] 12:00:00 AM [facility]) Smoking 09/20/2019 Never Smoker completed Never Smoker eCW3 ([facility] 12:00:00 AM [facility]) Smoking 09/20/2019 Never Smoker completed Never Smoker eCW3 ([facility] 12:00:00 AM [facility]) Smoking 09/20/2019 Never Smoker completed Never Smoker eCW3 ([facility] 12:00:00 AM [facility]) Smoking 09/20/2019 Never Smoker completed Never Smoker eCW3 ([facility] 12:00:00 AM [facility]) Smoking 09/20/2019 Never Smoker completed Never Smoker eCW3 ([facility] 12:00:00 AM [facility]) Smoking 09/20/2019 Never Smoker completed Never Smoker eCW3 ([facility] 12:00:00 AM [facility]) Smoking 09/20/2019 Never Smoker completed Never Smoker eCW3 ([facility] 12:00:00 AM [facility]) Smoking 08/28/2019 Never Smoker completed Never Smoker eCW3 ([facility] 12:00:00 AM [facility]) Smoking 07/21/2019 Never Smoker completed Never Smoker eCW3 ([facility] 12:00:00 AM [facility]) Smoking 07/21/2019 Never Smoker completed Never Smoker eCW3 ([facility] 12:00:00 AM [facility]) Smoking 05/22/2019 Never Smoker completed Never Smoker eCW3 ([facility] 12:00:00 AM [facility]) Smoking 05/22/2019 Never Smoker completed Never Smoker eCW3 ([facility] 12:00:00 AM [facility]) Smoking 04/10/2019 Never Smoker completed Never Smoker eCW3 ([facility] 12:00:00 AM [facility]) Smoking 04/10/2019 Never Smoker completed Never Smoker eCW3 ([facility] 12:00:00 AM [facility]) Smoking 04/01/2019 Denies Ever completed Denies Ever Smoked [facility] 05:11:00 PM EST Smoked [facility] Smoking 04/01/2019 Denies Ever completed Denies Ever Smoked [facility] 04:43:00 PM EST Smoked [facility] Smoking 02/13/2019 Never Smoker completed Never Smoker eCW3 ([facility] 12:00:00 AM [facility]) Smoking 02/13/2019 Never Smoker completed Never Smoker eCW3 ([facility] 12:00:00 AM [facility]) Smoking 12/05/2018 Never Smoker completed Never Smoker eCW3 ([facility] 12:00:00 AM [facility]) Smoking 08/02/2018 Never Smoker completed Never Smoker eCW3 ([facility] 12:00:00 AM [facility]) Smoking 08/02/2018 Never Smoker completed Never Smoker eCW3 ([facility] 12:00:00 AM [facility]) Smoking 06/17/2018 Never Smoker completed Never Smoker eCW3 ([facility] 12:00:00 AM [facility]) Smoking 06/17/2018 Never Smoker completed Never Smoker eCW3 ([facility] 12:00:00 AM [facility]) Never Smoker completed Never Smoker eCW3 ([facility]) Smoking Unknown if ever completed Unknown if ever [place] [facility] Never Smoker completed Never Smoker eCW3 ([facility]) Never Smoker completed Never Smoker eCW3 ([facility]) Never Smoker completed Never Smoker eCW3 ([facility]) Never Smoker completed Never Smoker eCW3 ([facility] Never Smoker completed Never Smoker eCW3 ([facility]) Never Smoker completed Never Smoker eCW3 ([facility]) Never Smoker completed Never Smoker eCW3 ([facility]) Never Smoker completed Never Smoker eCW3 ([facility]) Never Smoker completed Never Smoker eCW3 ([facility]) Never Smoker completed Never Smoker eCW3 ([facility]) Never Smoker completed Never Smoker eCW3 ([facility]) Never Smoker completed Never Smoker eCW3 ([facility]) Never Smoker completed Never Smoker eCW3 ([facility]) Never Smoker completed Never Smoker eCW3 ([facility]) Never Smoker completed Never Smoker eCW3 ([facility]) Never Smoker completed Never Smoker eCW3 ([facility]) Never Smoker completed Never Smoker eCW3 ([facility]) Never Smoker completed Never Smoker eCW3 ([facility]) Never Smoker completed Never Smoker eCW3 ([facility]) Never Smoker completed Never Smoker eCW3 ([facility]) Never Smoker completed Never Smoker eCW3 ([facility]) Never Smoker completed Never Smoker eCW3 ([facility]) Never Smoker completed Never Smoker eCW3 ([facility]) Never Smoker completed Never Smoker eCW3 ([facility]) Never Smoker completed Never Smoker eCW3 ([facility]) Never Smoker completed Never Smoker eCW3 ([facility]) Never Smoker completed Never Smoker eCW3 ([facility]) Never Smoker completed Never Smoker eCW3 ([facility]) Never Smoker completed Never Smoker eCW3 ([facility]) Never Smoker completed Never Smoker eCW3 ([facility]) Never Smoker completed Never Smoker eCW3 ([facility]) Never Smoker completed Never Smoker eCW3 ([facility]) Never Smoker completed Never Smoker eCW3 ([facility]) Never Smoker completed Never Smoker eCW3 ([facility]) Never Smoker completed Never Smoker eCW3 ([facility]) Never Smoker completed Never Smoker eCW3 ([facility]) Vital Signs ID Date Data Source UNK Name Value Range Interpretation Code Description Data Source(s) Body temperature 36.319799 36.992473 [facility] Respiratory rate 18 /min 18 /min [facility] Oxygen saturation 98 % 98 % [facility] by Pulse oximetry Heart rate 90 /min 90 /min [facility] Diastolic blood 79 mm[Hg] 79 mm[Hg] [facility] pressure [facility] Systolic blood 113 mm[Hg] 113 mm[Hg] [facility] Body weight 66.971949 kg 66.822748 kg [facility] Body temperature 36.576289 36.682531 [facility] Respiratory rate 18 /min 18 /min [facility] Oxygen saturation 99 % 99 % [facility] by Pulse oximetry Heart rate 100 /min 100 /min [facility] Diastolic blood 77 mm[Hg] 77 mm[Hg] [facility] Systolic blood 113 mm[Hg] 113 mm[Hg] [facility] Diastolic blood 79 mm[Hg] 79 mm[Hg] eCW3 ([facility]) Systolic blood 118 mm[Hg] 118 mm[Hg] eCW3 ([facility]) Body temperature 98.3 [degF] 98.3 [degF] eCW3 ( [facility]) Heart rate 20 /min 20 /min eCW3 ([facility]) Body mass index 27.20 kg/m2 27.20 kg/m2 eCW3 ([facility] (BMI) [Ratio] Count includes the [facility]) Body weight 141.6 141.6 [lb_av] eCW3 ([facility] [lb_av] [facility]) Body height 60.5 [in_i] 60.5 [in_i] eCW3 ([facility]) Body mass index 27.66 kg/m2 27.66 kg/m2 eCW3 ([facility] (BMI) [Ratio] Count includes the [facility]) Body weight 144 [lb_av] 144 [lb_av] eCW3 ([facility]) Body height 60.5 [in_i] 60.5 [in_i] eCW3 ([facility]) Diastolic blood 78 mm[Hg] 78 mm[Hg] eCW3 ([facility]) Systolic blood 122 mm[Hg] 122 mm[Hg] eCW3 ([facility] [address]) Body temperature 97.5 [degF] 97.5 [degF] eCW3 ( [facility]) Heart rate 20 /min 20 /min eCW3 ([facility]) Body mass index 26.89 kg/m2 26.89 kg/m2 eCW3 ([facility] (BMI) [Ratio] Count includes the [facility]) Body weight 140 [lb_av] 140 [lb_av] eCW3 ([facility]) Body height 60.5 [in_i] 60.5 [in_i] eCW3 ([facility]) Diastolic blood 76 mm[Hg] 76 mm[Hg] eCW3 ([facility]) Systolic blood 132 mm[Hg] 132 mm[Hg] eCW3 ([facility] [address]) Body temperature 98.6 [degF] 98.6 [degF] eCW3 ( [facility]) Heart rate 18 /min 18 /min eCW3 ([facility]) Body mass index 26.97 kg/m2 26.97 kg/m2 eCW3 ([facility] (BMI) [Ratio] Count includes the [facility]) Body weight 140.4 140.4 [lb_av] eCW3 ([facility] on [lb_av] [facility]) Body height 60.5 [in_i] 60.5 [in_i] eCW3 ([facility]) Diastolic blood 61 mm[Hg] 61 mm[Hg] eCW3 ([facility]) Systolic blood 97 mm[Hg] 97 mm[Hg] eCW3 ([facility] [address]) Body temperature 98.1 [degF] 98.1 [degF] eCW3 ( [facility]) Heart rate 20 /min 20 /min eCW3 ([facility]) Body mass index 25.74 kg/m2 25.74 kg/m2 eCW3 ([facility] (BMI) [Ratio] Count includes the [facility]) Body weight 134 [lb_av] 134 [lb_av] eCW3 ([facility]) Body height 60.5 [in_i] 60.5 [in_i] eCW3 ([facility]) Diastolic blood 69 mm[Hg] 69 mm[Hg] eCW3 ([facility]) Systolic blood 125 mm[Hg] 125 mm[Hg] eCW3 ([facility]) Body temperature 98.1 [degF] 98.1 [degF] eCW3 ( [facility]) Heart rate 20 /min 20 /min eCW3 ([facility]) Body mass index 27.85 kg/m2 27.85 kg/m2 eCW3 ([facility] (BMI) [Ratio] Count includes the [facility]) Body weight 145 [lb_av] 145 [lb_av] eCW3 ([facility]) Body height 60.5 [in_i] 60.5 [in_i] eCW3 ([facility]) Diastolic blood 77 mm[Hg] 77 mm[Hg] eCW3 ([facility]) Systolic blood 125 mm[Hg] 125 mm[Hg] eCW3 ([facility]) Body temperature 98.0 [degF] 98.0 [degF] eCW3 ( [facility]) Heart rate 18 /min 18 /min eCW3 ([facility]) Body mass index 28.23 kg/m2 28.23 kg/m2 eCW3 ([facility] (BMI) [Ratio] Count includes the [facility]) Body weight 147 [lb_av] 147 [lb_av] eCW3 ([facility]) Body height 60.5 [in_i] 60.5 [in_i] eCW3 ([facility]) Body mass index 28.23 kg/m2 28.23 kg/m2 eCW3 ([facility] (BMI) [Ratio] Count includes the [facility]) Body weight 147 [lb_av] 147 [lb_av] eCW3 ([facility]) Body height 60.5 [in_i] 60.5 [in_i] eCW3 ([facility]) Diastolic blood 71 mm[Hg] 71 mm[Hg] eCW3 ([facility]) Systolic blood 130 mm[Hg] 130 mm[Hg] eCW3 ([facility]) Body temperature 97.6 [degF] 97.6 [degF] eCW3 ( [facility]) Heart rate 20 /min 20 /min eCW3 ([facility]) Body mass index 27.07 kg/m2 27.07 kg/m2 [facility]CW3 [facility] [Ratio] Count includes the [facility]) Body weight 148 [lb_av] 148 [lb_av] eCW3 ([facility]) Body height 62 [in_i] 62 [in_i] eCW3 ([facility]) Body height 157.48 cm 157.48 cm NEXTGEN ([facility]) Body weight 65.771 kg 65.771 [facility]) Systolic blood 122 mm[Hg] 122 mm[Hg] [facility] ([facility]) Diastolic blood 78 mm[Hg] 78 mm[Hg] [facility] Heart rate 85 /min 85 /min [facility] ([facility]) Body temperature 36.33 Lucille 36.33 Lucille [facility] ([facility]) Respiratory rate 18 /min 18 /min [facility] ([facility]) Body mass index 26.52 kg/m2 Overweight 26.52 kg/m2 [facility] ([facility] (BMI) [Ratio] [facility]) Oxygen saturation 100 % 100 % [facility] ([facility] Arterial blood [facility]) Diastolic blood 75 mm[Hg] 75 mm[Hg] eCW3 ([facility]) Systolic blood 125 mm[Hg] 125 mm[Hg] eCW3 ([facility]) Body temperature 98.0 [degF] 98.0 [degF] eCW3 ( [facility]) Heart rate 20 /min 20 /min eCW3 ([facility]) Body mass index 27.07 kg/m2 27.07 kg/m2 eCW3 ([facility] ([facility]) [Ratio] Count includes the [facility]) Body weight 148 [lb_av] 148 [lb_av] eCW3 ([facility]) Body height 62 [in_i] 62 [in_i] eCW3 ([facility]) Body height 160.02 cm 160.02 cm [facility]) Body weight 64.864 kg 64.864 [facility]) Systolic blood 131 mm[Hg] 131 mm[Hg] [facility] ([facility]) Diastolic blood 87 mm[Hg] 87 mm[Hg] [facility] ( [facility]) Heart rate 94 /min 94 /min [facility] ([facility]) Body temperature 36.83 Lucille 36.83 Lucille [facility] ([facility]) Respiratory rate 18 /min 18 /min [facility] ([facility]) Body mass index 25.33 kg/m2 Overweight 25.33 kg/m2 [facility] (BMI) [Ratio] [facility]) Body mass index 26.52 kg/m2 26.52 kg/m2 eCW3 ([facility] (BMI) [Ratio] Count includes the [facility]) Body weight 145 [lb_av] 145 [lb_av] eCW3 ([facility]) Body height 62 [in_i] 62 [in_i] eCW3 ([facility]) Diastolic blood 72 mm[Hg] 72 mm[Hg] eCW3 ([facility]) Systolic blood 107 mm[Hg] 107 mm[Hg] eCW3 ([facility]) Body temperature 98.4 [degF] 98.4 [degF] eCW3 ( [facility]) Heart rate 20 /min 20 /min eCW3 ([facility]) Body mass index 26.52 kg/m2 26.52 kg/m2 eCW3 ([facility] (BMI) [Ratio] Count includes the [facility]) Body weight 145 [lb_av] 145 [lb_av] eCW3 ([facility]) Body height 62 [in_i] 62 [in_i] eCW3 ([facility]) Diastolic blood 81 mm[Hg] 81 mm[Hg] eCW3 ([facility]) Systolic blood 149 mm[Hg] 149 mm[Hg] eCW3 ([facility]) Body temperature 98.6 [degF] 98.6 [degF] eCW3 ( [facility]) Heart rate 20 /min 20 /min eCW3 ([facility]) Body mass index 26.70 kg/m2 26.70 kg/m2 eCW3 ([facility] [place] (BMI) [Ratio] Count includes the [facility]) Body weight 146 [lb_av] 146 [lb_av] eCW3 ([facility]) Body height 62 [in_i] 62 [in_i] eCW3 ([facility]) Patient Treatment Plan of Care Planned Activity Planned Date Details Description Data Source (s) Blood Glucose Monitor 11/20/2019 eCW3 ( [place] [facility] w/Device 12:00:[address] [facility] re) Blood Glucose Monitor 11/20/2019 eCW3 ( [facility] w/Device 12:00:[address] [facility] re) Blood Glucose Monitor 11/20/2019 eCW3 ( [facility] w/Device 12:00:[address] [facility] re) Diclofenac Sodium 0.01 10/14/2019 eCW3 ([place] MG/MG Topical Gel 12:00:00 AM [facility]) Diclofenac Sodium 0.01 10/14/2019 eCW3 ([place] MG/MG Topical Gel 12:00:00 AM [facility]) Hydroxyzine Hydrochloride 10/14/2019 eC W3 ([place] 25 MG Oral Tablet 12:00:00 AM [facility]) Hydroxyzine Hydrochloride 10/14/2019 eC W3 ([place] 25 MG Oral Tablet 12:00:00 AM [facility]) Heating Pad - 09/22/2019 eCW3 ([place] 12:[facility]:00 AM [facility]) Heating Pad - 09/22/2019 eCW3 ([place] [facility] 12:00:00 AM [facility]) Heating Pad - 09/22/2019 eCW3 ([place] 12:[facility]:00 AM [facility]) Heating Pad - 09/22/2019 eCW3 ([place] 12:00:00 AM [facility] Care) Heating Pad - 09/22/2019 eCW3 ([place] 12:00:00 AM [facility]) Heating Pad - 09/22/2019 eCW3 ([place] [facility] 12:00:00 AM [facility] Care) Heating Pad - 09/22/2019 eCW3 ([place] 12:00:00 AM [facility] Health [facility]) Sertraline 50 MG Oral 08/25/2019 eCW3 ( [place] Tablet 12:00:00 AM [facility] Health [facility]) Sertraline 50 MG Oral 08/25/2019 eCW3 ( [place] Tablet 12:00:00 AM [facility]) Sertraline 50 MG Oral 08/25/2019 eCW3 ( [place] Tablet 12:00:00 AM [facility] Health [facility]) Sertraline 50 MG Oral 08/25/2019 eCW3 ( [place] Tablet 12:00:00 AM [facility] Health [facility]) Sertraline 50 MG Oral 08/25/2019 eCW3 ( [place] Tablet 12:00:00 AM [facility] Health [facility]) Sertraline 50 MG Oral 08/25/2019 eCW3 ( [place] Tablet 12:00:00 AM [facility] Health [facility]) Sertraline 50 MG Oral 08/25/2019 eCW3 ( [place] Tablet 12:00:00 AM [facility] Health [facility]) Sertraline 50 MG Oral 08/25/2019 eCW3 ( [place] Tablet 12:00:00 AM [facility] Health [facility]) Sertraline 50 MG Oral 08/25/2019 eCW3 ( [place] Tablet 12:00:00 AM [facility] Health [facility]) Sertraline 50 MG Oral 08/25/2019 eCW3 ( [place] Tablet 12:00:00 AM [facility] Health [facility]) Sertraline 50 MG Oral 08/25/2019 eCW3 ( [place] Tablet 12:00:00 AM [facility] Health [facility]) Sertraline 50 MG Oral 08/25/2019 eCW3 ( [place] Tablet 12:00:00 AM [facility] Health [facility]) Sertraline 50 MG Oral 08/25/2019 eCW3 ( [place] Tablet 12:00:00 AM [facility]) Ketoconazole 20 MG/ML 08/06/2019 eCW3 ( [place] Medicated Shampoo 12:00:00 AM [facility]) pantoprazole 40 MG Delayed 07/21/2019 e CW3 ([place] Release Oral Tablet 12:00:00 AM [facility]) pantoprazole 40 MG Delayed 07/21/2019 e CW3 ([place] Release Oral Tablet 12:00:00 AM [facility]) Omeprazole 40 MG Delayed 02/13/2019 eCW 3 ([place] Release Oral Capsule 12:00:00 AM [facility]) Omeprazole 40 MG Delayed 02/13/2019 eCW 3 ([place] Release Oral Capsule 12:00:00 AM [facility] hospital) Omeprazole 40 MG Delayed 02/13/2019 eCW 3 ([place] Release Oral Capsule 12:00:00 AM [facility] hospital) Senna 8.6 MG 02/13/2019 eCW3 ([place] 12:00:00 AM [facility]) Omeprazole 40 MG Delayed 02/13/2019 eCW 3 ([place] Release Oral Capsule 12:00:00 AM [facility] hospital) Senna 8.6 MG 02/13/2019 eCW3 ([place] 12:00:00 AM [facility]) Senna 8.6 MG 02/13/2019 eCW3 ([place] 12:00:00 AM [facility]) Senna 8.6 MG 02/13/2019 eCW3 ([place] 12:00:00 AM [facility]) Senna 8.6 MG 02/13/2019 eCW3 ([place] 12:00:00 AM [facility]) Senna 8.6 MG 02/13/2019 eCW3 ([place] 12:00:00 AM [facility]) Senna 8.6 MG 02/13/2019 eCW3 ([place] 12:00:00 AM [facility]) Acetaminophen 500 MG Oral 02/13/2019 eC W3 ([place] Tablet 12:00:00 AM [facility]) Omeprazole 40 MG Delayed 02/13/2019 eCW 3 ([place] Release Oral Capsule 12:00:00 AM [facility] hospital) Mirtazapine 7.5 MG Oral 08/19/2018 eCW3 ([place] Tablet 12:00:00 AM [facility]) Blood Glucose Test - 05/10/2018 eCW3 ([place] 12:00:00 AM [facility]) Lac-Hydrin 12 % 05/22/2017 eCW3 ([place] 12:00:00 AM [facility]) Zenpep [id number] UNIT 05/22/2017 eCW3 ([facility] 12:00:00 AM [facility]) VICTOZA 1.2 MG 02/13/2017 eCW3 ([place] 12:00:00 AM [facility]) VICTOZA 1.2 MG 02/13/2017 eCW3 ([place] 12:00:00 AM [facility]) VICTOZA 1.2 MG 02/13/2017 eCW3 ([place] 12:00:00 AM [facility]) VICTOZA 1.2 MG 02/13/2017 eCW3 ([place] 12:00:00 AM [facility]) VICTOZA 1.2 MG 02/13/2017 eCW3 ([place] 12:00:00 AM [facility]) Metformin hydrochloride 02/13/2017 eCW3 ([place] 1000 MG Oral Tablet 12:00:00 AM [facility]) VICTOZA 1.2 MG 02/13/2017 eCW3 ([place] 12:00:00 AM [facility]) VICTOZA 1.2 MG 02/13/2017 eCW3 ([place] 12:00:00 AM [facility]) 3 ML Insulin Glargine 100 12/07/2016 eC W3 ([place] UNT/ML Pen Injector 12:00:00 AM [facility]) [Lantus] Glipizide 5 MG Oral Tablet 06/16/2016 e CW3 ([place] 12:00:00 AM [facility]) Glipizide 10 MG Oral Tablet 06/16/2016 eCW3 ([place] 12:00:00 AM [facility]) Glipizide 5 MG Oral Tablet 06/16/2016 e CW3 ([place] 12:00:00 AM [facility]) Aspirin 81 MG Delayed 04/18/2016 eCW3 ( [place] Release Oral Tablet 12:00:00 [facility]) Diclofenac Sodium 0.01 02/29/2016 eCW3 ([place] MG/MG Topical Gel 12:00:00 AM [facility]) [Voltaren] Flonase Allergy Relief 50 09/01/2015 eC W3 ([place] MCG/ACT 12:00:00 AM [facility] Health Care) Flonase Allergy Relief 50 09/01/2015 eC W3 ([place] MCG/ACT 12:00:00 AM [facility] Health Care) Loratadine 10 MG Oral 09/01/2015 eCW3 ( [place] Tablet [Claritin] 12:00:00 AM [facility]) FreeStyle Lite Test 07/08/2015 eCW3 ([place] freestyle lite 12:00:00 AM [facility]) FreeStyle Lite Test 07/08/2015 eCW3 ([place] freestyle lite 12:00:00 AM [facility]) FreeStyle Lite Test 07/08/2015 eCW3 ([place] freestyle lite 12:00:00 AM [facility] e) Alcohol Pads 70 % 07/08/2015 eCW3 ([place] 12:00:00 AM [facility] Care) Diclofenac Sodium 0.01 07/05/2015 eCW3 ([place] MG/MG Topical Gel 12:00:00 AM [facility] Health Care) [Voltaren] Multivitamin 1 09/02/2014 eCW3 ([place] 12:00:00 AM [facility]) Fluticasone Propionate 50 eC W3 ([place] [facility]) Mirtazapine 15 MG Oral eCW3 ([place] Tablet [facility]) Fluticasone Propionate 50 eC W3 ([place] [facility]) Mirtazapine 15 MG Oral eCW3 ([place] [facility]) Acetaminophen 500 MG Oral eC W3 ([facility] Tablet Health Care) Fluticasone Propionate 50 eC W3 ([place] [facility]) Mirtazapine 15 MG Oral eCW3 ([place] [facility]) Mirtazapine 15 MG Oral eCW3 ([facility]) Fluticasone Propionate 50 eC W3 ([facility] MCG/[facility] Health Care) Mirtazapine 15 MG Oral eCW3 ([facility] Tablet Health Care) Mirtazapine 15 MG Oral eCW3 ([facility]) Mirtazapine 15 MG Oral eCW3 ([facility] Tablet Health Care) Acetaminophen 500 MG Oral eC W3 ([facility]) Enalapril Maleate 2.5 MG eCW 3 ([facility] Tablet Health Care) Ibuprofen 600 mg, Ordered [facility] By: Hayley Almeida, [facility] MDDirections: 1 tab oral 2x/day Cyclobenzaprine 5 mg, [facility] Ordered By: Hayley Watts C enter Slim, MDDirections: 1 tab oral hs prn Mirtazapine 15 MG Oral eCW3 ([facility]) Mirtazapine 15 MG Oral eCW3 ([facility]) Mirtazapine 30 MG Oral eCW3 ([facility]) diclofenac sodium 1 % Gel [facility] 8 HR Acetaminophen 650 MG [facility] Extended [facility] Tablet [Tylenol] Ibuprofen 400 MG Oral [facility] 3 ML liraglutide 6 MG/ML [facility] Pen Injector [Victoza] [facility] [place] Ranitidine 150 MG Oral [facility] pantoprazole 40 MG Delayed S [facility] Release Oral Tablet [facility] Omeprazole 40 MG Delayed [facility] Release Oral Capsule [facility] olopatadine 1 MG/ML [facility] Ophthalmic Solution [facility] [place] Lidocaine Hydrochloride 40 S aint Carlyn MG/ML Mucous Membrane [facility]ica [facility] [place] Topical Solution 3 ML Insulin Glargine 100 [facility] UNT/ML Pen Injector [facility] [place] [Lantus] Glipizide 10 MG Oral Tablet [facility] gabapentin [address] [facility] Famotidine 40 MG Oral [facility] Mirtazapine 30 MG Oral eCW3 ([facility]) Cyclobenzaprine [place] [facility] hydrochloride 5 MG Oral [facility] Tablet Mirtazapine 45 MG Oral eCW3 ([facility])
[2020-01-30] MEDS ORDERED: BUPIVACAINE HCL/PF 0.75% 10 ML VIAL ONE (07:15)
[2020-01-30] MEDS ORDERED: LIDOCAINE HCL/PF 1% SDV 5ML VIAL ONE (07:15)
[2020-01-30 08:16] VITALS: TEMP 97.8
[2020-01-30] MEDS ORDERED: IOHEXOL 180 MG/1 ML ML IJ ONE (10:25)
[2020-01-30] MEDS ORDERED: LIDOCAINE HCL 1% PRESERVATIVE FREE - 30ML VIAL IJ ONE (10:25)
[2020-01-30] MEDS ORDERED: BUPIVACAINE HCL/PF 0.75% 10 ML VIAL NR ONE (10:26)
[2020-01-30 12:42] VITALS: BP 120/72; PULSE 82
--- NOTE | 2020-02-02 22:24 | PROC ---
Procedure Note Procedure: Pre procedure Diagnosis: Lumbar Spondylosis Post Procedure Diagnosis: same Anesthesia: Local Procedure Performed: Right and Left L3 L4 L5 Medial Branch Blocks under Fluoroscopic Guidance Procedure: After the risks and benefits were explained, informed consent was obtained. The patient was then taken to the procedure room and positioned prone on the procedure table. Time out was performed. The region overlying the appropriate vertebral bodies was identified using fluoroscopy. The skin was prepped and draped in the usual sterile fashion. The skin and soft tissues were anesthetized using 1% lidocaine. Using fluoroscopic guidance, 22 gauge 3.5 inch spinal needles were then introduced to the juncture of the superior articular processes and the transverse processes of the RIGHT L3, L4, and L5 medial branches are located. Omnipaque 180 confirmed appropriate needle placement. There was no epidural or vascular flow observed. .75% bupivacaine was drawn into a syringe. 0.5cc of this solution was then injected at each level. The same procedure was repeated on the LEFT side at the same levels. The patient tolerated the procedure well and there were no complications. The patient was taken to the post procedure recovery area in good condition. Vital signs remained stable before, and after the procedure. The patient was given oral follow-up instructions.The patient was givena follow up appointment with me in the near future. Shailesh Clark D.O.
== END 2020-01-30 11:15 | disposition home or self-care (01) ==
LOC: JASU-SURG 05:12
PROVIDERS: ATTEND Pain Medicine Pain Medicine
PROC: 3E0T33Z Introduction of Anti-inflammatory into Peripheral Nerves and Plexi, Percutaneous Approach (ICD-10-PCS; 2020-01-30)
PROC: 3E0T3BZ Introduction of Anesthetic Agent into Peripheral Nerves and Plexi, Percutaneous Approach (ICD-10-PCS; principal; 2020-01-30 10:45)
DX: M47.816 Spondylosis without myelopathy or radiculopathy, lumbar region (principal); M54.5 Low back pain
CPT/HCPCS: 76000-TC-FY

== ENCOUNTER 2020-10-22 04:24 | Day surgery (SDC) | payer OTHER ==
[2020-10-21 08:43] VITALS: BMI 26.5
[2020-10-22] MEDS ORDERED: LIDOCAINE HCL/PF 1% SDV 5ML VIAL ONE (07:11)
[2020-10-22] MEDS ORDERED: BUPIVACAINE HCL/PF 0.75% 10 ML VIAL ONE (07:11)
[2020-10-22] MEDS ORDERED: IOHEXOL 180 MG/1 ML ML IJ ONE ×3 (08:36)
[2020-10-22] MEDS ORDERED: LIDOCAINE 1% P/F 10 MG/ML VIAL INF ONE (08:37)
[2020-10-22] MEDS ORDERED: BUPIVACAINE HCL/PF 0.75% 10 ML VIAL NR ONE ×2 (08:39)
[2020-10-22 10:34] VITALS: BP 129/76; PULSE 78; TEMP 98.2
== END 2020-10-22 09:45 | disposition home or self-care (01) ==
LOC: JASU-SURG 04:24
PROVIDERS: ATTEND Pain Medicine Pain Medicine
PROC: BR16YZZ Fluoroscopy of Lumbar Facet Joint(s) using Other Contrast (ICD-10-PCS; 2020-10-22)
PROC: 3E0T3BZ Introduction of Anesthetic Agent into Peripheral Nerves and Plexi, Percutaneous Approach (ICD-10-PCS; principal; 2020-10-22 08:45)
DX: M47.816 Spondylosis without myelopathy or radiculopathy, lumbar region (principal)
CPT/HCPCS: 76000-TC-FY

== ENCOUNTER 2020-12-10 04:48 | Day surgery (SDC) | payer OTHER ==
[2020-12-08 16:41] VITALS: BMI 26.5
[2020-12-10] MEDS ORDERED: DEXAMETHASONE SOD PHOSPHATE 10 MG/1 ML VIAL IM ONE (14:12)
[2020-12-10] MEDS ORDERED: LIDOCAINE HCL 1% PRESERVATIVE FREE - 30ML VIAL IJ ONE (14:15)
[2020-12-10] MEDS ORDERED: LIDOCAINE HCL 2% 100 MG/5 ML DISP.SYRIN NR ONE (14:15)
[2020-12-10] MEDS ORDERED: IOHEXOL 180 MG/1 ML ML IJ ONE (14:18)
[2020-12-10] MEDS ORDERED: BUPIVACAINE HCL/PF 0.75% 10 ML VIAL NR ONE (14:21)
[2020-12-10 14:48] VITALS: BP 135/84; PULSE 90; TEMP 98.4
== END 2020-12-10 15:10 | disposition home or self-care (01) ==
LOC: JASU-SURG 04:48
PROVIDERS: ATTEND Pain Medicine Pain Medicine
PROC: 3E0T3TZ Introduction of Destructive Agent into Peripheral Nerves and Plexi, Percutaneous Approach (ICD-10-PCS; principal; 2020-12-10 13:15)
DX: M47.816 Spondylosis without myelopathy or radiculopathy, lumbar region (principal)
CPT/HCPCS: 76000-TC-FY; J1100

== ENCOUNTER 2021-01-14 04:35 | Day surgery (SDC) | payer OTHER ==
[2021-01-12 10:41] VITALS: BMI 26.5
[2021-01-14] MEDS ORDERED: BUPIVACAINE HCL/PF 0.75% 10 ML VIAL ONE (07:23)
[2021-01-14] MEDS ORDERED: LIDOCAINE HCL/PF 1% SDV 5ML VIAL ONE (07:23)
[2021-01-14] MEDS ORDERED: LIDOCAINE HCL/PF 2% SDV 5ML VIAL ONE (12:11)
[2021-01-14] MEDS ORDERED: DEXAMETHASONE SOD PHOSPHATE 10 MG/1 ML VIAL IVPUSH ONE (12:14)
[2021-01-14] MEDS ORDERED: LIDOCAINE HCL 1% PRESERVATIVE FREE - 30ML VIAL IJ ONE (12:14)
[2021-01-14 12:49] VITALS: BP 138/83; PULSE 77; TEMP 97.8
== END 2021-01-14 13:30 | disposition home or self-care (01) ==
LOC: JASU-SURG 04:35
PROVIDERS: ATTEND Pain Medicine Pain Medicine
PROC: 3E0T3TZ Introduction of Destructive Agent into Peripheral Nerves and Plexi, Percutaneous Approach (ICD-10-PCS; principal; 2021-01-14 11:15)
DX: M47.816 Spondylosis without myelopathy or radiculopathy, lumbar region (principal)
CPT/HCPCS: 76000-TC-FY; J1100

== ENCOUNTER 2022-09-21 04:24 | Day surgery (SDC) | payer OTHER ==
[2022-09-20 10:08] VITALS: BMI 24.7
[2022-09-21 12:04] VITALS: TEMP 98
[2022-09-21 12:20] VITALS: BP 140/87; PULSE 79; RESP 15
== END 2022-09-21 12:25 | disposition home or self-care (01) ==
LOC: JASU-ENDO 04:24
PROVIDERS: ATTEND Internal Medicine Gastroenterology
PROC: 0DJD8ZZ Inspection of Lower Intestinal Tract, Via Natural or Artificial Opening Endoscopic (ICD-10-PCS; principal; 2022-09-21 10:45)
DX: Z12.11 Encounter for screening for malignant neoplasm of colon (principal); K64.8 Other hemorrhoids

== ENCOUNTER 2022-12-12 05:04 | Day surgery (SDC) | payer OTHER ==
[2022-12-07 08:53] VITALS: BMI 24.7
[2022-12-12 14:25] VITALS: TEMP 98
[2022-12-12 14:29] VITALS: BP 124/62; PULSE 66; RESP 13
== END 2022-12-12 12:20 | disposition home or self-care (01) ==
LOC: JASU-ENDO 05:04
PROVIDERS: ATTEND Internal Medicine Gastroenterology
PROC: 0DJD8ZZ Inspection of Lower Intestinal Tract, Via Natural or Artificial Opening Endoscopic (ICD-10-PCS; principal; 2022-12-12 09:45)
DX: Z12.11 Encounter for screening for malignant neoplasm of colon (principal)
CPT/HCPCS: 82962

== ENCOUNTER → 2022-12-28 | Day surgery (SDC) | payer OTHER ==
[2022-12-27 13:01] VITALS: BMI 24.7
[2022-12-28 12:23] VITALS: TEMP 97.8
[2022-12-28 13:04] VITALS: RESP 17
[2022-12-28 13:09] VITALS: BP 123/64; PULSE 80
== END | disposition home or self-care (01) ==
LOC: JASU-ENDO 04:28
PROVIDERS: ATTEND Internal Medicine Gastroenterology
PROC: 0DBL8ZX Excision of Transverse Colon, Via Natural or Artificial Opening Endoscopic, Diagnostic (ICD-10-PCS; 2022-12-28)
PROC: 0DBN8ZX Excision of Sigmoid Colon, Via Natural or Artificial Opening Endoscopic, Diagnostic (ICD-10-PCS; principal; 2022-12-28 12:45)
DX: Z12.11 Encounter for screening for malignant neoplasm of colon (principal); D12.7 Benign neoplasm of rectosigmoid junction; D12.3 Benign neoplasm of transverse colon; K64.8 Other hemorrhoids; Z86.010 Personal history of colon polyps; I10 Essential (primary) hypertension; E11.9 Type 2 diabetes mellitus without complications; Z79.4 Long term (current) use of insulin
CPT/HCPCS: 82962; 88305-TC